=== PATIENT | male | born 1945 | race Caucasian/White ===

== ENCOUNTER 2017-09-26 19:18 | Inpatient (IN) | payer MEDICARE ==
[~2017-09-26] VITALS: Ht 188 cm; Wt 78.5 kg
--- NOTE | 2017-09-26 19:39 | PHYS DOC ---
Adult General Chief Complaint Chief Complaint: PSYCH EVALUATION HPI HPI 72-year-old male presents for behavioral health medical clearance. Patient was reported to be verbally and physically aggressive towards staff at the care facility where he resides. The patient has already been approved for admission to our behavioral [facility] unit. The patient does not have any new medical complaints. Review of Systems Review of Systems Constitutional: Denies fever or chills [] Eyes: Denies change in visual acuity, redness, or eye pain [] HENT: Denies nasal congestion or sore throat [] Respiratory: Denies cough or shortness of breath [] Cardiovascular: No additional information not addressed in HPI [] GI: Denies abdominal pain, nausea, vomiting, bloody stools or diarrhea [] : Denies dysuria or hematuria [] Musculoskeletal: Denies back pain or joint pain [] Integument: Denies rash or skin lesions [] Neurologic: Denies headache, focal weakness or sensory changes [] Endocrine: Denies polyuria or polydipsia [] All other systems were reviewed and found to be within normal limits, except as documented in this note. Physical Exam Physical Exam Constitutional: Well developed, well nourished, no acute distress, non-toxic appearance. [] HENT: Normocephalic, atraumatic, bilateral external ears normal, oropharynx moist, no oral exudates, nose normal. [] Eyes: PERRLA, EOMI, conjunctiva normal, no discharge. [] Neck: Normal range of motion, no tenderness, supple, no stridor. [] Cardiovascular:Heart rate regular rhythm, no murmur [] Lungs & Thorax: Bilateral breath sounds clear to auscultation [] Abdomen: Bowel sounds normal, soft, no tenderness, no masses, no pulsatile masses. [] Skin: Warm, dry, no erythema, no rash. [] Back: No tenderness, no CVA tenderness. [] Extremities: No tenderness, no cyanosis, no clubbing, ROM intact, no edema. [] Neurologic: Alert and oriented X 3, normal motor function, normal sensory function, no focal deficits noted. [] Psychologic: Affect normal, mood depressed. [] EKG EKG Sinus rhythm, rate 62, normal axis, no ST elevations or depressions.[] Radiology/Procedures Radiology/Procedures [] Course & Med Decision Making Course & Med Decision Making Pertinent Labs and Imaging studies reviewed. (See chart for details) The patient's labs are unremarkable. His urine is pending. His EKG is unremarkable. The patient is on Coumadin his INR is 5.2. This does not preclude admission to behavioral health, but with holding his Coumadin for the appropriate amount of time is necessary. We will make the behavioral health unit staff aware of this finding. The patient's urinalysis is negative for infection. He does have some red blood cells. He is medically stable for admission to the behavioral health unit with appropriate Coumadin management. [] Dragon Disclaimer Dragon Disclaimer This electronic medical record was generated, in whole or in part, using a voice recognition dictation system. CEM KAUFFMAN DO Sep 26, 2017 19:39
[2017-09-26 19:56] LABS: BASO % 1 % (0-3); EOS # 0.3 x10^3/uL (0.0-0.7); EOS % 5 % (0-3); HEMATOCRIT 41.7 % (39.0-53.0); HEMOGLOBIN 14.6 g/dL (13.0-17.5); LYMPH # 2.1 x10^3/uL (1.0-4.8); LYMPH % 28 % (24-48); MEAN CORPUSCULAR HEMOGLOBIN 34 pg (25-35); MEAN CORPUSCULAR HGB CONC 35 g/dL (31-37); MEAN CORPUSCULAR VOLUME 96 fL (79-100); MONO # 0.8 x10^3/uL (0.0-1.1); MONO % 10 % (0-9); NEUT # 4.2 x10^3uL (1.8-7.7); NEUT % 57 % (31-73); PLATELET COUNT 235 x10^3/uL (140-400); RED BLOOD COUNT 4.36 x10^6/uL (4.30-5.70); RED CELL DISTRIBUTION WIDTH 14.3 % (11.5-14.5); WHITE BLOOD COUNT 7.5 x10^3/uL (4.0-11.0)
[2017-09-26 20:07] LABS: ALBUMIN/GLOBULIN RATIO 0.8 (1.0-1.7); CALCIUM 8.9 mg/dL (8.5-10.1); CREATININE 0.6 mg/dL (0.7-1.3); GFR 132.8; POTASSIUM 3.8 mmol/L (3.5-5.1); TOTAL BILIRUBIN 0.4 mg/dL (0.2-1.0); TOTAL PROTEIN 6.7 g/dL (6.4-8.2)
--- NOTE | 2017-09-26 20:14 | EKG ---
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
[2017-09-26 21:15] LABS: BILIRUBIN,URINE NEG (NEG); CLARITY,URINE CLEAR; COLOR,URINE YELLOW; GLUCOSE,URINE NEG (NEG)
[2017-09-26 21:20] LABS: BACTERIA,URINE 0 /HPF (0-FEW); NITRITE,URINE NEG (NEG); SQUAMOUS EPITHELIAL CELL,UR FEW /LPF; UROBILINOGEN,URINE 1 mg/dL (0.2 mg/dL); WBC,URINE OCC /HPF (0-4)
[2017-09-26] MEDS ORDERED: VITA1TAB19 PO (21:24)
[2017-09-26] MEDS ORDERED: FINA5TAB4 PO (21:24)
[2017-09-26] MEDS ORDERED: OMEP20TA63 PO (21:24)
[2017-09-26] MEDS ORDERED: ZOLP10TA PO (21:24)
[2017-09-26] MEDS ORDERED: OMEG-33 PO (21:24)
[2017-09-26] MEDS ORDERED: ATOR20TA PO (21:24)
[2017-09-26] MEDS ORDERED: DULO30CA2 PO (21:24)
[2017-09-26] MEDS ORDERED: WARF2TAB PO (21:24)
[2017-09-26] MEDS ORDERED: GABA-586 PO (21:24)
[2017-09-26] MEDS ORDERED: GABA600T2 PO ×2 (21:24)
[2017-09-26] MEDS ORDERED: ALBU18HF IH (21:24)
[2017-09-26] MEDS ORDERED: ASCO100020 PO (21:24)
[2017-09-26] MEDS ORDERED: KETO15CR2 TP (21:24)
[2017-09-26] MEDS ORDERED: WARF1TAB74 PO (21:24)
[2017-09-26] MEDS ORDERED: LACT1CAP29 PO (21:24)
[2017-09-26] MEDS ORDERED: WARF-78 PO (21:24)
[2017-09-26] MEDS ORDERED: CHOL500016 PO (21:24)
[2017-09-26] MEDS ORDERED: FLUP1TAB PO (21:24)
[2017-09-26] MEDS ORDERED: MAGNESIUM HYDROXIDE 2,400 MG/30 ML ORAL.SUSP. PO PRN (22:30)
[2017-09-26] MEDS ORDERED: MAG HYDROX/AL HYDROX/SIMETH 30 ML ORAL.SUSP PO PRN (22:30)
[2017-09-26] MEDS ORDERED: FINASTERIDE 5 MG TABLET PO SCH (22:45)
[2017-09-26] MEDS ORDERED: ZOLPIDEM 5 MG TABLET. PO PRN (22:45)
[2017-09-26] MEDS: OMEGA-3 FATTY ACIDS/FISH OIL 1,000 MG CAPSULE. PO SCH (23:07)
[2017-09-26] MEDS: ATORVASTATIN CALCIUM 20 MG TABLET PO SCH (23:10)
[2017-09-26] MEDS: GABAPENTIN 300 MG CAPSULE. PO SCH (23:11)
[2017-09-26] MEDS: ZOLPIDEM 5 MG TABLET. PO SCH (23:11)
[2017-09-26 23:22] VITALS: BP 136/80
[2017-09-26] MEDS ORDERED: LOPERAMIDE 2 MG CAPSULE PO PRN (23:30)
[2017-09-27 05:44] VITALS: BP 113/64
[2017-09-27] MEDS ORDERED: KETOCONAZOLE 2% TOPICAL CREAM 30GM TUBE. TP PRN (08:45)
[2017-09-27] MEDS ORDERED: ALBUTEROL SULFATE 8GM INHALER. IH PRN (08:45)
[2017-09-27] MEDS: LACTOBACILLUS RHAMNOSUS GG 1 CAPSULE. PO SCH ×3 (09:00→21:02)
[2017-09-27] MEDS: VITAMIN B COMPLEX CAPSULE. PO SCH ×3 (09:00→17:01)
[2017-09-27] MEDS: OMEGA-3 FATTY ACIDS/FISH OIL 1,000 MG CAPSULE. PO SCH ×5 (09:00→21:11)
[2017-09-27] MEDS: ASCORBIC ACID 500 MG TABLET PO SCH ×3 (09:00→17:02)
[2017-09-27] MEDS ORDERED: ALBUTEROL SULFATE 2.5 MG/3 ML NEBU. NEB PRN (09:15)
--- NOTE | 2017-09-27 09:17 | PDOC2 ---
CONSULT Date of Admission DATE: 09/26/17 Reason for Consult: Medical management Referring Physician: Dr Hollis Source: Caregiver, Chart review, Patient Problem List Problems Medical Problems: (1) Manic depressive disorder Status: Acute History of Present Illness Patient is a 72-year-old male brought to the ED from [facility] for medical clearance at admission to the [facility] health unit for impulse control and major depressive disorder. Records indicate that the patient was being aggressive with the staff, refusing medications, and exhibiting symptoms consistent with worsening depression. They relate that the patient is demanding impatient and manipulative and he's been admitted for medication titration and psychiatric evaluation. When I spoke to the patient he was sitting in a wheelchair being wheeled from breakfast. He complained that the urinal was not brought to him quickly enough when he needed to go to the bathroom otherwise denied any problems or complaints. In the emergency department his INR was found to be elevated at 5.2 otherwise available labs unremarkable. EKG was normal sinus rhythm at [address]-T changes Past medical history: Fall risk, dysarthria, Tourette's, insomnia, sleep apnea, hypertension, venous stasis ulcer of the left lower extremity, incontinence, hyperlipidemia, osteoporosis, major depressive disorder, DVT, chronic anticoagulation therapy, prostate cancer, spasticity, myelopathy, neuropathy, urinary incontinence, debility. Primarily uses a wheelchair Past surgical history: Unavailable Social history: Lives in a care home denies alcohol tobacco or illicit substances Current Medications Current Medications Acetaminophen (Tylenol) 650 mg PRN Q6HRS PRN PO PAIN / TEMP; Start 09/26/17 at 22:30 Al Hydroxide/Mg Hydroxide (Mylanta Plus Xs) 15 ml PRN AFTMEALHC PRN PO DYSPEPSIA; Start 09/26/17 at 22:30 Magnesium Hydroxide (Milk Of Magnesia) 2,400 mg PRN QHS PRN PO CONSTIPATION; Start 09/26/17 at 22:30 Fluphenazine HCl (Prolixin) 1 mg TID PO Last administered on 09/26/17at 23:11; Start 09/26/17 at 23:00; Stop 09/27/17 at 07:28; Status DC Zolpidem Tartrate (Ambien) 5 mg HS PO Last administered on 09/26/17at 23:11; Start 09/26/17 at 23:00 Duloxetine HCl (Cymbalta) 90 mg DAILY PO ; Start 09/27/17 at 09:00 Atorvastatin Calcium (Lipitor) 20 mg QHS PO Last administered on 09/26/17at 23: 10; Start 09/26/17 at 22:45 Finasteride (Proscar) 5 mg BID PO Last administered on 09/26/17at 23:10; Start 09/26/17 at 22:45; Stop 09/27/17 at 08:53; Status DC Gabapentin (Neurontin) 600 mg HS PO Last administered on 09/26/17at 23:11; Start 09/26/17 at 22:45 Fish Oil (Fish Oil) 1,000 mg BID PO Last administered on 09/26/17at 23:07; Start 09/26/17 at 22:45 Zolpidem Tartrate (Ambien) 5 mg PRN QHS PRN PO INSOMNIA IF REPEAT NEEDED; Start 09/26/17 at 22:45 Loperamide HCl (Imodium) 2 mg PRN Q15MIN PRN PO DIARRHEA; Start 09/26/17 at 23: 30 Fluphenazine HCl (Prolixin Oral Conc) 1 mg TID PO ; Start 09/27/17 at 09:00 Albuterol Sulfate (Ventolin Hfa Inhaler) 2 puff PRN Q4HRS PRN IH FOR ASTHMA; Start 09/27/17 at 08:45; Status UNV Gabapentin (Neurontin) 300 mg DAILY PO ; Start 09/27/17 at 09:00 Ketoconazole (Nizoral 2% Topical) 1 isela DAILY PRN TP RASH; Start 09/27/17 at 08 :45 Ascorbic Acid (Vitamin C) 1,000 mg DAILY PO ; Start 09/27/17 at 09:00 Vitamin D (Vitamin D3) 5,000 unit DAILY PO ; Start 09/27/17 at 09:00 Gabapentin (Neurontin) 600 mg AFTRNOON PO ; Start 09/27/17 at 13:00 Lactobacillus Rhamnosus (Culturelle) 1 cap DAILY PO ; Start 09/27/17 at 09:00 Pantoprazole Sodium (Protonix) 40 mg DAILYAC PO ; Start 09/27/17 at 09:00 Vitamin B Complex 1 cap DAILY PO ; Start 09/27/17 at 09:00 Finasteride (Proscar) 5 mg DAILY PO ; Start 09/27/17 at 09:00 Albuterol Sulfate (Ventolin) 2.5 mg PRN Q4HRS PRN NEB SHORTNESS OF BREATH; Start 09/27/17 at 09:15 Active Scripts Active Reported Vitamin D3 (Cholecalciferol (Vitamin D3)) 5,000 Unit Tablet 5,000 Unit PO DAILY Vitamin C (Ascorbic Acid) 1,000 Mg Tablet.er 1,000 Mg PO DAILY Ventolin Hfa Inhaler (Albuterol Sulfate) 18 Gm Hfa.aer.ad 2 Puff IH PRN Q4HRS PRN Probiotic (Lactobacillus Combo No.10) 1 Each Capsule 1 Cap PO DAILY Prilosec Otc (Omeprazole Magnesium) 20 Mg Tablet.dr 20 Mg PO DAILY [place] 3 1,000 Mg Softgel ([place]-3 Fatty Acids/Fish Oil) 1 Each Capsule 1 Cap PO BID Lipitor (Atorvastatin Calcium) 20 Mg Tablet 20 Mg PO QHS Ketoconazole 15 Gm Cream..g. 13 Isela TP PRN PRN Gabapentin 600 Mg Tablet 600 Mg PO AFTRNOON Gabapentin 600 Mg Tablet 600 Mg PO HS Gabapentin 300 Mg Capsule 300 Mg PO DAILY Fluphenazine Hcl 1 Mg Tablet 1 Mg PO TID Finasteride 5 Mg Tablet 5 Mg PO BID Cymbalta (Duloxetine Hcl) 30 Mg Capsule.dr 90 Mg PO DAILY Coumadin (Warfarin Sodium) 5 Mg Tablet 5 Mg PO QPM Coumadin (Warfarin Sodium) 2 Mg Tablet 2 Mg PO QPM Coumadin (Warfarin Sodium) 1 Mg Tablet 0.5 Mg PO QPM B Complex (Vitamin B Complex) 1 Each Tablet 1 Tab PO DAILY Ambien (Zolpidem Tartrate) 10 Mg Tablet 10 Mg PO HS Allergies: Coded Allergies: No Known Drug Allergies (Unverified , 09/26/17) Review of System The patient has a flat affect and of few words, he denies any complaints aside from history of present illness General: Alert, Oriented X3, No acute distress (in wheelchair) HEENT: Atraumatic, EOMI, Mucous membr. moist/pink Lungs: Clear to auscultation, Normal air movement Heart: Normal S1, Normal S2, No murmurs Abdomen: Normal bowel sounds, Soft, No tenderness Extremities: No clubbing, No cyanosis (sterile dressing at the left lower leg, 1+ pitting lower extremity edema bilaterally) Neuro: Other (generalized weakness, cranial nerves normal as tested, alert and oriented 3) Psych/Mental Status: Other (very flat affect, appears depressed) VITALS Vital Signs Date Time Temp Pulse Resp B/P (MAP) Pulse Ox O2 Delivery O2 Flow Rate FiO2 09/27/17 05:44 97.8 68 16 113/64 (80) 93 09/26/17 19:24 Room Air Labs Laboratory Tests Test 09/26/17 19:40 09/26/17 20:25 White Blood Count 7.5 x10^3/uL (4.0-11.0) Red Blood Count 4.36 x10^6/uL (4.30-5.70) Hemoglobin 14.6 g/dL (13.0-17.5) Hematocrit 41.7 % (39.0-53.0) Mean Corpuscular Volume 96 fL (79-100) Mean Corpuscular Hemoglobin 34 pg (25-35) Mean Corpuscular Hemoglobin Concent 35 g/dL (31-37) Red Cell Distribution Width 14.3 % (11.5-14.5) Platelet Count 235 x10^3/uL (140-400) Neutrophils (%) (Auto) 57 % (31-73) Lymphocytes (%) (Auto) 28 % (24-48) Monocytes (%) (Auto) 10 % (0-9) Eosinophils (%) (Auto) 5 % (0-3) Basophils (%) (Auto) 1 % (0-3) Neutrophils # (Auto) 4.2 x10^3uL (1.8-7.7) Lymphocytes # (Auto) 2.1 x10^3/uL (1.0-4.8) Monocytes # (Auto) 0.8 x10^3/uL (0.0-1.1) Eosinophils # (Auto) 0.3 x10^3/uL (0.0-0.7) Basophils # (Auto) 0.0 x10^3/uL (0.0-0.2) Prothrombin Time 52.0 SEC (9.4-11.4) Prothromb Time International Ratio 5.2 (0.9-1.1) Sodium Level 143 mmol/L (136-145) Potassium Level 3.8 mmol/L (3.5-5.1) Chloride Level 106 mmol/L (98-107) Carbon Dioxide Level 31 mmol/L (21-32) Anion Gap 6 (6-14) Blood Urea Nitrogen 10 mg/dL (8-26) Creatinine 0.6 mg/dL (0.7-1.3) Estimated GFR (Cockcroft-Gault) 132.8 BUN/Creatinine Ratio 17 (6-20) Glucose Level 115 mg/dL (70-99) Calcium Level 8.9 mg/dL (8.5-10.1) Magnesium Level 2.0 mg/dL (1.8-2.4) Total Bilirubin 0.4 mg/dL (0.2-1.0) Aspartate Amino Transf (AST/SGOT) 12 U/L (15-37) Alanine Aminotransferase (ALT/SGPT) 22 U/L (16-63) Alkaline Phosphatase 102 U/L (46-116) Total Protein 6.7 g/dL (6.4-8.2) Albumin 3.0 g/dL (3.4-5.0) Albumin/Globulin Ratio 0.8 (1.0-1.7) Urine Collection Type Unknown Urine Color Yellow Urine Clarity Clear Urine pH 5.5 Urine Specific Pitcher <=1.005 Urine Protein Neg (NEG-TRACE) Urine Glucose (UA) Neg mg/dL (NEG) Urine Ketones (Stick) Neg mg/dL (NEG) Urine Blood Large (NEG) Urine Nitrite Neg (NEG) Urine Bilirubin Neg (NEG) Urine Urobilinogen Dipstick 1 mg/dL (0.2 mg/dL) Urine Leukocyte Esterase Neg (NEG) Urine RBC 11-20 /HPF (0-2) Urine WBC Occ /HPF (0-4) Urine Squamous Epithelial Cells Few /LPF Urine Bacteria 0 /HPF (0-FEW) Assessment/Plan 72-year-old male who appears very depressed with multiple medical problems that appear to be controlled with current medications. He has Coumadin coagulopathy with INR 5.2 and dosage will be held for 2 days and INR will be rechecked on September 29. We'll continue to follow and offer treatments as indicated. Thank you Dr. Hollis for allowing me to participate in the care of your patient. CAROLINA MEMBRENO DO Sep 27, 2017 09:17
[2017-09-27] MEDS: CHOLECALCIFEROL (VITAMIN D3) 1,000 UNIT TABLET PO SCH (09:24)
[2017-09-27] MEDS: FINASTERIDE 5 MG TABLET PO SCH (09:24)
[2017-09-27] MEDS: GABAPENTIN 300 MG CAPSULE. PO SCH ×3 (09:24→21:01)
[2017-09-27] MEDS: DULoxetine HCL 30 MG CAPSULE.DR PO SCH (09:25)
[2017-09-27] MEDS: PANTOPRAZOLE 40 MG TABLET. PO SCH (09:25)
[2017-09-27] MEDS: fluPHENAZine 5 MG/ML ORAL.CONC SOLUTION. PO SCH ×3 (09:27→21:00)
[2017-09-27 10:45] LABS: THYROID STIM HORMONE (TSH) 2.333 uIU/mL (0.358-3.740)
[2017-09-27 16:16] VITALS: BP 120/82
[2017-09-27 19:12] LABS: THYROXINE 6.2 ug/dL (4.5-12.0)
[2017-09-27] MEDS: ZOLPIDEM 5 MG TABLET. PO SCH (21:01)
[2017-09-27] MEDS: ATORVASTATIN CALCIUM 20 MG TABLET PO SCH (21:01)
--- NOTE | 2017-09-27 22:06 | PDOC ---
Exam Note: Sridhar Note: Please also refer to the separate dictated note~for this date of service dictated separately.~Patient seen individually. Discussed the patient with Nursing staff reviewed the chart.~Reviewed interim history and current functioning. Reviewed vital signs,~Labs/ Radiology~and current medications noted below. Continue current treatment with the changes noted in the dictated addendum note Assessment: Vital Signs: Vital Signs Date Time Temp Pulse Resp B/P (MAP) Pulse Ox O2 Delivery O2 Flow Rate FiO2 09/27/17 16:16 98.8 74 18 120/82 (95) 93 09/26/17 19:24 Room Air I&O Intake and Output 09/27/17 07:00 Intake Total 0 ml Balance 0 ml Intake Oral 0 ml Current Medications: Meds: Current Medications Acetaminophen (Tylenol) 650 mg PRN Q6HRS PRN PO PAIN / TEMP; Start 09/26/17 at 22:30 Al Hydroxide/Mg Hydroxide (Mylanta Plus Xs) 15 ml PRN AFTMEALHC PRN PO DYSPEPSIA; Start 09/26/17 at 22:30 Magnesium Hydroxide (Milk Of Magnesia) 2,400 mg PRN QHS PRN PO CONSTIPATION; Start 09/26/17 at 22:30 Fluphenazine HCl (Prolixin) 1 mg TID PO Last administered on 09/26/17at 23:11; Start 09/26/17 at 23:00; Stop 09/27/17 at 07:28; Status DC Zolpidem Tartrate (Ambien) 5 mg HS PO Last administered on 09/27/17at 21:01; Start 09/26/17 at 23:00 Duloxetine HCl (Cymbalta) 90 mg DAILY PO Last administered on 09/27/17at 09:25; Start 09/27/17 at 09:00 Atorvastatin Calcium (Lipitor) 20 mg QHS PO Last administered on 09/27/17at 21: 01; Start 09/26/17 at 22:45 Finasteride (Proscar) 5 mg BID PO Last administered on 09/26/17at 23:10; Start 09/26/17 at 22:45; Stop 09/27/17 at 08:53; Status DC Gabapentin (Neurontin) 600 mg HS PO Last administered on 09/27/17at 21:01; Start 09/26/17 at 22:45 Fish Oil (Fish Oil) 1,000 mg BID PO Last administered on 09/26/17at 23:07; Start 09/26/17 at 22:45; Stop 09/27/17 at 10:30; Status DC Zolpidem Tartrate (Ambien) 5 mg PRN QHS PRN PO INSOMNIA IF REPEAT NEEDED; Start 09/26/17 at 22:45 Loperamide HCl (Imodium) 2 mg PRN Q15MIN PRN PO DIARRHEA; Start 09/26/17 at 23: 30 Fluphenazine HCl (Prolixin Oral Conc) 1 mg TID PO Last administered on at 21:00; Start 09/27/17 at 09:00 Albuterol Sulfate (Ventolin Hfa Inhaler) 2 puff PRN Q4HRS PRN IH FOR ASTHMA; Start 09/27/17 at 08:45; Status UNV Gabapentin (Neurontin) 300 mg DAILY PO Last administered on 09/27/17at 09:24; Start 09/27/17 at 09:00 Ketoconazole (Nizoral 2% Topical) 1 isela DAILY PRN TP RASH; Start 09/27/17 at 08 :45 Ascorbic Acid (Vitamin C) 1,000 mg DAILY PO ; Start 09/27/17 at 09:00; Stop at 10:30; Status DC Vitamin D (Vitamin D3) 5,000 unit DAILY PO Last administered on 09/27/17at 09:24 ; Start 09/27/17 at 09:00 Gabapentin (Neurontin) 600 mg AFTRNOON PO Last administered on 09/27/17at 12:16 ; Start 09/27/17 at 13:00 Lactobacillus Rhamnosus (Culturelle) 1 cap DAILY PO ; Start 09/27/17 at 09:00; Stop 09/27/17 at 10:30; Status DC Pantoprazole Sodium (Protonix) 40 mg DAILYAC PO Last administered on 09/27/17at 09:25; Start 09/27/17 at 09:00 Vitamin B Complex 1 cap DAILY PO ; Start 09/27/17 at 09:00; Stop 09/27/17 at 10: 30; Status DC Finasteride (Proscar) 5 mg DAILY PO Last administered on 09/27/17at 09:24; Start 09/27/17 at 09:00 Albuterol Sulfate (Ventolin) 2.5 mg PRN Q4HRS PRN NEB SHORTNESS OF BREATH; Start 09/27/17 at 09:15 Ascorbic Acid (Vitamin C) 1,000 mg DAILYWSUP PO Last administered on 09/27/17at 17:02; Start 09/27/17 at 17:00 Lactobacillus Rhamnosus (Culturelle) 1 cap QHS PO Last administered on at 21:02; Start 09/27/17 at 21:00 Fish Oil (Fish Oil) 1,000 mg BID@1200,2100 PO Last administered on 09/27/17at 12 :17; Start 09/27/17 at 12:00; Stop 09/27/17 at 21:13; Status DC Vitamin B Complex 1 cap DAILYWSUP PO Last administered on 09/27/17at 17:01; Start 09/27/17 at 17:00 Fish Oil (Fish Oil) 1,000 mg BID@1200,1600 PO ; Start 09/28/17 at 12:00 Active Scripts Active Reported Vitamin D3 (Cholecalciferol (Vitamin D3)) 5,000 Unit Tablet 5,000 Unit PO DAILY Vitamin C (Ascorbic Acid) 1,000 Mg Tablet.er 1,000 Mg PO DAILY Ventolin Hfa Inhaler (Albuterol Sulfate) 18 Gm Hfa.aer.ad 2 Puff IH PRN Q4HRS PRN Probiotic (Lactobacillus Combo No.10) 1 Each Capsule 1 Cap PO DAILY Prilosec Otc (Omeprazole Magnesium) 20 Mg Tablet.dr 20 Mg PO DAILY [place] 3 1,000 Mg Softgel ([place]-3 Fatty Acids/Fish Oil) 1 Each Capsule 1 Cap PO BID Lipitor (Atorvastatin Calcium) 20 Mg Tablet 20 Mg PO QHS Ketoconazole 15 Gm Cream..g. 13 Isela TP PRN PRN Gabapentin 600 Mg Tablet 600 Mg PO AFTRNOON Gabapentin 600 Mg Tablet 600 Mg PO HS Gabapentin 300 Mg Capsule 300 Mg PO DAILY Fluphenazine Hcl 1 Mg Tablet 1 Mg PO TID Finasteride 5 Mg Tablet 5 Mg PO BID Cymbalta (Duloxetine Hcl) 30 Mg Capsule.dr 90 Mg PO DAILY Coumadin (Warfarin Sodium) 5 Mg Tablet 5 Mg PO QPM Coumadin (Warfarin Sodium) 2 Mg Tablet 2 Mg PO QPM Coumadin (Warfarin Sodium) 1 Mg Tablet 0.5 Mg PO QPM B Complex (Vitamin B Complex) 1 Each Tablet 1 Tab PO DAILY Ambien (Zolpidem Tartrate) 10 Mg Tablet 10 Mg PO HS I have reviewed the current psychotropics carefully including drug interactions. Risk benefit ratio favors no change other than as noted in my dictated progress note. Diagnosis: Problems: (1) Anxiety disorder (2) Impulse control disorder (3) Major depressive disorder, recurrent episode LIGIA PEREZ MD Sep 27, 2017 22:06
[2017-09-27 23:10] LABS: HEMOGLOBIN A1C 5.4 % (4.8-5.6)
[2017-09-28 05:44] VITALS: BP 120/74
[2017-09-28] MEDS: PANTOPRAZOLE 40 MG TABLET. PO SCH (08:08)
[2017-09-28] MEDS: CHOLECALCIFEROL (VITAMIN D3) 1,000 UNIT TABLET PO SCH (08:08)
[2017-09-28] MEDS: GABAPENTIN 300 MG CAPSULE. PO SCH ×3 (08:08→20:02)
[2017-09-28] MEDS: DULoxetine HCL 30 MG CAPSULE.DR PO SCH (08:08)
[2017-09-28] MEDS: fluPHENAZine 5 MG/ML ORAL.CONC SOLUTION. PO SCH ×3 (08:09→20:04)
[2017-09-28] MEDS: FINASTERIDE 5 MG TABLET PO SCH (08:09)
[2017-09-28] MEDS: OMEGA-3 FATTY ACIDS/FISH OIL 1,000 MG CAPSULE. PO SCH ×2 (12:11→16:28)
[2017-09-28 16:10] VITALS: BP 121/68
[2017-09-28] MEDS: ASCORBIC ACID 500 MG TABLET PO SCH (16:28)
[2017-09-28] MEDS: VITAMIN B COMPLEX CAPSULE. PO SCH (16:28)
[2017-09-28] MEDS: ZOLPIDEM 5 MG TABLET. PO SCH (20:02)
[2017-09-28] MEDS: ATORVASTATIN CALCIUM 20 MG TABLET PO SCH (20:02)
[2017-09-28] MEDS: LACTOBACILLUS RHAMNOSUS GG 1 CAPSULE. PO SCH (20:02)
--- NOTE | 2017-09-28 20:45 | PDOC ---
Exam Note: Sridhar Note: Please also refer to the separate dictated note~for this date of service dictated separately.~Patient seen individually. Discussed the patient with Nursing staff reviewed the chart.~Reviewed interim history and current functioning. Reviewed vital signs,~Labs/ Radiology~and current medications noted below. Continue current treatment with the changes noted in the dictated addendum note Assessment: Vital Signs: Vital Signs Date Time Temp Pulse Resp B/P (MAP) Pulse Ox O2 Delivery O2 Flow Rate FiO2 09/28/17 16:10 97.6 77 18 121/68 (85) 95 Room Air I&O Intake and Output 09/28/17 07:01 Intake Total 1080 ml Output Total 200 ml Balance 880 ml Intake Oral 1080 ml Output Urine Total 200 ml # Bowel Movements 1 Current Medications: Meds: Current Medications Acetaminophen (Tylenol) 650 mg PRN Q6HRS PRN PO PAIN / TEMP; Start 09/26/17 at 22:30 Al Hydroxide/Mg Hydroxide (Mylanta Plus Xs) 15 ml PRN AFTMEALHC PRN PO DYSPEPSIA; Start 09/26/17 at 22:30 Magnesium Hydroxide (Milk Of Magnesia) 2,400 mg PRN QHS PRN PO CONSTIPATION; Start 09/26/17 at 22:30 Fluphenazine HCl (Prolixin) 1 mg TID PO Last administered on 09/26/17at 23:11; Start 09/26/17 at 23:00; Stop 09/27/17 at 07:28; Status DC Zolpidem Tartrate (Ambien) 5 mg HS PO Last administered on 09/28/17at 20:02; Start 09/26/17 at 23:00 Duloxetine HCl (Cymbalta) 90 mg DAILY PO Last administered on 09/28/17at 08:08; Start 09/27/17 at 09:00 Atorvastatin Calcium (Lipitor) 20 mg QHS PO Last administered on 09/28/17at 20: 02; Start 09/26/17 at 22:45 Finasteride (Proscar) 5 mg BID PO Last administered on 09/26/17at 23:10; Start 09/26/17 at 22:45; Stop 09/27/17 at 08:53; Status DC Gabapentin (Neurontin) 600 mg HS PO Last administered on 09/28/17at 20:02; Start 09/26/17 at 22:45 Fish Oil (Fish Oil) 1,000 mg BID PO Last administered on 09/26/17at 23:07; Start 09/26/17 at 22:45; Stop 09/27/17 at 10:30; Status DC Zolpidem Tartrate (Ambien) 5 mg PRN QHS PRN PO INSOMNIA IF REPEAT NEEDED; Start 09/26/17 at 22:45 Loperamide HCl (Imodium) 2 mg PRN Q15MIN PRN PO DIARRHEA; Start 09/26/17 at 23: 30 Fluphenazine HCl (Prolixin Oral Conc) 1 mg TID PO Last administered on at 20:04; Start 09/27/17 at 09:00 Albuterol Sulfate (Ventolin Hfa Inhaler) 2 puff PRN Q4HRS PRN IH FOR ASTHMA; Start 09/27/17 at 08:45; Status UNV Gabapentin (Neurontin) 300 mg DAILY PO Last administered on 09/28/17at 08:08; Start 09/27/17 at 09:00 Ketoconazole (Nizoral 2% Topical) 1 isela DAILY PRN TP RASH; Start 09/27/17 at 08 :45 Ascorbic Acid (Vitamin C) 1,000 mg DAILY PO ; Start 09/27/17 at 09:00; Stop at 10:30; Status DC Vitamin D (Vitamin D3) 5,000 unit DAILY PO Last administered on 09/28/17at 08:08 ; Start 09/27/17 at 09:00 Gabapentin (Neurontin) 600 mg AFTRNOON PO Last administered on 09/28/17at 12:12 ; Start 09/27/17 at 13:00 Lactobacillus Rhamnosus (Culturelle) 1 cap DAILY PO ; Start 09/27/17 at 09:00; Stop 09/27/17 at 10:30; Status DC Pantoprazole Sodium (Protonix) 40 mg DAILYAC PO Last administered on 09/28/17at 08:08; Start 09/27/17 at 09:00 Vitamin B Complex 1 cap DAILY PO ; Start 09/27/17 at 09:00; Stop 09/27/17 at 10: 30; Status DC Finasteride (Proscar) 5 mg DAILY PO Last administered on 09/28/17at 08:09; Start 09/27/17 at 09:00 Albuterol Sulfate (Ventolin) 2.5 mg PRN Q4HRS PRN NEB SHORTNESS OF BREATH; Start 09/27/17 at 09:15 Ascorbic Acid (Vitamin C) 1,000 mg DAILYWSUP PO Last administered on 09/28/17at 16:28; Start 09/27/17 at 17:00 Lactobacillus Rhamnosus (Culturelle) 1 cap QHS PO Last administered on at 20:02; Start 09/27/17 at 21:00 Fish Oil (Fish Oil) 1,000 mg BID@1200,2100 PO Last administered on 09/27/17at 12 :17; Start 09/27/17 at 12:00; Stop 09/27/17 at 21:13; Status DC Vitamin B Complex 1 cap DAILYWSUP PO Last administered on 09/28/17at 16:28; Start 09/27/17 at 17:00 Fish Oil (Fish Oil) 1,000 mg BID@1200,1600 PO Last administered on 09/28/17at 16 :28; Start 09/28/17 at 12:00 Active Scripts Active Reported Vitamin D3 (Cholecalciferol (Vitamin D3)) 5,000 Unit Tablet 5,000 Unit PO DAILY Vitamin C (Ascorbic Acid) 1,000 Mg Tablet.er 1,000 Mg PO DAILY Ventolin Hfa Inhaler (Albuterol Sulfate) 18 Gm Hfa.aer.ad 2 Puff IH PRN Q4HRS PRN Probiotic (Lactobacillus Combo No.10) 1 Each Capsule 1 Cap PO DAILY Prilosec Otc (Omeprazole Magnesium) 20 Mg Tablet.dr 20 Mg PO DAILY [place] 3 1,000 Mg Softgel ([place]-3 Fatty Acids/Fish Oil) 1 Each Capsule 1 Cap PO BID Lipitor (Atorvastatin Calcium) 20 Mg Tablet 20 Mg PO QHS Ketoconazole 15 Gm Cream..g. 13 Isela TP PRN PRN Gabapentin 600 Mg Tablet 600 Mg PO AFTRNOON Gabapentin 600 Mg Tablet 600 Mg PO HS Gabapentin 300 Mg Capsule 300 Mg PO DAILY Fluphenazine Hcl 1 Mg Tablet 1 Mg PO TID Finasteride 5 Mg Tablet 5 Mg PO BID Cymbalta (Duloxetine Hcl) 30 Mg Capsule.dr 90 Mg PO DAILY Coumadin (Warfarin Sodium) 5 Mg Tablet 5 Mg PO QPM Coumadin (Warfarin Sodium) 2 Mg Tablet 2 Mg PO QPM Coumadin (Warfarin Sodium) 1 Mg Tablet 0.5 Mg PO QPM B Complex (Vitamin B Complex) 1 Each Tablet 1 Tab PO DAILY Ambien (Zolpidem Tartrate) 10 Mg Tablet 10 Mg PO HS I have reviewed the current psychotropics carefully including drug interactions. Risk benefit ratio favors no change other than as noted in my dictated progress note. Diagnosis: Problems: (1) Anxiety disorder (2) Impulse control disorder (3) Major depressive disorder, recurrent episode LIGIA PEREZ MD Sep 28, 2017 20:45
--- NOTE | 2017-09-28 22:06 | HP ---
ADMIT DATE: PSYCHIATRIC ADMISSION HISTORY/EVALUATION This is a late entry, 08/27/2017, covers elements not covered in my initial note 08/27/2017. I met with the patient the evening 08/27/2017, discussed with nursing staff, reviewed the chart. Previously discussed with nursing staff on 3 or 4 occasions including prior to the patient's admission to gather information from [facility] where the patient resides and referred to us by ____, his primary care physician on account of worsening symptoms of depression, being verbally and physically aggressive towards staff. Staff wondered whether he was not taking his medications as prescribed. He was yelling out, agitated, depressed. Did attempt at various interventions to modulate his behaviors including interventions by the family and oversight of his medications, family conversations, therapy. He had failed all of this resulting in this referral. CHIEF COMPLAINT: "Yes, I have been depressed. 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 No, I never had any alcohol problems." HISTORY OF PRESENT ILLNESS: The patient has a history of worsening symptoms of depression, sleep and appetite changes, anger, irritability, mood lability and the aggression has been to a point where he is unmanageable at the facility. Cognitively, he has been reasonably intact. No clear symptoms of bipolar disorder, suicidal or homicidal ideation. PAST PSYCHIATRIC HISTORY: As above. MEDICAL HISTORY: Positive for history of falls, dysarthria, history of Tourette's disorder, edema, sleep apnea on CPAP, chronic venous insufficiency with ulcer of left lower extremity, fecal incontinence, hyperlipidemia, osteoporosis, DVT, spasticity, myelopathy, cervical spine problems, neuropathy, urinary incontinence, debility. DRUG ALLERGIES: Negative. CODE STATUS: Full code. DIET: Regular. ACCU-CHEKS: None. MEDICATIONS: Takes them whole when he does, has eccentric dosing schedule, otherwise refuses. AMBULATES: Wheelchair, sit to stand. LABORATORY DATA: UA negative. CURRENT PSYCHOTROPICS: On 09/26/2017, current psychotropics are Ambien 10 mg at bedtime, Cymbalta 90 mg a day, Neurontin 300 mg a.m. and 600 at 1400 and at bedtime, Prolixin 1 mg 3 times a day. FAMILY HISTORY: Noncontributory. SOCIAL HISTORY: No history of alcohol, drug abuse, physical, sexual or elder abuse. He is not known to be a perpetrator. REACTION TO HOSPITALIZATION: The patient accepting of it. ASSETS: Supportive family, cognitively intact. MENTAL STATUS EXAM: The patient was seen individually evening of 09/27/2017. He is lying in bed, not very verbal, unable to ambulate on his own. Speech otherwise coherent. Abstraction fair, computation impaired, language function intact, attention span short. Mood and affect depressed, withdrawn. No active suicidal or homicidal ideation. Language function intact. IMPRESSION: Major depressive disorder, recurrent; anxiety disorder, unspecified; impulse control disorder, unspecified. Rest as above. PLAN: Admit to Ger[facility]ychiatry Unit at [facility]. I will see the patient daily individually from a psychiatric standpoint, medical followup with Dr. Fuentes/Dr. Bowden. Continue the patient on his current psychotropics, get past history regarding the reason for the Prolixin and some confirmation that in fact he does have a diagnosis of Tourette's disorder. He remains on a baclofen pump for his pain and spasticity. We will observe the patient's baseline, possibly augment with Abilify, Wellbutrin. Estimated length of stay 10-12 days. DISPOSITION: Plans would be back to [facility]. LIGIA PEREZ MD DR: AIDAN/riccardo JOB#: [id number] / [id number]
[2017-09-29 05:49] VITALS: BP 122/83
[2017-09-29] MEDS: PANTOPRAZOLE 40 MG TABLET. PO SCH (07:35)
[2017-09-29] MEDS: DULoxetine HCL 30 MG CAPSULE.DR PO SCH (08:45)
[2017-09-29] MEDS: GABAPENTIN 300 MG CAPSULE. PO SCH ×3 (08:45→20:11)
[2017-09-29] MEDS: FINASTERIDE 5 MG TABLET PO SCH (08:45)
[2017-09-29] MEDS: CHOLECALCIFEROL (VITAMIN D3) 1,000 UNIT TABLET PO SCH (08:45)
[2017-09-29] MEDS: fluPHENAZine 5 MG/ML ORAL.CONC SOLUTION. PO SCH ×3 (08:47→20:16)
[2017-09-29] MEDS: OMEGA-3 FATTY ACIDS/FISH OIL 1,000 MG CAPSULE. PO SCH ×2 (12:01→16:49)
--- NOTE | 2017-09-29 14:05 | PN ---
DATE: 09/28/2017 PSYCHIATRIC PROGRESS NOTE This is a late entry, 09/28, covers elements not covered in my initial note. SUBJECTIVE: I met with the patient in the evening. The patient slept 7-1/4 hours previous night. He has been quite demanding, irritable previous night, calling certain nursing staff lazy from not responding quick enough to him. Family have confirmed his diagnosis of Tourette's and treatment on Prolixin for this, but we will request past medical records for confirmation. REVIEW OF SYSTEMS: Ambulation impaired. No CV, , pulmonary, eye, ENT system symptoms on review. MENTAL STATUS EXAM: Reasonably oriented. Speech is coherent, has some latency at low in rate and rhythm, low in volume. Abstraction fair, computation impaired, language function intact, attention span short. Mood and affect still depressed, anxious, labile at times. LABORATORY DATA: Reviewed. IMPRESSION: Major depressive disorder, recurrent; impulse control disorder; anxiety disorder, unspecified. Rest unchanged. PLAN: Continue psychotropics from initial note, Cymbalta, Neurontin, Ambien, Prolixin. If Tourette's disorder diagnosis is confirmed, may add clonidine or Guanfacine for impulse control problems. MAN Rochelle PEREZ MD DR: AIDAN/riccardo JOB#: [id number] / [id number]
[2017-09-29 15:41] VITALS: BP 125/79
[2017-09-29] MEDS: WARFARIN 5 MG TABLET. PO SCH (16:49)
[2017-09-29] MEDS: VITAMIN B COMPLEX CAPSULE. PO SCH (17:01)
[2017-09-29] MEDS: ASCORBIC ACID 500 MG TABLET PO SCH (17:02)
[2017-09-29] MEDS: ATORVASTATIN CALCIUM 20 MG TABLET PO SCH (20:11)
[2017-09-29] MEDS: LACTOBACILLUS RHAMNOSUS GG 1 CAPSULE. PO SCH (20:11)
[2017-09-29] MEDS: ZOLPIDEM 5 MG TABLET. PO SCH (20:13)
--- NOTE | 2017-09-29 20:48 | PDOC ---
Exam Note: Sridhar Note: Please also refer to the separate dictated note~for this date of service dictated separately.~Patient seen individually. Discussed the patient with Nursing staff reviewed the chart.~Reviewed interim history and current functioning. Reviewed vital signs,~Labs/ Radiology~and current medications noted below. Continue current treatment with the changes noted in the dictated addendum note Assessment: Vital Signs: Vital Signs Date Time Temp Pulse Resp B/P (MAP) Pulse Ox O2 Delivery O2 Flow Rate FiO2 09/29/17 15:41 97.9 64 19 125/79 (94) 95 09/28/17 16:10 Room Air I&O Intake and Output 09/29/17 07:01 Intake Total 900 ml Balance 900 ml Intake Oral 900 ml # Voids 1 Labs: Laboratory Tests Test 09/29/17 06:28 Prothrombin Time 16.7 SEC (9.4-11.4) H Prothrombin Time INR 1.6 (0.9-1.1) H Current Medications: Meds: Current Medications Acetaminophen (Tylenol) 650 mg PRN Q6HRS PRN PO PAIN / TEMP; Start 09/26/17 at 22:30 Al Hydroxide/Mg Hydroxide (Mylanta Plus Xs) 15 ml PRN AFTMEALHC PRN PO DYSPEPSIA; Start 09/26/17 at 22:30 Magnesium Hydroxide (Milk Of Magnesia) 2,400 mg PRN QHS PRN PO CONSTIPATION; Start 09/26/17 at 22:30 Fluphenazine HCl (Prolixin) 1 mg TID PO Last administered on 09/26/17at 23:11; Start 09/26/17 at 23:00; Stop 09/27/17 at 07:28; Status DC Zolpidem Tartrate (Ambien) 5 mg HS PO Last administered on 09/29/17at 20:13; Start 09/26/17 at 23:00 Duloxetine HCl (Cymbalta) 90 mg DAILY PO Last administered on 09/29/17at 08:45; Start 09/27/17 at 09:00; Stop 09/29/17 at 16:34; Status DC Atorvastatin Calcium (Lipitor) 20 mg QHS PO Last administered on 09/29/17at 20: 11; Start 09/26/17 at 22:45 Finasteride (Proscar) 5 mg BID PO Last administered on 09/26/17at 23:10; Start 09/26/17 at 22:45; Stop 09/27/17 at 08:53; Status DC Gabapentin (Neurontin) 600 mg HS PO Last administered on 09/29/17at 20:11; Start 09/26/17 at 22:45 Fish Oil (Fish Oil) 1,000 mg BID PO Last administered on 09/26/17at 23:07; Start 09/26/17 at 22:45; Stop 09/27/17 at 10:30; Status DC Zolpidem Tartrate (Ambien) 5 mg PRN QHS PRN PO INSOMNIA IF REPEAT NEEDED; Start 09/26/17 at 22:45 Loperamide HCl (Imodium) 2 mg PRN Q15MIN PRN PO DIARRHEA; Start 09/26/17 at 23: 30 Fluphenazine HCl (Prolixin Oral Conc) 1 mg TID PO Last administered on at 13:21; Start 09/27/17 at 09:00; Stop 09/29/17 at 16:33; Status DC Albuterol Sulfate (Ventolin Hfa Inhaler) 2 puff PRN Q4HRS PRN IH FOR ASTHMA; Start 09/27/17 at 08:45; Status UNV Gabapentin (Neurontin) 300 mg DAILY PO Last administered on 09/29/17at 08:45; Start 09/27/17 at 09:00 Ketoconazole (Nizoral 2% Topical) 1 isela DAILY PRN TP RASH; Start 09/27/17 at 08 :45 Ascorbic Acid (Vitamin C) 1,000 mg DAILY PO ; Start 09/27/17 at 09:00; Stop at 10:30; Status DC Vitamin D (Vitamin D3) 5,000 unit DAILY PO Last administered on 09/29/17at 08:45 ; Start 09/27/17 at 09:00 Gabapentin (Neurontin) 600 mg AFTRNOON PO Last administered on 09/29/17at 13:21 ; Start 09/27/17 at 13:00 Lactobacillus Rhamnosus (Culturelle) 1 cap DAILY PO ; Start 09/27/17 at 09:00; Stop 09/27/17 at 10:30; Status DC Pantoprazole Sodium (Protonix) 40 mg DAILYAC PO Last administered on 09/29/17at 07:35; Start 09/27/17 at 09:00 Vitamin B Complex 1 cap DAILY PO ; Start 09/27/17 at 09:00; Stop 09/27/17 at 10: 30; Status DC Finasteride (Proscar) 5 mg DAILY PO Last administered on 09/29/17at 08:45; Start 09/27/17 at 09:00 Albuterol Sulfate (Ventolin) 2.5 mg PRN Q4HRS PRN NEB SHORTNESS OF BREATH; Start 09/27/17 at 09:15 Ascorbic Acid (Vitamin C) 1,000 mg DAILYWSUP PO Last administered on 09/29/17at 17:02; Start 09/27/17 at 17:00 Lactobacillus Rhamnosus (Culturelle) 1 cap QHS PO Last administered on at 20:11; Start 09/27/17 at 21:00 Fish Oil (Fish Oil) 1,000 mg BID@1200,2100 PO Last administered on 09/27/17at 12 :17; Start 09/27/17 at 12:00; Stop 09/27/17 at 21:13; Status DC Vitamin B Complex 1 cap DAILYWSUP PO Last administered on 09/29/17at 17:01; Start 09/27/17 at 17:00 Fish Oil (Fish Oil) 1,000 mg BID@1200,1600 PO Last administered on 09/29/17at 16 :49; Start 09/28/17 at 12:00 Warfarin Sodium (Coumadin) 5 mg DAILY16 PO Last administered on 09/29/17at 16:49 ; Start 09/29/17 at 16:00 Warfarin Sodium (Coumadin Per Physician) 1 each PRN DAILY PRN MC SEE COMMENTS; Start 09/29/17 at 15:15 Fluphenazine HCl (Prolixin Oral Conc) 1 mg BID@0900,1400 PO ; Start 09/30/17 at 09:00 Fluphenazine HCl (Prolixin Oral Conc) 0.5 mg QHS PO Last administered on at 20:16; Start 09/29/17 at 21:00 Duloxetine HCl (Cymbalta) 60 mg DAILY PO ; Start 09/30/17 at 09:00 Bupropion HCl (Wellbutrin Xl) 150 mg DAILY PO ; Start 09/30/17 at 09:00 Active Scripts Active Reported Vitamin D3 (Cholecalciferol (Vitamin D3)) 5,000 Unit Tablet 5,000 Unit PO DAILY Vitamin C (Ascorbic Acid) 1,000 Mg Tablet.er 1,000 Mg PO DAILY Ventolin Hfa Inhaler (Albuterol Sulfate) 18 Gm Hfa.aer.ad 2 Puff IH PRN Q4HRS PRN Probiotic (Lactobacillus Combo No.10) 1 Each Capsule 1 Cap PO DAILY Prilosec Otc (Omeprazole Magnesium) 20 Mg Tablet.dr 20 Mg PO DAILY [place] 3 1,000 Mg Softgel ([place]-3 Fatty Acids/Fish Oil) 1 Each Capsule 1 Cap PO BID Lipitor (Atorvastatin Calcium) 20 Mg Tablet 20 Mg PO QHS Ketoconazole 15 Gm Cream..g. 13 Isela TP PRN PRN Gabapentin 600 Mg Tablet 600 Mg PO AFTRNOON Gabapentin 600 Mg Tablet 600 Mg PO HS Gabapentin 300 Mg Capsule 300 Mg PO DAILY Fluphenazine Hcl 1 Mg Tablet 1 Mg PO TID Finasteride 5 Mg Tablet 5 Mg PO BID Cymbalta (Duloxetine Hcl) 30 Mg Capsule.dr 90 Mg PO DAILY Coumadin (Warfarin Sodium) 5 Mg Tablet 5 Mg PO QPM Coumadin (Warfarin Sodium) 2 Mg Tablet 2 Mg PO QPM Coumadin (Warfarin Sodium) 1 Mg Tablet 0.5 Mg PO QPM B Complex (Vitamin B Complex) 1 Each Tablet 1 Tab PO DAILY Ambien (Zolpidem Tartrate) 10 Mg Tablet 10 Mg PO HS I have reviewed the current psychotropics carefully including drug interactions. Risk benefit ratio favors no change other than as noted in my dictated progress note. Diagnosis: Problems: (1) Anxiety disorder (2) Impulse control disorder (3) Major depressive disorder, recurrent episode LIGIA PEREZ MD Sep 29, 2017 20:48
[2017-09-30 05:35] VITALS: BP 98/61
[2017-09-30] MEDS: PANTOPRAZOLE 40 MG TABLET. PO SCH (07:36)
[2017-09-30] MEDS: FINASTERIDE 5 MG TABLET PO SCH (09:06)
[2017-09-30] MEDS: GABAPENTIN 300 MG CAPSULE. PO SCH ×3 (09:06→19:56)
[2017-09-30] MEDS: CHOLECALCIFEROL (VITAMIN D3) 1,000 UNIT TABLET PO SCH (09:06)
[2017-09-30] MEDS: DULoxetine HCL 60 MG CAPSULE.DR PO SCH (09:14)
[2017-09-30] MEDS: buPROPion XL 150 MG TAB.ER.24H PO SCH (09:14)
[2017-09-30] MEDS: fluPHENAZine 5 MG/ML ORAL.CONC SOLUTION. PO SCH ×3 (09:17→20:58)
[2017-09-30] MEDS: OMEGA-3 FATTY ACIDS/FISH OIL 1,000 MG CAPSULE. PO SCH ×2 (12:42→16:31)
[2017-09-30] MEDS ORDERED: POLYVINYL ALCOHOL 1.4% OPHTH SOLUTION 15ML BOTTLE. OU PRN (15:15)
[2017-09-30 15:55] VITALS: BP 105/67
[2017-09-30] MEDS: VITAMIN B COMPLEX CAPSULE. PO SCH (16:31)
[2017-09-30] MEDS: ASCORBIC ACID 500 MG TABLET PO SCH (16:31)
[2017-09-30] MEDS: WARFARIN 5 MG TABLET. PO SCH (16:31)
[2017-09-30] MEDS: ATORVASTATIN CALCIUM 20 MG TABLET PO SCH (19:55)
[2017-09-30] MEDS: LACTOBACILLUS RHAMNOSUS GG 1 CAPSULE. PO SCH (19:56)
[2017-09-30] MEDS: ZOLPIDEM 5 MG TABLET. PO SCH (20:00)
[2017-09-30] MEDS: POLYVINYL ALCOHOL/POVIDONE/PF OPHTH SOLUTION DROPERETTE. OU PRN (20:01)
--- NOTE | 2017-09-30 20:44 | PDOC ---
Exam Note: Sridhar Note: Please also refer to the separate dictated note~for this date of service dictated separately.~Patient seen individually. Discussed the patient with Nursing staff reviewed the chart.~Reviewed interim history and current functioning. Reviewed vital signs,~Labs/ Radiology~and current medications noted below. Continue current treatment with the changes noted in the dictated addendum note Assessment: Vital Signs: Vital Signs Date Time Temp Pulse Resp B/P (MAP) Pulse Ox O2 Delivery O2 Flow Rate FiO2 09/30/17 15:55 98.1 63 16 105/67 (80) 94 09/28/17 16:10 Room Air I&O Intake and Output 09/30/17 07:00 Intake Total 1200 ml Balance 1200 ml Intake Oral 1200 ml # Voids 1 # Bowel Movements 1 Current Medications: Meds: Current Medications Acetaminophen (Tylenol) 650 mg PRN Q6HRS PRN PO PAIN / TEMP; Start 09/26/17 at 22:30 Al Hydroxide/Mg Hydroxide (Mylanta Plus Xs) 15 ml PRN AFTMEALHC PRN PO DYSPEPSIA; Start 09/26/17 at 22:30 Magnesium Hydroxide (Milk Of Magnesia) 2,400 mg PRN QHS PRN PO CONSTIPATION; Start 09/26/17 at 22:30 Fluphenazine HCl (Prolixin) 1 mg TID PO Last administered on 09/26/17at 23:11; Start 09/26/17 at 23:00; Stop 09/27/17 at 07:28; Status DC Zolpidem Tartrate (Ambien) 5 mg HS PO Last administered on 09/30/17at 20:00; Start 09/26/17 at 23:00 Duloxetine HCl (Cymbalta) 90 mg DAILY PO Last administered on 09/29/17at 08:45; Start 09/27/17 at 09:00; Stop 09/29/17 at 16:34; Status DC Atorvastatin Calcium (Lipitor) 20 mg QHS PO Last administered on 09/30/17at 19: 55; Start 09/26/17 at 22:45 Finasteride (Proscar) 5 mg BID PO Last administered on 09/26/17at 23:10; Start 09/26/17 at 22:45; Stop 09/27/17 at 08:53; Status DC Gabapentin (Neurontin) 600 mg HS PO Last administered on 09/30/17at 19:56; Start 09/26/17 at 22:45 Fish Oil (Fish Oil) 1,000 mg BID PO Last administered on 09/26/17at 23:07; Start 09/26/17 at 22:45; Stop 09/27/17 at 10:30; Status DC Zolpidem Tartrate (Ambien) 5 mg PRN QHS PRN PO INSOMNIA IF REPEAT NEEDED; Start 09/26/17 at 22:45 Loperamide HCl (Imodium) 2 mg PRN Q15MIN PRN PO DIARRHEA; Start 09/26/17 at 23: 30 Fluphenazine HCl (Prolixin Oral Conc) 1 mg TID PO Last administered on at 13:21; Start 09/27/17 at 09:00; Stop 09/29/17 at 16:33; Status DC Albuterol Sulfate (Ventolin Hfa Inhaler) 2 puff PRN Q4HRS PRN IH FOR ASTHMA; Start 09/27/17 at 08:45; Status UNV Gabapentin (Neurontin) 300 mg DAILY PO Last administered on 09/30/17at 09:06; Start 09/27/17 at 09:00 Ketoconazole (Nizoral 2% Topical) 1 isela DAILY PRN TP RASH; Start 09/27/17 at 08 :45 Ascorbic Acid (Vitamin C) 1,000 mg DAILY PO ; Start 09/27/17 at 09:00; Stop at 10:30; Status DC Vitamin D (Vitamin D3) 5,000 unit DAILY PO Last administered on 09/30/17at 09:06 ; Start 09/27/17 at 09:00 Gabapentin (Neurontin) 600 mg AFTRNOON PO Last administered on 09/30/17at 12:42 ; Start 09/27/17 at 13:00 Lactobacillus Rhamnosus (Culturelle) 1 cap DAILY PO ; Start 09/27/17 at 09:00; Stop 09/27/17 at 10:30; Status DC Pantoprazole Sodium (Protonix) 40 mg DAILYAC PO Last administered on 09/30/17at 07:36; Start 09/27/17 at 09:00 Vitamin B Complex 1 cap DAILY PO ; Start 09/27/17 at 09:00; Stop 09/27/17 at 10: 30; Status DC Finasteride (Proscar) 5 mg DAILY PO Last administered on 09/30/17 09:06; Start 09/27/17 at 09:00 Albuterol Sulfate (Ventolin) 2.5 mg PRN Q4HRS PRN NEB SHORTNESS OF BREATH; Start 09/27/17 at 09:15 Ascorbic Acid (Vitamin C) 1,000 mg DAILYWSUP PO Last administered on 09/30/17 16:31; Start 09/27/17 at 17:00 Lactobacillus Rhamnosus (Culturelle) 1 cap QHS PO Last administered on 19:56; Start 09/27/17 at 21:00 Fish Oil (Fish Oil) 1,000 mg BID@1200,2100 PO Last administered on 09/27/17 12 :17; Start 09/27/17 at 12:00; Stop 09/27/17 at 21:13; Status DC Vitamin B Complex 1 cap DAILYWSUP PO Last administered on 09/30/17 16:31; Start 09/27/17 at 17:00 Fish Oil (Fish Oil) 1,000 mg BID@1200,1600 PO Last administered on 09/30/17 16 :31; Start 09/28/17 at 12:00 Warfarin Sodium (Coumadin) 5 mg DAILY16 PO Last administered on 09/30/17 16:31 ; Start 09/29/17 at 16:00 Warfarin Sodium (Coumadin Per Physician) 1 each PRN DAILY PRN MC SEE COMMENTS; Start 09/29/17 at 15:15 Fluphenazine HCl (Prolixin Oral Conc) 1 mg BID@0900,1400 PO Last administered on 09/30/17at 15:09; Start 09/30/17 at 09:00 Fluphenazine HCl (Prolixin Oral Conc) 0.5 mg QHS PO Last administered on at 20:16; Start 09/29/17 at 21:00 Duloxetine HCl (Cymbalta) 60 mg DAILY PO Last administered on 09/30/17 09:14; Start 09/30/17 at 09:00 Bupropion HCl (Wellbutrin Xl) 150 mg DAILY PO Last administered on 09/30/17 09 :14; Start 09/30/17 at 09:00 Artificial Tears (Artificial Tears) 1 drop PRN Q15MIN PRN OU DRY EYE; Start at 15:15; Stop 09/30/17 at 18:07; Status DC Artificial Tears (Refresh Classic) 1 drop PRN Q15MIN PRN OU DRY EYE Last administered on 09/30/17at 20:01; Start 09/30/17 at 18:15 Active Scripts Active Reported Vitamin D3 (Cholecalciferol (Vitamin D3)) 5,000 Unit Tablet 5,000 Unit PO DAILY Vitamin C (Ascorbic Acid) 1,000 Mg Tablet.er 1,000 Mg PO DAILY Ventolin Hfa Inhaler (Albuterol Sulfate) 18 Gm Hfa.aer.ad 2 Puff IH PRN Q4HRS PRN Probiotic (Lactobacillus Combo No.10) 1 Each Capsule 1 Cap PO DAILY Prilosec Otc (Omeprazole Magnesium) 20 Mg Tablet.dr 20 Mg PO DAILY [place] 3 1,000 Mg Softgel ([place]-3 Fatty Acids/Fish Oil) 1 Each Capsule 1 Cap PO BID Lipitor (Atorvastatin Calcium) 20 Mg Tablet 20 Mg PO QHS Ketoconazole 15 Gm Cream..g. 13 Isela TP PRN PRN Gabapentin 600 Mg Tablet 600 Mg PO AFTRNOON Gabapentin 600 Mg Tablet 600 Mg PO HS Gabapentin 300 Mg Capsule 300 Mg PO DAILY Fluphenazine Hcl 1 Mg Tablet 1 Mg PO TID Finasteride 5 Mg Tablet 5 Mg PO BID Cymbalta (Duloxetine Hcl) 30 Mg Capsule.dr 90 Mg PO DAILY Coumadin (Warfarin Sodium) 5 Mg Tablet 5 Mg PO QPM Coumadin (Warfarin Sodium) 2 Mg Tablet 2 Mg PO QPM Coumadin (Warfarin Sodium) 1 Mg Tablet 0.5 Mg PO QPM B Complex (Vitamin B Complex) 1 Each Tablet 1 Tab PO DAILY Ambien (Zolpidem Tartrate) 10 Mg Tablet 10 Mg PO HS I have reviewed the current psychotropics carefully including drug interactions. Risk benefit ratio favors no change other than as noted in my dictated progress note. Diagnosis: Problems: (1) Anxiety disorder (2) Impulse control disorder (3) Major depressive disorder, recurrent episode LIGIA PEREZ MD Sep 30, 2017 20:44
--- NOTE | 2017-10-01 00:17 | PN ---
DATE: 09/29/2017 PSYCHIATRIC PROGRESS NOTE This is a late entry, 09/29, covers elements not covered in my initial note. SUBJECTIVE: I met with the patient in the evening. Per nursing report, the patient slept 6-1/2 hours. Nursing staff have called the office of Dr. Kei Payne regarding the patient's diagnosis of Tourette's disorder. Dr. Payne's office indicated that they continued the patient on Prolixin just because that is what he was taking when he came to see them. The patient had previously seen Dr. Vlad Be and we contacted their office as well. He had been placed on Prolixin for the Tourette's disorder with a plan to taper the Prolixin, but it was never tapered. The patient reportedly at that time was having some incontinence and shuffling gait and that is the reason for this suggested taper, but the patient did not follow through with the taper. REVIEW OF SYSTEMS: Ambulation impaired, in Broda chair. No CV, , pulmonary, eye, ENT system symptoms on review. MENTAL STATUS EXAM: Reasonably oriented. Speech coherent, somewhat rapid at times he is angry, irritable, stating that there were not enough groups for him during the day, that he wanted to leave here and we discussed this. He is cognitively reasonably intact. Certainly, the other patients around him are cognitively significantly more impaired and depending on how the patient does over the next day or two, perhaps transition to another facility appropriate for his cognition may be considered, but on discussing with nursing staff, it appears the patient has been irritable, anxious, labile, and adequate groups and individual visits are being helped, but his perception is different. MENTAL STATUS EXAM: Reasonably oriented. Speech coherent, abstraction fair, computation impaired, language function intact, attention span short. Mood and affect somewhat anxious, labile. LABORATORY DATA: Reviewed. IMPRESSION: Major depressive disorder; anxiety disorder, unspecified; history of Tourette's disorder; impulse control disorder. PLAN: Reduce the bedtime Prolixin from 1 mg to 0.5 mg, reduce Cymbalta to 60 mg a day. Add Wellbutrin-XL 150 mg in the morning to help augment the Cymbalta. Rest unchanged from initial note for now. LIGIA PEREZ MD DR: AIDAN/riccardo JOB#: [id number] / [id number]
[2017-10-01 05:29] VITALS: BP 116/68
[2017-10-01] MEDS: DULoxetine HCL 60 MG CAPSULE.DR PO SCH (07:32)
[2017-10-01] MEDS: GABAPENTIN 300 MG CAPSULE. PO SCH ×3 (07:32→19:48)
[2017-10-01] MEDS: CHOLECALCIFEROL (VITAMIN D3) 1,000 UNIT TABLET PO SCH (07:33)
[2017-10-01] MEDS: buPROPion XL 150 MG TAB.ER.24H PO SCH (07:33)
[2017-10-01] MEDS: FINASTERIDE 5 MG TABLET PO SCH (07:33)
[2017-10-01] MEDS: PANTOPRAZOLE 40 MG TABLET. PO SCH (07:33)
[2017-10-01] MEDS: fluPHENAZine 5 MG/ML ORAL.CONC SOLUTION. PO SCH ×3 (07:42→19:47)
--- NOTE | 2017-10-01 09:33 | RAD ---
CT of the head without contrast, 10/01/2017: HISTORY: Mental status change There is mild cerebral and cerebellar atrophy. There are mild patchy lucencies in the deep white matter bilaterally compatible with chronic ischemic change. Mild enlargement of the ventricles is probably on a compensatory basis. There is no shift of the midline structures. There is no evidence of acute intracranial hemorrhage or mass effect. A small lucency in the lateral right thalamic region is compatible with an old infarct. An air-fluid level is present in the left maxillary sinus. IMPRESSION: 1. Cerebral and cerebellar atrophy. 2. Mild patchy bilateral deep white matter lucencies compatible with chronic ischemic change. 3. Small old lacunar infarct in the right thalamic region. 4. Fluid in left maxillary sinus compatible with acute sinusitis. Electronically signed by: Eugenio Olvera MD (10/01/2017 9:30 AM) [facility]
[2017-10-01] MEDS: OMEGA-3 FATTY ACIDS/FISH OIL 1,000 MG CAPSULE. PO SCH ×2 (12:01→17:13)
[2017-10-01 15:51] VITALS: BP 127/75
[2017-10-01] MEDS: ASCORBIC ACID 500 MG TABLET PO SCH (17:14)
[2017-10-01] MEDS: WARFARIN 5 MG TABLET. PO SCH (17:14)
[2017-10-01] MEDS: VITAMIN B COMPLEX CAPSULE. PO SCH (17:14)
[2017-10-01] MEDS: LACTOBACILLUS RHAMNOSUS GG 1 CAPSULE. PO SCH (19:48)
[2017-10-01] MEDS: ZOLPIDEM 5 MG TABLET. PO SCH (19:48)
[2017-10-01] MEDS: ATORVASTATIN CALCIUM 20 MG TABLET PO SCH (19:48)
[2017-10-01] MEDS: ACETAMINOPHEN 325 MG TABLET PO PRN (19:54)
--- NOTE | 2017-10-01 20:51 | PDOC ---
Exam Note: Sridhar Note: Please also refer to the separate dictated note~for this date of service dictated separately.~Patient seen individually. Discussed the patient with Nursing staff reviewed the chart.~Reviewed interim history and current functioning. Reviewed vital signs,~Labs/ Radiology~and current medications noted below. Continue current treatment with the changes noted in the dictated addendum note Assessment: Vital Signs: Vital Signs Date Time Temp Pulse Resp B/P (MAP) Pulse Ox O2 Delivery O2 Flow Rate FiO2 10/01/17 15:51 97.0 65 18 127/75 (92) 92 09/28/17 16:10 Room Air I&O Intake and Output 10/01/17 07:00 Intake Total 1320 ml Balance 1320 ml Intake Oral 1320 ml # Voids 1 Current Medications: Meds: Current Medications Acetaminophen (Tylenol) 650 mg PRN Q6HRS PRN PO PAIN / TEMP Last administered on 10/01/17at 19:54; Start 09/26/17 at 22:30 Al Hydroxide/Mg Hydroxide (Mylanta Plus Xs) 15 ml PRN AFTMEALHC PRN PO DYSPEPSIA; Start 09/26/17 at 22:30 Magnesium Hydroxide (Milk Of Magnesia) 2,400 mg PRN QHS PRN PO CONSTIPATION; Start 09/26/17 at 22:30 Fluphenazine HCl (Prolixin) 1 mg TID PO Last administered on 09/26/17at 23:11; Start 09/26/17 at 23:00; Stop 09/27/17 at 07:28; Status DC Zolpidem Tartrate (Ambien) 5 mg HS PO Last administered on 10/01/17at 19:48; Start 09/26/17 at 23:00 Duloxetine HCl (Cymbalta) 90 mg DAILY PO Last administered on 09/29/17at 08:45; Start 09/27/17 at 09:00; Stop 09/29/17 at 16:34; Status DC Atorvastatin Calcium (Lipitor) 20 mg QHS PO Last administered on 10/01/17at 19: 48; Start 09/26/17 at 22:45 Finasteride (Proscar) 5 mg BID PO Last administered on 09/26/17at 23:10; Start 09/26/17 at 22:45; Stop 09/27/17 at 08:53; Status DC Gabapentin (Neurontin) 600 mg HS PO Last administered on 10/01/17at 19:48; Start 09/26/17 at 22:45 Fish Oil (Fish Oil) 1,000 mg BID PO Last administered on 09/26/17at 23:07; Start 09/26/17 at 22:45; Stop 09/27/17 at 10:30; Status DC Zolpidem Tartrate (Ambien) 5 mg PRN QHS PRN PO INSOMNIA IF REPEAT NEEDED; Start 09/26/17 at 22:45 Loperamide HCl (Imodium) 2 mg PRN Q15MIN PRN PO DIARRHEA; Start 09/26/17 at 23: 30 Fluphenazine HCl (Prolixin Oral Conc) 1 mg TID PO Last administered on at 13:21; Start 09/27/17 at 09:00; Stop 09/29/17 at 16:33; Status DC Albuterol Sulfate (Ventolin Hfa Inhaler) 2 puff PRN Q4HRS PRN IH FOR ASTHMA; Start 09/27/17 at 08:45; Status UNV Gabapentin (Neurontin) 300 mg DAILY PO Last administered on 10/01/17at 07:32; Start 09/27/17 at 09:00 Ketoconazole (Nizoral 2% Topical) 1 isela DAILY PRN TP RASH; Start 09/27/17 at 08 :45 Ascorbic Acid (Vitamin C) 1,000 mg DAILY PO ; Start 09/27/17 at 09:00; Stop at 10:30; Status DC Vitamin D (Vitamin D3) 5,000 unit DAILY PO Last administered on 10/01/17at 07:33 ; Start 09/27/17 at 09:00 Gabapentin (Neurontin) 600 mg AFTRNOON PO Last administered on 10/01/17at 13:01 ; Start 09/27/17 at 13:00 Lactobacillus Rhamnosus (Culturelle) 1 cap DAILY PO ; Start 09/27/17 at 09:00; Stop 09/27/17 at 10:30; Status DC Pantoprazole Sodium (Protonix) 40 mg DAILYAC PO Last administered on 10/01/17at 07:33; Start 09/27/17 at 09:00 Vitamin B Complex 1 cap DAILY PO ; Start 09/27/17 at 09:00; Stop 09/27/17 at 10: 30; Status DC Finasteride (Proscar) 5 mg DAILY PO Last administered on 10/01/17 07:33; Start 09/27/17 at 09:00 Albuterol Sulfate (Ventolin) 2.5 mg PRN Q4HRS PRN NEB SHORTNESS OF BREATH; Start 09/27/17 at 09:15 Ascorbic Acid (Vitamin C) 1,000 mg DAILYWSUP PO Last administered on 10/01/17 17:14; Start 09/27/17 at 17:00 Lactobacillus Rhamnosus (Culturelle) 1 cap QHS PO Last administered on 19:48; Start 09/27/17 at 21:00 Fish Oil (Fish Oil) 1,000 mg BID@1200,2100 PO Last administered on 09/27/17 12 :17; Start 09/27/17 at 12:00; Stop 09/27/17 at 21:13; Status DC Vitamin B Complex 1 cap DAILYWSUP PO Last administered on 10/01/17at 17:14; Start 09/27/17 at 17:00 Fish Oil (Fish Oil) 1,000 mg BID@1200,1600 PO Last administered on 10/01/17 17 :13; Start 09/28/17 at 12:00 Warfarin Sodium (Coumadin) 5 mg DAILY16 PO Last administered on 10/01/17 17:14 ; Start 09/29/17 at 16:00 Warfarin Sodium (Coumadin Per Physician) 1 each PRN DAILY PRN MC SEE COMMENTS; Start 09/29/17 at 15:15 Fluphenazine HCl (Prolixin Oral Conc) 1 mg BID@0900,1400 PO Last administered on 10/01/17at 13:01; Start 09/30/17 at 09:00 Fluphenazine HCl (Prolixin Oral Conc) 0.5 mg QHS PO Last administered on at 19:47; Start 09/29/17 at 21:00 Duloxetine HCl (Cymbalta) 60 mg DAILY PO Last administered on 10/01/17at 07:32; Start 09/30/17 at 09:00 Bupropion HCl (Wellbutrin Xl) 150 mg DAILY PO Last administered on 10/01/17at 07 :33; Start 09/30/17 at 09:00 Artificial Tears (Artificial Tears) 1 drop PRN Q15MIN PRN OU DRY EYE; Start at 15:15; Stop 09/30/17 at 18:07; Status DC Artificial Tears (Refresh Classic) 1 drop PRN Q15MIN PRN OU DRY EYE Last administered on 09/30/17at 20:01; Start 09/30/17 at 18:15 Active Scripts Active Reported Vitamin D3 (Cholecalciferol (Vitamin D3)) 5,000 Unit Tablet 5,000 Unit PO DAILY Vitamin C (Ascorbic Acid) 1,000 Mg Tablet.er 1,000 Mg PO DAILY Ventolin Hfa Inhaler (Albuterol Sulfate) 18 Gm Hfa.aer.ad 2 Puff IH PRN Q4HRS PRN Probiotic (Lactobacillus Combo No.10) 1 Each Capsule 1 Cap PO DAILY Prilosec Otc (Omeprazole Magnesium) 20 Mg Tablet.dr 20 Mg PO DAILY [place] 3 1,000 Mg Softgel ([place]-3 Fatty Acids/Fish Oil) 1 Each Capsule 1 Cap PO BID Lipitor (Atorvastatin Calcium) 20 Mg Tablet 20 Mg PO QHS Ketoconazole 15 Gm Cream..g. 13 Isela TP PRN PRN Gabapentin 600 Mg Tablet 600 Mg PO AFTRNOON Gabapentin 600 Mg Tablet 600 Mg PO HS Gabapentin 300 Mg Capsule 300 Mg PO DAILY Fluphenazine Hcl 1 Mg Tablet 1 Mg PO TID Finasteride 5 Mg Tablet 5 Mg PO BID Cymbalta (Duloxetine Hcl) 30 Mg Capsule.dr 90 Mg PO DAILY Coumadin (Warfarin Sodium) 5 Mg Tablet 5 Mg PO QPM Coumadin (Warfarin Sodium) 2 Mg Tablet 2 Mg PO QPM Coumadin (Warfarin Sodium) 1 Mg Tablet 0.5 Mg PO QPM B Complex (Vitamin B Complex) 1 Each Tablet 1 Tab PO DAILY Ambien (Zolpidem Tartrate) 10 Mg Tablet 10 Mg PO HS I have reviewed the current psychotropics carefully including drug interactions. Risk benefit ratio favors no change other than as noted in my dictated progress note. Diagnosis: Problems: (1) Anxiety disorder (2) Impulse control disorder (3) Major depressive disorder, recurrent episode LIGIA PEREZ MD Oct 01, 2017 20:51
--- NOTE | 2017-10-01 23:50 | PN ---
DATE: 09/30/2017 PSYCHIATRIC PROGRESS NOTE This late entry 09/30/2017 covers elements not covered in my initial note. SUBJECTIVE: I met with the patient in the evening of 09/30/2017. The patient slept 6-1/2 hours previous evening. He has been demanding at night, calling staff names because he does not feel they respond to him quickly enough. Compliant with his medications. Information from his family indicates he gets more mean and irritable after 7 p.m. in the evening with questionable sundowning. We will check a CT head to look for any cortical atrophy, other indicators that might be corollary for the sundowning. Per daughter, he is looking to be his DPOA. REVIEW OF SYSTEMS: Ambulation impaired, in Broda chair. No CV, , pulmonary, eye, ENT system symptoms on review. MENTAL STATUS EXAM: Reasonably oriented. Speech is coherent, has some latency. Abstraction fair, computation impaired, language function intact, attention span short. Mood and affect remain somewhat depressed, anxious, labile at times. No suicidal or homicidal ideation. IMPRESSION: Unchanged from initial note. PLAN: No change from initial note. We have adjusted psychotropics, added Wellbutrin with reduced Cymbalta and we will make further decisions in the next day or so. LIGIA PEREZ MD DR: AIDAN/riccardo JOB#: [id number] / [id number]
[2017-10-02 05:46] VITALS: BP 94/52
[2017-10-02] MEDS: CHOLECALCIFEROL (VITAMIN D3) 1,000 UNIT TABLET PO SCH (09:30)
[2017-10-02] MEDS: buPROPion XL 150 MG TAB.ER.24H PO SCH (09:31)
[2017-10-02] MEDS: FINASTERIDE 5 MG TABLET PO SCH (09:31)
[2017-10-02] MEDS: GABAPENTIN 300 MG CAPSULE. PO SCH ×3 (09:31→19:49)
[2017-10-02] MEDS: DULoxetine HCL 60 MG CAPSULE.DR PO SCH (09:31)
[2017-10-02] MEDS: PANTOPRAZOLE 40 MG TABLET. PO SCH (09:31)
[2017-10-02] MEDS: fluPHENAZine 5 MG/ML ORAL.CONC SOLUTION. PO SCH ×3 (09:32→19:51)
[2017-10-02] MEDS: busPIRone 5 MG TABLET. PO SCH ×2 (11:04→16:57)
[2017-10-02] MEDS: OMEGA-3 FATTY ACIDS/FISH OIL 1,000 MG CAPSULE. PO SCH ×2 (12:26→16:57)
[2017-10-02 15:50] VITALS: BP 151/72
[2017-10-02] MEDS: WARFARIN 5 MG TABLET. PO SCH (16:57)
[2017-10-02] MEDS: ASCORBIC ACID 500 MG TABLET PO SCH (16:57)
[2017-10-02] MEDS: VITAMIN B COMPLEX CAPSULE. PO SCH (16:57)
[2017-10-02] MEDS: LACTOBACILLUS RHAMNOSUS GG 1 CAPSULE. PO SCH (19:49)
[2017-10-02] MEDS: ATORVASTATIN CALCIUM 20 MG TABLET PO SCH (19:49)
[2017-10-02] MEDS: ZOLPIDEM 5 MG TABLET. PO SCH (19:51)
--- NOTE | 2017-10-02 20:26 | PDOC ---
Exam Note: Sridhar Note: Please also refer to the separate dictated note~for this date of service dictated separately.~Patient seen individually. Discussed the patient with Nursing staff reviewed the chart.~Reviewed interim history and current functioning. Reviewed vital signs,~Labs/ Radiology~and current medications noted below. Continue current treatment with the changes noted in the dictated addendum note Assessment: Vital Signs: Vital Signs Date Time Temp Pulse Resp B/P (MAP) Pulse Ox O2 Delivery O2 Flow Rate FiO2 10/02/17 15:50 97.2 68 18 151/72 (98) 93 Room Air I&O Intake and Output 10/02/17 07:00 Intake Total 1380 ml Balance 1380 ml Intake Oral 1380 ml # Voids 1 Current Medications: Meds: Current Medications Acetaminophen (Tylenol) 650 mg PRN Q6HRS PRN PO PAIN / TEMP Last administered on 10/01/17at 19:54; Start 09/26/17 at 22:30 Al Hydroxide/Mg Hydroxide (Mylanta Plus Xs) 15 ml PRN AFTMEALHC PRN PO DYSPEPSIA; Start 09/26/17 at 22:30 Magnesium Hydroxide (Milk Of Magnesia) 2,400 mg PRN QHS PRN PO CONSTIPATION; Start 09/26/17 at 22:30 Fluphenazine HCl (Prolixin) 1 mg TID PO Last administered on 09/26/17at 23:11; Start 09/26/17 at 23:00; Stop 09/27/17 at 07:28; Status DC Zolpidem Tartrate (Ambien) 5 mg HS PO Last administered on 10/02/17at 19:51; Start 09/26/17 at 23:00 Duloxetine HCl (Cymbalta) 90 mg DAILY PO Last administered on 09/29/17at 08:45; Start 09/27/17 at 09:00; Stop 09/29/17 at 16:34; Status DC Atorvastatin Calcium (Lipitor) 20 mg QHS PO Last administered on 10/02/17at 19: 49; Start 09/26/17 at 22:45 Finasteride (Proscar) 5 mg BID PO Last administered on 09/26/17at 23:10; Start 09/26/17 at 22:45; Stop 09/27/17 at 08:53; Status DC Gabapentin (Neurontin) 600 mg HS PO Last administered on 10/02/17at 19:49; Start 09/26/17 at 22:45 Fish Oil (Fish Oil) 1,000 mg BID PO Last administered on 09/26/17at 23:07; Start 09/26/17 at 22:45; Stop 09/27/17 at 10:30; Status DC Zolpidem Tartrate (Ambien) 5 mg PRN QHS PRN PO INSOMNIA IF REPEAT NEEDED; Start 09/26/17 at 22:45 Loperamide HCl (Imodium) 2 mg PRN Q15MIN PRN PO DIARRHEA; Start 09/26/17 at 23: 30 Fluphenazine HCl (Prolixin Oral Conc) 1 mg TID PO Last administered on at 13:21; Start 09/27/17 at 09:00; Stop 09/29/17 at 16:33; Status DC Albuterol Sulfate (Ventolin Hfa Inhaler) 2 puff PRN Q4HRS PRN IH FOR ASTHMA; Start 09/27/17 at 08:45; Status UNV Gabapentin (Neurontin) 300 mg DAILY PO Last administered on 10/02/17at 09:31; Start 09/27/17 at 09:00 Ketoconazole (Nizoral 2% Topical) 1 isela DAILY PRN TP RASH; Start 09/27/17 at 08 :45 Ascorbic Acid (Vitamin C) 1,000 mg DAILY PO ; Start 09/27/17 at 09:00; Stop at 10:30; Status DC Vitamin D (Vitamin D3) 5,000 unit DAILY PO Last administered on 10/02/17at 09:30 ; Start 09/27/17 at 09:00 Gabapentin (Neurontin) 600 mg AFTRNOON PO Last administered on 10/02/17at 13:33 ; Start 09/27/17 at 13:00 Lactobacillus Rhamnosus (Culturelle) 1 cap DAILY PO ; Start 09/27/17 at 09:00; Stop 09/27/17 at 10:30; Status DC Pantoprazole Sodium (Protonix) 40 mg DAILYAC PO Last administered on 10/02/17 09:31; Start 09/27/17 at 09:00 Vitamin B Complex 1 cap DAILY PO ; Start 09/27/17 at 09:00; Stop 09/27/17 at 10: 30; Status DC Finasteride (Proscar) 5 mg DAILY PO Last administered on 10/02/17 09:31; Start 09/27/17 at 09:00 Albuterol Sulfate (Ventolin) 2.5 mg PRN Q4HRS PRN NEB SHORTNESS OF BREATH; Start 09/27/17 at 09:15 Ascorbic Acid (Vitamin C) 1,000 mg DAILYWSUP PO Last administered on 10/02/17 16:57; Start 09/27/17 at 17:00 Lactobacillus Rhamnosus (Culturelle) 1 cap QHS PO Last administered on 19:49; Start 09/27/17 at 21:00 Fish Oil (Fish Oil) 1,000 mg BID@1200,2100 PO Last administered on 09/27/17 12 :17; Start 09/27/17 at 12:00; Stop 09/27/17 at 21:13; Status DC Vitamin B Complex 1 cap DAILYWSUP PO Last administered on 10/02/17 16:57; Start 09/27/17 at 17:00 Fish Oil (Fish Oil) 1,000 mg BID@1200,1600 PO Last administered on 10/02/17 16 :57; Start 09/28/17 at 12:00 Warfarin Sodium (Coumadin) 5 mg DAILY16 PO Last administered on 10/02/17 16:57 ; Start 09/29/17 at 16:00 Warfarin Sodium (Coumadin Per Physician) 1 each PRN DAILY PRN MC SEE COMMENTS; Start 09/29/17 at 15:15 Fluphenazine HCl (Prolixin Oral Conc) 1 mg BID@0900,1400 PO Last administered on 10/02/17 13:34; Start 09/30/17 at 09:00 Fluphenazine HCl (Prolixin Oral Conc) 0.5 mg QHS PO Last administered on 19:51; Start 09/29/17 at 21:00 Duloxetine HCl (Cymbalta) 60 mg DAILY PO Last administered on 10/02/17 09:31; Start 09/30/17 at 09:00 Bupropion HCl (Wellbutrin Xl) 150 mg DAILY PO Last administered on 10/02/17 09 :31; Start 09/30/17 at 09:00 Artificial Tears (Artificial Tears) 1 drop PRN Q15MIN PRN OU DRY EYE; Start at 15:15; Stop 09/30/17 at 18:07; Status DC Artificial Tears (Refresh Classic) 1 drop PRN Q15MIN PRN OU DRY EYE Last administered on 09/30/17at 20:01; Start 09/30/17 at 18:15 Buspirone HCl (Buspar) 5 mg 0900,1700 PO Last administered on 10/02/17at 16:57; Start 10/02/17 at 09:15 Active Scripts Active Reported Vitamin D3 (Cholecalciferol (Vitamin D3)) 5,000 Unit Tablet 5,000 Unit PO DAILY Vitamin C (Ascorbic Acid) 1,000 Mg Tablet.er 1,000 Mg PO DAILY Ventolin Hfa Inhaler (Albuterol Sulfate) 18 Gm Hfa.aer.ad 2 Puff IH PRN Q4HRS PRN Probiotic (Lactobacillus Combo No.10) 1 Each Capsule 1 Cap PO DAILY Prilosec Otc (Omeprazole Magnesium) 20 Mg Tablet.dr 20 Mg PO DAILY [place] 3 1,000 Mg Softgel ([place]-3 Fatty Acids/Fish Oil) 1 Each Capsule 1 Cap PO BID Lipitor (Atorvastatin Calcium) 20 Mg Tablet 20 Mg PO QHS Ketoconazole 15 Gm Cream..g. 13 Isela TP PRN PRN Gabapentin 600 Mg Tablet 600 Mg PO AFTRNOON Gabapentin 600 Mg Tablet 600 Mg PO HS Gabapentin 300 Mg Capsule 300 Mg PO DAILY Fluphenazine Hcl 1 Mg Tablet 1 Mg PO TID Finasteride 5 Mg Tablet 5 Mg PO BID Cymbalta (Duloxetine Hcl) 30 Mg Capsule.dr 90 Mg PO DAILY Coumadin (Warfarin Sodium) 5 Mg Tablet 5 Mg PO QPM Coumadin (Warfarin Sodium) 2 Mg Tablet 2 Mg PO QPM Coumadin (Warfarin Sodium) 1 Mg Tablet 0.5 Mg PO QPM B Complex (Vitamin B Complex) 1 Each Tablet 1 Tab PO DAILY Ambien (Zolpidem Tartrate) 10 Mg Tablet 10 Mg PO HS I have reviewed the current psychotropics carefully including drug interactions. Risk benefit ratio favors no change other than as noted in my dictated progress note. Diagnosis: Problems: (1) Anxiety disorder (2) Impulse control disorder (3) Major depressive disorder, recurrent episode LIGIA PEREZ MD Oct 02, 2017 20:26
[2017-10-03 05:44] VITALS: BP 115/74
[2017-10-03] MEDS: buPROPion XL 150 MG TAB.ER.24H PO SCH (07:26)
[2017-10-03] MEDS: CHOLECALCIFEROL (VITAMIN D3) 1,000 UNIT TABLET PO SCH (07:26)
[2017-10-03] MEDS: PANTOPRAZOLE 40 MG TABLET. PO SCH (07:26)
[2017-10-03] MEDS: busPIRone 5 MG TABLET. PO SCH ×2 (07:26→17:39)
[2017-10-03] MEDS: GABAPENTIN 300 MG CAPSULE. PO SCH ×3 (07:26→19:51)
[2017-10-03] MEDS: FINASTERIDE 5 MG TABLET PO SCH (07:26)
[2017-10-03] MEDS: DULoxetine HCL 60 MG CAPSULE.DR PO SCH (07:27)
[2017-10-03] MEDS: fluPHENAZine 5 MG/ML ORAL.CONC SOLUTION. PO SCH ×4 (07:27→19:51)
[2017-10-03 07:49] LABS: BASO % 0 % (0-3); EOS # 0.3 x10^3/uL (0.0-0.7); EOS % 4 % (0-3); HEMATOCRIT 40.4 % (39.0-53.0); HEMOGLOBIN 13.7 g/dL (13.0-17.5); LYMPH # 1.9 x10^3/uL (1.0-4.8); LYMPH % 29 % (24-48); MEAN CORPUSCULAR HEMOGLOBIN 33 pg (25-35); MEAN CORPUSCULAR HGB CONC 34 g/dL (31-37); MEAN CORPUSCULAR VOLUME 96 fL (79-100); MONO # 0.7 x10^3/uL (0.0-1.1); MONO % 10 % (0-9); NEUT # 3.7 x10^3uL (1.8-7.7); NEUT % 57 % (31-73); PLATELET COUNT 219 x10^3/uL (140-400); RED BLOOD COUNT 4.21 x10^6/uL (4.30-5.70); RED CELL DISTRIBUTION WIDTH 14.1 % (11.5-14.5); WHITE BLOOD COUNT 6.6 x10^3/uL (4.0-11.0)
[2017-10-03 07:56] LABS: ALBUMIN 2.7 g/dL (3.4-5.0); ALBUMIN/GLOBULIN RATIO 0.8 (1.0-1.7); CALCIUM 8.8 mg/dL (8.5-10.1); CREATININE 0.6 mg/dL (0.7-1.3); GFR 132.8; POTASSIUM 3.5 mmol/L (3.5-5.1); TOTAL BILIRUBIN 0.7 mg/dL (0.2-1.0); TOTAL PROTEIN 6.1 g/dL (6.4-8.2)
[2017-10-03] MEDS: OMEGA-3 FATTY ACIDS/FISH OIL 1,000 MG CAPSULE. PO SCH ×2 (12:39→17:40)
[2017-10-03 16:26] VITALS: BP 119/78
[2017-10-03] MEDS: WARFARIN 5 MG TABLET. PO SCH (17:40)
[2017-10-03] MEDS: VITAMIN B COMPLEX CAPSULE. PO SCH (17:40)
[2017-10-03] MEDS: ASCORBIC ACID 500 MG TABLET PO SCH (17:40)
[2017-10-03] MEDS: ZOLPIDEM 5 MG TABLET. PO SCH (19:50)
[2017-10-03] MEDS: ATORVASTATIN CALCIUM 20 MG TABLET PO SCH (19:50)
[2017-10-03] MEDS: LACTOBACILLUS RHAMNOSUS GG 1 CAPSULE. PO SCH (19:51)
--- NOTE | 2017-10-04 05:34 | PN ---
DATE: 10/02/2017 PSYCHIATRIC PROGRESS NOTE This is late entry 10/02/2017 covers elements not covered in my initial note. SUBJECTIVE: I met with the patient in the evening, staffed at treatment team meeting with the entire team in the morning. Per nursing report, he has been rude, called staff by rather derogatory names, acts helpless, even though he can do more for himself. Compliant with his medications, quite anxious, labile, not happy with not having enough groups and individual lengthy psychotherapy sessions. Addressed this with him at length. REVIEW OF SYSTEMS: Ambulation impaired, in wheelchair. No CV, , pulmonary, eye, ENT system symptoms on review. MENTAL STATUS EXAM: Reasonably oriented. Speech is coherent, has some latency. Abstraction fair, computation impaired, language function intact. Mood and affect are still depressed, anxious. LABORATORY DATA: Reviewed. IMPRESSION: Unchanged from initial note. PLAN: Start BuSpar 5 mg b.i.d. Continue rest unchanged per initial note. MAN Rochelle PEREZ MD DR: AIDAN/riccardo JOB#: [id number] / [id number]
--- NOTE | 2017-10-04 05:42 | PN ---
DATE: 10/01/2017 PSYCHIATRIC PROGRESS NOTE This is a late entry, 10/01/2017, covers the elements not covered in my initial note. SUBJECTIVE: I met with the patient in the evening. The patient has been somewhat rude per nursing report, anxious, restless, slept 7-1/4 hours the previous evening. REVIEW OF SYSTEMS: Ambulation impaired, in Broda chair. No CV, , pulmonary, eye, ENT system symptoms on review. Per nursing report, the patient remains dissatisfied with most activities on the unit. I processed this at great length with him. MENTAL STATUS EXAM: Reasonably oriented. Speech is coherent, has some latency. Abstraction fair, computation impaired, language function intact, attention span short. Mood and affect still depressed, anxious, but showing improvement. LABORATORY DATA: Reviewed. IMPRESSION: Unchanged from initial note, major depressive disorder, recurrent; impulse control disorder; anxiety disorder, unspecified. PLAN: Continue psychotropics from initial note including Wellbutrin-XL 150 mg a day to augment Cymbalta 60 mg a day, Ambien, Neurontin, and the Prolixin for the Tourette's was reduced. MAN Rochelle PEREZ MD DR: AIDAN/riccardo JOB#: [id number] / [id number]
[2017-10-04 06:16] VITALS: BP 122/74
[2017-10-04] MEDS: DULoxetine HCL 60 MG CAPSULE.DR PO SCH (09:23)
[2017-10-04] MEDS: GABAPENTIN 300 MG CAPSULE. PO SCH ×3 (09:23→19:30)
[2017-10-04] MEDS: PANTOPRAZOLE 40 MG TABLET. PO SCH (09:23)
[2017-10-04] MEDS: busPIRone 5 MG TABLET. PO SCH ×2 (09:23→17:06)
[2017-10-04] MEDS: fluPHENAZine 5 MG/ML ORAL.CONC SOLUTION. PO SCH ×3 (09:24→19:33)
[2017-10-04] MEDS: FINASTERIDE 5 MG TABLET PO SCH (09:24)
[2017-10-04] MEDS: buPROPion XL 150 MG TAB.ER.24H PO SCH (09:25)
[2017-10-04] MEDS: CHOLECALCIFEROL (VITAMIN D3) 1,000 UNIT TABLET PO SCH (09:25)
[2017-10-04] MEDS: OMEGA-3 FATTY ACIDS/FISH OIL 1,000 MG CAPSULE. PO SCH ×2 (12:50→17:03)
[2017-10-04 15:57] VITALS: BP 117/70
[2017-10-04] MEDS: WARFARIN 5 MG TABLET. PO SCH (17:04)
[2017-10-04] MEDS: ASCORBIC ACID 500 MG TABLET PO SCH (17:05)
[2017-10-04] MEDS: VITAMIN B COMPLEX CAPSULE. PO SCH (17:06)
[2017-10-04] MEDS: LACTOBACILLUS RHAMNOSUS GG 1 CAPSULE. PO SCH (19:30)
[2017-10-04] MEDS: ATORVASTATIN CALCIUM 20 MG TABLET PO SCH (19:30)
[2017-10-04] MEDS: POLYVINYL ALCOHOL/POVIDONE/PF OPHTH SOLUTION DROPERETTE. OU PRN (19:33)
[2017-10-04] MEDS: ZOLPIDEM 5 MG TABLET. PO SCH (19:33)
[2017-10-04] MEDS ORDERED: ANTI-COAG MONITOR BY PHARMACY. MC PRN (21:30)
--- NOTE | 2017-10-04 22:16 | PDOC ---
Exam Note: Sridhar Note: Please also refer to the separate dictated note~for this date of service dictated separately.~Patient seen individually. Discussed the patient with Nursing staff reviewed the chart.~Reviewed interim history and current functioning. Reviewed vital signs,~Labs/ Radiology~and current medications noted below. Continue current treatment with the changes noted in the dictated addendum note Assessment: Vital Signs: Vital Signs Date Time Temp Pulse Resp B/P (MAP) Pulse Ox O2 Delivery O2 Flow Rate FiO2 10/04/17 15:57 97.9 66 20 117/70 (86) 96 10/04/17 06:16 Room Air I&O Intake and Output 10/04/17 07:00 Intake Total 1320 ml Balance 1320 ml Intake Oral 1320 ml # Bowel Movements 1 Current Medications: Meds: Current Medications Acetaminophen (Tylenol) 650 mg PRN Q6HRS PRN PO PAIN / TEMP Last administered on 10/01/17at 19:54; Start 09/26/17 at 22:30 Al Hydroxide/Mg Hydroxide (Mylanta Plus Xs) 15 ml PRN AFTMEALHC PRN PO DYSPEPSIA; Start 09/26/17 at 22:30 Magnesium Hydroxide (Milk Of Magnesia) 2,400 mg PRN QHS PRN PO CONSTIPATION; Start 09/26/17 at 22:30 Fluphenazine HCl (Prolixin) 1 mg TID PO Last administered on 09/26/17at 23:11; Start 09/26/17 at 23:00; Stop 09/27/17 at 07:28; Status DC Zolpidem Tartrate (Ambien) 5 mg HS PO Last administered on 10/04/17at 19:33; Start 09/26/17 at 23:00 Duloxetine HCl (Cymbalta) 90 mg DAILY PO Last administered on 09/29/17at 08:45; Start 09/27/17 at 09:00; Stop 09/29/17 at 16:34; Status DC Atorvastatin Calcium (Lipitor) 20 mg QHS PO Last administered on 10/04/17at 19: 30; Start 09/26/17 at 22:45 Finasteride (Proscar) 5 mg BID PO Last administered on 09/26/17at 23:10; Start 09/26/17 at 22:45; Stop 09/27/17 at 08:53; Status DC Gabapentin (Neurontin) 600 mg HS PO Last administered on 10/04/17 19:30; Start 09/26/17 at 22:45 Fish Oil (Fish Oil) 1,000 mg BID PO Last administered on 09/26/17at 23:07; Start 09/26/17 at 22:45; Stop 09/27/17 at 10:30; Status DC Zolpidem Tartrate (Ambien) 5 mg PRN QHS PRN PO INSOMNIA IF REPEAT NEEDED; Start 09/26/17 at 22:45 Loperamide HCl (Imodium) 2 mg PRN Q15MIN PRN PO DIARRHEA; Start 09/26/17 at 23: 30 Fluphenazine HCl (Prolixin Oral Conc) 1 mg TID PO Last administered on at 13:21; Start 09/27/17 at 09:00; Stop 09/29/17 at 16:33; Status DC Albuterol Sulfate (Ventolin Hfa Inhaler) 2 puff PRN Q4HRS PRN IH FOR ASTHMA; Start 09/27/17 at 08:45; Status UNV Gabapentin (Neurontin) 300 mg DAILY PO Last administered on 10/04/17 09:23; Start 09/27/17 at 09:00 Ketoconazole (Nizoral 2% Topical) 1 isela DAILY PRN TP RASH; Start 09/27/17 at 08 :45 Ascorbic Acid (Vitamin C) 1,000 mg DAILY PO ; Start 09/27/17 at 09:00; Stop at 10:30; Status DC Vitamin D (Vitamin D3) 5,000 unit DAILY PO Last administered on 10/04/17at 09:25 ; Start 09/27/17 at 09:00 Gabapentin (Neurontin) 600 mg AFTRNOON PO Last administered on 10/04/17at 12:50 ; Start 09/27/17 at 13:00 Lactobacillus Rhamnosus (Culturelle) 1 cap DAILY PO ; Start 09/27/17 at 09:00; Stop 09/27/17 at 10:30; Status DC Pantoprazole Sodium (Protonix) 40 mg DAILYAC PO Last administered on 10/04/17 09:23; Start 09/27/17 at 09:00 Vitamin B Complex 1 cap DAILY PO ; Start 09/27/17 at 09:00; Stop 09/27/17 at 10: 30; Status DC Finasteride (Proscar) 5 mg DAILY PO Last administered on 10/04/17 09:24; Start 09/27/17 at 09:00 Albuterol Sulfate (Ventolin) 2.5 mg PRN Q4HRS PRN NEB SHORTNESS OF BREATH; Start 09/27/17 at 09:15 Ascorbic Acid (Vitamin C) 1,000 mg DAILYWSUP PO Last administered on 10/04/17 17:05; Start 09/27/17 at 17:00 Lactobacillus Rhamnosus (Culturelle) 1 cap QHS PO Last administered on 19:30; Start 09/27/17 at 21:00 Fish Oil (Fish Oil) 1,000 mg BID@1200,2100 PO Last administered on 09/27/17 12 :17; Start 09/27/17 at 12:00; Stop 09/27/17 at 21:13; Status DC Vitamin B Complex 1 cap DAILYWSUP PO Last administered on 10/04/17 17:06; Start 09/27/17 at 17:00 Fish Oil (Fish Oil) 1,000 mg BID@1200,1600 PO Last administered on 10/04/17 17 :03; Start 09/28/17 at 12:00 Warfarin Sodium (Coumadin) 5 mg DAILY16 PO Last administered on 10/04/17 17:04 ; Start 09/29/17 at 16:00 Warfarin Sodium (Coumadin Per Physician) 1 each PRN DAILY PRN MC SEE COMMENTS; Start 09/29/17 at 15:15; Stop 10/04/17 at 21:30; Status DC Fluphenazine HCl (Prolixin Oral Conc) 1 mg BID@0900,1400 PO Last administered on 10/04/17 12:51; Start 09/30/17 at 09:00 Fluphenazine HCl (Prolixin Oral Conc) 0.5 mg QHS PO Last administered on 19:33; Start 09/29/17 at 21:00 Duloxetine HCl (Cymbalta) 60 mg DAILY PO Last administered on 10/04/17 09:23; Start 09/30/17 at 09:00 Bupropion HCl (Wellbutrin Xl) 150 mg DAILY PO Last administered on 8/25/18at 09 :25; Start 09/30/17 at 09:00 Artificial Tears (Artificial Tears) 1 drop PRN Q15MIN PRN OU DRY EYE; Start at 15:15; Stop 09/30/17 at 18:07; Status DC Artificial Tears (Refresh Classic) 1 drop PRN Q15MIN PRN OU DRY EYE Last administered on 10/04/17at 19:33; Start 09/30/17 at 18:15 Buspirone HCl (Buspar) 5 mg 0900,1700 PO Last administered on 10/04/17at 17:06; Start 10/02/17 at 09:15 Warfarin Sodium (Coumadin Per Pharmacy) 1 each PRN DAILY PRN MC SEE COMMENTS; Start 10/04/17 at 21:30; Status UNV Active Scripts Active Reported Vitamin D3 (Cholecalciferol (Vitamin D3)) 5,000 Unit Tablet 5,000 Unit PO DAILY Vitamin C (Ascorbic Acid) 1,000 Mg Tablet.er 1,000 Mg PO DAILY Ventolin Hfa Inhaler (Albuterol Sulfate) 18 Gm Hfa.aer.ad 2 Puff IH PRN Q4HRS PRN Probiotic (Lactobacillus Combo No.10) 1 Each Capsule 1 Cap PO DAILY Prilosec Otc (Omeprazole Magnesium) 20 Mg Tablet.dr 20 Mg PO DAILY [place] 3 1,000 Mg Softgel ([place]-3 Fatty Acids/Fish Oil) 1 Each Capsule 1 Cap PO BID Lipitor (Atorvastatin Calcium) 20 Mg Tablet 20 Mg PO QHS Ketoconazole 15 Gm Cream..g. 13 Isela TP PRN PRN Gabapentin 600 Mg Tablet 600 Mg PO AFTRNOON Gabapentin 600 Mg Tablet 600 Mg PO HS Gabapentin 300 Mg Capsule 300 Mg PO DAILY Fluphenazine Hcl 1 Mg Tablet 1 Mg PO TID Finasteride 5 Mg Tablet 5 Mg PO BID Cymbalta (Duloxetine Hcl) 30 Mg Capsule.dr 90 Mg PO DAILY Coumadin (Warfarin Sodium) 5 Mg Tablet 5 Mg PO QPM Coumadin (Warfarin Sodium) 2 Mg Tablet 2 Mg PO QPM Coumadin (Warfarin Sodium) 1 Mg Tablet 0.5 Mg PO QPM B Complex (Vitamin B Complex) 1 Each Tablet 1 Tab PO DAILY Ambien (Zolpidem Tartrate) 10 Mg Tablet 10 Mg PO HS I have reviewed the current psychotropics carefully including drug interactions. Risk benefit ratio favors no change other than as noted in my dictated progress note. Diagnosis: Problems: (1) Anxiety disorder (2) Impulse control disorder (3) Major depressive disorder, recurrent episode LIGIA PEREZ MD Oct 04, 2017 22:16
[2017-10-05 05:49] VITALS: BP 117/71
[2017-10-05] MEDS: PANTOPRAZOLE 40 MG TABLET. PO SCH (08:53)
[2017-10-05] MEDS: GABAPENTIN 300 MG CAPSULE. PO SCH ×3 (08:55→19:19)
[2017-10-05] MEDS: DULoxetine HCL 60 MG CAPSULE.DR PO SCH (08:55)
[2017-10-05] MEDS: busPIRone 5 MG TABLET. PO SCH ×2 (08:55→17:06)
[2017-10-05] MEDS: FINASTERIDE 5 MG TABLET PO SCH (08:56)
[2017-10-05] MEDS: fluPHENAZine 5 MG/ML ORAL.CONC SOLUTION. PO SCH ×3 (08:56→19:20)
[2017-10-05] MEDS: CHOLECALCIFEROL (VITAMIN D3) 1,000 UNIT TABLET PO SCH (08:57)
[2017-10-05] MEDS: buPROPion XL 150 MG TAB.ER.24H PO SCH (08:57)
[2017-10-05] MEDS: OMEGA-3 FATTY ACIDS/FISH OIL 1,000 MG CAPSULE. PO SCH ×2 (12:00→17:06)
[2017-10-05] MEDS ORDERED: WARFARIN 6 MG TABLET. PO ONE (16:00)
[2017-10-05 16:40] VITALS: BP 117/72
[2017-10-05] MEDS: ASCORBIC ACID 500 MG TABLET PO SCH (17:06)
[2017-10-05] MEDS: VITAMIN B COMPLEX CAPSULE. PO SCH (17:06)
[2017-10-05] MEDS: LACTOBACILLUS RHAMNOSUS GG 1 CAPSULE. PO SCH (19:16)
[2017-10-05] MEDS: ATORVASTATIN CALCIUM 20 MG TABLET PO SCH (19:16)
[2017-10-05] MEDS: ZOLPIDEM 5 MG TABLET. PO SCH (19:19)
--- NOTE | 2017-10-05 20:19 | PDOC ---
Exam Note: Sridhar Note: Late entry for date of service September.Please also refer to the separate dictated note~for this date of service dictated separately.~Patient seen individually. Discussed the patient with Nursing staff reviewed the chart.~ Reviewed interim history and current functioning. Reviewed vital signs,~Labs/ Radiology~and current medications noted below. Continue current treatment with the changes noted in the dictated addendum note Assessment: Vital Signs: VS - Last 72 Hours, by Label Date Time Temp Pulse Resp B/P (MAP) Pulse Ox O2 Delivery O2 Flow Rate FiO2 10/05/17 16:40 97.8 60 19 117/72 (87) 94 10/05/17 05:49 99.1 72 18 117/71 (86) 92 Room Air 10/04/17 15:57 97.9 66 20 117/70 (86) 96 10/04/17 06:16 98.5 77 18 122/74 (90) 92 Room Air 10/03/17 16:26 97.8 67 18 119/78 (92) 94 Room Air 10/03/17 05:44 97.2 56 18 115/74 (88) 97 Vital Signs Date Time Temp Pulse Resp B/P (MAP) Pulse Ox O2 Delivery O2 Flow Rate FiO2 10/05/17 16:40 97.8 60 19 117/72 (87) 94 10/05/17 05:49 Room Air I&O Intake and Output 10/05/17 07:00 Intake Total 960 ml Balance 960 ml Intake Oral 960 ml # Bowel Movements 2 Labs: Laboratory Tests Test 10/05/17 09:00 Prothrombin Time 13.8 SEC (9.4-11.4) H Prothrombin Time INR 1.4 (0.9-1.1) H Current Medications: Meds: Current Medications Acetaminophen (Tylenol) 650 mg PRN Q6HRS PRN PO PAIN / TEMP Last administered on 10/01/17at 19:54; Start 09/26/17 at 22:30 Al Hydroxide/Mg Hydroxide (Mylanta Plus Xs) 15 ml PRN AFTMEALHC PRN PO DYSPEPSIA; Start 09/26/17 at 22:30 Magnesium Hydroxide (Milk Of Magnesia) 2,400 mg PRN QHS PRN PO CONSTIPATION; Start 09/26/17 at 22:30 Fluphenazine HCl (Prolixin) 1 mg TID PO Last administered on 09/26/17at 23:11; Start 09/26/17 at 23:00; Stop 09/27/17 at 07:28; Status DC Zolpidem Tartrate (Ambien) 5 mg HS PO Last administered on 10/05/17at 19:19; Start 09/26/17 at 23:00 Duloxetine HCl (Cymbalta) 90 mg DAILY PO Last administered on 09/29/17at 08:45; Start 09/27/17 at 09:00; Stop 09/29/17 at 16:34; Status DC Atorvastatin Calcium (Lipitor) 20 mg QHS PO Last administered on 10/05/17at 19: 16; Start 09/26/17 at 22:45 Finasteride (Proscar) 5 mg BID PO Last administered on 09/26/17at 23:10; Start 09/26/17 at 22:45; Stop 09/27/17 at 08:53; Status DC Gabapentin (Neurontin) 600 mg HS PO Last administered on 10/05/17at 19:19; Start 09/26/17 at 22:45 Fish Oil (Fish Oil) 1,000 mg BID PO Last administered on 09/26/17at 23:07; Start 09/26/17 at 22:45; Stop 09/27/17 at 10:30; Status DC Zolpidem Tartrate (Ambien) 5 mg PRN QHS PRN PO INSOMNIA IF REPEAT NEEDED; Start 09/26/17 at 22:45 Loperamide HCl (Imodium) 2 mg PRN Q15MIN PRN PO DIARRHEA; Start 09/26/17 at 23: 30 Fluphenazine HCl (Prolixin Oral Conc) 1 mg TID PO Last administered on at 13:21; Start 09/27/17 at 09:00; Stop 09/29/17 at 16:33; Status DC Albuterol Sulfate (Ventolin Hfa Inhaler) 2 puff PRN Q4HRS PRN IH FOR ASTHMA; Start 09/27/17 at 08:45; Status UNV Gabapentin (Neurontin) 300 mg DAILY PO Last administered on 10/05/17at 08:55; Start 09/27/17 at 09:00 Ketoconazole (Nizoral 2% Topical) 1 isela DAILY PRN TP RASH; Start 09/27/17 at 08 :45 Ascorbic Acid (Vitamin C) 1,000 mg DAILY PO ; Start 09/27/17 at 09:00; Stop at 10:30; Status DC Vitamin D (Vitamin D3) 5,000 unit DAILY PO Last administered on 10/05/17at 08:57 ; Start 09/27/17 at 09:00 Gabapentin (Neurontin) 600 mg AFTRNOON PO Last administered on 10/05/17at 13:00 ; Start 09/27/17 at 13:00 Lactobacillus Rhamnosus (Culturelle) 1 cap DAILY PO ; Start 09/27/17 at 09:00; Stop 09/27/17 at 10:30; Status DC Pantoprazole Sodium (Protonix) 40 mg DAILYAC PO Last administered on 10/05/17at 08:53; Start 09/27/17 at 09:00 Vitamin B Complex 1 cap DAILY PO ; Start 09/27/17 at 09:00; Stop 09/27/17 at 10: 30; Status DC Finasteride (Proscar) 5 mg DAILY PO Last administered on 10/05/17at 08:56; Start 09/27/17 at 09:00 Albuterol Sulfate (Ventolin) 2.5 mg PRN Q4HRS PRN NEB SHORTNESS OF BREATH; Start 09/27/17 at 09:15 Ascorbic Acid (Vitamin C) 1,000 mg DAILYWSUP PO Last administered on 10/05/17 17:06; Start 09/27/17 at 17:00 Lactobacillus Rhamnosus (Culturelle) 1 cap QHS PO Last administered on at 19:16; Start 09/27/17 at 21:00 Fish Oil (Fish Oil) 1,000 mg BID@1200,2100 PO Last administered on 09/27/17 12 :17; Start 09/27/17 at 12:00; Stop 09/27/17 at 21:13; Status DC Vitamin B Complex 1 cap DAILYWSUP PO Last administered on 10/05/17 17:06; Start 09/27/17 at 17:00 Fish Oil (Fish Oil) 1,000 mg BID@1200,1600 PO Last administered on 10/05/17 17 :06; Start 09/28/17 at 12:00 Warfarin Sodium (Coumadin) 5 mg DAILY16 PO Last administered on 10/04/17at 17:04 ; Start 09/29/17 at 16:00; Stop 10/04/17 at 23:00; Status DC Warfarin Sodium (Coumadin Per Physician) 1 each PRN DAILY PRN MC SEE COMMENTS; Start 09/29/17 at 15:15; Stop 10/04/17 at 21:30; Status DC Fluphenazine HCl (Prolixin Oral Conc) 1 mg BID@0900,1400 PO Last administered on 10/05/17at 14:00; Start 09/30/17 at 09:00 Fluphenazine HCl (Prolixin Oral Conc) 0.5 mg QHS PO Last administered on at 19:20; Start 09/29/17 at 21:00 Duloxetine HCl (Cymbalta) 60 mg DAILY PO Last administered on 10/05/17at 08:55; Start 09/30/17 at 09:00 Bupropion HCl (Wellbutrin Xl) 150 mg DAILY PO Last administered on 10/05/17at 08 :57; Start 09/30/17 at 09:00 Artificial Tears (Artificial Tears) 1 drop PRN Q15MIN PRN OU DRY EYE; Start at 15:15; Stop 09/30/17 at 18:07; Status DC Artificial Tears (Refresh Classic) 1 drop PRN Q15MIN PRN OU DRY EYE Last administered on 10/04/17at 19:33; Start 09/30/17 at 18:15 Buspirone HCl (Buspar) 5 mg 0900,1700 PO Last administered on 10/05/17at 17:06; Start 10/02/17 at 09:15 Warfarin Sodium (Coumadin Per Pharmacy) 1 each PRN DAILY PRN MC SEE COMMENTS Last administered on 10/04/17at 23:18; Start 10/04/17 at 21:30; Stop 10/05/17 at 00:00; Status DC Info (Anti-Coagulation Monitoring By Pharmacy) 1 each PRN DAILY PRN MC SEE COMMENTS; Start 10/04/17 at 21:30 Warfarin Sodium (Coumadin Per Pharmacy) 1 each PRN DAILY PRN MC SEE COMMENTS Last administered on 10/05/17at 09:44; Start 10/05/17 at 16:00 Warfarin Sodium (Coumadin) 6 mg 1X WARF ONCE PO Last administered on at 17:14; Start 10/05/17 at 16:00; Stop 10/05/17 at 16:01; Status DC Active Scripts Active Reported Vitamin D3 (Cholecalciferol (Vitamin D3)) 5,000 Unit Tablet 5,000 Unit PO DAILY Vitamin C (Ascorbic Acid) 1,000 Mg Tablet.er 1,000 Mg PO DAILY Ventolin Hfa Inhaler (Albuterol Sulfate) 18 Gm Hfa.aer.ad 2 Puff IH PRN Q4HRS PRN Probiotic (Lactobacillus Combo No.10) 1 Each Capsule 1 Cap PO DAILY Prilosec Otc (Omeprazole Magnesium) 20 Mg Tablet.dr 20 Mg PO DAILY [place] 3 1,000 Mg Softgel ([place]-3 Fatty Acids/Fish Oil) 1 Each Capsule 1 Cap PO BID Lipitor (Atorvastatin Calcium) 20 Mg Tablet 20 Mg PO QHS Ketoconazole 15 Gm Cream..g. 13 Isela TP PRN PRN Gabapentin 600 Mg Tablet 600 Mg PO AFTRNOON Gabapentin 600 Mg Tablet 600 Mg PO HS Gabapentin 300 Mg Capsule 300 Mg PO DAILY Fluphenazine Hcl 1 Mg Tablet 1 Mg PO TID Finasteride 5 Mg Tablet 5 Mg PO BID Cymbalta (Duloxetine Hcl) 30 Mg Capsule.dr 90 Mg PO DAILY Coumadin (Warfarin Sodium) 5 Mg Tablet 5 Mg PO QPM Coumadin (Warfarin Sodium) 2 Mg Tablet 2 Mg PO QPM Coumadin (Warfarin Sodium) 1 Mg Tablet 0.5 Mg PO QPM B Complex (Vitamin B Complex) 1 Each Tablet 1 Tab PO DAILY Ambien (Zolpidem Tartrate) 10 Mg Tablet 10 Mg PO HS I have reviewed the current psychotropics carefully including drug interactions. Risk benefit ratio favors no change other than as noted in my dictated progress note. Diagnosis: Problems: (1) Anxiety disorder (2) Impulse control disorder (3) Major depressive disorder, recurrent episode LIGIA PEREZ MD Oct 05, 2017 20:19
--- NOTE | 2017-10-05 20:21 | PDOC ---
Exam Note: Sridhar Note: Please also refer to the separate dictated note~for this date of service dictated separately.~Patient seen individually. Discussed the patient with Nursing staff reviewed the chart.~Reviewed interim history and current functioning. Reviewed vital signs,~Labs/ Radiology~and current medications noted below. Continue current treatment with the changes noted in the dictated addendum note Assessment: Vital Signs: Vital Signs Date Time Temp Pulse Resp B/P (MAP) Pulse Ox O2 Delivery O2 Flow Rate FiO2 10/05/17 16:40 97.8 60 19 117/72 (87) 94 10/05/17 05:49 Room Air I&O Intake and Output 10/05/17 07:00 Intake Total 960 ml Balance 960 ml Intake Oral 960 ml # Bowel Movements 2 Labs: Laboratory Tests Test 10/05/17 09:00 Prothrombin Time 13.8 SEC (9.4-11.4) H Prothrombin Time INR 1.4 (0.9-1.1) H Current Medications: Meds: Current Medications Acetaminophen (Tylenol) 650 mg PRN Q6HRS PRN PO PAIN / TEMP Last administered on 10/01/17at 19:54; Start 09/26/17 at 22:30 Al Hydroxide/Mg Hydroxide (Mylanta Plus Xs) 15 ml PRN AFTMEALHC PRN PO DYSPEPSIA; Start 09/26/17 at 22:30 Magnesium Hydroxide (Milk Of Magnesia) 2,400 mg PRN QHS PRN PO CONSTIPATION; Start 09/26/17 at 22:30 Fluphenazine HCl (Prolixin) 1 mg TID PO Last administered on 09/26/17at 23:11; Start 09/26/17 at 23:00; Stop 09/27/17 at 07:28; Status DC Zolpidem Tartrate (Ambien) 5 mg HS PO Last administered on 10/05/17at 19:19; Start 09/26/17 at 23:00 Duloxetine HCl (Cymbalta) 90 mg DAILY PO Last administered on 09/29/17at 08:45; Start 09/27/17 at 09:00; Stop 09/29/17 at 16:34; Status DC Atorvastatin Calcium (Lipitor) 20 mg QHS PO Last administered on 10/05/17at 19: 16; Start 09/26/17 at 22:45 Finasteride (Proscar) 5 mg BID PO Last administered on 09/26/17at 23:10; Start 09/26/17 at 22:45; Stop 09/27/17 at 08:53; Status DC Gabapentin (Neurontin) 600 mg HS PO Last administered on 10/05/17at 19:19; Start 09/26/17 at 22:45 Fish Oil (Fish Oil) 1,000 mg BID PO Last administered on 09/26/17at 23:07; Start 09/26/17 at 22:45; Stop 09/27/17 at 10:30; Status DC Zolpidem Tartrate (Ambien) 5 mg PRN QHS PRN PO INSOMNIA IF REPEAT NEEDED; Start 09/26/17 at 22:45 Loperamide HCl (Imodium) 2 mg PRN Q15MIN PRN PO DIARRHEA; Start 09/26/17 at 23: 30 Fluphenazine HCl (Prolixin Oral Conc) 1 mg TID PO Last administered on at 13:21; Start 09/27/17 at 09:00; Stop 09/29/17 at 16:33; Status DC Albuterol Sulfate (Ventolin Hfa Inhaler) 2 puff PRN Q4HRS PRN IH FOR ASTHMA; Start 09/27/17 at 08:45; Status UNV Gabapentin (Neurontin) 300 mg DAILY PO Last administered on 10/05/17at 08:55; Start 09/27/17 at 09:00 Ketoconazole (Nizoral 2% Topical) 1 isela DAILY PRN TP RASH; Start 09/27/17 at 08 :45 Ascorbic Acid (Vitamin C) 1,000 mg DAILY PO ; Start 09/27/17 at 09:00; Stop at 10:30; Status DC Vitamin D (Vitamin D3) 5,000 unit DAILY PO Last administered on 10/05/17at 08:57 ; Start 09/27/17 at 09:00 Gabapentin (Neurontin) 600 mg AFTRNOON PO Last administered on 10/05/17at 13:00 ; Start 09/27/17 at 13:00 Lactobacillus Rhamnosus (Culturelle) 1 cap DAILY PO ; Start 09/27/17 at 09:00; Stop 09/27/17 at 10:30; Status DC Pantoprazole Sodium (Protonix) 40 mg DAILYAC PO Last administered on 10/05/17 08:53; Start 09/27/17 at 09:00 Vitamin B Complex 1 cap DAILY PO ; Start 09/27/17 at 09:00; Stop 09/27/17 at 10: 30; Status DC Finasteride (Proscar) 5 mg DAILY PO Last administered on 10/05/17at 08:56; Start 09/27/17 at 09:00 Albuterol Sulfate (Ventolin) 2.5 mg PRN Q4HRS PRN NEB SHORTNESS OF BREATH; Start 09/27/17 at 09:15 Ascorbic Acid (Vitamin C) 1,000 mg DAILYWSUP PO Last administered on 10/05/17at 17:06; Start 09/27/17 at 17:00 Lactobacillus Rhamnosus (Culturelle) 1 cap QHS PO Last administered on at 19:16; Start 09/27/17 at 21:00 Fish Oil (Fish Oil) 1,000 mg BID@1200,2100 PO Last administered on 09/27/17at 12 :17; Start 09/27/17 at 12:00; Stop 09/27/17 at 21:13; Status DC Vitamin B Complex 1 cap DAILYWSUP PO Last administered on 10/05/17at 17:06; Start 09/27/17 at 17:00 Fish Oil (Fish Oil) 1,000 mg BID@1200,1600 PO Last administered on 10/05/17at 17 :06; Start 09/28/17 at 12:00 Warfarin Sodium (Coumadin) 5 mg DAILY16 PO Last administered on 10/04/17at 17:04 ; Start 09/29/17 at 16:00; Stop 10/04/17 at 23:00; Status DC Warfarin Sodium (Coumadin Per Physician) 1 each PRN DAILY PRN MC SEE COMMENTS; Start 09/29/17 at 15:15; Stop 10/04/17 at 21:30; Status DC Fluphenazine HCl (Prolixin Oral Conc) 1 mg BID@0900,1400 PO Last administered on 10/05/17at 14:00; Start 09/30/17 at 09:00 Fluphenazine HCl (Prolixin Oral Conc) 0.5 mg QHS PO Last administered on at 19:20; Start 09/29/17 at 21:00 Duloxetine HCl (Cymbalta) 60 mg DAILY PO Last administered on 10/05/17at 08:55; Start 09/30/17 at 09:00 Bupropion HCl (Wellbutrin Xl) 150 mg DAILY PO Last administered on 10/05/17at 08 :57; Start 09/30/17 at 09:00 Artificial Tears (Artificial Tears) 1 drop PRN Q15MIN PRN OU DRY EYE; Start at 15:15; Stop 09/30/17 at 18:07; Status DC Artificial Tears (Refresh Classic) 1 drop PRN Q15MIN PRN OU DRY EYE Last administered on 10/04/17at 19:33; Start 09/30/17 at 18:15 Buspirone HCl (Buspar) 5 mg 0900,1700 PO Last administered on 10/05/17at 17:06; Start 10/02/17 at 09:15 Warfarin Sodium (Coumadin Per Pharmacy) 1 each PRN DAILY PRN MC SEE COMMENTS Last administered on 10/04/17at 23:18; Start 10/04/17 at 21:30; Stop 10/05/17 at 00:00; Status DC Info (Anti-Coagulation Monitoring By Pharmacy) 1 each PRN DAILY PRN MC SEE COMMENTS; Start 10/04/17 at 21:30 Warfarin Sodium (Coumadin Per Pharmacy) 1 each PRN DAILY PRN MC SEE COMMENTS Last administered on 10/05/17at 09:44; Start 10/05/17 at 16:00 Warfarin Sodium (Coumadin) 6 mg 1X WARF ONCE PO Last administered on at 17:14; Start 10/05/17 at 16:00; Stop 10/05/17 at 16:01; Status DC Active Scripts Active Reported Vitamin D3 (Cholecalciferol (Vitamin D3)) 5,000 Unit Tablet 5,000 Unit PO DAILY Vitamin C (Ascorbic Acid) 1,000 Mg Tablet.er 1,000 Mg PO DAILY Ventolin Hfa Inhaler (Albuterol Sulfate) 18 Gm Hfa.aer.ad 2 Puff IH PRN Q4HRS PRN Probiotic (Lactobacillus Combo No.10) 1 Each Capsule 1 Cap PO DAILY Prilosec Otc (Omeprazole Magnesium) 20 Mg Tablet.dr 20 Mg PO DAILY [place] 3 1,000 Mg Softgel ([place]-3 Fatty Acids/Fish Oil) 1 Each Capsule 1 Cap PO BID Lipitor (Atorvastatin Calcium) 20 Mg Tablet 20 Mg PO QHS Ketoconazole 15 Gm Cream..g. 13 Isela TP PRN PRN Gabapentin 600 Mg Tablet 600 Mg PO AFTRNOON Gabapentin 600 Mg Tablet 600 Mg PO HS Gabapentin 300 Mg Capsule 300 Mg PO DAILY Fluphenazine Hcl 1 Mg Tablet 1 Mg PO TID Finasteride 5 Mg Tablet 5 Mg PO BID Cymbalta (Duloxetine Hcl) 30 Mg Capsule.dr 90 Mg PO DAILY Coumadin (Warfarin Sodium) 5 Mg Tablet 5 Mg PO QPM Coumadin (Warfarin Sodium) 2 Mg Tablet 2 Mg PO QPM Coumadin (Warfarin Sodium) 1 Mg Tablet 0.5 Mg PO QPM B Complex (Vitamin B Complex) 1 Each Tablet 1 Tab PO DAILY Ambien (Zolpidem Tartrate) 10 Mg Tablet 10 Mg PO HS I have reviewed the current psychotropics carefully including drug interactions. Risk benefit ratio favors no change other than as noted in my dictated progress note. Diagnosis: Problems: (1) Anxiety disorder (2) Impulse control disorder (3) Major depressive disorder, recurrent episode LIGIA PEREZ MD Oct 05, 2017 20:21
--- NOTE | 2017-10-06 04:41 | PN ---
DATE: 10/03/2017 PSYCHIATRIC PROGRESS NOTE This is a late entry 10/03/2017, covers elements not covered in my initial note. SUBJECTIVE: I met with the patient in the evening. The patient slept 7-1/4 hours previous evening. He has been less demanding. Daughter is coming to visit him with service dog. REVIEW OF SYSTEMS: Ambulation impaired, in Broda chair. No CV, , pulmonary, eye, ENT system symptoms on review. He remains somewhat anxious, labile in his mood. MENTAL STATUS EXAM: Reasonably oriented. Speech coherent, has some latency. Abstraction fair, computation impaired, language function intact. Mood and affect remain somewhat depressed, labile, anxious. LABORATORY DATA: Reviewed. IMPRESSION: Unchanged from initial note. PLAN: No change from initial note. LIGIA PEREZ MD DR: AIDAN/riccardo JOB#: [id number] / [id number]
[2017-10-06 05:37] VITALS: BP 151/77
[2017-10-06] MEDS: PANTOPRAZOLE 40 MG TABLET. PO SCH (08:43)
[2017-10-06] MEDS: DULoxetine HCL 60 MG CAPSULE.DR PO SCH (08:43)
[2017-10-06] MEDS: GABAPENTIN 300 MG CAPSULE. PO SCH ×3 (08:43→20:20)
[2017-10-06] MEDS: fluPHENAZine 5 MG/ML ORAL.CONC SOLUTION. PO SCH ×3 (08:43→20:27)
[2017-10-06] MEDS: busPIRone 5 MG TABLET. PO SCH ×2 (08:43→17:21)
[2017-10-06] MEDS: FINASTERIDE 5 MG TABLET PO SCH (08:44)
[2017-10-06] MEDS: CHOLECALCIFEROL (VITAMIN D3) 1,000 UNIT TABLET PO SCH (08:44)
[2017-10-06] MEDS: buPROPion XL 150 MG TAB.ER.24H PO SCH (08:44)
[2017-10-06] MEDS: ACETAMINOPHEN 325 MG TABLET PO PRN (12:26)
[2017-10-06] MEDS: OMEGA-3 FATTY ACIDS/FISH OIL 1,000 MG CAPSULE. PO SCH ×2 (12:28→17:22)
[2017-10-06 15:43] VITALS: BP 100/58
[2017-10-06] MEDS ORDERED: WARFARIN 7.5 MG TABLET. PO ONE (16:00)
[2017-10-06] MEDS: VITAMIN B COMPLEX CAPSULE. PO SCH (17:20)
[2017-10-06] MEDS: ASCORBIC ACID 500 MG TABLET PO SCH (17:22)
[2017-10-06] MEDS: ATORVASTATIN CALCIUM 20 MG TABLET PO SCH (20:20)
[2017-10-06] MEDS: LACTOBACILLUS RHAMNOSUS GG 1 CAPSULE. PO SCH (20:20)
[2017-10-06] MEDS: ZOLPIDEM 5 MG TABLET. PO SCH (20:28)
--- NOTE | 2017-10-06 20:55 | PDOC ---
Exam Note: Sridhar Note: Please also refer to the separate dictated note~for this date of service dictated separately.~Patient seen individually. Discussed the patient with Nursing staff reviewed the chart.~Reviewed interim history and current functioning. Reviewed vital signs,~Labs/ Radiology~and current medications noted below. Continue current treatment with the changes noted in the dictated addendum note Assessment: Vital Signs: Vital Signs Date Time Temp Pulse Resp B/P (MAP) Pulse Ox O2 Delivery O2 Flow Rate FiO2 10/06/17 15:43 98.2 70 17 100/58 (72) 94 Room Air I&O Intake and Output 10/06/17 07:00 Intake Total 960 ml Output Total 300 ml Balance 660 ml Intake Oral 960 ml Output Urine Total 300 ml Labs: Laboratory Tests Test 10/06/17 07:00 Prothrombin Time 13.3 SEC (9.4-11.4) H Prothrombin Time INR 1.4 (0.9-1.1) H Current Medications: Meds: Current Medications Acetaminophen (Tylenol) 650 mg PRN Q6HRS PRN PO PAIN / TEMP Last administered on 10/06/17at 12:26; Start 09/26/17 at 22:30 Al Hydroxide/Mg Hydroxide (Mylanta Plus Xs) 15 ml PRN AFTMEALHC PRN PO DYSPEPSIA; Start 09/26/17 at 22:30 Magnesium Hydroxide (Milk Of Magnesia) 2,400 mg PRN QHS PRN PO CONSTIPATION; Start 09/26/17 at 22:30 Fluphenazine HCl (Prolixin) 1 mg TID PO Last administered on 09/26/17at 23:11; Start 09/26/17 at 23:00; Stop 09/27/17 at 07:28; Status DC Zolpidem Tartrate (Ambien) 5 mg HS PO Last administered on 10/06/17at 20:28; Start 09/26/17 at 23:00 Duloxetine HCl (Cymbalta) 90 mg DAILY PO Last administered on 09/29/17at 08:45; Start 09/27/17 at 09:00; Stop 09/29/17 at 16:34; Status DC Atorvastatin Calcium (Lipitor) 20 mg QHS PO Last administered on 10/06/17at 20: 20; Start 09/26/17 at 22:45 Finasteride (Proscar) 5 mg BID PO Last administered on 09/26/17at 23:10; Start 09/26/17 at 22:45; Stop 09/27/17 at 08:53; Status DC Gabapentin (Neurontin) 600 mg HS PO Last administered on 10/06/17at 20:20; Start 09/26/17 at 22:45 Fish Oil (Fish Oil) 1,000 mg BID PO Last administered on 09/26/17at 23:07; Start 09/26/17 at 22:45; Stop 09/27/17 at 10:30; Status DC Zolpidem Tartrate (Ambien) 5 mg PRN QHS PRN PO INSOMNIA IF REPEAT NEEDED; Start 09/26/17 at 22:45 Loperamide HCl (Imodium) 2 mg PRN Q15MIN PRN PO DIARRHEA; Start 09/26/17 at 23: 30 Fluphenazine HCl (Prolixin Oral Conc) 1 mg TID PO Last administered on at 13:21; Start 09/27/17 at 09:00; Stop 09/29/17 at 16:33; Status DC Albuterol Sulfate (Ventolin Hfa Inhaler) 2 puff PRN Q4HRS PRN IH FOR ASTHMA; Start 09/27/17 at 08:45; Status UNV Gabapentin (Neurontin) 300 mg DAILY PO Last administered on 10/06/17at 08:43; Start 09/27/17 at 09:00 Ketoconazole (Nizoral 2% Topical) 1 isela DAILY PRN TP RASH; Start 09/27/17 at 08 :45 Ascorbic Acid (Vitamin C) 1,000 mg DAILY PO ; Start 09/27/17 at 09:00; Stop at 10:30; Status DC Vitamin D (Vitamin D3) 5,000 unit DAILY PO Last administered on 10/06/17at 08:44 ; Start 09/27/17 at 09:00 Gabapentin (Neurontin) 600 mg AFTRNOON PO Last administered on 10/06/17at 12:28 ; Start 09/27/17 at 13:00 Lactobacillus Rhamnosus (Culturelle) 1 cap DAILY PO ; Start 09/27/17 at 09:00; Stop 09/27/17 at 10:30; Status DC Pantoprazole Sodium (Protonix) 40 mg DAILYAC PO Last administered on 10/06/17 08:43; Start 09/27/17 at 09:00 Vitamin B Complex 1 cap DAILY PO ; Start 09/27/17 at 09:00; Stop 09/27/17 at 10: 30; Status DC Finasteride (Proscar) 5 mg DAILY PO Last administered on 10/06/17 08:44; Start 09/27/17 at 09:00 Albuterol Sulfate (Ventolin) 2.5 mg PRN Q4HRS PRN NEB SHORTNESS OF BREATH; Start 09/27/17 at 09:15 Ascorbic Acid (Vitamin C) 1,000 mg DAILYWSUP PO Last administered on 10/06/17 17:22; Start 09/27/17 at 17:00 Lactobacillus Rhamnosus (Culturelle) 1 cap QHS PO Last administered on 20:20; Start 09/27/17 at 21:00 Fish Oil (Fish Oil) 1,000 mg BID@1200,2100 PO Last administered on 09/27/17at 12 :17; Start 09/27/17 at 12:00; Stop 09/27/17 at 21:13; Status DC Vitamin B Complex 1 cap DAILYWSUP PO Last administered on 10/06/17at 17:20; Start 09/27/17 at 17:00 Fish Oil (Fish Oil) 1,000 mg BID@1200,1600 PO Last administered on 10/06/17 17 :22; Start 09/28/17 at 12:00 Warfarin Sodium (Coumadin) 5 mg DAILY16 PO Last administered on 10/04/17at 17:04 ; Start 09/29/17 at 16:00; Stop 10/04/17 at 23:00; Status DC Warfarin Sodium (Coumadin Per Physician) 1 each PRN DAILY PRN MC SEE COMMENTS; Start 09/29/17 at 15:15; Stop 10/04/17 at 21:30; Status DC Fluphenazine HCl (Prolixin Oral Conc) 1 mg BID@0900,1400 PO Last administered on 10/06/17at 13:23; Start 09/30/17 at 09:00 Fluphenazine HCl (Prolixin Oral Conc) 0.5 mg QHS PO Last administered on at 20:27; Start 09/29/17 at 21:00 Duloxetine HCl (Cymbalta) 60 mg DAILY PO Last administered on 10/06/17at 08:43; Start 09/30/17 at 09:00 Bupropion HCl (Wellbutrin Xl) 150 mg DAILY PO Last administered on 10/06/17at 08 :44; Start 09/30/17 at 09:00 Artificial Tears (Artificial Tears) 1 drop PRN Q15MIN PRN OU DRY EYE; Start at 15:15; Stop 09/30/17 at 18:07; Status DC Artificial Tears (Refresh Classic) 1 drop PRN Q15MIN PRN OU DRY EYE Last administered on 10/04/17at 19:33; Start 09/30/17 at 18:15 Buspirone HCl (Buspar) 5 mg 0900,1700 PO Last administered on 10/06/17at 17:21; Start 10/02/17 at 09:15 Warfarin Sodium (Coumadin Per Pharmacy) 1 each PRN DAILY PRN MC SEE COMMENTS Last administered on 10/04/17at 23:18; Start 10/04/17 at 21:30; Stop 10/05/17 at 00:00; Status DC Info (Anti-Coagulation Monitoring By Pharmacy) 1 each PRN DAILY PRN MC SEE COMMENTS; Start 10/04/17 at 21:30 Warfarin Sodium (Coumadin Per Pharmacy) 1 each PRN DAILY PRN MC SEE COMMENTS Last administered on 10/06/17at 08:27; Start 10/05/17 at 16:00 Warfarin Sodium (Coumadin) 6 mg 1X WARF ONCE PO Last administered on at 17:14; Start 10/05/17 at 16:00; Stop 10/05/17 at 16:01; Status DC Warfarin Sodium (Coumadin) 7.5 mg 1X WARF ONCE PO Last administered on at 17:20; Start 10/06/17 at 16:00; Stop 10/06/17 at 16:01; Status DC Active Scripts Active Reported Vitamin D3 (Cholecalciferol (Vitamin D3)) 5,000 Unit Tablet 5,000 Unit PO DAILY Vitamin C (Ascorbic Acid) 1,000 Mg Tablet.er 1,000 Mg PO DAILY Ventolin Hfa Inhaler (Albuterol Sulfate) 18 Gm Hfa.aer.ad 2 Puff IH PRN Q4HRS PRN Probiotic (Lactobacillus Combo No.10) 1 Each Capsule 1 Cap PO DAILY Prilosec Otc (Omeprazole Magnesium) 20 Mg Tablet.dr 20 Mg PO DAILY [place] 3 1,000 Mg Softgel ([place]-3 Fatty Acids/Fish Oil) 1 Each Capsule 1 Cap PO BID Lipitor (Atorvastatin Calcium) 20 Mg Tablet 20 Mg PO QHS Ketoconazole 15 Gm Cream..g. 13 Isela TP PRN PRN Gabapentin 600 Mg Tablet 600 Mg PO AFTRNOON Gabapentin 600 Mg Tablet 600 Mg PO HS Gabapentin 300 Mg Capsule 300 Mg PO DAILY Fluphenazine Hcl 1 Mg Tablet 1 Mg PO TID Finasteride 5 Mg Tablet 5 Mg PO BID Cymbalta (Duloxetine Hcl) 30 Mg Capsule.dr 90 Mg PO DAILY Coumadin (Warfarin Sodium) 5 Mg Tablet 5 Mg PO QPM Coumadin (Warfarin Sodium) 2 Mg Tablet 2 Mg PO QPM Coumadin (Warfarin Sodium) 1 Mg Tablet 0.5 Mg PO QPM B Complex (Vitamin B Complex) 1 Each Tablet 1 Tab PO DAILY Ambien (Zolpidem Tartrate) 10 Mg Tablet 10 Mg PO HS I have reviewed the current psychotropics carefully including drug interactions. Risk benefit ratio favors no change other than as noted in my dictated progress note. Diagnosis: Problems: (1) Anxiety disorder (2) Impulse control disorder (3) Major depressive disorder, recurrent episode LIGIA PEREZ MD Oct 06, 2017 20:55
[2017-10-07 05:41] VITALS: BP 121/72
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
--- NOTE | 2017-10-07 06:39 | PN ---
DATE: 10/05/2017 PSYCHIATRIC PROGRESS NOTE This is a late entry of 10/05/2017, covers elements not covered in my initial note. SUBJECTIVE: I met with the patient in the evening. Per nursing report, the patient has been calm, cooperative, and compliant with meds. He is very time consuming with cares and demanding per nursing report, picking up his roommate, manipulating him to get staff for him. He was moved to room 229 to solve this problem per nursing report. REVIEW OF SYSTEMS: Ambulation impaired, in Broda chair. No CV, , pulmonary, eye system symptoms on review. Difficulty with his ambulation. MENTAL STATUS EXAM: Reasonably oriented. Speech is coherent, abstraction fair, computation impaired, language function intact. Mood and affect somewhat dysphoric, anxious, but improved. LABORATORY DATA: Reviewed. IMPRESSION: Unchanged from initial note. PLAN: No change from initial note, may need to increase Cymbalta and BuSpar further, but he is also on Wellbutrin to augment the Cymbalta and for now, we will leave the dosage unchanged. MAN Rochelle PEREZ MD DR: AIDAN/riccardo JOB#: [id number] / [id number]
[2017-10-07] MEDS: GABAPENTIN 300 MG CAPSULE. PO SCH ×3 (09:00→20:39)
[2017-10-07] MEDS: CHOLECALCIFEROL (VITAMIN D3) 1,000 UNIT TABLET PO SCH (09:40)
[2017-10-07] MEDS: PANTOPRAZOLE 40 MG TABLET. PO SCH (09:40)
[2017-10-07] MEDS: buPROPion XL 150 MG TAB.ER.24H PO SCH (09:40)
[2017-10-07] MEDS: FINASTERIDE 5 MG TABLET PO SCH (09:41)
[2017-10-07] MEDS: busPIRone 5 MG TABLET. PO SCH ×2 (09:41→17:39)
[2017-10-07] MEDS: DULoxetine HCL 60 MG CAPSULE.DR PO SCH (09:42)
[2017-10-07] MEDS: fluPHENAZine 5 MG/ML ORAL.CONC SOLUTION. PO SCH ×4 (09:44→20:42)
[2017-10-07] MEDS: OMEGA-3 FATTY ACIDS/FISH OIL 1,000 MG CAPSULE. PO SCH ×2 (13:09→17:39)
[2017-10-07] MEDS ORDERED: WARFARIN 7.5 MG TABLET. PO ONE (16:00)
[2017-10-07 16:16] VITALS: BP 117/75
[2017-10-07] MEDS: VITAMIN B COMPLEX CAPSULE. PO SCH (17:39)
[2017-10-07] MEDS: ASCORBIC ACID 500 MG TABLET PO SCH (17:40)
[2017-10-07] MEDS: LACTOBACILLUS RHAMNOSUS GG 1 CAPSULE. PO SCH (20:39)
[2017-10-07] MEDS: ATORVASTATIN CALCIUM 20 MG TABLET PO SCH (20:40)
[2017-10-07] MEDS: ZOLPIDEM 5 MG TABLET. PO SCH (20:42)
--- NOTE | 2017-10-07 21:06 | PDOC ---
Exam Note: Sridhar Note: Please also refer to the separate dictated note~for this date of service dictated separately.~Patient seen individually. Discussed the patient with Nursing staff reviewed the chart.~Reviewed interim history and current functioning. Reviewed vital signs,~Labs/ Radiology~and current medications noted below. Continue current treatment with the changes noted in the dictated addendum note Assessment: Vital Signs: Vital Signs Date Time Temp Pulse Resp B/P (MAP) Pulse Ox O2 Delivery O2 Flow Rate FiO2 10/07/17 16:16 97.9 60 18 117/75 (89) 92 10/06/17 15:43 Room Air I&O Intake and Output 10/07/17 07:00 Intake Total 840 ml Balance 840 ml Intake Oral 840 ml Labs: Laboratory Tests Test 10/07/17 09:03 Prothrombin Time 14.0 SEC (9.4-11.4) H Prothrombin Time INR 1.4 (0.9-1.1) H Current Medications: Meds: Current Medications Acetaminophen (Tylenol) 650 mg PRN Q6HRS PRN PO PAIN / TEMP Last administered on 10/06/17at 12:26; Start 09/26/17 at 22:30 Al Hydroxide/Mg Hydroxide (Mylanta Plus Xs) 15 ml PRN AFTMEALHC PRN PO DYSPEPSIA; Start 09/26/17 at 22:30 Magnesium Hydroxide (Milk Of Magnesia) 2,400 mg PRN QHS PRN PO CONSTIPATION; Start 09/26/17 at 22:30 Fluphenazine HCl (Prolixin) 1 mg TID PO Last administered on 09/26/17at 23:11; Start 09/26/17 at 23:00; Stop 09/27/17 at 07:28; Status DC Zolpidem Tartrate (Ambien) 5 mg HS PO Last administered on 10/07/17at 20:42; Start 09/26/17 at 23:00 Duloxetine HCl (Cymbalta) 90 mg DAILY PO Last administered on 09/29/17at 08:45; Start 09/27/17 at 09:00; Stop 09/29/17 at 16:34; Status DC Atorvastatin Calcium (Lipitor) 20 mg QHS PO Last administered on 10/07/17at 20: 40; Start 09/26/17 at 22:45 Finasteride (Proscar) 5 mg BID PO Last administered on 09/26/17at 23:10; Start 09/26/17 at 22:45; Stop 09/27/17 at 08:53; Status DC Gabapentin (Neurontin) 600 mg HS PO Last administered on 10/07/17at 20:39; Start 09/26/17 at 22:45 Fish Oil (Fish Oil) 1,000 mg BID PO Last administered on 09/26/17at 23:07; Start 09/26/17 at 22:45; Stop 09/27/17 at 10:30; Status DC Zolpidem Tartrate (Ambien) 5 mg PRN QHS PRN PO INSOMNIA IF REPEAT NEEDED; Start 09/26/17 at 22:45 Loperamide HCl (Imodium) 2 mg PRN Q15MIN PRN PO DIARRHEA; Start 09/26/17 at 23: 30 Fluphenazine HCl (Prolixin Oral Conc) 1 mg TID PO Last administered on at 13:21; Start 09/27/17 at 09:00; Stop 09/29/17 at 16:33; Status DC Albuterol Sulfate (Ventolin Hfa Inhaler) 2 puff PRN Q4HRS PRN IH FOR ASTHMA; Start 09/27/17 at 08:45; Status UNV Gabapentin (Neurontin) 300 mg DAILY PO Last administered on 10/07/17at 09:00; Start 09/27/17 at 09:00 Ketoconazole (Nizoral 2% Topical) 1 isela DAILY PRN TP RASH; Start 09/27/17 at 08 :45 Ascorbic Acid (Vitamin C) 1,000 mg DAILY PO ; Start 09/27/17 at 09:00; Stop at 10:30; Status DC Vitamin D (Vitamin D3) 5,000 unit DAILY PO Last administered on 10/07/17at 09:40 ; Start 09/27/17 at 09:00 Gabapentin (Neurontin) 600 mg AFTRNOON PO Last administered on 10/07/17at 13:09 ; Start 09/27/17 at 13:00 Lactobacillus Rhamnosus (Culturelle) 1 cap DAILY PO ; Start 09/27/17 at 09:00; Stop 09/27/17 at 10:30; Status DC Pantoprazole Sodium (Protonix) 40 mg DAILYAC PO Last administered on 10/07/17 09:40; Start 09/27/17 at 09:00 Vitamin B Complex 1 cap DAILY PO ; Start 09/27/17 at 09:00; Stop 09/27/17 at 10: 30; Status DC Finasteride (Proscar) 5 mg DAILY PO Last administered on 10/07/17at 09:41; Start 09/27/17 at 09:00 Albuterol Sulfate (Ventolin) 2.5 mg PRN Q4HRS PRN NEB SHORTNESS OF BREATH; Start 09/27/17 at 09:15 Ascorbic Acid (Vitamin C) 1,000 mg DAILYWSUP PO Last administered on 10/07/17 17:40; Start 09/27/17 at 17:00 Lactobacillus Rhamnosus (Culturelle) 1 cap QHS PO Last administered on 20:39; Start 09/27/17 at 21:00 Fish Oil (Fish Oil) 1,000 mg BID@1200,2100 PO Last administered on 09/27/17at 12 :17; Start 09/27/17 at 12:00; Stop 09/27/17 at 21:13; Status DC Vitamin B Complex 1 cap DAILYWSUP PO Last administered on 10/07/17 17:39; Start 09/27/17 at 17:00 Fish Oil (Fish Oil) 1,000 mg BID@1200,1600 PO Last administered on 10/07/17 17 :39; Start 09/28/17 at 12:00 Warfarin Sodium (Coumadin) 5 mg DAILY16 PO Last administered on 10/04/17 17:04 ; Start 09/29/17 at 16:00; Stop 10/04/17 at 23:00; Status DC Warfarin Sodium (Coumadin Per Physician) 1 each PRN DAILY PRN MC SEE COMMENTS; Start 09/29/17 at 15:15; Stop 10/04/17 at 21:30; Status DC Fluphenazine HCl (Prolixin Oral Conc) 1 mg BID@0900,1400 PO Last administered on 10/07/17at 13:09; Start 09/30/17 at 09:00 Fluphenazine HCl (Prolixin Oral Conc) 0.5 mg QHS PO Last administered on 20:42; Start 09/29/17 at 21:00 Duloxetine HCl (Cymbalta) 60 mg DAILY PO Last administered on 10/07/17 09:42; Start 09/30/17 at 09:00 Bupropion HCl (Wellbutrin Xl) 150 mg DAILY PO Last administered on 10/07/17at 09 :40; Start 09/30/17 at 09:00 Artificial Tears (Artificial Tears) 1 drop PRN Q15MIN PRN OU DRY EYE; Start at 15:15; Stop 09/30/17 at 18:07; Status DC Artificial Tears (Refresh Classic) 1 drop PRN Q15MIN PRN OU DRY EYE Last administered on 10/04/17at 19:33; Start 09/30/17 at 18:15 Buspirone HCl (Buspar) 5 mg 0900,1700 PO Last administered on 10/07/17at 17:39; Start 10/02/17 at 09:15 Warfarin Sodium (Coumadin Per Pharmacy) 1 each PRN DAILY PRN MC SEE COMMENTS Last administered on 10/04/17at 23:18; Start 10/04/17 at 21:30; Stop 10/05/17 at 00:00; Status DC Info (Anti-Coagulation Monitoring By Pharmacy) 1 each PRN DAILY PRN MC SEE COMMENTS; Start 10/04/17 at 21:30 Warfarin Sodium (Coumadin Per Pharmacy) 1 each PRN DAILY PRN MC SEE COMMENTS Last administered on 10/07/17at 13:56; Start 10/05/17 at 16:00 Warfarin Sodium (Coumadin) 6 mg 1X WARF ONCE PO Last administered on at 17:14; Start 10/05/17 at 16:00; Stop 10/05/17 at 16:01; Status DC Warfarin Sodium (Coumadin) 7.5 mg 1X WARF ONCE PO Last administered on at 17:20; Start 10/06/17 at 16:00; Stop 10/06/17 at 16:01; Status DC Warfarin Sodium (Coumadin) 7.5 mg 1X WARF ONCE PO Last administered on at 17:38; Start 10/07/17 at 16:00; Stop 10/07/17 at 16:01; Status DC Active Scripts Active Reported Vitamin D3 (Cholecalciferol (Vitamin D3)) 5,000 Unit Tablet 5,000 Unit PO DAILY Vitamin C (Ascorbic Acid) 1,000 Mg Tablet.er 1,000 Mg PO DAILY Ventolin Hfa Inhaler (Albuterol Sulfate) 18 Gm Hfa.aer.ad 2 Puff IH PRN Q4HRS PRN Probiotic (Lactobacillus Combo No.10) 1 Each Capsule 1 Cap PO DAILY Prilosec Otc (Omeprazole Magnesium) 20 Mg Tablet.dr 20 Mg PO DAILY [place] 3 1,000 Mg Softgel ([place]-3 Fatty Acids/Fish Oil) 1 Each Capsule 1 Cap PO BID Lipitor (Atorvastatin Calcium) 20 Mg Tablet 20 Mg PO QHS Ketoconazole 15 Gm Cream..g. 13 Isela TP PRN PRN Gabapentin 600 Mg Tablet 600 Mg PO AFTRNOON Gabapentin 600 Mg Tablet 600 Mg PO HS Gabapentin 300 Mg Capsule 300 Mg PO DAILY Fluphenazine Hcl 1 Mg Tablet 1 Mg PO TID Finasteride 5 Mg Tablet 5 Mg PO BID Cymbalta (Duloxetine Hcl) 30 Mg Capsule.dr 90 Mg PO DAILY Coumadin (Warfarin Sodium) 5 Mg Tablet 5 Mg PO QPM Coumadin (Warfarin Sodium) 2 Mg Tablet 2 Mg PO QPM Coumadin (Warfarin Sodium) 1 Mg Tablet 0.5 Mg PO QPM B Complex (Vitamin B Complex) 1 Each Tablet 1 Tab PO DAILY Ambien (Zolpidem Tartrate) 10 Mg Tablet 10 Mg PO HS I have reviewed the current psychotropics carefully including drug interactions. Risk benefit ratio favors no change other than as noted in my dictated progress note. Diagnosis: Problems: (1) Anxiety disorder (2) Impulse control disorder (3) Major depressive disorder, recurrent episode LIGIA PEREZ MD Oct 07, 2017 21:06
--- NOTE | 2017-10-08 02:59 | PN ---
DATE: 10/06/2017 PSYCHIATRIC PROGRESS NOTE This late entry 10/06/2017 covers elements not covered in my initial note. SUBJECTIVE: I met with the patient in the evening. Overall, the patient remains somewhat demanding, anxious, impatient with nursing staff, but better than before. He is attending groups. REVIEW OF SYSTEMS: Ambulation impaired, in Broda chair. No CV, , pulmonary, eye system symptoms on review. MENTAL STATUS EXAM: He is reasonably oriented. Speech has some latency, coherent. Abstraction fair, computation impaired, language function intact, attention span short. Mood and affect, lability is improved. He appears somewhat less depressed. No active suicidal or homicidal ideation. LABORATORY DATA: Reviewed. IMPRESSION: Unchanged from initial note. PLAN: No change from initial note. MAN Rochelle PEREZ MD DR: AIDAN/riccardo JOB#: [id number] / [id number]
[2017-10-08 06:05] VITALS: BP 107/70
[2017-10-08] MEDS: busPIRone 5 MG TABLET. PO SCH ×2 (08:07→17:14)
[2017-10-08] MEDS: PANTOPRAZOLE 40 MG TABLET. PO SCH (08:07)
[2017-10-08] MEDS: DULoxetine HCL 60 MG CAPSULE.DR PO SCH (08:07)
[2017-10-08] MEDS: buPROPion XL 150 MG TAB.ER.24H PO SCH (08:07)
[2017-10-08] MEDS: FINASTERIDE 5 MG TABLET PO SCH (08:07)
[2017-10-08] MEDS: CHOLECALCIFEROL (VITAMIN D3) 1,000 UNIT TABLET PO SCH (08:08)
[2017-10-08] MEDS: GABAPENTIN 300 MG CAPSULE. PO SCH ×3 (08:08→21:03)
[2017-10-08] MEDS: fluPHENAZine 5 MG/ML ORAL.CONC SOLUTION. PO SCH ×3 (08:10→21:03)
[2017-10-08] MEDS: OMEGA-3 FATTY ACIDS/FISH OIL 1,000 MG CAPSULE. PO SCH ×2 (12:06→16:06)
[2017-10-08] MEDS ORDERED: WARFARIN 5 MG TABLET. PO ONE (16:00)
[2017-10-08 16:32] VITALS: BP 139/70
[2017-10-08] MEDS: VITAMIN B COMPLEX CAPSULE. PO SCH (17:14)
[2017-10-08] MEDS: ASCORBIC ACID 500 MG TABLET PO SCH (17:14)
[2017-10-08] MEDS: ZOLPIDEM 5 MG TABLET. PO SCH (21:00)
[2017-10-08] MEDS: LACTOBACILLUS RHAMNOSUS GG 1 CAPSULE. PO SCH (21:02)
[2017-10-08] MEDS: ATORVASTATIN CALCIUM 20 MG TABLET PO SCH (21:02)
--- NOTE | 2017-10-08 21:11 | PDOC ---
Exam Note: Sridhar Note: Please also refer to the separate dictated note~for this date of service dictated separately.~Patient seen individually. Discussed the patient with Nursing staff reviewed the chart.~Reviewed interim history and current functioning. Reviewed vital signs,~Labs/ Radiology~and current medications noted below. Continue current treatment with the changes noted in the dictated addendum note Assessment: Vital Signs: Vital Signs Date Time Temp Pulse Resp B/P (MAP) Pulse Ox O2 Delivery O2 Flow Rate FiO2 10/08/17 16:32 97.9 60 19 139/70 (93) 94 10/06/17 15:43 Room Air I&O Intake and Output 10/08/17 07:00 Intake Total 1080 ml Balance 1080 ml Intake Oral 1080 ml Labs: Laboratory Tests Test 10/08/17 07:03 Prothrombin Time 16.2 SEC (9.4-11.4) H Prothrombin Time INR 1.7 (0.9-1.1) H Current Medications: Meds: Current Medications Acetaminophen (Tylenol) 650 mg PRN Q6HRS PRN PO PAIN / TEMP Last administered on 10/06/17at 12:26; Start 09/26/17 at 22:30 Al Hydroxide/Mg Hydroxide (Mylanta Plus Xs) 15 ml PRN AFTMEALHC PRN PO DYSPEPSIA; Start 09/26/17 at 22:30 Magnesium Hydroxide (Milk Of Magnesia) 2,400 mg PRN QHS PRN PO CONSTIPATION; Start 09/26/17 at 22:30 Fluphenazine HCl (Prolixin) 1 mg TID PO Last administered on 09/26/17at 23:11; Start 09/26/17 at 23:00; Stop 09/27/17 at 07:28; Status DC Zolpidem Tartrate (Ambien) 5 mg HS PO Last administered on 10/07/17at 20:42; Start 09/26/17 at 23:00 Duloxetine HCl (Cymbalta) 90 mg DAILY PO Last administered on 09/29/17at 08:45; Start 09/27/17 at 09:00; Stop 09/29/17 at 16:34; Status DC Atorvastatin Calcium (Lipitor) 20 mg QHS PO Last administered on 10/08/17at 21: 02; Start 09/26/17 at 22:45 Finasteride (Proscar) 5 mg BID PO Last administered on 09/26/17at 23:10; Start 09/26/17 at 22:45; Stop 09/27/17 at 08:53; Status DC Gabapentin (Neurontin) 600 mg HS PO Last administered on 10/08/17at 21:03; Start 09/26/17 at 22:45 Fish Oil (Fish Oil) 1,000 mg BID PO Last administered on 09/26/17at 23:07; Start 09/26/17 at 22:45; Stop 09/27/17 at 10:30; Status DC Zolpidem Tartrate (Ambien) 5 mg PRN QHS PRN PO INSOMNIA IF REPEAT NEEDED; Start 09/26/17 at 22:45 Loperamide HCl (Imodium) 2 mg PRN Q15MIN PRN PO DIARRHEA; Start 09/26/17 at 23: 30 Fluphenazine HCl (Prolixin Oral Conc) 1 mg TID PO Last administered on at 13:21; Start 09/27/17 at 09:00; Stop 09/29/17 at 16:33; Status DC Albuterol Sulfate (Ventolin Hfa Inhaler) 2 puff PRN Q4HRS PRN IH FOR ASTHMA; Start 09/27/17 at 08:45; Status UNV Gabapentin (Neurontin) 300 mg DAILY PO Last administered on 10/08/17at 08:08; Start 09/27/17 at 09:00 Ketoconazole (Nizoral 2% Topical) 1 isela DAILY PRN TP RASH; Start 09/27/17 at 08 :45 Ascorbic Acid (Vitamin C) 1,000 mg DAILY PO ; Start 09/27/17 at 09:00; Stop at 10:30; Status DC Vitamin D (Vitamin D3) 5,000 unit DAILY PO Last administered on 10/08/17at 08:08 ; Start 09/27/17 at 09:00 Gabapentin (Neurontin) 600 mg AFTRNOON PO Last administered on 10/08/17at 13:54 ; Start 09/27/17 at 13:00 Lactobacillus Rhamnosus (Culturelle) 1 cap DAILY PO ; Start 09/27/17 at 09:00; Stop 09/27/17 at 10:30; Status DC Pantoprazole Sodium (Protonix) 40 mg DAILYAC PO Last administered on 10/08/17 08:07; Start 09/27/17 at 09:00 Vitamin B Complex 1 cap DAILY PO ; Start 09/27/17 at 09:00; Stop 09/27/17 at 10: 30; Status DC Finasteride (Proscar) 5 mg DAILY PO Last administered on 10/08/17at 08:07; Start 09/27/17 at 09:00 Albuterol Sulfate (Ventolin) 2.5 mg PRN Q4HRS PRN NEB SHORTNESS OF BREATH; Start 09/27/17 at 09:15 Ascorbic Acid (Vitamin C) 1,000 mg DAILYWSUP PO Last administered on 10/08/17at 17:14; Start 09/27/17 at 17:00 Lactobacillus Rhamnosus (Culturelle) 1 cap QHS PO Last administered on 21:02; Start 09/27/17 at 21:00 Fish Oil (Fish Oil) 1,000 mg BID@1200,2100 PO Last administered on 09/27/17at 12 :17; Start 09/27/17 at 12:00; Stop 09/27/17 at 21:13; Status DC Vitamin B Complex 1 cap DAILYWSUP PO Last administered on 10/08/17at 17:14; Start 09/27/17 at 17:00 Fish Oil (Fish Oil) 1,000 mg BID@1200,1600 PO Last administered on 10/08/17at 16 :06; Start 09/28/17 at 12:00 Warfarin Sodium (Coumadin) 5 mg DAILY16 PO Last administered on 10/04/17at 17:04 ; Start 09/29/17 at 16:00; Stop 10/04/17 at 23:00; Status DC Warfarin Sodium (Coumadin Per Physician) 1 each PRN DAILY PRN MC SEE COMMENTS; Start 09/29/17 at 15:15; Stop 10/04/17 at 21:30; Status DC Fluphenazine HCl (Prolixin Oral Conc) 1 mg BID@0900,1400 PO Last administered on 10/08/17at 13:54; Start 09/30/17 at 09:00 Fluphenazine HCl (Prolixin Oral Conc) 0.5 mg QHS PO Last administered on at 21:03; Start 09/29/17 at 21:00 Duloxetine HCl (Cymbalta) 60 mg DAILY PO Last administered on 10/08/17 08:07; Start 09/30/17 at 09:00 Bupropion HCl (Wellbutrin Xl) 150 mg DAILY PO Last administered on 10/08/17 08 :07; Start 09/30/17 at 09:00 Artificial Tears (Artificial Tears) 1 drop PRN Q15MIN PRN OU DRY EYE; Start at 15:15; Stop 09/30/17 at 18:07; Status DC Artificial Tears (Refresh Classic) 1 drop PRN Q15MIN PRN OU DRY EYE Last administered on 10/04/17at 19:33; Start 09/30/17 at 18:15 Buspirone HCl (Buspar) 5 mg 0900,1700 PO Last administered on 10/08/17 17:14; Start 10/02/17 at 09:15 Warfarin Sodium (Coumadin Per Pharmacy) 1 each PRN DAILY PRN MC SEE COMMENTS Last administered on 10/04/17at 23:18; Start 10/04/17 at 21:30; Stop 10/05/17 at 00:00; Status DC Info (Anti-Coagulation Monitoring By Pharmacy) 1 each PRN DAILY PRN MC SEE COMMENTS; Start 10/04/17 at 21:30 Warfarin Sodium (Coumadin Per Pharmacy) 1 each PRN DAILY PRN MC SEE COMMENTS Last administered on 10/08/17at 12:37; Start 10/05/17 at 16:00 Warfarin Sodium (Coumadin) 6 mg 1X WARF ONCE PO Last administered on at 17:14; Start 10/05/17 at 16:00; Stop 10/05/17 at 16:01; Status DC Warfarin Sodium (Coumadin) 7.5 mg 1X WARF ONCE PO Last administered on at 17:20; Start 10/06/17 at 16:00; Stop 10/06/17 at 16:01; Status DC Warfarin Sodium (Coumadin) 7.5 mg 1X WARF ONCE PO Last administered on at 17:38; Start 10/07/17 at 16:00; Stop 10/07/17 at 16:01; Status DC Warfarin Sodium (Coumadin) 5 mg 1X WARF ONCE PO Last administered on at 16:06; Start 10/08/17 at 16:00; Stop 10/08/17 at 16:01; Status DC Active Scripts Active Reported Vitamin D3 (Cholecalciferol (Vitamin D3)) 5,000 Unit Tablet 5,000 Unit PO DAILY Vitamin C (Ascorbic Acid) 1,000 Mg Tablet.er 1,000 Mg PO DAILY Ventolin Hfa Inhaler (Albuterol Sulfate) 18 Gm Hfa.aer.ad 2 Puff IH PRN Q4HRS PRN Probiotic (Lactobacillus Combo No.10) 1 Each Capsule 1 Cap PO DAILY Prilosec Otc (Omeprazole Magnesium) 20 Mg Tablet.dr 20 Mg PO DAILY [place] 3 1,000 Mg Softgel ([place]-3 Fatty Acids/Fish Oil) 1 Each Capsule 1 Cap PO BID Lipitor (Atorvastatin Calcium) 20 Mg Tablet 20 Mg PO QHS Ketoconazole 15 Gm Cream..g. 13 Isela TP PRN PRN Gabapentin 600 Mg Tablet 600 Mg PO AFTRNOON Gabapentin 600 Mg Tablet 600 Mg PO HS Gabapentin 300 Mg Capsule 300 Mg PO DAILY Fluphenazine Hcl 1 Mg Tablet 1 Mg PO TID Finasteride 5 Mg Tablet 5 Mg PO BID Cymbalta (Duloxetine Hcl) 30 Mg Capsule.dr 90 Mg PO DAILY Coumadin (Warfarin Sodium) 5 Mg Tablet 5 Mg PO QPM Coumadin (Warfarin Sodium) 2 Mg Tablet 2 Mg PO QPM Coumadin (Warfarin Sodium) 1 Mg Tablet 0.5 Mg PO QPM B Complex (Vitamin B Complex) 1 Each Tablet 1 Tab PO DAILY Ambien (Zolpidem Tartrate) 10 Mg Tablet 10 Mg PO HS I have reviewed the current psychotropics carefully including drug interactions. Risk benefit ratio favors no change other than as noted in my dictated progress note. Diagnosis: Problems: (1) Anxiety disorder (2) Impulse control disorder (3) Major depressive disorder, recurrent episode LIGIA PEREZ MD Oct 08, 2017 21:11
[2017-10-09 06:06] VITALS: BP 139/73
--- NOTE | 2017-10-09 06:58 | PN ---
DATE: 10/07/2017 PSYCHIATRIC PROGRESS NOTE This is a late entry for 10/07/2017, covers elements not covered in my initial note. SUBJECTIVE: I met with the patient in the evening. The patient slept 8-3/4 hours previous night, was quite demanding in the morning, swearing at the nursing staff, but redirected. His sister wants him to have his medications where he can administer them himself at his next facility to avoid her paying the extra cost. Will discuss with social service staff and the family about this not being a very feasible option. Addressed with the patient. REVIEW OF SYSTEMS: Ambulation impaired, in Broda chair. No CV, , pulmonary, eye system symptoms on review. MENTAL STATUS EXAM: Reasonably oriented. Speech is coherent, has some latency. Abstraction fair, computation impaired, language function intact, attention span short. Mood and affect somewhat withdrawn at times, but overall improved, less labile, less anxious. LABORATORY DATA: Reviewed. IMPRESSION: Unchanged from initial note. PLAN: No change from initial note. LIGIA PEREZ MD DR: AIDAN/riccardo JOB#: [id number] / [id number]
[2017-10-09] MEDS: busPIRone 5 MG TABLET. PO SCH ×2 (08:41→17:09)
[2017-10-09] MEDS: PANTOPRAZOLE 40 MG TABLET. PO SCH (08:41)
[2017-10-09] MEDS: buPROPion XL 150 MG TAB.ER.24H PO SCH (08:41)
[2017-10-09] MEDS: DULoxetine HCL 60 MG CAPSULE.DR PO SCH (08:42)
[2017-10-09] MEDS: fluPHENAZine 5 MG/ML ORAL.CONC SOLUTION. PO SCH ×3 (08:44→20:49)
[2017-10-09] MEDS: FINASTERIDE 5 MG TABLET PO SCH (08:44)
[2017-10-09] MEDS: CHOLECALCIFEROL (VITAMIN D3) 1,000 UNIT TABLET PO SCH (08:45)
[2017-10-09] MEDS: GABAPENTIN 300 MG CAPSULE. PO SCH ×3 (08:46→20:45)
[2017-10-09] MEDS: OMEGA-3 FATTY ACIDS/FISH OIL 1,000 MG CAPSULE. PO SCH ×2 (12:35→17:08)
[2017-10-09 16:25] VITALS: BP 137/78
[2017-10-09] MEDS: WARFARIN 7.5 MG TABLET. PO SCH (17:08)
[2017-10-09] MEDS: VITAMIN B COMPLEX CAPSULE. PO SCH (17:09)
[2017-10-09] MEDS: ASCORBIC ACID 500 MG TABLET PO SCH (17:10)
[2017-10-09] MEDS: LACTOBACILLUS RHAMNOSUS GG 1 CAPSULE. PO SCH (20:45)
[2017-10-09] MEDS: ATORVASTATIN CALCIUM 20 MG TABLET PO SCH (20:45)
[2017-10-09] MEDS: ZOLPIDEM 5 MG TABLET. PO SCH (20:49)
--- NOTE | 2017-10-09 21:00 | PDOC ---
Exam Note: Sridhar Note: Please also refer to the separate dictated note~for this date of service dictated separately.~Patient seen individually. Discussed the patient with Nursing staff reviewed the chart.~Reviewed interim history and current functioning. Reviewed vital signs,~Labs/ Radiology~and current medications noted below. Continue current treatment with the changes noted in the dictated addendum note Assessment: Vital Signs: Vital Signs Date Time Temp Pulse Resp B/P (MAP) Pulse Ox O2 Delivery O2 Flow Rate FiO2 10/09/17 16:25 98.3 68 16 137/78 (97) 92 10/06/17 15:43 Room Air I&O Intake and Output 10/09/17 07:00 Intake Total 1160 ml Balance 1160 ml Intake Oral 1160 ml # Bowel Movements 2 Labs: Laboratory Tests Test 10/09/17 06:57 Prothrombin Time 16.7 SEC (9.4-11.4) H Prothrombin Time INR 1.7 (0.9-1.1) H Current Medications: Meds: Current Medications Acetaminophen (Tylenol) 650 mg PRN Q6HRS PRN PO PAIN / TEMP Last administered on 10/06/17at 12:26; Start 09/26/17 at 22:30 Al Hydroxide/Mg Hydroxide (Mylanta Plus Xs) 15 ml PRN AFTMEALHC PRN PO DYSPEPSIA; Start 09/26/17 at 22:30 Magnesium Hydroxide (Milk Of Magnesia) 2,400 mg PRN QHS PRN PO CONSTIPATION; Start 09/26/17 at 22:30 Fluphenazine HCl (Prolixin) 1 mg TID PO Last administered on 09/26/17at 23:11; Start 09/26/17 at 23:00; Stop 09/27/17 at 07:28; Status DC Zolpidem Tartrate (Ambien) 5 mg HS PO Last administered on 10/09/17at 20:49; Start 09/26/17 at 23:00 Duloxetine HCl (Cymbalta) 90 mg DAILY PO Last administered on 09/29/17at 08:45; Start 09/27/17 at 09:00; Stop 09/29/17 at 16:34; Status DC Atorvastatin Calcium (Lipitor) 20 mg QHS PO Last administered on 10/09/17at 20: 45; Start 09/26/17 at 22:45 Finasteride (Proscar) 5 mg BID PO Last administered on 09/26/17at 23:10; Start 09/26/17 at 22:45; Stop 09/27/17 at 08:53; Status DC Gabapentin (Neurontin) 600 mg HS PO Last administered on 10/09/17at 20:45; Start 09/26/17 at 22:45 Fish Oil (Fish Oil) 1,000 mg BID PO Last administered on 09/26/17at 23:07; Start 09/26/17 at 22:45; Stop 09/27/17 at 10:30; Status DC Zolpidem Tartrate (Ambien) 5 mg PRN QHS PRN PO INSOMNIA IF REPEAT NEEDED; Start 09/26/17 at 22:45 Loperamide HCl (Imodium) 2 mg PRN Q15MIN PRN PO DIARRHEA Last administered on at 12:41; Start 09/26/17 at 23:30 Fluphenazine HCl (Prolixin Oral Conc) 1 mg TID PO Last administered on at 13:21; Start 09/27/17 at 09:00; Stop 09/29/17 at 16:33; Status DC Albuterol Sulfate (Ventolin Hfa Inhaler) 2 puff PRN Q4HRS PRN IH FOR ASTHMA; Start 09/27/17 at 08:45; Status UNV Gabapentin (Neurontin) 300 mg DAILY PO Last administered on 10/09/17at 08:46; Start 09/27/17 at 09:00 Ketoconazole (Nizoral 2% Topical) 1 isela DAILY PRN TP RASH; Start 09/27/17 at 08 :45 Ascorbic Acid (Vitamin C) 1,000 mg DAILY PO ; Start 09/27/17 at 09:00; Stop at 10:30; Status DC Vitamin D (Vitamin D3) 5,000 unit DAILY PO Last administered on 10/09/17at 08:45 ; Start 09/27/17 at 09:00 Gabapentin (Neurontin) 600 mg AFTRNOON PO Last administered on 10/09/17at 12:35 ; Start 09/27/17 at 13:00 Lactobacillus Rhamnosus (Culturelle) 1 cap DAILY PO ; Start 09/27/17 at 09:00; Stop 09/27/17 at 10:30; Status DC Pantoprazole Sodium (Protonix) 40 mg DAILYAC PO Last administered on 10/09/17 08:41; Start 09/27/17 at 09:00 Vitamin B Complex 1 cap DAILY PO ; Start 09/27/17 at 09:00; Stop 09/27/17 at 10: 30; Status DC Finasteride (Proscar) 5 mg DAILY PO Last administered on 10/09/17 08:44; Start 09/27/17 at 09:00 Albuterol Sulfate (Ventolin) 2.5 mg PRN Q4HRS PRN NEB SHORTNESS OF BREATH; Start 09/27/17 at 09:15 Ascorbic Acid (Vitamin C) 1,000 mg DAILYWSUP PO Last administered on 10/09/17 17:10; Start 09/27/17 at 17:00 Lactobacillus Rhamnosus (Culturelle) 1 cap QHS PO Last administered on 20:45; Start 09/27/17 at 21:00 Fish Oil (Fish Oil) 1,000 mg BID@1200,2100 PO Last administered on 09/27/17at 12 :17; Start 09/27/17 at 12:00; Stop 09/27/17 at 21:13; Status DC Vitamin B Complex 1 cap DAILYWSUP PO Last administered on 10/09/17 17:09; Start 09/27/17 at 17:00 Fish Oil (Fish Oil) 1,000 mg BID@1200,1600 PO Last administered on 10/09/17 17 :08; Start 09/28/17 at 12:00 Warfarin Sodium (Coumadin) 5 mg DAILY16 PO Last administered on 10/04/17 17:04 ; Start 09/29/17 at 16:00; Stop 10/04/17 at 23:00; Status DC Warfarin Sodium (Coumadin Per Physician) 1 each PRN DAILY PRN MC SEE COMMENTS; Start 09/29/17 at 15:15; Stop 10/04/17 at 21:30; Status DC Fluphenazine HCl (Prolixin Oral Conc) 1 mg BID@0900,1400 PO Last administered on 10/09/17 12:35; Start 09/30/17 at 09:00 Fluphenazine HCl (Prolixin Oral Conc) 0.5 mg QHS PO Last administered on 8/30/ 18at 20:49; Start 09/29/17 at 21:00 Duloxetine HCl (Cymbalta) 60 mg DAILY PO Last administered on 10/09/17at 08:42; Start 09/30/17 at 09:00 Bupropion HCl (Wellbutrin Xl) 150 mg DAILY PO Last administered on 10/09/17at 08 :41; Start 09/30/17 at 09:00 Artificial Tears (Artificial Tears) 1 drop PRN Q15MIN PRN OU DRY EYE; Start at 15:15; Stop 09/30/17 at 18:07; Status DC Artificial Tears (Refresh Classic) 1 drop PRN Q15MIN PRN OU DRY EYE Last administered on 10/04/17at 19:33; Start 09/30/17 at 18:15 Buspirone HCl (Buspar) 5 mg 0900,1700 PO Last administered on 10/09/17at 17:09; Start 10/02/17 at 09:15 Warfarin Sodium (Coumadin Per Pharmacy) 1 each PRN DAILY PRN MC SEE COMMENTS Last administered on 10/04/17at 23:18; Start 10/04/17 at 21:30; Stop 10/05/17 at 00:00; Status DC Info (Anti-Coagulation Monitoring By Pharmacy) 1 each PRN DAILY PRN MC SEE COMMENTS; Start 10/04/17 at 21:30; Stop 10/09/17 at 08:41; Status DC Warfarin Sodium (Coumadin Per Pharmacy) 1 each PRN DAILY PRN MC SEE COMMENTS Last administered on 10/09/17at 08:44; Start 10/05/17 at 16:00 Warfarin Sodium (Coumadin) 6 mg 1X WARF ONCE PO Last administered on at 17:14; Start 10/05/17 at 16:00; Stop 10/05/17 at 16:01; Status DC Warfarin Sodium (Coumadin) 7.5 mg 1X WARF ONCE PO Last administered on at 17:20; Start 10/06/17 at 16:00; Stop 10/06/17 at 16:01; Status DC Warfarin Sodium (Coumadin) 7.5 mg 1X WARF ONCE PO Last administered on at 17:38; Start 10/07/17 at 16:00; Stop 10/07/17 at 16:01; Status DC Warfarin Sodium (Coumadin) 5 mg 1X WARF ONCE PO Last administered on at 16:06; Start 10/08/17 at 16:00; Stop 10/08/17 at 16:01; Status DC Warfarin Sodium (Coumadin) 7.5 mg DAILY16 PO Last administered on 10/09/17at 17: 08; Start 10/09/17 at 16:00 Active Scripts Active Reported Vitamin D3 (Cholecalciferol (Vitamin D3)) 5,000 Unit Tablet 5,000 Unit PO DAILY Vitamin C (Ascorbic Acid) 1,000 Mg Tablet.er 1,000 Mg PO DAILY Ventolin Hfa Inhaler (Albuterol Sulfate) 18 Gm Hfa.aer.ad 2 Puff IH PRN Q4HRS PRN Probiotic (Lactobacillus Combo No.10) 1 Each Capsule 1 Cap PO DAILY Prilosec Otc (Omeprazole Magnesium) 20 Mg Tablet.dr 20 Mg PO DAILY [place] 3 1,000 Mg Softgel ([place]-3 Fatty Acids/Fish Oil) 1 Each Capsule 1 Cap PO BID Lipitor (Atorvastatin Calcium) 20 Mg Tablet 20 Mg PO QHS Ketoconazole 15 Gm Cream..g. 13 Isela TP PRN PRN Gabapentin 600 Mg Tablet 600 Mg PO AFTRNOON Gabapentin 600 Mg Tablet 600 Mg PO HS Gabapentin 300 Mg Capsule 300 Mg PO DAILY Fluphenazine Hcl 1 Mg Tablet 1 Mg PO TID Finasteride 5 Mg Tablet 5 Mg PO BID Cymbalta (Duloxetine Hcl) 30 Mg Capsule.dr 90 Mg PO DAILY Coumadin (Warfarin Sodium) 5 Mg Tablet 5 Mg PO QPM Coumadin (Warfarin Sodium) 2 Mg Tablet 2 Mg PO QPM Coumadin (Warfarin Sodium) 1 Mg Tablet 0.5 Mg PO QPM B Complex (Vitamin B Complex) 1 Each Tablet 1 Tab PO DAILY Ambien (Zolpidem Tartrate) 10 Mg Tablet 10 Mg PO HS I have reviewed the current psychotropics carefully including drug interactions. Risk benefit ratio favors no change other than as noted in my dictated progress note. Diagnosis: Problems: (1) Anxiety disorder (2) Impulse control disorder (3) Major depressive disorder, recurrent episode LIGIA PEREZ MD Oct 09, 2017 21:00
--- NOTE | 2017-10-10 03:22 | PN ---
DATE: 10/08/2017 This is a late entry for 10/08/2017 covers elements not covered in my initial note. SUBJECTIVE: I met with the patient in the evening. The patient slept 5-1/2 hours previous night. Per nursing report, he has been somewhat manipulative, complains of not having a lengthy individual psychoanalytical psychotherapy, which is what he believed he was to receive once he came here. I have discussed the goals of hospitalization, reason for admission, current treatment options, supportive psychotherapy and activity therapy amongst others. REVIEW OF SYSTEMS: Ambulation impaired, in Broda chair. No CV, , pulmonary, eye system symptoms on review. He is well oriented. MENTAL STATUS EXAM: Reasonably oriented. Speech moderate latency, often responses monosyllabic. Abstraction fair, computation impaired, language function intact. He was smiling, pleasant with me, wanting to be discharged back to custodial and we discussed pros and cons of this. No suicidal or homicidal ideation. LABORATORY DATA: Reviewed. IMPRESSION: Unchanged from initial note. PLAN: No change from initial note. LIGIA PEREZ MD DR: AIDAN/riccardo JOB#: [id number] / [id number]
[2017-10-10] MEDS: busPIRone 5 MG TABLET. PO SCH (08:04)
[2017-10-10] MEDS: buPROPion XL 150 MG TAB.ER.24H PO SCH (08:04)
[2017-10-10] MEDS: DULoxetine HCL 60 MG CAPSULE.DR PO SCH (08:04)
[2017-10-10] MEDS: fluPHENAZine 5 MG/ML ORAL.CONC SOLUTION. PO SCH ×3 (08:04→20:37)
[2017-10-10] MEDS: CHOLECALCIFEROL (VITAMIN D3) 1,000 UNIT TABLET PO SCH (08:04)
[2017-10-10] MEDS: FINASTERIDE 5 MG TABLET PO SCH (08:05)
[2017-10-10] MEDS: PANTOPRAZOLE 40 MG TABLET. PO SCH (08:05)
[2017-10-10] MEDS: GABAPENTIN 300 MG CAPSULE. PO SCH ×3 (08:05→20:37)
[2017-10-10 09:38] LABS: BASO % 1 % (0-3); EOS # 0.3 x10^3/uL (0.0-0.7); EOS % 4 % (0-3); HEMATOCRIT 39.6 % (39.0-53.0); HEMOGLOBIN 13.2 g/dL (13.0-17.5); LYMPH # 1.8 x10^3/uL (1.0-4.8); LYMPH % 26 % (24-48); MEAN CORPUSCULAR HEMOGLOBIN 32 pg (25-35); MEAN CORPUSCULAR HGB CONC 33 g/dL (31-37); MEAN CORPUSCULAR VOLUME 96 fL (79-100); MONO # 0.7 x10^3/uL (0.0-1.1); MONO % 11 % (0-9); NEUT # 3.9 x10^3uL (1.8-7.7); NEUT % 58 % (31-73); PLATELET COUNT 237 x10^3/uL (140-400); RED BLOOD COUNT 4.13 x10^6/uL (4.30-5.70); WHITE BLOOD COUNT 6.7 x10^3/uL (4.0-11.0)
[2017-10-10 09:45] LABS: ALBUMIN 2.7 g/dL (3.4-5.0); ALBUMIN/GLOBULIN RATIO 0.8 (1.0-1.7); CALCIUM 8.7 mg/dL (8.5-10.1); CREATININE 0.6 mg/dL (0.7-1.3); GFR 132.8; POTASSIUM 3.7 mmol/L (3.5-5.1); TOTAL BILIRUBIN 0.5 mg/dL (0.2-1.0)
[2017-10-10 10:21] VITALS: BP 117/66
[2017-10-10] MEDS: OMEGA-3 FATTY ACIDS/FISH OIL 1,000 MG CAPSULE. PO SCH ×2 (12:57→17:47)
[2017-10-10 15:58] VITALS: BP 114/76
[2017-10-10] MEDS: WARFARIN 7.5 MG TABLET. PO SCH (17:47)
[2017-10-10] MEDS: ASCORBIC ACID 500 MG TABLET PO SCH (17:48)
[2017-10-10] MEDS: VITAMIN B COMPLEX CAPSULE. PO SCH (17:48)
[2017-10-10] MEDS: LACTOBACILLUS RHAMNOSUS GG 1 CAPSULE. PO SCH (20:37)
[2017-10-10] MEDS: ZOLPIDEM 5 MG TABLET. PO SCH (20:37)
[2017-10-10] MEDS: ATORVASTATIN CALCIUM 20 MG TABLET PO SCH (20:37)
--- NOTE | 2017-10-10 20:59 | PDOC ---
Exam Note: Sridhar Note: Please also refer to the separate dictated note~for this date of service dictated separately.~Patient seen individually. Discussed the patient with Nursing staff reviewed the chart.~Reviewed interim history and current functioning. Reviewed vital signs,~Labs/ Radiology~and current medications noted below. Continue current treatment with the changes noted in the dictated addendum note Assessment: Vital Signs: Vital Signs Date Time Temp Pulse Resp B/P (MAP) Pulse Ox O2 Delivery O2 Flow Rate FiO2 10/10/17 15:58 97.9 70 20 114/76 (89) 96 10/10/17 10:21 Room Air I&O Intake and Output 10/10/17 07:00 Intake Total 600 ml Balance 600 ml Intake Oral 600 ml Labs: Laboratory Tests Test 10/10/17 07:15 White Blood Count 6.7 x10^3/uL (4.0-11.0) Red Blood Count 4.13 x10^6/uL (4.30-5.70) L Hemoglobin 13.2 g/dL (13.0-17.5) Hematocrit 39.6 % (39.0-53.0) Mean Corpuscular Volume 96 fL (79-100) Mean Corpuscular Hemoglobin 32 pg (25-35) Mean Corpuscular Hemoglobin Concent 33 g/dL (31-37) Red Cell Distribution Width 14.0 % (11.5-14.5) Platelet Count 237 x10^3/uL (140-400) Neutrophils (%) (Auto) 58 % (31-73) Lymphocytes (%) (Auto) 26 % (24-48) Monocytes (%) (Auto) 11 % (0-9) H Eosinophils (%) (Auto) 4 % (0-3) H Basophils (%) (Auto) 1 % (0-3) Neutrophils # (Auto) 3.9 x10^3uL (1.8-7.7) Lymphocytes # (Auto) 1.8 x10^3/uL (1.0-4.8) Monocytes # (Auto) 0.7 x10^3/uL (0.0-1.1) Eosinophils # (Auto) 0.3 x10^3/uL (0.0-0.7) Basophils # (Auto) 0.0 x10^3/uL (0.0-0.2) Prothrombin Time 17.9 SEC (9.4-11.4) H Prothrombin Time INR 1.8 (0.9-1.1) H Sodium Level 147 mmol/L (136-145) H Potassium Level 3.7 mmol/L (3.5-5.1) Chloride Level 110 mmol/L (98-107) H Carbon Dioxide Level 31 mmol/L (21-32) Anion Gap 6 (6-14) Blood Urea Nitrogen 8 mg/dL (8-26) Creatinine 0.6 mg/dL (0.7-1.3) L Estimated GFR (Cockcroft-Gault) 132.8 BUN/Creatinine Ratio 13 (6-20) Glucose Level 95 mg/dL (70-99) Calcium Level 8.7 mg/dL (8.5-10.1) Total Bilirubin 0.5 mg/dL (0.2-1.0) Aspartate Amino Transferase (AST) 12 U/L (15-37) L Alanine Aminotransferase (ALT) 18 U/L (16-63) Alkaline Phosphatase 91 U/L (46-116) Total Protein 6.0 g/dL (6.4-8.2) L Albumin 2.7 g/dL (3.4-5.0) L Albumin/Globulin Ratio 0.8 (1.0-1.7) L Current Medications: Meds: Current Medications Acetaminophen (Tylenol) 650 mg PRN Q6HRS PRN PO PAIN / TEMP Last administered on 10/06/17at 12:26; Start 09/26/17 at 22:30 Al Hydroxide/Mg Hydroxide (Mylanta Plus Xs) 15 ml PRN AFTMEALHC PRN PO DYSPEPSIA; Start 09/26/17 at 22:30 Magnesium Hydroxide (Milk Of Magnesia) 2,400 mg PRN QHS PRN PO CONSTIPATION; Start 09/26/17 at 22:30 Fluphenazine HCl (Prolixin) 1 mg TID PO Last administered on 09/26/17at 23:11; Start 09/26/17 at 23:00; Stop 09/27/17 at 07:28; Status DC Zolpidem Tartrate (Ambien) 5 mg HS PO Last administered on 10/09/17at 20:49; Start 09/26/17 at 23:00 Duloxetine HCl (Cymbalta) 90 mg DAILY PO Last administered on 09/29/17 08:45; Start 09/27/17 at 09:00; Stop 09/29/17 at 16:34; Status DC Atorvastatin Calcium (Lipitor) 20 mg QHS PO Last administered on 10/09/17 20: 45; Start 09/26/17 at 22:45 Finasteride (Proscar) 5 mg BID PO Last administered on 09/26/17at 23:10; Start 09/26/17 at 22:45; Stop 09/27/17 at 08:53; Status DC Gabapentin (Neurontin) 600 mg HS PO Last administered on 10/09/17 20:45; Start 09/26/17 at 22:45 Fish Oil (Fish Oil) 1,000 mg BID PO Last administered on 09/26/17at 23:07; Start 09/26/17 at 22:45; Stop 09/27/17 at 10:30; Status DC Zolpidem Tartrate (Ambien) 5 mg PRN QHS PRN PO INSOMNIA IF REPEAT NEEDED; Start 09/26/17 at 22:45 Loperamide HCl (Imodium) 2 mg PRN Q15MIN PRN PO DIARRHEA Last administered on at 12:41; Start 09/26/17 at 23:30 Fluphenazine HCl (Prolixin Oral Conc) 1 mg TID PO Last administered on at 13:21; Start 09/27/17 at 09:00; Stop 09/29/17 at 16:33; Status DC Albuterol Sulfate (Ventolin Hfa Inhaler) 2 puff PRN Q4HRS PRN IH FOR ASTHMA; Start 09/27/17 at 08:45; Status UNV Gabapentin (Neurontin) 300 mg DAILY PO Last administered on 10/10/17at 08:05; Start 09/27/17 at 09:00 Ketoconazole (Nizoral 2% Topical) 1 isela DAILY PRN TP RASH; Start 09/27/17 at 08 :45 Ascorbic Acid (Vitamin C) 1,000 mg DAILY PO ; Start 09/27/17 at 09:00; Stop at 10:30; Status DC Vitamin D (Vitamin D3) 5,000 unit DAILY PO Last administered on 10/10/17at 08:04 ; Start 09/27/17 at 09:00 Gabapentin (Neurontin) 600 mg AFTRNOON PO Last administered on 10/10/17 12:57 ; Start 09/27/17 at 13:00 Lactobacillus Rhamnosus (Culturelle) 1 cap DAILY PO ; Start 09/27/17 at 09:00; Stop 09/27/17 at 10:30; Status DC Pantoprazole Sodium (Protonix) 40 mg DAILYAC PO Last administered on 10/10/17at 08:05; Start 09/27/17 at 09:00 Vitamin B Complex 1 cap DAILY PO ; Start 09/27/17 at 09:00; Stop 09/27/17 at 10: 30; Status DC Finasteride (Proscar) 5 mg DAILY PO Last administered on 10/10/17 08:05; Start 09/27/17 at 09:00 Albuterol Sulfate (Ventolin) 2.5 mg PRN Q4HRS PRN NEB SHORTNESS OF BREATH; Start 09/27/17 at 09:15 Ascorbic Acid (Vitamin C) 1,000 mg DAILYWSUP PO Last administered on 10/10/17 17:48; Start 09/27/17 at 17:00 Lactobacillus Rhamnosus (Culturelle) 1 cap QHS PO Last administered on 20:45; Start 09/27/17 at 21:00 Fish Oil (Fish Oil) 1,000 mg BID@1200,2100 PO Last administered on 09/27/17 12 :17; Start 09/27/17 at 12:00; Stop 09/27/17 at 21:13; Status DC Vitamin B Complex 1 cap DAILYWSUP PO Last administered on 10/10/17at 17:48; Start 09/27/17 at 17:00 Fish Oil (Fish Oil) 1,000 mg BID@1200,1600 PO Last administered on 10/10/17 17 :47; Start 09/28/17 at 12:00 Warfarin Sodium (Coumadin) 5 mg DAILY16 PO Last administered on 10/04/17 17:04 ; Start 09/29/17 at 16:00; Stop 10/04/17 at 23:00; Status DC Warfarin Sodium (Coumadin Per Physician) 1 each PRN DAILY PRN MC SEE COMMENTS; Start 09/29/17 at 15:15; Stop 10/04/17 at 21:30; Status DC Fluphenazine HCl (Prolixin Oral Conc) 1 mg BID@0900,1400 PO Last administered on 10/10/17at 12:57; Start 09/30/17 at 09:00 Fluphenazine HCl (Prolixin Oral Conc) 0.5 mg QHS PO Last administered on at 20:49; Start 09/29/17 at 21:00 Duloxetine HCl (Cymbalta) 60 mg DAILY PO Last administered on 10/10/17at 08:04; Start 09/30/17 at 09:00 Bupropion HCl (Wellbutrin Xl) 150 mg DAILY PO Last administered on 10/10/17at 08 :04; Start 09/30/17 at 09:00 Artificial Tears (Artificial Tears) 1 drop PRN Q15MIN PRN OU DRY EYE; Start at 15:15; Stop 09/30/17 at 18:07; Status DC Artificial Tears (Refresh Classic) 1 drop PRN Q15MIN PRN OU DRY EYE Last administered on 10/04/17at 19:33; Start 09/30/17 at 18:15 Buspirone HCl (Buspar) 5 mg 0900,1700 PO Last administered on 10/10/17at 08:04; Start 10/02/17 at 09:15; Stop 10/10/17 at 17:55; Status DC Warfarin Sodium (Coumadin Per Pharmacy) 1 each PRN DAILY PRN MC SEE COMMENTS Last administered on 10/04/17at 23:18; Start 10/04/17 at 21:30; Stop 10/05/17 at 00:00; Status DC Info (Anti-Coagulation Monitoring By Pharmacy) 1 each PRN DAILY PRN MC SEE COMMENTS; Start 10/04/17 at 21:30; Stop 10/09/17 at 08:41; Status DC Warfarin Sodium (Coumadin Per Pharmacy) 1 each PRN DAILY PRN MC SEE COMMENTS Last administered on 10/09/17at 08:44; Start 10/05/17 at 16:00 Warfarin Sodium (Coumadin) 6 mg 1X WARF ONCE PO Last administered on at 17:14; Start 10/05/17 at 16:00; Stop 10/05/17 at 16:01; Status DC Warfarin Sodium (Coumadin) 7.5 mg 1X WARF ONCE PO Last administered on at 17:20; Start 10/06/17 at 16:00; Stop 10/06/17 at 16:01; Status DC Warfarin Sodium (Coumadin) 7.5 mg 1X WARF ONCE PO Last administered on at 17:38; Start 10/07/17 at 16:00; Stop 10/07/17 at 16:01; Status DC Warfarin Sodium (Coumadin) 5 mg 1X WARF ONCE PO Last administered on at 16:06; Start 10/08/17 at 16:00; Stop 10/08/17 at 16:01; Status DC Warfarin Sodium (Coumadin) 7.5 mg DAILY16 PO Last administered on 10/10/17at 17: 47; Start 10/09/17 at 16:00 Buspirone HCl (Buspar) 5 mg 0900,1300,1700 PO ; Start 10/11/17 at 09:00 Active Scripts Active Reported Vitamin D3 (Cholecalciferol (Vitamin D3)) 5,000 Unit Tablet 5,000 Unit PO DAILY Vitamin C (Ascorbic Acid) 1,000 Mg Tablet.er 1,000 Mg PO DAILY Ventolin Hfa Inhaler (Albuterol Sulfate) 18 Gm Hfa.aer.ad 2 Puff IH PRN Q4HRS PRN Probiotic (Lactobacillus Combo No.10) 1 Each Capsule 1 Cap PO DAILY Prilosec Otc (Omeprazole Magnesium) 20 Mg Tablet.dr 20 Mg PO DAILY [place] 3 1,000 Mg Softgel ([place]-3 Fatty Acids/Fish Oil) 1 Each Capsule 1 Cap PO BID Lipitor (Atorvastatin Calcium) 20 Mg Tablet 20 Mg PO QHS Ketoconazole 15 Gm Cream..g. 13 Isela TP PRN PRN Gabapentin 600 Mg Tablet 600 Mg PO AFTRNOON Gabapentin 600 Mg Tablet 600 Mg PO HS Gabapentin 300 Mg Capsule 300 Mg PO DAILY Fluphenazine Hcl 1 Mg Tablet 1 Mg PO TID Finasteride 5 Mg Tablet 5 Mg PO BID Cymbalta (Duloxetine Hcl) 30 Mg Capsule.dr 90 Mg PO DAILY Coumadin (Warfarin Sodium) 5 Mg Tablet 5 Mg PO QPM Coumadin (Warfarin Sodium) 2 Mg Tablet 2 Mg PO QPM Coumadin (Warfarin Sodium) 1 Mg Tablet 0.5 Mg PO QPM B Complex (Vitamin B Complex) 1 Each Tablet 1 Tab PO DAILY Ambien (Zolpidem Tartrate) 10 Mg Tablet 10 Mg PO HS I have reviewed the current psychotropics carefully including drug interactions. Risk benefit ratio favors no change other than as noted in my dictated progress note. Diagnosis: Problems: (1) Anxiety disorder (2) Impulse control disorder (3) Major depressive disorder, recurrent episode LIGIA PEREZ MD Oct 10, 2017 20:59
--- NOTE | 2017-10-11 03:55 | PN ---
DATE: 10/09/2017 This is a late entry for 10/09/2017 covers elements not covered in my initial note. SUBJECTIVE: I met with the patient in the evening, staffed at treatment team meeting, which was a lengthy meeting with the patient's daughter, Amelie attending. Reviewed the patient's history. Daughter's concern is that we were not utilizing psychoanalytic psychotherapy, which is what she expected to happen during prolonged hospitalization over several weeks here. We discussed at length how much of that would have to be done back at the detention with psychologist and suggestion was made to contact [facility], who provide psychotherapy services and facilities unless the facility has one of their own. The patient remains quite manipulative, triangulate staff and we addressed ways to address this. He is constantly wanting to be discharged, obsesses about this and discussed ways to address some of this as well. REVIEW OF SYSTEMS: Ambulation impaired, in Broda chair. No CV, , pulmonary, eye system symptoms on review. MENTAL STATUS EXAM: Reasonably oriented. Speech is coherent, has some latency. Abstraction fair, computation impaired, language function intact, attention span short. Mood and affect remain somewhat anxious, labile at times. The patient slept 5-1/2 hours. LABORATORY DATA: Reviewed. IMPRESSION: Major depressive disorder recurrent, in partial remission; anxiety disorder, unspecified. PLAN: Increase BuSpar from 5 mg b.i.d. to 3 times a day 09:00 a.m., 01:00 p.m., 05:00 p.m. Continue Cymbalta Ambien. He is also on Neurontin and Prolixin, which he is insistent that he does not want to discontinue and believes it is for Tourette's disorder. This certainly is suspect. Wellbutrin-XL 150 mg a day. Adjust further as clinically indicated. LIGIA PEREZ MD DR: AIDAN/riccardo JOB#: [id number] / [id number]
[2017-10-11] MEDS: CHOLECALCIFEROL (VITAMIN D3) 1,000 UNIT TABLET PO SCH (07:57)
[2017-10-11] MEDS: DULoxetine HCL 60 MG CAPSULE.DR PO SCH (07:57)
[2017-10-11] MEDS: PANTOPRAZOLE 40 MG TABLET. PO SCH (07:57)
[2017-10-11] MEDS: FINASTERIDE 5 MG TABLET PO SCH (07:57)
[2017-10-11] MEDS: GABAPENTIN 300 MG CAPSULE. PO SCH ×3 (07:57→20:02)
[2017-10-11] MEDS: buPROPion XL 150 MG TAB.ER.24H PO SCH (07:58)
[2017-10-11] MEDS: fluPHENAZine 5 MG/ML ORAL.CONC SOLUTION. PO SCH ×3 (07:59→20:04)
[2017-10-11] MEDS: busPIRone 5 MG TABLET. PO SCH ×3 (07:59→18:24)
[2017-10-11 11:27] VITALS: BP 134/81
[2017-10-11] MEDS: OMEGA-3 FATTY ACIDS/FISH OIL 1,000 MG CAPSULE. PO SCH ×2 (13:29→18:24)
[2017-10-11 16:52] VITALS: BP 128/84
[2017-10-11] MEDS: ASCORBIC ACID 500 MG TABLET PO SCH (18:24)
[2017-10-11] MEDS: WARFARIN 7.5 MG TABLET. PO SCH (18:24)
[2017-10-11] MEDS: VITAMIN B COMPLEX CAPSULE. PO SCH (18:24)
[2017-10-11] MEDS: ZOLPIDEM 5 MG TABLET. PO SCH (20:03)
[2017-10-11] MEDS: ATORVASTATIN CALCIUM 20 MG TABLET PO SCH (20:03)
[2017-10-11] MEDS: LACTOBACILLUS RHAMNOSUS GG 1 CAPSULE. PO SCH (20:03)
--- NOTE | 2017-10-11 23:14 | PDOC ---
Exam Note: Sridhar Note: Please also refer to the separate dictated note~for this date of service dictated separately.~Patient seen individually. Discussed the patient with Nursing staff reviewed the chart.~Reviewed interim history and current functioning. Reviewed vital signs,~Labs/ Radiology~and current medications noted below. Continue current treatment with the changes noted in the dictated addendum note Assessment: Vital Signs: Vital Signs Date Time Temp Pulse Resp B/P (MAP) Pulse Ox O2 Delivery O2 Flow Rate FiO2 10/11/17 16:52 97.8 66 20 128/84 (99) 91 10/11/17 11:27 Room Air I&O Intake and Output 10/11/17 07:00 Intake Total 1080 ml Balance 1080 ml Intake Oral 1080 ml Current Medications: Meds: Current Medications Acetaminophen (Tylenol) 650 mg PRN Q6HRS PRN PO PAIN / TEMP Last administered on 10/06/17at 12:26; Start 09/26/17 at 22:30 Al Hydroxide/Mg Hydroxide (Mylanta Plus Xs) 15 ml PRN AFTMEALHC PRN PO DYSPEPSIA; Start 09/26/17 at 22:30 Magnesium Hydroxide (Milk Of Magnesia) 2,400 mg PRN QHS PRN PO CONSTIPATION; Start 09/26/17 at 22:30 Fluphenazine HCl (Prolixin) 1 mg TID PO Last administered on 09/26/17at 23:11; Start 09/26/17 at 23:00; Stop 09/27/17 at 07:28; Status DC Zolpidem Tartrate (Ambien) 5 mg HS PO Last administered on 10/11/17at 20:03; Start 09/26/17 at 23:00 Duloxetine HCl (Cymbalta) 90 mg DAILY PO Last administered on 09/29/17at 08:45; Start 09/27/17 at 09:00; Stop 09/29/17 at 16:34; Status DC Atorvastatin Calcium (Lipitor) 20 mg QHS PO Last administered on 10/11/17at 20:03 ; Start 09/26/17 at 22:45 Finasteride (Proscar) 5 mg BID PO Last administered on 09/26/17at 23:10; Start 09/26/17 at 22:45; Stop 09/27/17 at 08:53; Status DC Gabapentin (Neurontin) 600 mg HS PO Last administered on 10/11/17at 20:02; Start 09/26/17 at 22:45 Fish Oil (Fish Oil) 1,000 mg BID PO Last administered on 09/26/17at 23:07; Start 09/26/17 at 22:45; Stop 09/27/17 at 10:30; Status DC Zolpidem Tartrate (Ambien) 5 mg PRN QHS PRN PO INSOMNIA IF REPEAT NEEDED; Start 09/26/17 at 22:45 Loperamide HCl (Imodium) 2 mg PRN Q15MIN PRN PO DIARRHEA Last administered on at 12:41; Start 09/26/17 at 23:30 Fluphenazine HCl (Prolixin Oral Conc) 1 mg TID PO Last administered on at 13:21; Start 09/27/17 at 09:00; Stop 09/29/17 at 16:33; Status DC Albuterol Sulfate (Ventolin Hfa Inhaler) 2 puff PRN Q4HRS PRN IH FOR ASTHMA; Start 09/27/17 at 08:45; Status UNV Gabapentin (Neurontin) 300 mg DAILY PO Last administered on 10/11/17at 07:57; Start 09/27/17 at 09:00 Ketoconazole (Nizoral 2% Topical) 1 isela DAILY PRN TP RASH; Start 09/27/17 at 08 :45 Ascorbic Acid (Vitamin C) 1,000 mg DAILY PO ; Start 09/27/17 at 09:00; Stop at 10:30; Status DC Vitamin D (Vitamin D3) 5,000 unit DAILY PO Last administered on 10/11/17at 07:57 ; Start 09/27/17 at 09:00 Gabapentin (Neurontin) 600 mg AFTRNOON PO Last administered on 10/11/17at 13:29; Start 09/27/17 at 13:00 Lactobacillus Rhamnosus (Culturelle) 1 cap DAILY PO ; Start 09/27/17 at 09:00; Stop 09/27/17 at 10:30; Status DC Pantoprazole Sodium (Protonix) 40 mg DAILYAC PO Last administered on 10/11/17at 07:57; Start 09/27/17 at 09:00 Vitamin B Complex 1 cap DAILY PO ; Start 09/27/17 at 09:00; Stop 09/27/17 at 10: 30; Status DC Finasteride (Proscar) 5 mg DAILY PO Last administered on 10/11/17at 07:57; Start 09/27/17 at 09:00 Albuterol Sulfate (Ventolin) 2.5 mg PRN Q4HRS PRN NEB SHORTNESS OF BREATH; Start 09/27/17 at 09:15 Ascorbic Acid (Vitamin C) 1,000 mg DAILYWSUP PO Last administered on 10/11/17at 18:24; Start 09/27/17 at 17:00 Lactobacillus Rhamnosus (Culturelle) 1 cap QHS PO Last administered on 20:03; Start 09/27/17 at 21:00 Fish Oil (Fish Oil) 1,000 mg BID@1200,2100 PO Last administered on 09/27/17at 12 :17; Start 09/27/17 at 12:00; Stop 09/27/17 at 21:13; Status DC Vitamin B Complex 1 cap DAILYWSUP PO Last administered on 10/11/17at 18:24; Start 09/27/17 at 17:00 Fish Oil (Fish Oil) 1,000 mg BID@1200,1600 PO Last administered on 10/11/17 18: 24; Start 09/28/17 at 12:00 Warfarin Sodium (Coumadin) 5 mg DAILY16 PO Last administered on 10/04/17at 17:04 ; Start 09/29/17 at 16:00; Stop 10/04/17 at 23:00; Status DC Warfarin Sodium (Coumadin Per Physician) 1 each PRN DAILY PRN MC SEE COMMENTS; Start 09/29/17 at 15:15; Stop 10/04/17 at 21:30; Status DC Fluphenazine HCl (Prolixin Oral Conc) 1 mg BID@0900,1400 PO Last administered on 10/11/17at 13:29; Start 09/30/17 at 09:00 Fluphenazine HCl (Prolixin Oral Conc) 0.5 mg QHS PO Last administered on at 20:04; Start 09/29/17 at 21:00 Duloxetine HCl (Cymbalta) 60 mg DAILY PO Last administered on 10/11/17at 07:57; Start 09/30/17 at 09:00 Bupropion HCl (Wellbutrin Xl) 150 mg DAILY PO Last administered on 10/11/17at 07: 58; Start 09/30/17 at 09:00 Artificial Tears (Artificial Tears) 1 drop PRN Q15MIN PRN OU DRY EYE; Start at 15:15; Stop 09/30/17 at 18:07; Status DC Artificial Tears (Refresh Classic) 1 drop PRN Q15MIN PRN OU DRY EYE Last administered on 10/04/17at 19:33; Start 09/30/17 at 18:15 Buspirone HCl (Buspar) 5 mg 0900,1700 PO Last administered on 10/10/17at 08:04; Start 10/02/17 at 09:15; Stop 10/10/17 at 17:55; Status DC Warfarin Sodium (Coumadin Per Pharmacy) 1 each PRN DAILY PRN MC SEE COMMENTS Last administered on 10/04/17at 23:18; Start 10/04/17 at 21:30; Stop 10/05/17 at 00:00; Status DC Info (Anti-Coagulation Monitoring By Pharmacy) 1 each PRN DAILY PRN MC SEE COMMENTS; Start 10/04/17 at 21:30; Stop 10/09/17 at 08:41; Status DC Warfarin Sodium (Coumadin Per Pharmacy) 1 each PRN DAILY PRN MC SEE COMMENTS Last administered on 10/09/17at 08:44; Start 10/05/17 at 16:00 Warfarin Sodium (Coumadin) 6 mg 1X WARF ONCE PO Last administered on at 17:14; Start 10/05/17 at 16:00; Stop 10/05/17 at 16:01; Status DC Warfarin Sodium (Coumadin) 7.5 mg 1X WARF ONCE PO Last administered on at 17:20; Start 10/06/17 at 16:00; Stop 10/06/17 at 16:01; Status DC Warfarin Sodium (Coumadin) 7.5 mg 1X WARF ONCE PO Last administered on at 17:38; Start 10/07/17 at 16:00; Stop 10/07/17 at 16:01; Status DC Warfarin Sodium (Coumadin) 5 mg 1X WARF ONCE PO Last administered on at 16:06; Start 10/08/17 at 16:00; Stop 10/08/17 at 16:01; Status DC Warfarin Sodium (Coumadin) 7.5 mg DAILY16 PO Last administered on 10/11/17at 18: 24; Start 10/09/17 at 16:00 Buspirone HCl (Buspar) 5 mg 0900,1300,1700 PO Last administered on 10/11/17at 18: 24; Start 10/11/17 at 09:00 Active Scripts Active Reported Vitamin D3 (Cholecalciferol (Vitamin D3)) 5,000 Unit Tablet 5,000 Unit PO DAILY Vitamin C (Ascorbic Acid) 1,000 Mg Tablet.er 1,000 Mg PO DAILY Ventolin Hfa Inhaler (Albuterol Sulfate) 18 Gm Hfa.aer.ad 2 Puff IH PRN Q4HRS PRN Probiotic (Lactobacillus Combo No.10) 1 Each Capsule 1 Cap PO DAILY Prilosec Otc (Omeprazole Magnesium) 20 Mg Tablet.dr 20 Mg PO DAILY Sutter 3 1,000 Mg Softgel (Sutter-3 Fatty Acids/Fish Oil) 1 Each Capsule 1 Cap PO BID Lipitor (Atorvastatin Calcium) 20 Mg Tablet 20 Mg PO QHS Ketoconazole 15 Gm Cream..g. 13 Isela TP PRN PRN Gabapentin 600 Mg Tablet 600 Mg PO AFTRNOON Gabapentin 600 Mg Tablet 600 Mg PO HS Gabapentin 300 Mg Capsule 300 Mg PO DAILY Fluphenazine Hcl 1 Mg Tablet 1 Mg PO TID Finasteride 5 Mg Tablet 5 Mg PO BID Cymbalta (Duloxetine Hcl) 30 Mg Capsule.dr 90 Mg PO DAILY Coumadin (Warfarin Sodium) 5 Mg Tablet 5 Mg PO QPM Coumadin (Warfarin Sodium) 2 Mg Tablet 2 Mg PO QPM Coumadin (Warfarin Sodium) 1 Mg Tablet 0.5 Mg PO QPM B Complex (Vitamin B Complex) 1 Each Tablet 1 Tab PO DAILY Ambien (Zolpidem Tartrate) 10 Mg Tablet 10 Mg PO HS I have reviewed the current psychotropics carefully including drug interactions. Risk benefit ratio favors no change other than as noted in my dictated progress note. Diagnosis: Problems: (1) Anxiety disorder (2) Impulse control disorder (3) Major depressive disorder, recurrent episode LIGIA PEREZ MD Oct 11, 2017 23:14
[2017-10-12] MEDS: PANTOPRAZOLE 40 MG TABLET. PO SCH (07:44)
[2017-10-12] MEDS: fluPHENAZine 5 MG/ML ORAL.CONC SOLUTION. PO SCH ×3 (07:44→21:59)
[2017-10-12] MEDS: FINASTERIDE 5 MG TABLET PO SCH (07:44)
[2017-10-12] MEDS: CHOLECALCIFEROL (VITAMIN D3) 1,000 UNIT TABLET PO SCH (07:44)
[2017-10-12] MEDS: buPROPion XL 150 MG TAB.ER.24H PO SCH (07:44)
[2017-10-12] MEDS: GABAPENTIN 300 MG CAPSULE. PO SCH ×3 (07:44→21:58)
[2017-10-12] MEDS: DULoxetine HCL 60 MG CAPSULE.DR PO SCH (07:45)
[2017-10-12] MEDS: busPIRone 5 MG TABLET. PO SCH ×3 (07:45→17:52)
--- NOTE | 2017-10-12 12:25 | PN ---
DATE: 10/10/2017 PSYCHIATRIC PROGRESS NOTE This is a late entry 10/10/2017, covers elements not covered in my initial note. SUBJECTIVE: I met with the patient in the evening. The patient slept about 7 hours previous night. Otherwise; pleasant, more accepting of his irritability, remains anxious. REVIEW OF SYSTEMS: Ambulation impaired, in Broda chair. No CV, , pulmonary, eye, ENT system symptoms on review. MENTAL STATUS EXAM: Oriented, reasonably well. Speech moderate latency, often responses monosyllabic. Abstraction fair, computation impaired, language function intact. Mood is somewhat dysphoric, anxious, but better. Affect, mood congruent. No suicidal or homicidal ideation. LABORATORY DATA: Reviewed. IMPRESSION: Unchanged from initial note. PLAN: No change from initial note. MAN Rochelle PEREZ MD DR: AIDAN/riccardo JOB#: [id number] / [id number]
--- NOTE | 2017-10-12 12:26 | PN ---
DATE: 10/11/2017 PSYCHIATRIC PROGRESS NOTE This is a late entry, 10/11, covers elements not covered in my initial note. SUBJECTIVE: I met with the patient in the evening. The patient slept 7-3/4 hours previous evening. He has had a good day, appears less anxious, less irritable, and as I questioned him, he said he felt he got something positive out of groups today. It is not very often he stays that. REVIEW OF SYSTEMS: Ambulation impaired, in Broda chair. No CV, , pulmonary, eye system symptoms on review. MENTAL STATUS EXAM: Reasonably oriented. Speech moderate latency, often responses monosyllabic. Abstraction fair, computation impaired, language function intact, attention span short. Mood and affect still somewhat dysphoric, anxious, but improved. LABORATORY DATA: Reviewed. IMPRESSION: Unchanged from initial note. PLAN: Unchanged from initial note. MAN Rochelle PEREZ MD DR: AIDAN/riccardo JOB#: [id number] / [id number]
[2017-10-12] MEDS: OMEGA-3 FATTY ACIDS/FISH OIL 1,000 MG CAPSULE. PO SCH ×2 (12:54→17:52)
[2017-10-12 16:14] VITALS: BP 124/76
[2017-10-12] MEDS: WARFARIN 6 MG TABLET. PO SCH (17:51)
[2017-10-12] MEDS: ASCORBIC ACID 500 MG TABLET PO SCH (17:52)
[2017-10-12] MEDS: VITAMIN B COMPLEX CAPSULE. PO SCH (17:52)
[2017-10-12] MEDS: WARFARIN 1 MG TABLET. PO SCH (17:52)
--- NOTE | 2017-10-12 20:57 | PDOC ---
Exam Note: Sridhar Note: Please also refer to the separate dictated note~for this date of service dictated separately.~Patient seen individually. Discussed the patient with Nursing staff reviewed the chart.~Reviewed interim history and current functioning. Reviewed vital signs,~Labs/ Radiology~and current medications noted below. Continue current treatment with the changes noted in the dictated addendum note Assessment: Vital Signs: Vital Signs Date Time Temp Pulse Resp B/P (MAP) Pulse Ox O2 Delivery O2 Flow Rate FiO2 10/12/17 16:14 97.9 65 19 124/76 (92) 95 10/11/17 11:27 Room Air I&O Intake and Output 10/12/17 07:00 Intake Total 1200 ml Output Total 400 ml Balance 800 ml Intake Oral 1200 ml Output Urine Total 400 ml # Voids 1 # Bowel Movements 1 Labs: Laboratory Tests Test 10/12/17 06:24 Prothrombin Time 21.0 SEC (9.4-11.4) H Prothrombin Time INR 2.2 (0.9-1.1) H Current Medications: Meds: Current Medications Acetaminophen (Tylenol) 650 mg PRN Q6HRS PRN PO PAIN / TEMP Last administered on 10/06/17at 12:26; Start 09/26/17 at 22:30 Al Hydroxide/Mg Hydroxide (Mylanta Plus Xs) 15 ml PRN AFTMEALHC PRN PO DYSPEPSIA; Start 09/26/17 at 22:30 Magnesium Hydroxide (Milk Of Magnesia) 2,400 mg PRN QHS PRN PO CONSTIPATION; Start 09/26/17 at 22:30 Fluphenazine HCl (Prolixin) 1 mg TID PO Last administered on 09/26/17at 23:11; Start 09/26/17 at 23:00; Stop 09/27/17 at 07:28; Status DC Zolpidem Tartrate (Ambien) 5 mg HS PO Last administered on 10/11/17at 20:03; Start 09/26/17 at 23:00 Duloxetine HCl (Cymbalta) 90 mg DAILY PO Last administered on 09/29/17at 08:45; Start 09/27/17 at 09:00; Stop 09/29/17 at 16:34; Status DC Atorvastatin Calcium (Lipitor) 20 mg QHS PO Last administered on 10/11/17at 20:03 ; Start 09/26/17 at 22:45 Finasteride (Proscar) 5 mg BID PO Last administered on 09/26/17at 23:10; Start 09/26/17 at 22:45; Stop 09/27/17 at 08:53; Status DC Gabapentin (Neurontin) 600 mg HS PO Last administered on 10/11/17at 20:02; Start 09/26/17 at 22:45 Fish Oil (Fish Oil) 1,000 mg BID PO Last administered on 09/26/17at 23:07; Start 09/26/17 at 22:45; Stop 09/27/17 at 10:30; Status DC Zolpidem Tartrate (Ambien) 5 mg PRN QHS PRN PO INSOMNIA IF REPEAT NEEDED; Start 09/26/17 at 22:45 Loperamide HCl (Imodium) 2 mg PRN Q15MIN PRN PO DIARRHEA Last administered on at 12:41; Start 09/26/17 at 23:30 Fluphenazine HCl (Prolixin Oral Conc) 1 mg TID PO Last administered on at 13:21; Start 09/27/17 at 09:00; Stop 09/29/17 at 16:33; Status DC Albuterol Sulfate (Ventolin Hfa Inhaler) 2 puff PRN Q4HRS PRN IH FOR ASTHMA; Start 09/27/17 at 08:45; Status UNV Gabapentin (Neurontin) 300 mg DAILY PO Last administered on 10/12/17at 07:44; Start 09/27/17 at 09:00 Ketoconazole (Nizoral 2% Topical) 1 isela DAILY PRN TP RASH; Start 09/27/17 at 08 :45 Ascorbic Acid (Vitamin C) 1,000 mg DAILY PO ; Start 09/27/17 at 09:00; Stop at 10:30; Status DC Vitamin D (Vitamin D3) 5,000 unit DAILY PO Last administered on 10/12/17at 07:44 ; Start 09/27/17 at 09:00 Gabapentin (Neurontin) 600 mg AFTRNOON PO Last administered on 10/12/17at 12:54; Start 09/27/17 at 13:00 Lactobacillus Rhamnosus (Culturelle) 1 cap DAILY PO ; Start 09/27/17 at 09:00; Stop 09/27/17 at 10:30; Status DC Pantoprazole Sodium (Protonix) 40 mg DAILYAC PO Last administered on 10/12/17at 07:44; Start 09/27/17 at 09:00 Vitamin B Complex 1 cap DAILY PO ; Start 09/27/17 at 09:00; Stop 09/27/17 at 10: 30; Status DC Finasteride (Proscar) 5 mg DAILY PO Last administered on 10/12/17at 07:44; Start 09/27/17 at 09:00 Albuterol Sulfate (Ventolin) 2.5 mg PRN Q4HRS PRN NEB SHORTNESS OF BREATH; Start 09/27/17 at 09:15 Ascorbic Acid (Vitamin C) 1,000 mg DAILYWSUP PO Last administered on 10/12/17at 17:52; Start 09/27/17 at 17:00 Lactobacillus Rhamnosus (Culturelle) 1 cap QHS PO Last administered on at 20:03; Start 09/27/17 at 21:00 Fish Oil (Fish Oil) 1,000 mg BID@1200,2100 PO Last administered on 09/27/17at 12 :17; Start 09/27/17 at 12:00; Stop 09/27/17 at 21:13; Status DC Vitamin B Complex 1 cap DAILYWSUP PO Last administered on 10/12/17at 17:52; Start 09/27/17 at 17:00 Fish Oil (Fish Oil) 1,000 mg BID@1200,1600 PO Last administered on 10/12/17at 17: 52; Start 09/28/17 at 12:00 Warfarin Sodium (Coumadin) 5 mg DAILY16 PO Last administered on 10/04/17at 17:04 ; Start 09/29/17 at 16:00; Stop 10/04/17 at 23:00; Status DC Warfarin Sodium (Coumadin Per Physician) 1 each PRN DAILY PRN MC SEE COMMENTS; Start 09/29/17 at 15:15; Stop 10/04/17 at 21:30; Status DC Fluphenazine HCl (Prolixin Oral Conc) 1 mg BID@0900,1400 PO Last administered on 10/12/17at 12:54; Start 09/30/17 at 09:00 Fluphenazine HCl (Prolixin Oral Conc) 0.5 mg QHS PO Last administered on at 20:04; Start 09/29/17 at 21:00 Duloxetine HCl (Cymbalta) 60 mg DAILY PO Last administered on 10/12/17 07:45; Start 09/30/17 at 09:00 Bupropion HCl (Wellbutrin Xl) 150 mg DAILY PO Last administered on 10/12/17at 07: 44; Start 09/30/17 at 09:00 Artificial Tears (Artificial Tears) 1 drop PRN Q15MIN PRN OU DRY EYE; Start at 15:15; Stop 09/30/17 at 18:07; Status DC Artificial Tears (Refresh Classic) 1 drop PRN Q15MIN PRN OU DRY EYE Last administered on 10/04/17at 19:33; Start 09/30/17 at 18:15 Buspirone HCl (Buspar) 5 mg 0900,1700 PO Last administered on 10/10/17at 08:04; Start 10/02/17 at 09:15; Stop 10/10/17 at 17:55; Status DC Warfarin Sodium (Coumadin Per Pharmacy) 1 each PRN DAILY PRN MC SEE COMMENTS Last administered on 10/04/17at 23:18; Start 10/04/17 at 21:30; Stop 10/05/17 at 00:00; Status DC Info (Anti-Coagulation Monitoring By Pharmacy) 1 each PRN DAILY PRN MC SEE COMMENTS; Start 10/04/17 at 21:30; Stop 10/09/17 at 08:41; Status DC Warfarin Sodium (Coumadin Per Pharmacy) 1 each PRN DAILY PRN MC SEE COMMENTS Last administered on 10/12/17at 08:45; Start 10/05/17 at 16:00 Warfarin Sodium (Coumadin) 6 mg 1X WARF ONCE PO Last administered on at 17:14; Start 10/05/17 at 16:00; Stop 10/05/17 at 16:01; Status DC Warfarin Sodium (Coumadin) 7.5 mg 1X WARF ONCE PO Last administered on at 17:20; Start 10/06/17 at 16:00; Stop 10/06/17 at 16:01; Status DC Warfarin Sodium (Coumadin) 7.5 mg 1X WARF ONCE PO Last administered on at 17:38; Start 10/07/17 at 16:00; Stop 10/07/17 at 16:01; Status DC Warfarin Sodium (Coumadin) 5 mg 1X WARF ONCE PO Last administered on at 16:06; Start 10/08/17 at 16:00; Stop 10/08/17 at 16:01; Status DC Warfarin Sodium (Coumadin) 7.5 mg DAILY16 PO Last administered on 10/11/17at 18: 24; Start 10/09/17 at 16:00; Stop 10/12/17 at 08:39; Status DC Buspirone HCl (Buspar) 5 mg 0900,1300,1700 PO Last administered on 10/12/17at 17: 52; Start 10/11/17 at 09:00 Warfarin Sodium (Coumadin) 6 mg DAILY@1600 PO Last administered on 10/12/17at 17: 51; Start 10/12/17 at 16:00 Warfarin Sodium (Coumadin) 1 mg DAILY@1600 PO Last administered on 10/12/17at 17: 52; Start 10/12/17 at 16:00 Active Scripts Active Reported Vitamin D3 (Cholecalciferol (Vitamin D3)) 5,000 Unit Tablet 5,000 Unit PO DAILY Vitamin C (Ascorbic Acid) 1,000 Mg Tablet.er 1,000 Mg PO DAILY Ventolin Hfa Inhaler (Albuterol Sulfate) 18 Gm Hfa.aer.ad 2 Puff IH PRN Q4HRS PRN Probiotic (Lactobacillus Combo No.10) 1 Each Capsule 1 Cap PO DAILY Prilosec Otc (Omeprazole Magnesium) 20 Mg Tablet.dr 20 Mg PO DAILY Beulah 3 1,000 Mg Softgel (Beulah-3 Fatty Acids/Fish Oil) 1 Each Capsule 1 Cap PO BID Lipitor (Atorvastatin Calcium) 20 Mg Tablet 20 Mg PO QHS Ketoconazole 15 Gm Cream..g. 13 Isela TP PRN PRN Gabapentin 600 Mg Tablet 600 Mg PO AFTRNOON Gabapentin 600 Mg Tablet 600 Mg PO HS Gabapentin 300 Mg Capsule 300 Mg PO DAILY Fluphenazine Hcl 1 Mg Tablet 1 Mg PO TID Finasteride 5 Mg Tablet 5 Mg PO BID Cymbalta (Duloxetine Hcl) 30 Mg Capsule.dr 90 Mg PO DAILY Coumadin (Warfarin Sodium) 5 Mg Tablet 5 Mg PO QPM Coumadin (Warfarin Sodium) 2 Mg Tablet 2 Mg PO QPM Coumadin (Warfarin Sodium) 1 Mg Tablet 0.5 Mg PO QPM B Complex (Vitamin B Complex) 1 Each Tablet 1 Tab PO DAILY Ambien (Zolpidem Tartrate) 10 Mg Tablet 10 Mg PO HS I have reviewed the current psychotropics carefully including drug interactions. Risk benefit ratio favors no change other than as noted in my dictated progress note. Diagnosis: Problems: (1) Anxiety disorder (2) Impulse control disorder (3) Major depressive disorder, recurrent episode LIGIA PEREZ MD Oct 12, 2017 20:57
[2017-10-12] MEDS: ZOLPIDEM 5 MG TABLET. PO SCH (21:59)
[2017-10-12] MEDS: LACTOBACILLUS RHAMNOSUS GG 1 CAPSULE. PO SCH (21:59)
[2017-10-12] MEDS: ATORVASTATIN CALCIUM 20 MG TABLET PO SCH (21:59)
[2017-10-13] MEDS: CHOLECALCIFEROL (VITAMIN D3) 1,000 UNIT TABLET PO SCH (08:00)
[2017-10-13] MEDS: PANTOPRAZOLE 40 MG TABLET. PO SCH (08:01)
[2017-10-13] MEDS: busPIRone 5 MG TABLET. PO SCH ×3 (08:01→17:00)
[2017-10-13] MEDS: GABAPENTIN 300 MG CAPSULE. PO SCH ×3 (08:01→19:14)
[2017-10-13] MEDS: DULoxetine HCL 60 MG CAPSULE.DR PO SCH (08:01)
[2017-10-13] MEDS: buPROPion XL 150 MG TAB.ER.24H PO SCH (08:01)
[2017-10-13] MEDS: FINASTERIDE 5 MG TABLET PO SCH (08:02)
[2017-10-13] MEDS: fluPHENAZine 5 MG/ML ORAL.CONC SOLUTION. PO SCH ×3 (08:04→19:13)
[2017-10-13 08:15] VITALS: BP 143/90
[2017-10-13] MEDS: OMEGA-3 FATTY ACIDS/FISH OIL 1,000 MG CAPSULE. PO SCH ×2 (12:26→17:00)
[2017-10-13 16:36] VITALS: BP 107/58
[2017-10-13] MEDS: ASCORBIC ACID 500 MG TABLET PO SCH (16:58)
[2017-10-13] MEDS: WARFARIN 1 MG TABLET. PO SCH (17:00)
[2017-10-13] MEDS: WARFARIN 6 MG TABLET. PO SCH (17:00)
[2017-10-13] MEDS: VITAMIN B COMPLEX CAPSULE. PO SCH (17:00)
[2017-10-13] MEDS: LACTOBACILLUS RHAMNOSUS GG 1 CAPSULE. PO SCH (19:14)
[2017-10-13] MEDS: ATORVASTATIN CALCIUM 20 MG TABLET PO SCH (19:14)
[2017-10-13] MEDS: ZOLPIDEM 5 MG TABLET. PO SCH (19:14)
--- NOTE | 2017-10-13 20:57 | PDOC ---
Exam Note: Sridhar Note: Please also refer to the separate dictated note~for this date of service dictated separately.~Patient seen individually. Discussed the patient with Nursing staff reviewed the chart.~Reviewed interim history and current functioning. Reviewed vital signs,~Labs/ Radiology~and current medications noted below. Continue current treatment with the changes noted in the dictated addendum note Assessment: Vital Signs: Vital Signs Date Time Temp Pulse Resp B/P (MAP) Pulse Ox O2 Delivery O2 Flow Rate FiO2 10/13/17 16:36 97.4 60 18 107/58 (74) 96 10/11/17 11:27 Room Air I&O Intake and Output 10/13/17 07:00 Intake Total 860 ml Output Total 1600 ml Balance -740 ml Intake Oral 860 ml Output Urine Total 1600 ml # Voids 1 # Bowel Movements 2 Labs: Laboratory Tests Test 10/13/17 06:35 Prothrombin Time 21.3 SEC (9.4-11.4) H Prothrombin Time INR 2.2 (0.9-1.1) H Current Medications: Meds: Current Medications Acetaminophen (Tylenol) 650 mg PRN Q6HRS PRN PO PAIN / TEMP Last administered on 10/06/17at 12:26; Start 09/26/17 at 22:30 Al Hydroxide/Mg Hydroxide (Mylanta Plus Xs) 15 ml PRN AFTMEALHC PRN PO DYSPEPSIA; Start 09/26/17 at 22:30 Magnesium Hydroxide (Milk Of Magnesia) 2,400 mg PRN QHS PRN PO CONSTIPATION; Start 09/26/17 at 22:30 Fluphenazine HCl (Prolixin) 1 mg TID PO Last administered on 09/26/17at 23:11; Start 09/26/17 at 23:00; Stop 09/27/17 at 07:28; Status DC Zolpidem Tartrate (Ambien) 5 mg HS PO Last administered on 10/13/17 19:14; Start 09/26/17 at 23:00 Duloxetine HCl (Cymbalta) 90 mg DAILY PO Last administered on 09/29/17at 08:45; Start 09/27/17 at 09:00; Stop 09/29/17 at 16:34; Status DC Atorvastatin Calcium (Lipitor) 20 mg QHS PO Last administered on 10/13/17at 19:14 ; Start 09/26/17 at 22:45 Finasteride (Proscar) 5 mg BID PO Last administered on 09/26/17at 23:10; Start 09/26/17 at 22:45; Stop 09/27/17 at 08:53; Status DC Gabapentin (Neurontin) 600 mg HS PO Last administered on 10/13/17at 19:14; Start 09/26/17 at 22:45 Fish Oil (Fish Oil) 1,000 mg BID PO Last administered on 09/26/17at 23:07; Start 09/26/17 at 22:45; Stop 09/27/17 at 10:30; Status DC Zolpidem Tartrate (Ambien) 5 mg PRN QHS PRN PO INSOMNIA IF REPEAT NEEDED; Start 09/26/17 at 22:45 Loperamide HCl (Imodium) 2 mg PRN Q15MIN PRN PO DIARRHEA Last administered on at 12:41; Start 09/26/17 at 23:30 Fluphenazine HCl (Prolixin Oral Conc) 1 mg TID PO Last administered on at 13:21; Start 09/27/17 at 09:00; Stop 09/29/17 at 16:33; Status DC Albuterol Sulfate (Ventolin Hfa Inhaler) 2 puff PRN Q4HRS PRN IH FOR ASTHMA; Start 09/27/17 at 08:45; Status UNV Gabapentin (Neurontin) 300 mg DAILY PO Last administered on 10/13/17at 08:01; Start 09/27/17 at 09:00 Ketoconazole (Nizoral 2% Topical) 1 isela DAILY PRN TP RASH; Start 09/27/17 at 08 :45 Ascorbic Acid (Vitamin C) 1,000 mg DAILY PO ; Start 09/27/17 at 09:00; Stop at 10:30; Status DC Vitamin D (Vitamin D3) 5,000 unit DAILY PO Last administered on 10/13/17at 08:00 ; Start 09/27/17 at 09:00 Gabapentin (Neurontin) 600 mg AFTRNOON PO Last administered on 10/13/17at 12:35; Start 09/27/17 at 13:00 Lactobacillus Rhamnosus (Culturelle) 1 cap DAILY PO ; Start 09/27/17 at 09:00; Stop 09/27/17 at 10:30; Status DC Pantoprazole Sodium (Protonix) 40 mg DAILYAC PO Last administered on 10/13/17 08:01; Start 09/27/17 at 09:00 Vitamin B Complex 1 cap DAILY PO ; Start 09/27/17 at 09:00; Stop 09/27/17 at 10: 30; Status DC Finasteride (Proscar) 5 mg DAILY PO Last administered on 10/13/17at 08:02; Start 09/27/17 at 09:00 Albuterol Sulfate (Ventolin) 2.5 mg PRN Q4HRS PRN NEB SHORTNESS OF BREATH; Start 09/27/17 at 09:15 Ascorbic Acid (Vitamin C) 1,000 mg DAILYWSUP PO Last administered on 10/13/17 16:58; Start 09/27/17 at 17:00 Lactobacillus Rhamnosus (Culturelle) 1 cap QHS PO Last administered on 19:14; Start 09/27/17 at 21:00 Fish Oil (Fish Oil) 1,000 mg BID@1200,2100 PO Last administered on 09/27/17at 12 :17; Start 09/27/17 at 12:00; Stop 09/27/17 at 21:13; Status DC Vitamin B Complex 1 cap DAILYWSUP PO Last administered on 10/13/17at 17:00; Start 09/27/17 at 17:00 Fish Oil (Fish Oil) 1,000 mg BID@1200,1600 PO Last administered on 10/13/17at 17: 00; Start 09/28/17 at 12:00 Warfarin Sodium (Coumadin) 5 mg DAILY16 PO Last administered on 10/04/17at 17:04 ; Start 09/29/17 at 16:00; Stop 10/04/17 at 23:00; Status DC Warfarin Sodium (Coumadin Per Physician) 1 each PRN DAILY PRN MC SEE COMMENTS; Start 09/29/17 at 15:15; Stop 10/04/17 at 21:30; Status DC Fluphenazine HCl (Prolixin Oral Conc) 1 mg BID@0900,1400 PO Last administered on 10/13/17at 12:37; Start 09/30/17 at 09:00 Fluphenazine HCl (Prolixin Oral Conc) 0.5 mg QHS PO Last administered on 19:13; Start 09/29/17 at 21:00 Duloxetine HCl (Cymbalta) 60 mg DAILY PO Last administered on 10/13/17 08:01; Start 09/30/17 at 09:00 Bupropion HCl (Wellbutrin Xl) 150 mg DAILY PO Last administered on 10/13/17 08: 01; Start 09/30/17 at 09:00 Artificial Tears (Artificial Tears) 1 drop PRN Q15MIN PRN OU DRY EYE; Start at 15:15; Stop 09/30/17 at 18:07; Status DC Artificial Tears (Refresh Classic) 1 drop PRN Q15MIN PRN OU DRY EYE Last administered on 10/04/17 19:33; Start 09/30/17 at 18:15 Buspirone HCl (Buspar) 5 mg 0900,1700 PO Last administered on 10/10/17 08:04; Start 10/02/17 at 09:15; Stop 10/10/17 at 17:55; Status DC Warfarin Sodium (Coumadin Per Pharmacy) 1 each PRN DAILY PRN MC SEE COMMENTS Last administered on 10/04/17at 23:18; Start 10/04/17 at 21:30; Stop 10/05/17 at 00:00; Status DC Info (Anti-Coagulation Monitoring By Pharmacy) 1 each PRN DAILY PRN MC SEE COMMENTS; Start 10/04/17 at 21:30; Stop 10/09/17 at 08:41; Status DC Warfarin Sodium (Coumadin Per Pharmacy) 1 each PRN DAILY PRN MC SEE COMMENTS Last administered on 10/12/17at 08:45; Start 10/05/17 at 16:00 Warfarin Sodium (Coumadin) 6 mg 1X WARF ONCE PO Last administered on at 17:14; Start 10/05/17 at 16:00; Stop 10/05/17 at 16:01; Status DC Warfarin Sodium (Coumadin) 7.5 mg 1X WARF ONCE PO Last administered on at 17:20; Start 10/06/17 at 16:00; Stop 10/06/17 at 16:01; Status DC Warfarin Sodium (Coumadin) 7.5 mg 1X WARF ONCE PO Last administered on at 17:38; Start 10/07/17 at 16:00; Stop 10/07/17 at 16:01; Status DC Warfarin Sodium (Coumadin) 5 mg 1X WARF ONCE PO Last administered on at 16:06; Start 10/08/17 at 16:00; Stop 10/08/17 at 16:01; Status DC Warfarin Sodium (Coumadin) 7.5 mg DAILY16 PO Last administered on 10/11/17at 18: 24; Start 10/09/17 at 16:00; Stop 10/12/17 at 08:39; Status DC Buspirone HCl (Buspar) 5 mg 0900,1300,1700 PO Last administered on 10/13/17 17: 00; Start 10/11/17 at 09:00 Warfarin Sodium (Coumadin) 6 mg DAILY@1600 PO Last administered on 10/13/17 17: 00; Start 10/12/17 at 16:00 Warfarin Sodium (Coumadin) 1 mg DAILY@1600 PO Last administered on 10/13/17 17: 00; Start 10/12/17 at 16:00 Active Scripts Active Reported Vitamin D3 (Cholecalciferol (Vitamin D3)) 5,000 Unit Tablet 5,000 Unit PO DAILY Vitamin C (Ascorbic Acid) 1,000 Mg Tablet.er 1,000 Mg PO DAILY Ventolin Hfa Inhaler (Albuterol Sulfate) 18 Gm Hfa.aer.ad 2 Puff IH PRN Q4HRS PRN Probiotic (Lactobacillus Combo No.10) 1 Each Capsule 1 Cap PO DAILY Prilosec Otc (Omeprazole Magnesium) 20 Mg Tablet.dr 20 Mg PO DAILY [place] 3 1,000 Mg Softgel ([place]-3 Fatty Acids/Fish Oil) 1 Each Capsule 1 Cap PO BID Lipitor (Atorvastatin Calcium) 20 Mg Tablet 20 Mg PO QHS Ketoconazole 15 Gm Cream..g. 13 Isela TP PRN PRN Gabapentin 600 Mg Tablet 600 Mg PO AFTRNOON Gabapentin 600 Mg Tablet 600 Mg PO HS Gabapentin 300 Mg Capsule 300 Mg PO DAILY Fluphenazine Hcl 1 Mg Tablet 1 Mg PO TID Finasteride 5 Mg Tablet 5 Mg PO BID Cymbalta (Duloxetine Hcl) 30 Mg Capsule.dr 90 Mg PO DAILY Coumadin (Warfarin Sodium) 5 Mg Tablet 5 Mg PO QPM Coumadin (Warfarin Sodium) 2 Mg Tablet 2 Mg PO QPM Coumadin (Warfarin Sodium) 1 Mg Tablet 0.5 Mg PO QPM B Complex (Vitamin B Complex) 1 Each Tablet 1 Tab PO DAILY Ambien (Zolpidem Tartrate) 10 Mg Tablet 10 Mg PO HS I have reviewed the current psychotropics carefully including drug interactions. Risk benefit ratio favors no change other than as noted in my dictated progress note. Diagnosis: Problems: (1) Anxiety disorder (2) Impulse control disorder (3) Major depressive disorder, recurrent episode LIGIA PEREZ MD Oct 13, 2017 20:57
[2017-10-14 05:52] VITALS: BP 134/69
[2017-10-14] MEDS: DULoxetine HCL 60 MG CAPSULE.DR PO SCH (08:00)
[2017-10-14] MEDS: PANTOPRAZOLE 40 MG TABLET. PO SCH (08:00)
[2017-10-14] MEDS: busPIRone 5 MG TABLET. PO SCH ×3 (08:00→17:32)
[2017-10-14] MEDS: FINASTERIDE 5 MG TABLET PO SCH (08:00)
[2017-10-14] MEDS: GABAPENTIN 300 MG CAPSULE. PO SCH ×3 (08:00→20:36)
[2017-10-14] MEDS: buPROPion XL 150 MG TAB.ER.24H PO SCH (08:00)
[2017-10-14] MEDS: CHOLECALCIFEROL (VITAMIN D3) 1,000 UNIT TABLET PO SCH (08:01)
[2017-10-14] MEDS: fluPHENAZine 5 MG/ML ORAL.CONC SOLUTION. PO SCH ×3 (08:02→20:38)
[2017-10-14] MEDS: OMEGA-3 FATTY ACIDS/FISH OIL 1,000 MG CAPSULE. PO SCH ×2 (12:42→17:32)
[2017-10-14 16:49] VITALS: BP 122/81
[2017-10-14] MEDS: ASCORBIC ACID 500 MG TABLET PO SCH (17:31)
[2017-10-14] MEDS: WARFARIN 1 MG TABLET. PO SCH (17:31)
[2017-10-14] MEDS: VITAMIN B COMPLEX CAPSULE. PO SCH (17:31)
[2017-10-14] MEDS: WARFARIN 6 MG TABLET. PO SCH (17:32)
[2017-10-14] MEDS: ZOLPIDEM 5 MG TABLET. PO SCH (20:35)
[2017-10-14] MEDS: ATORVASTATIN CALCIUM 20 MG TABLET PO SCH (20:36)
[2017-10-14] MEDS: LACTOBACILLUS RHAMNOSUS GG 1 CAPSULE. PO SCH (20:36)
--- NOTE | 2017-10-14 21:01 | PDOC ---
Exam Note: Sridhar Note: Please also refer to the separate dictated note~for this date of service dictated separately.~Patient seen individually. Discussed the patient with Nursing staff reviewed the chart.~Reviewed interim history and current functioning. Reviewed vital signs,~Labs/ Radiology~and current medications noted below. Continue current treatment with the changes noted in the dictated addendum note Assessment: Vital Signs: Vital Signs Date Time Temp Pulse Resp B/P (MAP) Pulse Ox O2 Delivery O2 Flow Rate FiO2 10/14/17 16:49 97.5 62 20 122/81 (95) 96 10/11/17 11:27 Room Air I&O Intake and Output 10/14/17 07:00 Intake Total 1800 ml Output Total 400 ml Balance 1400 ml Intake Oral 1800 ml Output Urine Total 400 ml # Voids 1 Labs: Laboratory Tests Test 10/14/17 07:05 Prothrombin Time 21.9 SEC (9.4-11.4) H Prothrombin Time INR 2.3 (0.9-1.1) H Current Medications: Meds: Current Medications Acetaminophen (Tylenol) 650 mg PRN Q6HRS PRN PO PAIN / TEMP Last administered on 10/06/17at 12:26; Start 09/26/17 at 22:30 Al Hydroxide/Mg Hydroxide (Mylanta Plus Xs) 15 ml PRN AFTMEALHC PRN PO DYSPEPSIA; Start 09/26/17 at 22:30 Magnesium Hydroxide (Milk Of Magnesia) 2,400 mg PRN QHS PRN PO CONSTIPATION; Start 09/26/17 at 22:30 Fluphenazine HCl (Prolixin) 1 mg TID PO Last administered on 09/26/17at 23:11; Start 09/26/17 at 23:00; Stop 09/27/17 at 07:28; Status DC Zolpidem Tartrate (Ambien) 5 mg HS PO Last administered on 10/14/17at 20:35; Start 09/26/17 at 23:00 Duloxetine HCl (Cymbalta) 90 mg DAILY PO Last administered on 09/29/17at 08:45; Start 09/27/17 at 09:00; Stop 09/29/17 at 16:34; Status DC Atorvastatin Calcium (Lipitor) 20 mg QHS PO Last administered on 10/14/17at 20:36 ; Start 09/26/17 at 22:45 Finasteride (Proscar) 5 mg BID PO Last administered on 09/26/17at 23:10; Start 09/26/17 at 22:45; Stop 09/27/17 at 08:53; Status DC Gabapentin (Neurontin) 600 mg HS PO Last administered on 10/14/17at 20:36; Start 09/26/17 at 22:45 Fish Oil (Fish Oil) 1,000 mg BID PO Last administered on 09/26/17at 23:07; Start 09/26/17 at 22:45; Stop 09/27/17 at 10:30; Status DC Zolpidem Tartrate (Ambien) 5 mg PRN QHS PRN PO INSOMNIA IF REPEAT NEEDED; Start 09/26/17 at 22:45 Loperamide HCl (Imodium) 2 mg PRN Q15MIN PRN PO DIARRHEA Last administered on at 12:41; Start 09/26/17 at 23:30 Fluphenazine HCl (Prolixin Oral Conc) 1 mg TID PO Last administered on at 13:21; Start 09/27/17 at 09:00; Stop 09/29/17 at 16:33; Status DC Albuterol Sulfate (Ventolin Hfa Inhaler) 2 puff PRN Q4HRS PRN IH FOR ASTHMA; Start 09/27/17 at 08:45; Status UNV Gabapentin (Neurontin) 300 mg DAILY PO Last administered on 10/14/17at 08:00; Start 09/27/17 at 09:00 Ketoconazole (Nizoral 2% Topical) 1 isela DAILY PRN TP RASH; Start 09/27/17 at 08 :45 Ascorbic Acid (Vitamin C) 1,000 mg DAILY PO ; Start 09/27/17 at 09:00; Stop at 10:30; Status DC Vitamin D (Vitamin D3) 5,000 unit DAILY PO Last administered on 10/14/17at 08:01 ; Start 09/27/17 at 09:00 Gabapentin (Neurontin) 600 mg AFTRNOON PO Last administered on 10/14/17at 12:42; Start 09/27/17 at 13:00 Lactobacillus Rhamnosus (Culturelle) 1 cap DAILY PO ; Start 09/27/17 at 09:00; Stop 09/27/17 at 10:30; Status DC Pantoprazole Sodium (Protonix) 40 mg DAILYAC PO Last administered on 10/14/17 08:00; Start 09/27/17 at 09:00 Vitamin B Complex 1 cap DAILY PO ; Start 09/27/17 at 09:00; Stop 09/27/17 at 10: 30; Status DC Finasteride (Proscar) 5 mg DAILY PO Last administered on 10/14/17 08:00; Start 09/27/17 at 09:00 Albuterol Sulfate (Ventolin) 2.5 mg PRN Q4HRS PRN NEB SHORTNESS OF BREATH; Start 09/27/17 at 09:15 Ascorbic Acid (Vitamin C) 1,000 mg DAILYWSUP PO Last administered on 10/14/17 17:31; Start 09/27/17 at 17:00 Lactobacillus Rhamnosus (Culturelle) 1 cap QHS PO Last administered on 20:36; Start 09/27/17 at 21:00 Fish Oil (Fish Oil) 1,000 mg BID@1200,2100 PO Last administered on 09/27/17at 12 :17; Start 09/27/17 at 12:00; Stop 09/27/17 at 21:13; Status DC Vitamin B Complex 1 cap DAILYWSUP PO Last administered on 10/14/17 17:31; Start 09/27/17 at 17:00 Fish Oil (Fish Oil) 1,000 mg BID@1200,1600 PO Last administered on 10/14/17 17: 32; Start 09/28/17 at 12:00 Warfarin Sodium (Coumadin) 5 mg DAILY16 PO Last administered on 10/04/17at 17:04 ; Start 09/29/17 at 16:00; Stop 10/04/17 at 23:00; Status DC Warfarin Sodium (Coumadin Per Physician) 1 each PRN DAILY PRN MC SEE COMMENTS; Start 09/29/17 at 15:15; Stop 10/04/17 at 21:30; Status DC Fluphenazine HCl (Prolixin Oral Conc) 1 mg BID@0900,1400 PO Last administered on 10/14/17 12:42; Start 09/30/17 at 09:00 Fluphenazine HCl (Prolixin Oral Conc) 0.5 mg QHS PO Last administered on 20:38; Start 09/29/17 at 21:00 Duloxetine HCl (Cymbalta) 60 mg DAILY PO Last administered on 10/14/17 08:00; Start 09/30/17 at 09:00 Bupropion HCl (Wellbutrin Xl) 150 mg DAILY PO Last administered on 10/14/17 08: 00; Start 09/30/17 at 09:00 Artificial Tears (Artificial Tears) 1 drop PRN Q15MIN PRN OU DRY EYE; Start at 15:15; Stop 09/30/17 at 18:07; Status DC Artificial Tears (Refresh Classic) 1 drop PRN Q15MIN PRN OU DRY EYE Last administered on 10/04/17 19:33; Start 09/30/17 at 18:15 Buspirone HCl (Buspar) 5 mg 0900,1700 PO Last administered on 10/10/17 08:04; Start 10/02/17 at 09:15; Stop 10/10/17 at 17:55; Status DC Warfarin Sodium (Coumadin Per Pharmacy) 1 each PRN DAILY PRN MC SEE COMMENTS Last administered on 10/04/17 23:18; Start 10/04/17 at 21:30; Stop 10/05/17 at 00:00; Status DC Info (Anti-Coagulation Monitoring By Pharmacy) 1 each PRN DAILY PRN MC SEE COMMENTS; Start 10/04/17 at 21:30; Stop 10/09/17 at 08:41; Status DC Warfarin Sodium (Coumadin Per Pharmacy) 1 each PRN DAILY PRN MC SEE COMMENTS Last administered on 10/14/17at 14:00; Start 10/05/17 at 16:00 Warfarin Sodium (Coumadin) 6 mg 1X WARF ONCE PO Last administered on at 17:14; Start 10/05/17 at 16:00; Stop 10/05/17 at 16:01; Status DC Warfarin Sodium (Coumadin) 7.5 mg 1X WARF ONCE PO Last administered on at 17:20; Start 10/06/17 at 16:00; Stop 10/06/17 at 16:01; Status DC Warfarin Sodium (Coumadin) 7.5 mg 1X WARF ONCE PO Last administered on at 17:38; Start 10/07/17 at 16:00; Stop 10/07/17 at 16:01; Status DC Warfarin Sodium (Coumadin) 5 mg 1X WARF ONCE PO Last administered on at 16:06; Start 10/08/17 at 16:00; Stop 10/08/17 at 16:01; Status DC Warfarin Sodium (Coumadin) 7.5 mg DAILY16 PO Last administered on 10/11/17at 18: 24; Start 10/09/17 at 16:00; Stop 10/12/17 at 08:39; Status DC Buspirone HCl (Buspar) 5 mg 0900,1300,1700 PO Last administered on 10/14/17at 17: 32; Start 10/11/17 at 09:00 Warfarin Sodium (Coumadin) 6 mg DAILY@1600 PO Last administered on 10/14/17at 17: 32; Start 10/12/17 at 16:00 Warfarin Sodium (Coumadin) 1 mg DAILY@1600 PO Last administered on 10/14/17at 17: 31; Start 10/12/17 at 16:00 Active Scripts Active Reported Vitamin D3 (Cholecalciferol (Vitamin D3)) 5,000 Unit Tablet 5,000 Unit PO DAILY Vitamin C (Ascorbic Acid) 1,000 Mg Tablet.er 1,000 Mg PO DAILY Ventolin Hfa Inhaler (Albuterol Sulfate) 18 Gm Hfa.aer.ad 2 Puff IH PRN Q4HRS PRN Probiotic (Lactobacillus Combo No.10) 1 Each Capsule 1 Cap PO DAILY Prilosec Otc (Omeprazole Magnesium) 20 Mg Tablet.dr 20 Mg PO DAILY [place] 3 1,000 Mg Softgel ([place]-3 Fatty Acids/Fish Oil) 1 Each Capsule 1 Cap PO BID Lipitor (Atorvastatin Calcium) 20 Mg Tablet 20 Mg PO QHS Ketoconazole 15 Gm Cream..g. 13 Isela TP PRN PRN Gabapentin 600 Mg Tablet 600 Mg PO AFTRNOON Gabapentin 600 Mg Tablet 600 Mg PO HS Gabapentin 300 Mg Capsule 300 Mg PO DAILY Fluphenazine Hcl 1 Mg Tablet 1 Mg PO TID Finasteride 5 Mg Tablet 5 Mg PO BID Cymbalta (Duloxetine Hcl) 30 Mg Capsule.dr 90 Mg PO DAILY Coumadin (Warfarin Sodium) 5 Mg Tablet 5 Mg PO QPM Coumadin (Warfarin Sodium) 2 Mg Tablet 2 Mg PO QPM Coumadin (Warfarin Sodium) 1 Mg Tablet 0.5 Mg PO QPM B Complex (Vitamin B Complex) 1 Each Tablet 1 Tab PO DAILY Ambien (Zolpidem Tartrate) 10 Mg Tablet 10 Mg PO HS I have reviewed the current psychotropics carefully including drug interactions. Risk benefit ratio favors no change other than as noted in my dictated progress note. Diagnosis: Problems: (1) Anxiety disorder (2) Impulse control disorder (3) Major depressive disorder, recurrent episode LIGIA PEREZ MD Oct 14, 2017 21:00
[2017-10-14] MEDS ORDERED: ACET500T68 PO (23:46)
[2017-10-14] MEDS ORDERED: LOPE1LIQ7 PO (23:47)
[2017-10-14] MEDS ORDERED: MAG30ORA2 PO (23:49)
[2017-10-14] MEDS ORDERED: MAGN2400 PO (23:50)
[2017-10-14] MEDS ORDERED: CARB15DR3 EACHEYE (23:51)
[2017-10-14] MEDS ORDERED: BUPR-192 PO (23:53)
[2017-10-14] MEDS ORDERED: BUSP5TAB PO (23:56)
[2017-10-14] MEDS ORDERED: FLUP5TAB PO (23:58)
[2017-10-15] MEDS ORDERED: FLUP5ORA PO ×2 (00:04)
--- NOTE | 2017-10-15 02:25 | PN ---
DATE: 10/13/2017 PSYCHIATRIC PROGRESS NOTE This is a late entry, 10/13, covers elements not covered in my initial note. SUBJECTIVE: I met with the patient in the evening of 10/13. The patient has been cooperative with his medications. Slept 8-1/2 hours previous evening. He was somewhat demanding in the morning and by the evening, he was a little controlling, demanding, per nursing staff and I met with him in his room. He is wanting a shave done every day and said nursing staff did not agree to this. I did discuss this with the nursing staff and this is not something they have refused to do for him. REVIEW OF SYSTEMS: Ambulation impaired, in Broda chair. No CV, , pulmonary, eye system symptoms on review. MENTAL STATUS EXAM: Reasonably oriented. Speech is coherent, has some latency. Abstraction fair, computation impaired, language function intact, attention span short. Mood and affect overall improved, less anxious and irritable, despite some personality factors impacting his interaction with staff. LABORATORY DATA: Reviewed. IMPRESSION: Unchanged from initial note. PLAN: No change from initial note. LIGIA PEREZ MD DR: AIDAN/riccardo JOB#: [id number] / [id number]
--- NOTE | 2017-10-15 02:27 | PN ---
DATE: 09/26/2017 This is a late entry 10/12/2017, covers elements not covered in my initial note. SUBJECTIVE: I met with the patient in the evening. Overall, the patient has done reasonably well, somewhat sarcastic at times. He slept 6 hours previous night. REVIEW OF SYSTEMS: Ambulation impaired, in his Broda chair. No CV, , pulmonary, eye system symptoms on review. He does with the CPAP at night as I met with him. He is wanting the water replaced in the CPAP and did inform the nursing staff to do this. MENTAL STATUS EXAMINATION: Reasonably oriented. Speech coherent. Has some latency. Abstraction fair, computation impaired, language function intact, attention span short. Mood and affect showing some improvement, less lability. LABORATORY DATA: Reviewed. IMPRESSION: Unchanged from initial note. PLAN: No change from initial note. Overall, he has had a better day. MAN Rochelle PEREZ MD DR: AIDAN/riccardo JOB#: [id number] / [id number] PROGRESS NOTE
[2017-10-15 06:26] VITALS: BP 116/70
[2017-10-15] MEDS: GABAPENTIN 300 MG CAPSULE. PO SCH ×3 (08:41→20:03)
[2017-10-15] MEDS: FINASTERIDE 5 MG TABLET PO SCH (08:42)
[2017-10-15] MEDS: busPIRone 5 MG TABLET. PO SCH ×3 (08:54→16:59)
[2017-10-15] MEDS: DULoxetine HCL 60 MG CAPSULE.DR PO SCH (08:54)
[2017-10-15] MEDS: buPROPion XL 150 MG TAB.ER.24H PO SCH (08:54)
[2017-10-15] MEDS: PANTOPRAZOLE 40 MG TABLET. PO SCH (08:55)
[2017-10-15] MEDS: CHOLECALCIFEROL (VITAMIN D3) 1,000 UNIT TABLET PO SCH (08:57)
[2017-10-15] MEDS: fluPHENAZine 5 MG/ML ORAL.CONC SOLUTION. PO SCH ×3 (08:58→20:03)
[2017-10-15] MEDS: OMEGA-3 FATTY ACIDS/FISH OIL 1,000 MG CAPSULE. PO SCH ×2 (12:33→16:58)
[2017-10-15] MEDS: ASCORBIC ACID 500 MG TABLET PO SCH (16:58)
[2017-10-15] MEDS: VITAMIN B COMPLEX CAPSULE. PO SCH (16:58)
[2017-10-15] MEDS: WARFARIN 6 MG TABLET. PO SCH (17:00)
[2017-10-15 17:01] VITALS: BP 132/70
[2017-10-15] MEDS: WARFARIN 1 MG TABLET. PO SCH (17:01)
[2017-10-15] MEDS: LACTOBACILLUS RHAMNOSUS GG 1 CAPSULE. PO SCH (20:03)
[2017-10-15] MEDS: ATORVASTATIN CALCIUM 20 MG TABLET PO SCH (20:03)
[2017-10-15] MEDS: ZOLPIDEM 5 MG TABLET. PO SCH (20:03)
--- NOTE | 2017-10-15 20:59 | PDOC ---
Exam Note: Sridhar Note: Please also refer to the separate dictated note~for this date of service dictated separately.~Patient seen individually. Discussed the patient with Nursing staff reviewed the chart.~Reviewed interim history and current functioning. Reviewed vital signs,~Labs/ Radiology~and current medications noted below. Continue current treatment with the changes noted in the dictated addendum note Assessment: Vital Signs: Vital Signs Date Time Temp Pulse Resp B/P (MAP) Pulse Ox O2 Delivery O2 Flow Rate FiO2 10/15/17 17:01 97.7 64 18 132/70 (90) 94 10/11/17 11:27 Room Air I&O Intake and Output 10/15/17 07:00 Intake Total 1800 ml Balance 1800 ml Intake Oral 1800 ml # Bowel Movements 1 Current Medications: Meds: Current Medications Acetaminophen (Tylenol) 650 mg PRN Q6HRS PRN PO PAIN / TEMP Last administered on 10/06/17at 12:26; Start 09/26/17 at 22:30 Al Hydroxide/Mg Hydroxide (Mylanta Plus Xs) 15 ml PRN AFTMEALHC PRN PO DYSPEPSIA; Start 09/26/17 at 22:30 Magnesium Hydroxide (Milk Of Magnesia) 2,400 mg PRN QHS PRN PO CONSTIPATION; Start 09/26/17 at 22:30 Fluphenazine HCl (Prolixin) 1 mg TID PO Last administered on 09/26/17at 23:11; Start 09/26/17 at 23:00; Stop 09/27/17 at 07:28; Status DC Zolpidem Tartrate (Ambien) 5 mg HS PO Last administered on 10/15/17at 20:03; Start 09/26/17 at 23:00 Duloxetine HCl (Cymbalta) 90 mg DAILY PO Last administered on 09/29/17at 08:45; Start 09/27/17 at 09:00; Stop 09/29/17 at 16:34; Status DC Atorvastatin Calcium (Lipitor) 20 mg QHS PO Last administered on 10/15/17at 20:03 ; Start 09/26/17 at 22:45 Finasteride (Proscar) 5 mg BID PO Last administered on 09/26/17at 23:10; Start 09/26/17 at 22:45; Stop 09/27/17 at 08:53; Status DC Gabapentin (Neurontin) 600 mg HS PO Last administered on 10/15/17 20:03; Start 09/26/17 at 22:45 Fish Oil (Fish Oil) 1,000 mg BID PO Last administered on 09/26/17at 23:07; Start 09/26/17 at 22:45; Stop 09/27/17 at 10:30; Status DC Zolpidem Tartrate (Ambien) 5 mg PRN QHS PRN PO INSOMNIA IF REPEAT NEEDED; Start 09/26/17 at 22:45 Loperamide HCl (Imodium) 2 mg PRN Q15MIN PRN PO DIARRHEA Last administered on at 12:41; Start 09/26/17 at 23:30 Fluphenazine HCl (Prolixin Oral Conc) 1 mg TID PO Last administered on 13:21; Start 09/27/17 at 09:00; Stop 09/29/17 at 16:33; Status DC Albuterol Sulfate (Ventolin Hfa Inhaler) 2 puff PRN Q4HRS PRN IH FOR ASTHMA; Start 09/27/17 at 08:45; Status UNV Gabapentin (Neurontin) 300 mg DAILY PO Last administered on 10/15/17at 08:41; Start 09/27/17 at 09:00 Ketoconazole (Nizoral 2% Topical) 1 isela DAILY PRN TP RASH; Start 09/27/17 at 08 :45 Ascorbic Acid (Vitamin C) 1,000 mg DAILY PO ; Start 09/27/17 at 09:00; Stop at 10:30; Status DC Vitamin D (Vitamin D3) 5,000 unit DAILY PO Last administered on 10/15/17 08:57 ; Start 09/27/17 at 09:00 Gabapentin (Neurontin) 600 mg AFTRNOON PO Last administered on 10/15/17at 12:34; Start 09/27/17 at 13:00 Lactobacillus Rhamnosus (Culturelle) 1 cap DAILY PO ; Start 09/27/17 at 09:00; Stop 09/27/17 at 10:30; Status DC Pantoprazole Sodium (Protonix) 40 mg DAILYAC PO Last administered on 10/15/17 08:55; Start 09/27/17 at 09:00 Vitamin B Complex 1 cap DAILY PO ; Start 09/27/17 at 09:00; Stop 09/27/17 at 10: 30; Status DC Finasteride (Proscar) 5 mg DAILY PO Last administered on 10/15/17at 08:42; Start 09/27/17 at 09:00 Albuterol Sulfate (Ventolin) 2.5 mg PRN Q4HRS PRN NEB SHORTNESS OF BREATH; Start 09/27/17 at 09:15 Ascorbic Acid (Vitamin C) 1,000 mg DAILYWSUP PO Last administered on 10/15/17 16:58; Start 09/27/17 at 17:00 Lactobacillus Rhamnosus (Culturelle) 1 cap QHS PO Last administered on 20:03; Start 09/27/17 at 21:00 Fish Oil (Fish Oil) 1,000 mg BID@1200,2100 PO Last administered on 09/27/17 12 :17; Start 09/27/17 at 12:00; Stop 09/27/17 at 21:13; Status DC Vitamin B Complex 1 cap DAILYWSUP PO Last administered on 10/15/17 16:58; Start 09/27/17 at 17:00 Fish Oil (Fish Oil) 1,000 mg BID@1200,1600 PO Last administered on 10/15/17 16: 58; Start 09/28/17 at 12:00 Warfarin Sodium (Coumadin) 5 mg DAILY16 PO Last administered on 10/04/17 17:04 ; Start 09/29/17 at 16:00; Stop 10/04/17 at 23:00; Status DC Warfarin Sodium (Coumadin Per Physician) 1 each PRN DAILY PRN MC SEE COMMENTS; Start 09/29/17 at 15:15; Stop 10/04/17 at 21:30; Status DC Fluphenazine HCl (Prolixin Oral Conc) 1 mg BID@0900,1400 PO Last administered on 10/15/17 12:33; Start 09/30/17 at 09:00 Fluphenazine HCl (Prolixin Oral Conc) 0.5 mg QHS PO Last administered on 20:03; Start 09/29/17 at 21:00 Duloxetine HCl (Cymbalta) 60 mg DAILY PO Last administered on 10/15/17 08:54; Start 09/30/17 at 09:00 Bupropion HCl (Wellbutrin Xl) 150 mg DAILY PO Last administered on 10/15/17at 08: 54; Start 09/30/17 at 09:00 Artificial Tears (Artificial Tears) 1 drop PRN Q15MIN PRN OU DRY EYE; Start at 15:15; Stop 09/30/17 at 18:07; Status DC Artificial Tears (Refresh Classic) 1 drop PRN Q15MIN PRN OU DRY EYE Last administered on 10/04/17at 19:33; Start 09/30/17 at 18:15 Buspirone HCl (Buspar) 5 mg 0900,1700 PO Last administered on 10/10/17at 08:04; Start 10/02/17 at 09:15; Stop 10/10/17 at 17:55; Status DC Warfarin Sodium (Coumadin Per Pharmacy) 1 each PRN DAILY PRN MC SEE COMMENTS Last administered on 10/04/17at 23:18; Start 10/04/17 at 21:30; Stop 10/05/17 at 00:00; Status DC Info (Anti-Coagulation Monitoring By Pharmacy) 1 each PRN DAILY PRN MC SEE COMMENTS; Start 10/04/17 at 21:30; Stop 10/09/17 at 08:41; Status DC Warfarin Sodium (Coumadin Per Pharmacy) 1 each PRN DAILY PRN MC SEE COMMENTS Last administered on 10/14/17at 14:00; Start 10/05/17 at 16:00 Warfarin Sodium (Coumadin) 6 mg 1X WARF ONCE PO Last administered on at 17:14; Start 10/05/17 at 16:00; Stop 10/05/17 at 16:01; Status DC Warfarin Sodium (Coumadin) 7.5 mg 1X WARF ONCE PO Last administered on at 17:20; Start 10/06/17 at 16:00; Stop 10/06/17 at 16:01; Status DC Warfarin Sodium (Coumadin) 7.5 mg 1X WARF ONCE PO Last administered on at 17:38; Start 10/07/17 at 16:00; Stop 10/07/17 at 16:01; Status DC Warfarin Sodium (Coumadin) 5 mg 1X WARF ONCE PO Last administered on at 16:06; Start 8/29/18 at 16:00; Stop 10/08/17 at 16:01; Status DC Warfarin Sodium (Coumadin) 7.5 mg DAILY16 PO Last administered on 10/11/17at 18: 24; Start 10/09/17 at 16:00; Stop 10/12/17 at 08:39; Status DC Buspirone HCl (Buspar) 5 mg 0900,1300,1700 PO Last administered on 10/15/17at 16: 59; Start 10/11/17 at 09:00 Warfarin Sodium (Coumadin) 6 mg DAILY@1600 PO Last administered on 10/15/17at 17: 00; Start 10/12/17 at 16:00 Warfarin Sodium (Coumadin) 1 mg DAILY@1600 PO Last administered on 10/15/17at 17: 01; Start 10/12/17 at 16:00 Active Scripts Active Reported Fluphenazine Hcl 5 Mg/1 Ml Oral.conc 0.5 Mg PO HS Fluphenazine Hcl 5 Mg/1 Ml Oral.conc 1 Mg PO [id number] Buspirone Hcl 5 Mg Tablet 5 Mg PO TID@0900,1300,1700 5mg PO TID at 0900, 1300, and 1700 Bupropion Xl (Bupropion Hcl) 150 Mg Tab.er.24h 150 Mg PO DAILY Refresh Optive Eye Drops (Carboxymethylcellulos/Glycerin) 15 Ml Drops 1 Drop EACHEYE PRN Q15MIN PRN Milk Of Magnesia (Magnesium Hydroxide) 2,400 Mg/10 Ml Oral.susp 2,400 Mg PO PRN DAILY PRN Mag-Al Plus Xs Suspension (Mag Hydrox/Al Hydrox/Simeth) 30 Ml Oral.susp 15 Ml PO PRN AFTMEALHC PRN Imodium A-D (Loperamide Hcl) 1 Mg/7.5 Ml Liquid 2 Mg PO PRN Q15MIN PRN Acetaminophen 500 Mg Tablet 650 Mg PO PRN Q6HRS PRN Vitamin D3 (Cholecalciferol (Vitamin D3)) 5,000 Unit Tablet 5,000 Unit PO DAILY Vitamin C (Ascorbic Acid) 1,000 Mg Tablet.er 1,000 Mg PO DAILY Ventolin Hfa Inhaler (Albuterol Sulfate) 18 Gm Hfa.aer.ad 2 Puff IH PRN Q4HRS PRN Probiotic (Lactobacillus Combo No.10) 1 Each Capsule 1 Cap PO DAILY Prilosec Otc (Omeprazole Magnesium) 20 Mg Tablet.dr 20 Mg PO DAILY [place] 3 1,000 Mg Softgel ([place]-3 Fatty Acids/Fish Oil) 1 Each Capsule 1 Cap PO BID Lipitor (Atorvastatin Calcium) 20 Mg Tablet 20 Mg PO QHS Ketoconazole 15 Gm Cream..g. 13 Isela TP DAILY PRN Gabapentin 600 Mg Tablet 600 Mg PO AFTRNOON Gabapentin 600 Mg Tablet 600 Mg PO HS Gabapentin 300 Mg Capsule 300 Mg PO DAILY Finasteride 5 Mg Tablet 5 Mg PO DAILY Cymbalta (Duloxetine Hcl) 30 Mg Capsule.dr 60 Mg PO DAILY Coumadin (Warfarin Sodium) 5 Mg Tablet 5 Mg PO QPM Coumadin (Warfarin Sodium) 2 Mg Tablet 2 Mg PO QPM B Complex (Vitamin B Complex) 1 Each Tablet 1 Tab PO DAILY Ambien (Zolpidem Tartrate) 10 Mg Tablet 5 Mg PO HS I have reviewed the current psychotropics carefully including drug interactions. Risk benefit ratio favors no change other than as noted in my dictated progress note. Diagnosis: Problems: (1) Insomnia (2) Hyperlipidemia (3) Anxiety disorder (4) Impulse control disorder (5) Major depressive disorder, recurrent episode LIGIA PEREZ MD Oct 15, 2017 20:59
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
[2017-10-16 06:23] VITALS: BP 117/69
[2017-10-16] MEDS: FINASTERIDE 5 MG TABLET PO SCH (08:27)
[2017-10-16] MEDS: OMEGA-3 FATTY ACIDS/FISH OIL 1,000 MG CAPSULE. PO SCH ×3 (08:27→17:38)
[2017-10-16] MEDS: VITAMIN B COMPLEX CAPSULE. PO SCH ×2 (08:27→17:38)
[2017-10-16] MEDS: ASCORBIC ACID 500 MG TABLET PO SCH ×2 (08:27→17:38)
[2017-10-16] MEDS: CHOLECALCIFEROL (VITAMIN D3) 1,000 UNIT TABLET PO SCH (08:27)
[2017-10-16] MEDS: GABAPENTIN 300 MG CAPSULE. PO SCH ×3 (08:27→21:06)
[2017-10-16] MEDS: busPIRone 5 MG TABLET. PO SCH ×3 (08:27→17:38)
[2017-10-16] MEDS: DULoxetine HCL 60 MG CAPSULE.DR PO SCH (08:28)
[2017-10-16] MEDS: buPROPion XL 150 MG TAB.ER.24H PO SCH (08:28)
[2017-10-16] MEDS: PANTOPRAZOLE 40 MG TABLET. PO SCH (08:28)
[2017-10-16] MEDS: fluPHENAZine 5 MG/ML ORAL.CONC SOLUTION. PO SCH ×3 (08:28→21:07)
[2017-10-16 16:35] VITALS: BP 143/82
[2017-10-16] MEDS: WARFARIN 1 MG TABLET. PO SCH (17:38)
[2017-10-16] MEDS: WARFARIN 6 MG TABLET. PO SCH (17:38)
--- NOTE | 2017-10-16 21:01 | PDOC ---
Exam Note: Sridhar Note: Please also refer to the separate dictated note~for this date of service dictated separately.~Patient seen individually. Discussed the patient with Nursing staff reviewed the chart.~Reviewed interim history and current functioning. Reviewed vital signs,~Labs/ Radiology~and current medications noted below. Continue current treatment with the changes noted in the dictated addendum note Assessment: Vital Signs: Vital Signs Date Time Temp Pulse Resp B/P (MAP) Pulse Ox O2 Delivery O2 Flow Rate FiO2 10/16/17 16:35 97.5 79 20 143/82 (102) 90 Room Air I&O Intake and Output 10/16/17 07:00 Intake Total 1700 ml Output Total 300 ml Balance 1400 ml Intake Oral 1700 ml Output Urine Total 300 ml Current Medications: Meds: Current Medications Acetaminophen (Tylenol) 650 mg PRN Q6HRS PRN PO PAIN / TEMP Last administered on 10/06/17at 12:26; Start 09/26/17 at 22:30 Al Hydroxide/Mg Hydroxide (Mylanta Plus Xs) 15 ml PRN AFTMEALHC PRN PO DYSPEPSIA; Start 09/26/17 at 22:30 Magnesium Hydroxide (Milk Of Magnesia) 2,400 mg PRN QHS PRN PO CONSTIPATION; Start 09/26/17 at 22:30 Fluphenazine HCl (Prolixin) 1 mg TID PO Last administered on 09/26/17at 23:11; Start 09/26/17 at 23:00; Stop 09/27/17 at 07:28; Status DC Zolpidem Tartrate (Ambien) 5 mg HS PO Last administered on 10/15/17 20:03; Start 09/26/17 at 23:00 Duloxetine HCl (Cymbalta) 90 mg DAILY PO Last administered on 09/29/17at 08:45; Start 09/27/17 at 09:00; Stop 09/29/17 at 16:34; Status DC Atorvastatin Calcium (Lipitor) 20 mg QHS PO Last administered on 10/15/17at 20:03 ; Start 09/26/17 at 22:45 Finasteride (Proscar) 5 mg BID PO Last administered on 09/26/17at 23:10; Start 09/26/17 at 22:45; Stop 09/27/17 at 08:53; Status DC Gabapentin (Neurontin) 600 mg HS PO Last administered on 10/15/17 20:03; Start 09/26/17 at 22:45 Fish Oil (Fish Oil) 1,000 mg BID PO Last administered on 09/26/17at 23:07; Start 09/26/17 at 22:45; Stop 09/27/17 at 10:30; Status DC Zolpidem Tartrate (Ambien) 5 mg PRN QHS PRN PO INSOMNIA IF REPEAT NEEDED; Start 09/26/17 at 22:45 Loperamide HCl (Imodium) 2 mg PRN Q15MIN PRN PO DIARRHEA Last administered on at 12:41; Start 09/26/17 at 23:30 Fluphenazine HCl (Prolixin Oral Conc) 1 mg TID PO Last administered on at 13:21; Start 09/27/17 at 09:00; Stop 09/29/17 at 16:33; Status DC Albuterol Sulfate (Ventolin Hfa Inhaler) 2 puff PRN Q4HRS PRN IH FOR ASTHMA; Start 09/27/17 at 08:45; Status UNV Gabapentin (Neurontin) 300 mg DAILY PO Last administered on 10/16/17at 08:27; Start 09/27/17 at 09:00 Ketoconazole (Nizoral 2% Topical) 1 isela DAILY PRN TP RASH; Start 09/27/17 at 08 :45 Ascorbic Acid (Vitamin C) 1,000 mg DAILY PO ; Start 09/27/17 at 09:00; Stop at 10:30; Status DC Vitamin D (Vitamin D3) 5,000 unit DAILY PO Last administered on 10/16/17 08:27 ; Start 09/27/17 at 09:00 Gabapentin (Neurontin) 600 mg AFTRNOON PO Last administered on 10/16/17at 12:50; Start 09/27/17 at 13:00 Lactobacillus Rhamnosus (Culturelle) 1 cap DAILY PO ; Start 09/27/17 at 09:00; Stop 09/27/17 at 10:30; Status DC Pantoprazole Sodium (Protonix) 40 mg DAILYAC PO Last administered on 10/16/17at 08:28; Start 09/27/17 at 09:00 Vitamin B Complex 1 cap DAILY PO ; Start 09/27/17 at 09:00; Stop 09/27/17 at 10: 30; Status DC Finasteride (Proscar) 5 mg DAILY PO Last administered on 10/16/17 08:27; Start 09/27/17 at 09:00 Albuterol Sulfate (Ventolin) 2.5 mg PRN Q4HRS PRN NEB SHORTNESS OF BREATH; Start 09/27/17 at 09:15 Ascorbic Acid (Vitamin C) 1,000 mg DAILYWSUP PO Last administered on 10/16/17 17:38; Start 09/27/17 at 17:00 Lactobacillus Rhamnosus (Culturelle) 1 cap QHS PO Last administered on 20:03; Start 09/27/17 at 21:00 Fish Oil (Fish Oil) 1,000 mg BID@1200,2100 PO Last administered on 09/27/17 12 :17; Start 09/27/17 at 12:00; Stop 09/27/17 at 21:13; Status DC Vitamin B Complex 1 cap DAILYWSUP PO Last administered on 10/16/17 17:38; Start 09/27/17 at 17:00 Fish Oil (Fish Oil) 1,000 mg BID@1200,1600 PO Last administered on 10/16/17 17: 38; Start 09/28/17 at 12:00 Warfarin Sodium (Coumadin) 5 mg DAILY16 PO Last administered on 10/04/17 17:04 ; Start 09/29/17 at 16:00; Stop 10/04/17 at 23:00; Status DC Warfarin Sodium (Coumadin Per Physician) 1 each PRN DAILY PRN MC SEE COMMENTS; Start 09/29/17 at 15:15; Stop 10/04/17 at 21:30; Status DC Fluphenazine HCl (Prolixin Oral Conc) 1 mg BID@0900,1400 PO Last administered on 10/16/17 12:55; Start 09/30/17 at 09:00 Fluphenazine HCl (Prolixin Oral Conc) 0.5 mg QHS PO Last administered on 20:03; Start 09/29/17 at 21:00 Duloxetine HCl (Cymbalta) 60 mg DAILY PO Last administered on 10/16/17 08:28; Start 09/30/17 at 09:00 Bupropion HCl (Wellbutrin Xl) 150 mg DAILY PO Last administered on 10/16/17 08: 28; Start 09/30/17 at 09:00 Artificial Tears (Artificial Tears) 1 drop PRN Q15MIN PRN OU DRY EYE; Start at 15:15; Stop 09/30/17 at 18:07; Status DC Artificial Tears (Refresh Classic) 1 drop PRN Q15MIN PRN OU DRY EYE Last administered on 10/04/17at 19:33; Start 09/30/17 at 18:15 Buspirone HCl (Buspar) 5 mg 0900,1700 PO Last administered on 10/10/17at 08:04; Start 10/02/17 at 09:15; Stop 10/10/17 at 17:55; Status DC Warfarin Sodium (Coumadin Per Pharmacy) 1 each PRN DAILY PRN MC SEE COMMENTS Last administered on 10/04/17at 23:18; Start 10/04/17 at 21:30; Stop 10/05/17 at 00:00; Status DC Info (Anti-Coagulation Monitoring By Pharmacy) 1 each PRN DAILY PRN MC SEE COMMENTS; Start 10/04/17 at 21:30; Stop 10/09/17 at 08:41; Status DC Warfarin Sodium (Coumadin Per Pharmacy) 1 each PRN DAILY PRN MC SEE COMMENTS Last administered on 10/14/17at 14:00; Start 10/05/17 at 16:00 Warfarin Sodium (Coumadin) 6 mg 1X WARF ONCE PO Last administered on at 17:14; Start 10/05/17 at 16:00; Stop 10/05/17 at 16:01; Status DC Warfarin Sodium (Coumadin) 7.5 mg 1X WARF ONCE PO Last administered on at 17:20; Start 10/06/17 at 16:00; Stop 10/06/17 at 16:01; Status DC Warfarin Sodium (Coumadin) 7.5 mg 1X WARF ONCE PO Last administered on at 17:38; Start 10/07/17 at 16:00; Stop 10/07/17 at 16:01; Status DC Warfarin Sodium (Coumadin) 5 mg 1X WARF ONCE PO Last administered on at 16:06; Start 10/08/17 at 16:00; Stop 10/08/17 at 16:01; Status DC Warfarin Sodium (Coumadin) 7.5 mg DAILY16 PO Last administered on 10/11/17at 18: 24; Start 10/09/17 at 16:00; Stop 10/12/17 at 08:39; Status DC Buspirone HCl (Buspar) 5 mg 0900,1300,1700 PO Last administered on 10/16/17at 17: 38; Start 10/11/17 at 09:00 Warfarin Sodium (Coumadin) 6 mg DAILY@1600 PO Last administered on 10/16/17at 17: 38; Start 10/12/17 at 16:00 Warfarin Sodium (Coumadin) 1 mg DAILY@1600 PO Last administered on 10/16/17at 17: 38; Start 10/12/17 at 16:00 Active Scripts Active Reported Fluphenazine Hcl 5 Mg/1 Ml Oral.conc 0.5 Mg PO HS Fluphenazine Hcl 5 Mg/1 Ml Oral.conc 1 Mg PO [id number] Buspirone Hcl 5 Mg Tablet 5 Mg PO TID@0900,1300,1700 5mg PO TID at 0900, 1300, and 1700 Bupropion Xl (Bupropion Hcl) 150 Mg Tab.er.24h 150 Mg PO DAILY Refresh Optive Eye Drops (Carboxymethylcellulos/Glycerin) 15 Ml Drops 1 Drop EACHEYE PRN Q15MIN PRN Milk Of Magnesia (Magnesium Hydroxide) 2,400 Mg/10 Ml Oral.susp 2,400 Mg PO PRN DAILY PRN Mag-Al Plus Xs Suspension (Mag Hydrox/Al Hydrox/Simeth) 30 Ml Oral.susp 15 Ml PO PRN AFTMEALHC PRN Imodium A-D (Loperamide Hcl) 1 Mg/7.5 Ml Liquid 2 Mg PO PRN Q15MIN PRN Acetaminophen 500 Mg Tablet 650 Mg PO PRN Q6HRS PRN Vitamin D3 (Cholecalciferol (Vitamin D3)) 5,000 Unit Tablet 5,000 Unit PO DAILY Vitamin C (Ascorbic Acid) 1,000 Mg Tablet.er 1,000 Mg PO DAILY Ventolin Hfa Inhaler (Albuterol Sulfate) 18 Gm Hfa.aer.ad 2 Puff IH PRN Q4HRS PRN Probiotic (Lactobacillus Combo No.10) 1 Each Capsule 1 Cap PO DAILY Prilosec Otc (Omeprazole Magnesium) 20 Mg Tablet.dr 20 Mg PO DAILY [place] 3 1,000 Mg Softgel ([place]-3 Fatty Acids/Fish Oil) 1 Each Capsule 1 Cap PO BID Lipitor (Atorvastatin Calcium) 20 Mg Tablet 20 Mg PO QHS Ketoconazole 15 Gm Cream..g. 13 Isela TP DAILY PRN Gabapentin 600 Mg Tablet 600 Mg PO AFTRNOON Gabapentin 600 Mg Tablet 600 Mg PO HS Gabapentin 300 Mg Capsule 300 Mg PO DAILY Finasteride 5 Mg Tablet 5 Mg PO DAILY Cymbalta (Duloxetine Hcl) 30 Mg Capsule.dr 60 Mg PO DAILY Coumadin (Warfarin Sodium) 5 Mg Tablet 5 Mg PO QPM Coumadin (Warfarin Sodium) 2 Mg Tablet 2 Mg PO QPM B Complex (Vitamin B Complex) 1 Each Tablet 1 Tab PO DAILY Ambien (Zolpidem Tartrate) 10 Mg Tablet 5 Mg PO HS I have reviewed the current psychotropics carefully including drug interactions. Risk benefit ratio favors no change other than as noted in my dictated progress note. Diagnosis: Problems: (1) Insomnia (2) Hyperlipidemia (3) Anxiety disorder (4) Impulse control disorder (5) Major depressive disorder, recurrent episode LIGIA PEREZ MD Oct 16, 2017 21:01
[2017-10-16] MEDS: LACTOBACILLUS RHAMNOSUS GG 1 CAPSULE. PO SCH (21:06)
[2017-10-16] MEDS: ZOLPIDEM 5 MG TABLET. PO SCH (21:06)
[2017-10-16] MEDS: ATORVASTATIN CALCIUM 20 MG TABLET PO SCH (21:06)
[2017-10-17] MEDS: DULoxetine HCL 60 MG CAPSULE.DR PO SCH (08:07)
[2017-10-17] MEDS: CHOLECALCIFEROL (VITAMIN D3) 1,000 UNIT TABLET PO SCH (08:07)
[2017-10-17] MEDS: busPIRone 5 MG TABLET. PO SCH ×3 (08:07→18:09)
[2017-10-17] MEDS: buPROPion XL 150 MG TAB.ER.24H PO SCH (08:08)
[2017-10-17] MEDS: PANTOPRAZOLE 40 MG TABLET. PO SCH (08:08)
[2017-10-17] MEDS: fluPHENAZine 5 MG/ML ORAL.CONC SOLUTION. PO SCH ×3 (08:08→19:55)
[2017-10-17] MEDS: VITAMIN B COMPLEX CAPSULE. PO SCH ×2 (08:08→18:09)
[2017-10-17] MEDS: GABAPENTIN 300 MG CAPSULE. PO SCH ×3 (08:08→19:55)
[2017-10-17] MEDS: FINASTERIDE 5 MG TABLET PO SCH (08:08)
[2017-10-17] MEDS: OMEGA-3 FATTY ACIDS/FISH OIL 1,000 MG CAPSULE. PO SCH ×2 (12:33→18:09)
[2017-10-17 16:04] VITALS: BP 113/72
[2017-10-17] MEDS: WARFARIN 1 MG TABLET. PO SCH (18:09)
[2017-10-17] MEDS: ASCORBIC ACID 500 MG TABLET PO SCH (18:10)
[2017-10-17] MEDS: WARFARIN 6 MG TABLET. PO SCH (18:10)
[2017-10-17] MEDS: ZOLPIDEM 5 MG TABLET. PO SCH (19:55)
[2017-10-17] MEDS: ATORVASTATIN CALCIUM 20 MG TABLET PO SCH (19:55)
[2017-10-17] MEDS: LACTOBACILLUS RHAMNOSUS GG 1 CAPSULE. PO SCH (19:55)
[2017-10-17] MEDS: POLYVINYL ALCOHOL/POVIDONE/PF OPHTH SOLUTION DROPERETTE. OU PRN (20:03)
--- NOTE | 2017-10-17 20:51 | PDOC ---
Exam Note: Sridhar Note: Please also refer to the separate dictated note~for this date of service dictated separately.~Patient seen individually. Discussed the patient with Nursing staff reviewed the chart.~Reviewed interim history and current functioning. Reviewed vital signs,~Labs/ Radiology~and current medications noted below. Continue current treatment with the changes noted in the dictated addendum note Assessment: Vital Signs: Vital Signs Date Time Temp Pulse Resp B/P (MAP) Pulse Ox O2 Delivery O2 Flow Rate FiO2 10/17/17 16:04 98.4 65 18 113/72 (86) 94 10/16/17 16:35 Room Air I&O Intake and Output 10/17/17 07:00 Intake Total 960 ml Balance 960 ml Intake Oral 960 ml # Voids 1 # Bowel Movements 3 Current Medications: Meds: Current Medications Acetaminophen (Tylenol) 650 mg PRN Q6HRS PRN PO PAIN / TEMP Last administered on 10/06/17at 12:26; Start 09/26/17 at 22:30 Al Hydroxide/Mg Hydroxide (Mylanta Plus Xs) 15 ml PRN AFTMEALHC PRN PO DYSPEPSIA; Start 09/26/17 at 22:30 Magnesium Hydroxide (Milk Of Magnesia) 2,400 mg PRN QHS PRN PO CONSTIPATION; Start 09/26/17 at 22:30 Fluphenazine HCl (Prolixin) 1 mg TID PO Last administered on 09/26/17at 23:11; Start 09/26/17 at 23:00; Stop 09/27/17 at 07:28; Status DC Zolpidem Tartrate (Ambien) 5 mg HS PO Last administered on 10/17/17at 19:55; Start 09/26/17 at 23:00 Duloxetine HCl (Cymbalta) 90 mg DAILY PO Last administered on 09/29/17at 08:45; Start 09/27/17 at 09:00; Stop 09/29/17 at 16:34; Status DC Atorvastatin Calcium (Lipitor) 20 mg QHS PO Last administered on 10/17/17at 19:55 ; Start 09/26/17 at 22:45 Finasteride (Proscar) 5 mg BID PO Last administered on 09/26/17at 23:10; Start 09/26/17 at 22:45; Stop 09/27/17 at 08:53; Status DC Gabapentin (Neurontin) 600 mg HS PO Last administered on 10/17/17at 19:55; Start 09/26/17 at 22:45 Fish Oil (Fish Oil) 1,000 mg BID PO Last administered on 09/26/17at 23:07; Start 09/26/17 at 22:45; Stop 09/27/17 at 10:30; Status DC Zolpidem Tartrate (Ambien) 5 mg PRN QHS PRN PO INSOMNIA IF REPEAT NEEDED; Start 09/26/17 at 22:45 Loperamide HCl (Imodium) 2 mg PRN Q15MIN PRN PO DIARRHEA Last administered on at 12:41; Start 09/26/17 at 23:30 Fluphenazine HCl (Prolixin Oral Conc) 1 mg TID PO Last administered on at 13:21; Start 09/27/17 at 09:00; Stop 09/29/17 at 16:33; Status DC Albuterol Sulfate (Ventolin Hfa Inhaler) 2 puff PRN Q4HRS PRN IH FOR ASTHMA; Start 09/27/17 at 08:45; Status UNV Gabapentin (Neurontin) 300 mg DAILY PO Last administered on 10/17/17at 08:08; Start 09/27/17 at 09:00 Ketoconazole (Nizoral 2% Topical) 1 isela DAILY PRN TP RASH; Start 09/27/17 at 08 :45 Ascorbic Acid (Vitamin C) 1,000 mg DAILY PO ; Start 09/27/17 at 09:00; Stop at 10:30; Status DC Vitamin D (Vitamin D3) 5,000 unit DAILY PO Last administered on 10/17/17at 08:07 ; Start 09/27/17 at 09:00 Gabapentin (Neurontin) 600 mg AFTRNOON PO Last administered on 10/17/17at 12:33; Start 09/27/17 at 13:00 Lactobacillus Rhamnosus (Culturelle) 1 cap DAILY PO ; Start 09/27/17 at 09:00; Stop 09/27/17 at 10:30; Status DC Pantoprazole Sodium (Protonix) 40 mg DAILYAC PO Last administered on 10/17/17at 08:08; Start 09/27/17 at 09:00 Vitamin B Complex 1 cap DAILY PO ; Start 09/27/17 at 09:00; Stop 09/27/17 at 10: 30; Status DC Finasteride (Proscar) 5 mg DAILY PO Last administered on 10/17/17at 08:08; Start 09/27/17 at 09:00 Albuterol Sulfate (Ventolin) 2.5 mg PRN Q4HRS PRN NEB SHORTNESS OF BREATH; Start 09/27/17 at 09:15 Ascorbic Acid (Vitamin C) 1,000 mg DAILYWSUP PO Last administered on 10/17/17at 18:10; Start 09/27/17 at 17:00 Lactobacillus Rhamnosus (Culturelle) 1 cap QHS PO Last administered on 19:55; Start 09/27/17 at 21:00 Fish Oil (Fish Oil) 1,000 mg BID@1200,2100 PO Last administered on 09/27/17at 12 :17; Start 09/27/17 at 12:00; Stop 09/27/17 at 21:13; Status DC Vitamin B Complex 1 cap DAILYWSUP PO Last administered on 10/17/17at 18:09; Start 09/27/17 at 17:00 Fish Oil (Fish Oil) 1,000 mg BID@1200,1600 PO Last administered on 10/17/17 18: 09; Start 09/28/17 at 12:00 Warfarin Sodium (Coumadin) 5 mg DAILY16 PO Last administered on 10/04/17 17:04 ; Start 09/29/17 at 16:00; Stop 10/04/17 at 23:00; Status DC Warfarin Sodium (Coumadin Per Physician) 1 each PRN DAILY PRN MC SEE COMMENTS; Start 09/29/17 at 15:15; Stop 10/04/17 at 21:30; Status DC Fluphenazine HCl (Prolixin Oral Conc) 1 mg BID@0900,1400 PO Last administered on 10/17/17 12:33; Start 09/30/17 at 09:00 Fluphenazine HCl (Prolixin Oral Conc) 0.5 mg QHS PO Last administered on 19:55; Start 09/29/17 at 21:00 Duloxetine HCl (Cymbalta) 60 mg DAILY PO Last administered on 10/17/17at 08:07; Start 09/30/17 at 09:00 Bupropion HCl (Wellbutrin Xl) 150 mg DAILY PO Last administered on 10/17/17 08: 08; Start 09/30/17 at 09:00 Artificial Tears (Artificial Tears) 1 drop PRN Q15MIN PRN OU DRY EYE; Start at 15:15; Stop 09/30/17 at 18:07; Status DC Artificial Tears (Refresh Classic) 1 drop PRN Q15MIN PRN OU DRY EYE Last administered on 10/17/17at 20:03; Start 09/30/17 at 18:15 Buspirone HCl (Buspar) 5 mg 0900,1700 PO Last administered on 10/10/17 08:04; Start 10/02/17 at 09:15; Stop 10/10/17 at 17:55; Status DC Warfarin Sodium (Coumadin Per Pharmacy) 1 each PRN DAILY PRN MC SEE COMMENTS Last administered on 10/04/17at 23:18; Start 10/04/17 at 21:30; Stop 10/05/17 at 00:00; Status DC Info (Anti-Coagulation Monitoring By Pharmacy) 1 each PRN DAILY PRN MC SEE COMMENTS; Start 10/04/17 at 21:30; Stop 10/09/17 at 08:41; Status DC Warfarin Sodium (Coumadin Per Pharmacy) 1 each PRN DAILY PRN MC SEE COMMENTS Last administered on 10/14/17at 14:00; Start 10/05/17 at 16:00 Warfarin Sodium (Coumadin) 6 mg 1X WARF ONCE PO Last administered on at 17:14; Start 10/05/17 at 16:00; Stop 10/05/17 at 16:01; Status DC Warfarin Sodium (Coumadin) 7.5 mg 1X WARF ONCE PO Last administered on at 17:20; Start 10/06/17 at 16:00; Stop 10/06/17 at 16:01; Status DC Warfarin Sodium (Coumadin) 7.5 mg 1X WARF ONCE PO Last administered on at 17:38; Start 10/07/17 at 16:00; Stop 10/07/17 at 16:01; Status DC Warfarin Sodium (Coumadin) 5 mg 1X WARF ONCE PO Last administered on at 16:06; Start 10/08/17 at 16:00; Stop 10/08/17 at 16:01; Status DC Warfarin Sodium (Coumadin) 7.5 mg DAILY16 PO Last administered on 10/11/17at 18: 24; Start 10/09/17 at 16:00; Stop 10/12/17 at 08:39; Status DC Buspirone HCl (Buspar) 5 mg 0900,1300,1700 PO Last administered on 10/17/17at 18: 09; Start 10/11/17 at 09:00 Warfarin Sodium (Coumadin) 6 mg DAILY@1600 PO Last administered on 10/17/17at 18: 10; Start 10/12/17 at 16:00 Warfarin Sodium (Coumadin) 1 mg DAILY@1600 PO Last administered on 10/17/17at 18: 09; Start 10/12/17 at 16:00 Active Scripts Active Reported Fluphenazine Hcl 5 Mg/1 Ml Oral.conc 0.5 Mg PO HS Fluphenazine Hcl 5 Mg/1 Ml Oral.conc 1 Mg PO [id number] Buspirone Hcl 5 Mg Tablet 5 Mg PO TID@0900,1300,1700 5mg PO TID at 0900, 1300, and 1700 Bupropion Xl (Bupropion Hcl) 150 Mg Tab.er.24h 150 Mg PO DAILY Refresh Optive Eye Drops (Carboxymethylcellulos/Glycerin) 15 Ml Drops 1 Drop EACHEYE PRN Q15MIN PRN Milk Of Magnesia (Magnesium Hydroxide) 2,400 Mg/10 Ml Oral.susp 2,400 Mg PO PRN DAILY PRN Mag-Al Plus Xs Suspension (Mag Hydrox/Al Hydrox/Simeth) 30 Ml Oral.susp 15 Ml PO PRN AFTMEALHC PRN Imodium A-D (Loperamide Hcl) 1 Mg/7.5 Ml Liquid 2 Mg PO PRN Q15MIN PRN Acetaminophen 500 Mg Tablet 650 Mg PO PRN Q6HRS PRN Vitamin D3 (Cholecalciferol (Vitamin D3)) 5,000 Unit Tablet 5,000 Unit PO DAILY Vitamin C (Ascorbic Acid) 1,000 Mg Tablet.er 1,000 Mg PO DAILY Ventolin Hfa Inhaler (Albuterol Sulfate) 18 Gm Hfa.aer.ad 2 Puff IH PRN Q4HRS PRN Probiotic (Lactobacillus Combo No.10) 1 Each Capsule 1 Cap PO DAILY Prilosec Otc (Omeprazole Magnesium) 20 Mg Tablet.dr 20 Mg PO DAILY [place] 3 1,000 Mg Softgel ([place]-3 Fatty Acids/Fish Oil) 1 Each Capsule 1 Cap PO BID Lipitor (Atorvastatin Calcium) 20 Mg Tablet 20 Mg PO QHS Ketoconazole 15 Gm Cream..g. 13 Isela TP DAILY PRN Gabapentin 600 Mg Tablet 600 Mg PO AFTRNOON Gabapentin 600 Mg Tablet 600 Mg PO HS Gabapentin 300 Mg Capsule 300 Mg PO DAILY Finasteride 5 Mg Tablet 5 Mg PO DAILY Cymbalta (Duloxetine Hcl) 30 Mg Capsule.dr 60 Mg PO DAILY Coumadin (Warfarin Sodium) 5 Mg Tablet 5 Mg PO QPM Coumadin (Warfarin Sodium) 2 Mg Tablet 2 Mg PO QPM B Complex (Vitamin B Complex) 1 Each Tablet 1 Tab PO DAILY Ambien (Zolpidem Tartrate) 10 Mg Tablet 5 Mg PO HS I have reviewed the current psychotropics carefully including drug interactions. Risk benefit ratio favors no change other than as noted in my dictated progress note. Diagnosis: Problems: (1) Insomnia (2) Hyperlipidemia (3) Anxiety disorder (4) Impulse control disorder (5) Major depressive disorder, recurrent episode LIGIA PEREZ MD Oct 17, 2017 20:51
--- NOTE | 2017-10-18 02:51 | PN ---
DATE: 10/16/2017 This late entry 10/16/2017 covers the elements not covered in my initial note. SUBJECTIVE: I met with the patient in the evening, staffed at a treatment team meeting with the entire team in the morning. Social service staff reviewed circumstances of the patient being accepted back at [facility] including family paying about 800 dollars a month extra, so that the staff at the facility can administer the meds, drugs and patient doing it himself. So far, this has not yet resolved. Reviewed his progress, current medications, discharge plans at length. REVIEW OF SYSTEMS: Ambulation impaired, in Broda chair. No CV, , pulmonary, eye, ENT system symptoms on review. MENTAL STATUS EXAM: Oriented to himself and situation. Speech is low in rate and rhythm, coherent, otherwise pleasant, smiling. Abstraction fair, computation able to do 3 steps on serial sevens. Memory is intact, able to remember 3/3 objects at 3 minutes. No suicidal or homicidal ideation. Mood and affect are improved. LABORATORY DATA: Reviewed. IMPRESSION: Unchanged from initial note. PLAN: No change from initial note, with respect to psychotropics, will defer to social service staff about placement with family coordination. LIGIA PEREZ MD DR: AIDAN/riccardo JOB#: [id number] / [id number]
--- NOTE | 2017-10-18 02:51 | PN ---
DATE: 10/15/2017 This late entry 10/15/2017 covers elements not covered in my initial note 10/15/2017. SUBJECTIVE: I met with the patient in the evening. The patient slept 7 hours previous night. Discharge was postponed as he was not accepted back at [facility] till he agrees to have them administer his medications, which is an extra 800 dollars a month and patient and family are not willing for that. Social service staff is addressing this. REVIEW OF SYSTEMS: Ambulation impaired, in a Broda chair. No CV, , pulmonary, eye, ENT system symptoms on review. Overall, he less anxious, somatic. MENTAL STATUS EXAM: Reasonably oriented. Speech is coherent, low in volume. Abstraction fair. Computation, able to do two step serial sevens, remembered 3/3 objects at 5 minutes. No active suicidal or homicidal ideation. Mood and affect are improved, less anxious. Mood is euthymic. No suicidal or homicidal ideation. LABORATORY DATA: Reviewed. IMPRESSION: Major depressive disorder, recurrent, in partial remission; impulse control disorder. Rest unchanged. PLAN: No change from initial note. MAN Rochelle PEREZ MD DR: AIDAN/riccardo JOB#: [id number] / [id number]
[2017-10-18 05:55] VITALS: BP 156/83
[2017-10-18 07:14] LABS: BASO % 1 % (0-3); EOS # 0.2 x10^3/uL (0.0-0.7); EOS % 4 % (0-3); HEMATOCRIT 39.7 % (39.0-53.0); HEMOGLOBIN 13.7 g/dL (13.0-17.5); LYMPH # 1.8 x10^3/uL (1.0-4.8); LYMPH % 29 % (24-48); MEAN CORPUSCULAR HEMOGLOBIN 33 pg (25-35); MEAN CORPUSCULAR HGB CONC 35 g/dL (31-37); MEAN CORPUSCULAR VOLUME 96 fL (79-100); MONO # 0.6 x10^3/uL (0.0-1.1); MONO % 10 % (0-9); NEUT # 3.4 x10^3uL (1.8-7.7); NEUT % 57 % (31-73); PLATELET COUNT 261 x10^3/uL (140-400); RED BLOOD COUNT 4.15 x10^6/uL (4.30-5.70)
[2017-10-18] MEDS: GABAPENTIN 300 MG CAPSULE. PO SCH ×3 (07:42→20:08)
[2017-10-18] MEDS: busPIRone 5 MG TABLET. PO SCH ×3 (07:42→17:46)
[2017-10-18] MEDS: DULoxetine HCL 60 MG CAPSULE.DR PO SCH (07:42)
[2017-10-18] MEDS: buPROPion XL 150 MG TAB.ER.24H PO SCH (07:42)
[2017-10-18 07:43] LABS: ALBUMIN 2.7 g/dL (3.4-5.0); ALBUMIN/GLOBULIN RATIO 0.8 (1.0-1.7); CALCIUM 8.5 mg/dL (8.5-10.1); CREATININE 0.6 mg/dL (0.7-1.3); GFR 132.8; POTASSIUM 3.6 mmol/L (3.5-5.1); TOTAL BILIRUBIN 0.4 mg/dL (0.2-1.0); TOTAL PROTEIN 6.1 g/dL (6.4-8.2)
[2017-10-18] MEDS: FINASTERIDE 5 MG TABLET PO SCH (07:43)
[2017-10-18] MEDS: PANTOPRAZOLE 40 MG TABLET. PO SCH (07:44)
[2017-10-18] MEDS: CHOLECALCIFEROL (VITAMIN D3) 1,000 UNIT TABLET PO SCH (07:44)
[2017-10-18] MEDS: fluPHENAZine 5 MG/ML ORAL.CONC SOLUTION. PO SCH ×3 (07:46→20:08)
[2017-10-18] MEDS: OMEGA-3 FATTY ACIDS/FISH OIL 1,000 MG CAPSULE. PO SCH ×2 (12:37→17:46)
[2017-10-18] MEDS ORDERED: WARFARIN 6 MG TABLET. PO SCH (16:00)
[2017-10-18] MEDS ORDERED: WARFARIN 4 MG TABLET. PO ONE (16:00)
[2017-10-18 16:22] VITALS: BP 149/89
[2017-10-18] MEDS: WARFARIN 2.5 MG TABLET. PO SCH (17:45)
[2017-10-18] MEDS: WARFARIN 4 MG TABLET. PO SCH (17:45)
[2017-10-18] MEDS: ASCORBIC ACID 500 MG TABLET PO SCH (17:46)
[2017-10-18] MEDS: VITAMIN B COMPLEX CAPSULE. PO SCH (17:46)
[2017-10-18] MEDS: LACTOBACILLUS RHAMNOSUS GG 1 CAPSULE. PO SCH (20:07)
[2017-10-18] MEDS: ZOLPIDEM 5 MG TABLET. PO SCH (20:08)
[2017-10-18] MEDS: ATORVASTATIN CALCIUM 20 MG TABLET PO SCH (20:08)
[2017-10-18] MEDS: POLYVINYL ALCOHOL/POVIDONE/PF OPHTH SOLUTION DROPERETTE. OU PRN (20:10)
--- NOTE | 2017-10-18 23:26 | PDOC ---
Exam Note: Sridhar Note: Please also refer to the separate dictated note~for this date of service dictated separately.~Patient seen individually. Discussed the patient with Nursing staff reviewed the chart.~Reviewed interim history and current functioning. Reviewed vital signs,~Labs/ Radiology~and current medications noted below. Continue current treatment with the changes noted in the dictated addendum note Assessment: Vital Signs: Vital Signs Date Time Temp Pulse Resp B/P (MAP) Pulse Ox O2 Delivery O2 Flow Rate FiO2 10/18/17 16:22 98.3 64 18 149/89 (109) 96 10/18/17 05:55 Room Air I&O Intake and Output 10/18/17 07:00 Intake Total 1320 ml Output Total 500 ml Balance 820 ml Intake Oral 1320 ml Output Urine Total 500 ml # Voids 1 # Bowel Movements 1 Labs: Laboratory Tests Test 10/18/17 06:51 White Blood Count 6.0 x10^3/uL (4.0-11.0) Red Blood Count 4.15 x10^6/uL (4.30-5.70) L Hemoglobin 13.7 g/dL (13.0-17.5) Hematocrit 39.7 % (39.0-53.0) Mean Corpuscular Volume 96 fL (79-100) Mean Corpuscular Hemoglobin 33 pg (25-35) Mean Corpuscular Hemoglobin Concent 35 g/dL (31-37) Red Cell Distribution Width 14.0 % (11.5-14.5) Platelet Count 261 x10^3/uL (140-400) Neutrophils (%) (Auto) 57 % (31-73) Lymphocytes (%) (Auto) 29 % (24-48) Monocytes (%) (Auto) 10 % (0-9) H Eosinophils (%) (Auto) 4 % (0-3) H Basophils (%) (Auto) 1 % (0-3) Neutrophils # (Auto) 3.4 x10^3uL (1.8-7.7) Lymphocytes # (Auto) 1.8 x10^3/uL (1.0-4.8) Monocytes # (Auto) 0.6 x10^3/uL (0.0-1.1) Eosinophils # (Auto) 0.2 x10^3/uL (0.0-0.7) Basophils # (Auto) 0.0 x10^3/uL (0.0-0.2) Prothrombin Time 27.1 SEC (9.4-11.4) H Prothrombin Time INR 2.9 (0.9-1.1) H Sodium Level 144 mmol/L (136-145) Potassium Level 3.6 mmol/L (3.5-5.1) Chloride Level 109 mmol/L (98-107) H Carbon Dioxide Level 32 mmol/L (21-32) Anion Gap 3 (6-14) L Blood Urea Nitrogen 8 mg/dL (8-26) Creatinine 0.6 mg/dL (0.7-1.3) L Estimated GFR (Cockcroft-Gault) 132.8 BUN/Creatinine Ratio 13 (6-20) Glucose Level 91 mg/dL (70-99) Calcium Level 8.5 mg/dL (8.5-10.1) Total Bilirubin 0.4 mg/dL (0.2-1.0) Aspartate Amino Transferase (AST) 10 U/L (15-37) L Alanine Aminotransferase (ALT) 18 U/L (16-63) Alkaline Phosphatase 96 U/L (46-116) Total Protein 6.1 g/dL (6.4-8.2) L Albumin 2.7 g/dL (3.4-5.0) L Albumin/Globulin Ratio 0.8 (1.0-1.7) L Current Medications: Meds: Current Medications Acetaminophen (Tylenol) 650 mg PRN Q6HRS PRN PO PAIN / TEMP Last administered on 10/06/17at 12:26; Start 09/26/17 at 22:30 Al Hydroxide/Mg Hydroxide (Mylanta Plus Xs) 15 ml PRN AFTMEALHC PRN PO DYSPEPSIA; Start 09/26/17 at 22:30 Magnesium Hydroxide (Milk Of Magnesia) 2,400 mg PRN QHS PRN PO CONSTIPATION; Start 09/26/17 at 22:30 Fluphenazine HCl (Prolixin) 1 mg TID PO Last administered on 09/26/17at 23:11; Start 09/26/17 at 23:00; Stop 09/27/17 at 07:28; Status DC Zolpidem Tartrate (Ambien) 5 mg HS PO Last administered on 10/18/17at 20:08; Start 09/26/17 at 23:00 Duloxetine HCl (Cymbalta) 90 mg DAILY PO Last administered on 09/29/17at 08:45; Start 09/27/17 at 09:00; Stop 09/29/17 at 16:34; Status DC Atorvastatin Calcium (Lipitor) 20 mg QHS PO Last administered on 10/18/17 20:08 ; Start 09/26/17 at 22:45 Finasteride (Proscar) 5 mg BID PO Last administered on 09/26/17at 23:10; Start 09/26/17 at 22:45; Stop 09/27/17 at 08:53; Status DC Gabapentin (Neurontin) 600 mg HS PO Last administered on 10/18/17 20:08; Start 09/26/17 at 22:45 Fish Oil (Fish Oil) 1,000 mg BID PO Last administered on 09/26/17at 23:07; Start 09/26/17 at 22:45; Stop 09/27/17 at 10:30; Status DC Zolpidem Tartrate (Ambien) 5 mg PRN QHS PRN PO INSOMNIA IF REPEAT NEEDED; Start 09/26/17 at 22:45 Loperamide HCl (Imodium) 2 mg PRN Q15MIN PRN PO DIARRHEA Last administered on at 12:41; Start 09/26/17 at 23:30 Fluphenazine HCl (Prolixin Oral Conc) 1 mg TID PO Last administered on at 13:21; Start 09/27/17 at 09:00; Stop 09/29/17 at 16:33; Status DC Albuterol Sulfate (Ventolin Hfa Inhaler) 2 puff PRN Q4HRS PRN IH FOR ASTHMA; Start 09/27/17 at 08:45; Status UNV Gabapentin (Neurontin) 300 mg DAILY PO Last administered on 10/18/17at 07:42; Start 09/27/17 at 09:00 Ketoconazole (Nizoral 2% Topical) 1 isela DAILY PRN TP RASH; Start 09/27/17 at 08 :45 Ascorbic Acid (Vitamin C) 1,000 mg DAILY PO ; Start 09/27/17 at 09:00; Stop at 10:30; Status DC Vitamin D (Vitamin D3) 5,000 unit DAILY PO Last administered on 10/18/17 07:44 ; Start 09/27/17 at 09:00 Gabapentin (Neurontin) 600 mg AFTRNOON PO Last administered on 10/18/17 12:37; Start 09/27/17 at 13:00 Lactobacillus Rhamnosus (Culturelle) 1 cap DAILY PO ; Start 09/27/17 at 09:00; Stop 09/27/17 at 10:30; Status DC Pantoprazole Sodium (Protonix) 40 mg DAILYAC PO Last administered on 10/18/17 07:44; Start 09/27/17 at 09:00 Vitamin B Complex 1 cap DAILY PO ; Start 09/27/17 at 09:00; Stop 09/27/17 at 10: 30; Status DC Finasteride (Proscar) 5 mg DAILY PO Last administered on 10/18/17 07:43; Start 09/27/17 at 09:00 Albuterol Sulfate (Ventolin) 2.5 mg PRN Q4HRS PRN NEB SHORTNESS OF BREATH; Start 09/27/17 at 09:15 Ascorbic Acid (Vitamin C) 1,000 mg DAILYWSUP PO Last administered on 10/18/17 17:46; Start 09/27/17 at 17:00 Lactobacillus Rhamnosus (Culturelle) 1 cap QHS PO Last administered on 20:07; Start 09/27/17 at 21:00 Fish Oil (Fish Oil) 1,000 mg BID@1200,2100 PO Last administered on 09/27/17 12 :17; Start 09/27/17 at 12:00; Stop 09/27/17 at 21:13; Status DC Vitamin B Complex 1 cap DAILYWSUP PO Last administered on 10/18/17 17:46; Start 09/27/17 at 17:00 Fish Oil (Fish Oil) 1,000 mg BID@1200,1600 PO Last administered on 10/18/17 17: 46; Start 09/28/17 at 12:00 Warfarin Sodium (Coumadin) 5 mg DAILY16 PO Last administered on 10/04/17 17:04 ; Start 09/29/17 at 16:00; Stop 10/04/17 at 23:00; Status DC Warfarin Sodium (Coumadin Per Physician) 1 each PRN DAILY PRN MC SEE COMMENTS; Start 09/29/17 at 15:15; Stop 10/04/17 at 21:30; Status DC Fluphenazine HCl (Prolixin Oral Conc) 1 mg BID@0900,1400 PO Last administered on 10/18/17at 12:37; Start 09/30/17 at 09:00 Fluphenazine HCl (Prolixin Oral Conc) 0.5 mg QHS PO Last administered on 20:08; Start 09/29/17 at 21:00 Duloxetine HCl (Cymbalta) 60 mg DAILY PO Last administered on 10/18/17 07:42; Start 09/30/17 at 09:00 Bupropion HCl (Wellbutrin Xl) 150 mg DAILY PO Last administered on 10/18/17 07: 42; Start 09/30/17 at 09:00 Artificial Tears (Artificial Tears) 1 drop PRN Q15MIN PRN OU DRY EYE; Start at 15:15; Stop 09/30/17 at 18:07; Status DC Artificial Tears (Refresh Classic) 1 drop PRN Q15MIN PRN OU DRY EYE Last administered on 10/18/17at 20:10; Start 09/30/17 at 18:15 Buspirone HCl (Buspar) 5 mg 0900,1700 PO Last administered on 10/10/17at 08:04; Start 10/02/17 at 09:15; Stop 10/10/17 at 17:55; Status DC Warfarin Sodium (Coumadin Per Pharmacy) 1 each PRN DAILY PRN MC SEE COMMENTS Last administered on 10/04/17at 23:18; Start 10/04/17 at 21:30; Stop 10/05/17 at 00:00; Status DC Info (Anti-Coagulation Monitoring By Pharmacy) 1 each PRN DAILY PRN MC SEE COMMENTS; Start 10/04/17 at 21:30; Stop 10/09/17 at 08:41; Status DC Warfarin Sodium (Coumadin Per Pharmacy) 1 each PRN DAILY PRN MC SEE COMMENTS Last administered on 10/18/17at 09:09; Start 10/05/17 at 16:00 Warfarin Sodium (Coumadin) 6 mg 1X WARF ONCE PO Last administered on at 17:14; Start 10/05/17 at 16:00; Stop 10/05/17 at 16:01; Status DC Warfarin Sodium (Coumadin) 7.5 mg 1X WARF ONCE PO Last administered on at 17:20; Start 10/06/17 at 16:00; Stop 10/06/17 at 16:01; Status DC Warfarin Sodium (Coumadin) 7.5 mg 1X WARF ONCE PO Last administered on at 17:38; Start 10/07/17 at 16:00; Stop 10/07/17 at 16:01; Status DC Warfarin Sodium (Coumadin) 5 mg 1X WARF ONCE PO Last administered on at 16:06; Start 10/08/17 at 16:00; Stop 10/08/17 at 16:01; Status DC Warfarin Sodium (Coumadin) 7.5 mg DAILY16 PO Last administered on 10/11/17at 18: 24; Start 10/09/17 at 16:00; Stop 10/12/17 at 08:39; Status DC Buspirone HCl (Buspar) 5 mg 0900,1300,1700 PO Last administered on 10/18/17at 17: 46; Start 10/11/17 at 09:00 Warfarin Sodium (Coumadin) 6 mg DAILY@1600 PO Last administered on 10/17/17at 18: 10; Start 10/12/17 at 16:00; Stop 10/18/17 at 09:05; Status DC Warfarin Sodium (Coumadin) 1 mg DAILY@1600 PO Last administered on 10/17/17at 18: 09; Start 10/12/17 at 16:00; Stop 10/18/17 at 09:05; Status DC Warfarin Sodium (Coumadin) 4 mg DAILY@1600 PO ; Start 10/18/17 at 16:00; Stop 10/18/17 at 16:00; Status DC Warfarin Sodium (Coumadin) 2.5 mg DAILY16 PO Last administered on 10/18/17at 17: 45; Start 10/18/17 at 16:00 Warfarin Sodium (Coumadin) 4 mg 1X WARF ONCE PO ; Start 10/18/17 at 16:00; Stop 10/18/17 at 16:00; Status DC Warfarin Sodium (Coumadin) 4 mg DAILY16 PO Last administered on 10/18/17at 17:45 ; Start 10/18/17 at 16:00 Active Scripts Active Reported Fluphenazine Hcl 5 Mg/1 Ml Oral.conc 0.5 Mg PO HS Fluphenazine Hcl 5 Mg/1 Ml Oral.conc 1 Mg PO [id number] Buspirone Hcl 5 Mg Tablet 5 Mg PO TID@0900,1300,1700 5mg PO TID at 0900, 1300, and 1700 Bupropion Xl (Bupropion Hcl) 150 Mg Tab.er.24h 150 Mg PO DAILY Refresh Optive Eye Drops (Carboxymethylcellulos/Glycerin) 15 Ml Drops 1 Drop EACHEYE PRN Q15MIN PRN Milk Of Magnesia (Magnesium Hydroxide) 2,400 Mg/10 Ml Oral.susp 2,400 Mg PO PRN DAILY PRN Mag-Al Plus Xs Suspension (Mag Hydrox/Al Hydrox/Simeth) 30 Ml Oral.susp 15 Ml PO PRN AFTMEALHC PRN Imodium A-D (Loperamide Hcl) 1 Mg/7.5 Ml Liquid 2 Mg PO PRN Q15MIN PRN Acetaminophen 500 Mg Tablet 650 Mg PO PRN Q6HRS PRN Vitamin D3 (Cholecalciferol (Vitamin D3)) 5,000 Unit Tablet 5,000 Unit PO DAILY Vitamin C (Ascorbic Acid) 1,000 Mg Tablet.er 1,000 Mg PO DAILY Ventolin Hfa Inhaler (Albuterol Sulfate) 18 Gm Hfa.aer.ad 2 Puff IH PRN Q4HRS PRN Probiotic (Lactobacillus Combo No.10) 1 Each Capsule 1 Cap PO DAILY Prilosec Otc (Omeprazole Magnesium) 20 Mg Tablet.dr 20 Mg PO DAILY [place] 3 1,000 Mg Softgel ([place]-3 Fatty Acids/Fish Oil) 1 Each Capsule 1 Cap PO BID Lipitor (Atorvastatin Calcium) 20 Mg Tablet 20 Mg PO QHS Ketoconazole 15 Gm Cream..g. 13 Isela TP DAILY PRN Gabapentin 600 Mg Tablet 600 Mg PO AFTRNOON Gabapentin 600 Mg Tablet 600 Mg PO HS Gabapentin 300 Mg Capsule 300 Mg PO DAILY Finasteride 5 Mg Tablet 5 Mg PO DAILY Cymbalta (Duloxetine Hcl) 30 Mg Capsule.dr 60 Mg PO DAILY Coumadin (Warfarin Sodium) 5 Mg Tablet 5 Mg PO QPM Coumadin (Warfarin Sodium) 2 Mg Tablet 2 Mg PO QPM B Complex (Vitamin B Complex) 1 Each Tablet 1 Tab PO DAILY Ambien (Zolpidem Tartrate) 10 Mg Tablet 5 Mg PO HS I have reviewed the current psychotropics carefully including drug interactions. Risk benefit ratio favors no change other than as noted in my dictated progress note. Diagnosis: Problems: (1) Insomnia (2) Hyperlipidemia (3) Anxiety disorder (4) Impulse control disorder (5) Major depressive disorder, recurrent episode LIGIA PEREZ MD Oct 18, 2017 23:25
[2017-10-19 06:04] VITALS: BP 161/83
[2017-10-19] MEDS: CHOLECALCIFEROL (VITAMIN D3) 1,000 UNIT TABLET PO SCH (08:02)
[2017-10-19] MEDS: GABAPENTIN 300 MG CAPSULE. PO SCH ×3 (08:02→19:58)
[2017-10-19] MEDS: fluPHENAZine 5 MG/ML ORAL.CONC SOLUTION. PO SCH ×3 (08:02→19:57)
[2017-10-19] MEDS: buPROPion XL 150 MG TAB.ER.24H PO SCH (08:02)
[2017-10-19] MEDS: PANTOPRAZOLE 40 MG TABLET. PO SCH ×2 (08:02→13:57)
[2017-10-19] MEDS: FINASTERIDE 5 MG TABLET PO SCH (08:02)
[2017-10-19] MEDS: busPIRone 5 MG TABLET. PO SCH ×3 (08:02→18:03)
[2017-10-19] MEDS: DULoxetine HCL 60 MG CAPSULE.DR PO SCH (08:02)
[2017-10-19] MEDS: OMEGA-3 FATTY ACIDS/FISH OIL 1,000 MG CAPSULE. PO SCH ×2 (13:57→18:03)
[2017-10-19 16:06] VITALS: BP 112/61
[2017-10-19] MEDS: VITAMIN B COMPLEX CAPSULE. PO SCH (18:03)
[2017-10-19] MEDS: ASCORBIC ACID 500 MG TABLET PO SCH (18:04)
[2017-10-19] MEDS: WARFARIN 2.5 MG TABLET. PO SCH (18:04)
[2017-10-19] MEDS: WARFARIN 4 MG TABLET. PO SCH (18:04)
[2017-10-19] MEDS: LACTOBACILLUS RHAMNOSUS GG 1 CAPSULE. PO SCH (19:58)
[2017-10-19] MEDS: ATORVASTATIN CALCIUM 20 MG TABLET PO SCH (19:58)
[2017-10-19] MEDS: ZOLPIDEM 5 MG TABLET. PO SCH (19:58)
--- NOTE | 2017-10-19 21:00 | PDOC ---
Exam Note: Sridhar Note: Please also refer to the separate dictated note~for this date of service dictated separately.~Patient seen individually. Discussed the patient with Nursing staff reviewed the chart.~Reviewed interim history and current functioning. Reviewed vital signs,~Labs/ Radiology~and current medications noted below. Continue current treatment with the changes noted in the dictated addendum note Assessment: Vital Signs: Vital Signs Date Time Temp Pulse Resp B/P (MAP) Pulse Ox O2 Delivery O2 Flow Rate FiO2 10/19/17 16:06 98.4 60 16 112/61 (78) 92 10/19/17 06:04 Room Air I&O Intake and Output 10/19/17 07:00 Intake Total 600 ml Balance 600 ml Intake Oral 600 ml # Voids 1 # Bowel Movements 1 Current Medications: Meds: Current Medications Acetaminophen (Tylenol) 650 mg PRN Q6HRS PRN PO PAIN / TEMP Last administered on 10/06/17at 12:26; Start 09/26/17 at 22:30 Al Hydroxide/Mg Hydroxide (Mylanta Plus Xs) 15 ml PRN AFTMEALHC PRN PO DYSPEPSIA; Start 09/26/17 at 22:30 Magnesium Hydroxide (Milk Of Magnesia) 2,400 mg PRN QHS PRN PO CONSTIPATION; Start 09/26/17 at 22:30 Fluphenazine HCl (Prolixin) 1 mg TID PO Last administered on 09/26/17at 23:11; Start 09/26/17 at 23:00; Stop 09/27/17 at 07:28; Status DC Zolpidem Tartrate (Ambien) 5 mg HS PO Last administered on 10/19/17at 19:58; Start 09/26/17 at 23:00 Duloxetine HCl (Cymbalta) 90 mg DAILY PO Last administered on 09/29/17at 08:45; Start 09/27/17 at 09:00; Stop 09/29/17 at 16:34; Status DC Atorvastatin Calcium (Lipitor) 20 mg QHS PO Last administered on 10/19/17at 19:58 ; Start 09/26/17 at 22:45 Finasteride (Proscar) 5 mg BID PO Last administered on 09/26/17at 23:10; Start 09/26/17 at 22:45; Stop 09/27/17 at 08:53; Status DC Gabapentin (Neurontin) 600 mg HS PO Last administered on 10/19/17at 19:58; Start 09/26/17 at 22:45 Fish Oil (Fish Oil) 1,000 mg BID PO Last administered on 09/26/17at 23:07; Start 09/26/17 at 22:45; Stop 09/27/17 at 10:30; Status DC Zolpidem Tartrate (Ambien) 5 mg PRN QHS PRN PO INSOMNIA IF REPEAT NEEDED; Start 09/26/17 at 22:45 Loperamide HCl (Imodium) 2 mg PRN Q15MIN PRN PO DIARRHEA Last administered on at 12:41; Start 09/26/17 at 23:30 Fluphenazine HCl (Prolixin Oral Conc) 1 mg TID PO Last administered on at 13:21; Start 09/27/17 at 09:00; Stop 09/29/17 at 16:33; Status DC Albuterol Sulfate (Ventolin Hfa Inhaler) 2 puff PRN Q4HRS PRN IH FOR ASTHMA; Start 09/27/17 at 08:45; Status UNV Gabapentin (Neurontin) 300 mg DAILY PO Last administered on 10/19/17at 08:02; Start 09/27/17 at 09:00 Ketoconazole (Nizoral 2% Topical) 1 isela DAILY PRN TP RASH; Start 09/27/17 at 08 :45 Ascorbic Acid (Vitamin C) 1,000 mg DAILY PO ; Start 09/27/17 at 09:00; Stop at 10:30; Status DC Vitamin D (Vitamin D3) 5,000 unit DAILY PO Last administered on 10/19/17at 08:02 ; Start 09/27/17 at 09:00 Gabapentin (Neurontin) 600 mg AFTRNOON PO Last administered on 10/19/17at 13:57; Start 09/27/17 at 13:00 Lactobacillus Rhamnosus (Culturelle) 1 cap DAILY PO ; Start 09/27/17 at 09:00; Stop 09/27/17 at 10:30; Status DC Pantoprazole Sodium (Protonix) 40 mg DAILYAC PO Last administered on 10/19/17at 13:57; Start 09/27/17 at 09:00 Vitamin B Complex 1 cap DAILY PO ; Start 09/27/17 at 09:00; Stop 09/27/17 at 10: 30; Status DC Finasteride (Proscar) 5 mg DAILY PO Last administered on 10/19/17at 08:02; Start 09/27/17 at 09:00 Albuterol Sulfate (Ventolin) 2.5 mg PRN Q4HRS PRN NEB SHORTNESS OF BREATH; Start 09/27/17 at 09:15 Ascorbic Acid (Vitamin C) 1,000 mg DAILYWSUP PO Last administered on 10/19/17 18:04; Start 09/27/17 at 17:00 Lactobacillus Rhamnosus (Culturelle) 1 cap QHS PO Last administered on 19:58; Start 09/27/17 at 21:00 Fish Oil (Fish Oil) 1,000 mg BID@1200,2100 PO Last administered on 09/27/17 12 :17; Start 09/27/17 at 12:00; Stop 09/27/17 at 21:13; Status DC Vitamin B Complex 1 cap DAILYWSUP PO Last administered on 10/19/17at 18:03; Start 09/27/17 at 17:00 Fish Oil (Fish Oil) 1,000 mg BID@1200,1600 PO Last administered on 10/19/17 18: 03; Start 09/28/17 at 12:00 Warfarin Sodium (Coumadin) 5 mg DAILY16 PO Last administered on 10/04/17 17:04 ; Start 09/29/17 at 16:00; Stop 10/04/17 at 23:00; Status DC Warfarin Sodium (Coumadin Per Physician) 1 each PRN DAILY PRN MC SEE COMMENTS; Start 09/29/17 at 15:15; Stop 10/04/17 at 21:30; Status DC Fluphenazine HCl (Prolixin Oral Conc) 1 mg BID@0900,1400 PO Last administered on 10/19/17 13:57; Start 09/30/17 at 09:00 Fluphenazine HCl (Prolixin Oral Conc) 0.5 mg QHS PO Last administered on 19:57; Start 09/29/17 at 21:00 Duloxetine HCl (Cymbalta) 60 mg DAILY PO Last administered on 10/19/17at 08:02; Start 09/30/17 at 09:00 Bupropion HCl (Wellbutrin Xl) 150 mg DAILY PO Last administered on 10/19/17at 08: 02; Start 09/30/17 at 09:00 Artificial Tears (Artificial Tears) 1 drop PRN Q15MIN PRN OU DRY EYE; Start at 15:15; Stop 09/30/17 at 18:07; Status DC Artificial Tears (Refresh Classic) 1 drop PRN Q15MIN PRN OU DRY EYE Last administered on 10/18/17at 20:10; Start 09/30/17 at 18:15 Buspirone HCl (Buspar) 5 mg 0900,1700 PO Last administered on 10/10/17at 08:04; Start 10/02/17 at 09:15; Stop 10/10/17 at 17:55; Status DC Warfarin Sodium (Coumadin Per Pharmacy) 1 each PRN DAILY PRN MC SEE COMMENTS Last administered on 10/04/17at 23:18; Start 10/04/17 at 21:30; Stop 10/05/17 at 00:00; Status DC Info (Anti-Coagulation Monitoring By Pharmacy) 1 each PRN DAILY PRN MC SEE COMMENTS; Start 10/04/17 at 21:30; Stop 10/09/17 at 08:41; Status DC Warfarin Sodium (Coumadin Per Pharmacy) 1 each PRN DAILY PRN MC SEE COMMENTS Last administered on 10/18/17at 09:09; Start 10/05/17 at 16:00 Warfarin Sodium (Coumadin) 6 mg 1X WARF ONCE PO Last administered on at 17:14; Start 10/05/17 at 16:00; Stop 10/05/17 at 16:01; Status DC Warfarin Sodium (Coumadin) 7.5 mg 1X WARF ONCE PO Last administered on at 17:20; Start 10/06/17 at 16:00; Stop 10/06/17 at 16:01; Status DC Warfarin Sodium (Coumadin) 7.5 mg 1X WARF ONCE PO Last administered on at 17:38; Start 10/07/17 at 16:00; Stop 10/07/17 at 16:01; Status DC Warfarin Sodium (Coumadin) 5 mg 1X WARF ONCE PO Last administered on at 16:06; Start 10/08/17 at 16:00; Stop 10/08/17 at 16:01; Status DC Warfarin Sodium (Coumadin) 7.5 mg DAILY16 PO Last administered on 10/11/17at 18: 24; Start 10/09/17 at 16:00; Stop 10/12/17 at 08:39; Status DC Buspirone HCl (Buspar) 5 mg 0900,1300,1700 PO Last administered on 10/19/17at 18: 03; Start 10/11/17 at 09:00 Warfarin Sodium (Coumadin) 6 mg DAILY@1600 PO Last administered on 10/17/17at 18: 10; Start 10/12/17 at 16:00; Stop 10/18/17 at 09:05; Status DC Warfarin Sodium (Coumadin) 1 mg DAILY@1600 PO Last administered on 10/17/17at 18: 09; Start 10/12/17 at 16:00; Stop 10/18/17 at 09:05; Status DC Warfarin Sodium (Coumadin) 4 mg DAILY@1600 PO ; Start 10/18/17 at 16:00; Stop 10/18/17 at 16:00; Status DC Warfarin Sodium (Coumadin) 2.5 mg DAILY16 PO Last administered on 10/19/17at 18: 04; Start 10/18/17 at 16:00 Warfarin Sodium (Coumadin) 4 mg 1X WARF ONCE PO ; Start 10/18/17 at 16:00; Stop 10/18/17 at 16:00; Status DC Warfarin Sodium (Coumadin) 4 mg DAILY16 PO Last administered on 10/19/17at 18:04 ; Start 10/18/17 at 16:00 Active Scripts Active Reported Fluphenazine Hcl 5 Mg/1 Ml Oral.conc 0.5 Mg PO HS Fluphenazine Hcl 5 Mg/1 Ml Oral.conc 1 Mg PO [id number] Buspirone Hcl 5 Mg Tablet 5 Mg PO TID@0900,1300,1700 5mg PO TID at 0900, 1300, and 1700 Bupropion Xl (Bupropion Hcl) 150 Mg Tab.er.24h 150 Mg PO DAILY Refresh Optive Eye Drops (Carboxymethylcellulos/Glycerin) 15 Ml Drops 1 Drop EACHEYE PRN Q15MIN PRN Milk Of Magnesia (Magnesium Hydroxide) 2,400 Mg/10 Ml Oral.susp 2,400 Mg PO PRN DAILY PRN Mag-Al Plus Xs Suspension (Mag Hydrox/Al Hydrox/Simeth) 30 Ml Oral.susp 15 Ml PO PRN AFTMEALHC PRN Imodium A-D (Loperamide Hcl) 1 Mg/7.5 Ml Liquid 2 Mg PO PRN Q15MIN PRN Acetaminophen 500 Mg Tablet 650 Mg PO PRN Q6HRS PRN Vitamin D3 (Cholecalciferol (Vitamin D3)) 5,000 Unit Tablet 5,000 Unit PO DAILY Vitamin C (Ascorbic Acid) 1,000 Mg Tablet.er 1,000 Mg PO DAILY Ventolin Hfa Inhaler (Albuterol Sulfate) 18 Gm Hfa.aer.ad 2 Puff IH PRN Q4HRS PRN Probiotic (Lactobacillus Combo No.10) 1 Each Capsule 1 Cap PO DAILY Prilosec Otc (Omeprazole Magnesium) 20 Mg Tablet.dr 20 Mg PO DAILY [place] 3 1,000 Mg Softgel ([place]-3 Fatty Acids/Fish Oil) 1 Each Capsule 1 Cap PO BID Lipitor (Atorvastatin Calcium) 20 Mg Tablet 20 Mg PO QHS Ketoconazole 15 Gm Cream..g. 13 Isela TP DAILY PRN Gabapentin 600 Mg Tablet 600 Mg PO AFTRNOON Gabapentin 600 Mg Tablet 600 Mg PO HS Gabapentin 300 Mg Capsule 300 Mg PO DAILY Finasteride 5 Mg Tablet 5 Mg PO DAILY Cymbalta (Duloxetine Hcl) 30 Mg Capsule.dr 60 Mg PO DAILY Coumadin (Warfarin Sodium) 5 Mg Tablet 5 Mg PO QPM Coumadin (Warfarin Sodium) 2 Mg Tablet 2 Mg PO QPM B Complex (Vitamin B Complex) 1 Each Tablet 1 Tab PO DAILY Ambien (Zolpidem Tartrate) 10 Mg Tablet 5 Mg PO HS I have reviewed the current psychotropics carefully including drug interactions. Risk benefit ratio favors no change other than as noted in my dictated progress note. Diagnosis: Problems: (1) Insomnia (2) Hyperlipidemia (3) Anxiety disorder (4) Impulse control disorder (5) Major depressive disorder, recurrent episode LIGIA PEREZ MD Oct 19, 2017 21:00
--- NOTE | 2017-10-20 00:23 | PN ---
DATE: 10/17/2017 This is a late entry, 10/17/2017, covers the elements not covered in my initial note. SUBJECTIVE: I met with the patient in the evening. Overall, the patient has had no change per the nursing report. He remains a little dismissive of staff and slightly irritable, but much improved. REVIEW OF SYSTEMS: Ambulation impaired, in a Broda chair. No CV, , pulmonary, eye, ENT system symptoms on review. Reliability fair. MENTAL STATUS EXAM: Reasonably oriented. Speech coherent, had some latency, low in volume. Abstraction fair, computation impaired, language function intact. Mood and affect is improved. LABORATORY DATA: Reviewed. IMPRESSION: Unchanged from initial note. PLAN: No change from initial note. MAN Rochelle PEREZ MD DR: AIDAN/riccardo JOB#: [id number] / [id number]
[2017-10-20 06:37] VITALS: BP 106/62
[2017-10-20] MEDS: FINASTERIDE 5 MG TABLET PO SCH (08:01)
[2017-10-20] MEDS: GABAPENTIN 300 MG CAPSULE. PO SCH ×3 (08:02→20:38)
[2017-10-20] MEDS: busPIRone 5 MG TABLET. PO SCH ×3 (08:02→16:56)
[2017-10-20] MEDS: CHOLECALCIFEROL (VITAMIN D3) 1,000 UNIT TABLET PO SCH (08:02)
[2017-10-20] MEDS: PANTOPRAZOLE 40 MG TABLET. PO SCH (08:02)
[2017-10-20] MEDS: DULoxetine HCL 60 MG CAPSULE.DR PO SCH (08:02)
[2017-10-20] MEDS: buPROPion XL 150 MG TAB.ER.24H PO SCH (08:03)
[2017-10-20] MEDS: fluPHENAZine 5 MG/ML ORAL.CONC SOLUTION. PO SCH ×3 (08:04→20:38)
[2017-10-20] MEDS: OMEGA-3 FATTY ACIDS/FISH OIL 1,000 MG CAPSULE. PO SCH ×2 (12:37→16:53)
--- NOTE | 2017-10-20 15:56 | RAD ---
AP chest, 10/20/2017: HISTORY: Cough The heart size and pulmonary vascularity are normal. There is calcific plaquing the aorta. There are scattered linear parenchymal scars. No pulmonary infiltrate is seen. There is no evidence of pleural fluid. Old healed rib fractures are present bilaterally. There is a rounded opacity projected over the liver which may be a large granuloma or gallstone. IMPRESSION: No acute cardiopulmonary abnormality is detected. Electronically signed by: Eugenio Olvera MD (10/20/2017 3:53 PM) [facility]
[2017-10-20 15:57] VITALS: BP 135/72
[2017-10-20] MEDS: ASCORBIC ACID 500 MG TABLET PO SCH (16:53)
[2017-10-20] MEDS: WARFARIN 4 MG TABLET. PO SCH (16:54)
[2017-10-20] MEDS: WARFARIN 2.5 MG TABLET. PO SCH (16:54)
[2017-10-20] MEDS: VITAMIN B COMPLEX CAPSULE. PO SCH (16:54)
[2017-10-20] MEDS: LACTOBACILLUS RHAMNOSUS GG 1 CAPSULE. PO SCH (20:37)
[2017-10-20] MEDS: ATORVASTATIN CALCIUM 20 MG TABLET PO SCH (20:38)
[2017-10-20] MEDS: ZOLPIDEM 5 MG TABLET. PO SCH (20:39)
[2017-10-20] MEDS: POLYVINYL ALCOHOL/POVIDONE/PF OPHTH SOLUTION DROPERETTE. OU PRN (20:46)
--- NOTE | 2017-10-20 20:59 | PDOC ---
Exam Note: Sridhar Note: Please also refer to the separate dictated note~for this date of service dictated separately.~Patient seen individually. Discussed the patient with Nursing staff reviewed the chart.~Reviewed interim history and current functioning. Reviewed vital signs,~Labs/ Radiology~and current medications noted below. Continue current treatment with the changes noted in the dictated addendum note Assessment: Vital Signs: Vital Signs Date Time Temp Pulse Resp B/P (MAP) Pulse Ox O2 Delivery O2 Flow Rate FiO2 10/20/17 15:57 98.3 56 18 135/72 (93) 96 Room Air I&O Intake and Output 10/20/17 07:00 Intake Total 1200 ml Output Total 200 ml Balance 1000 ml Intake Oral 1200 ml Output Urine Total 200 ml Current Medications: Meds: Current Medications Acetaminophen (Tylenol) 650 mg PRN Q6HRS PRN PO PAIN / TEMP Last administered on 10/06/17at 12:26; Start 09/26/17 at 22:30 Al Hydroxide/Mg Hydroxide (Mylanta Plus Xs) 15 ml PRN AFTMEALHC PRN PO DYSPEPSIA; Start 09/26/17 at 22:30 Magnesium Hydroxide (Milk Of Magnesia) 2,400 mg PRN QHS PRN PO CONSTIPATION; Start 09/26/17 at 22:30 Fluphenazine HCl (Prolixin) 1 mg TID PO Last administered on 09/26/17at 23:11; Start 09/26/17 at 23:00; Stop 09/27/17 at 07:28; Status DC Zolpidem Tartrate (Ambien) 5 mg HS PO Last administered on 10/20/17at 20:39; Start 09/26/17 at 23:00 Duloxetine HCl (Cymbalta) 90 mg DAILY PO Last administered on 09/29/17at 08:45; Start 09/27/17 at 09:00; Stop 09/29/17 at 16:34; Status DC Atorvastatin Calcium (Lipitor) 20 mg QHS PO Last administered on 10/20/17at 20: 38; Start 09/26/17 at 22:45 Finasteride (Proscar) 5 mg BID PO Last administered on 09/26/17at 23:10; Start 09/26/17 at 22:45; Stop 09/27/17 at 08:53; Status DC Gabapentin (Neurontin) 600 mg HS PO Last administered on 10/20/17at 20:38; Start 09/26/17 at 22:45 Fish Oil (Fish Oil) 1,000 mg BID PO Last administered on 09/26/17at 23:07; Start 09/26/17 at 22:45; Stop 09/27/17 at 10:30; Status DC Zolpidem Tartrate (Ambien) 5 mg PRN QHS PRN PO INSOMNIA IF REPEAT NEEDED; Start 09/26/17 at 22:45 Loperamide HCl (Imodium) 2 mg PRN Q15MIN PRN PO DIARRHEA Last administered on at 12:41; Start 09/26/17 at 23:30 Fluphenazine HCl (Prolixin Oral Conc) 1 mg TID PO Last administered on at 13:21; Start 09/27/17 at 09:00; Stop 09/29/17 at 16:33; Status DC Albuterol Sulfate (Ventolin Hfa Inhaler) 2 puff PRN Q4HRS PRN IH FOR ASTHMA; Start 09/27/17 at 08:45; Status UNV Gabapentin (Neurontin) 300 mg DAILY PO Last administered on 10/20/17at 08:02; Start 09/27/17 at 09:00 Ketoconazole (Nizoral 2% Topical) 1 isela DAILY PRN TP RASH; Start 09/27/17 at 08 :45 Ascorbic Acid (Vitamin C) 1,000 mg DAILY PO ; Start 09/27/17 at 09:00; Stop at 10:30; Status DC Vitamin D (Vitamin D3) 5,000 unit DAILY PO Last administered on 10/20/17at 08:02 ; Start 09/27/17 at 09:00 Gabapentin (Neurontin) 600 mg AFTRNOON PO Last administered on 10/20/17at 12:36 ; Start 09/27/17 at 13:00 Lactobacillus Rhamnosus (Culturelle) 1 cap DAILY PO ; Start 09/27/17 at 09:00; Stop 09/27/17 at 10:30; Status DC Pantoprazole Sodium (Protonix) 40 mg DAILYAC PO Last administered on 10/20/17at 08:02; Start 09/27/17 at 09:00 Vitamin B Complex 1 cap DAILY PO ; Start 09/27/17 at 09:00; Stop 09/27/17 at 10: 30; Status DC Finasteride (Proscar) 5 mg DAILY PO Last administered on 10/20/17at 08:01; Start 09/27/17 at 09:00 Albuterol Sulfate (Ventolin) 2.5 mg PRN Q4HRS PRN NEB SHORTNESS OF BREATH; Start 09/27/17 at 09:15 Ascorbic Acid (Vitamin C) 1,000 mg DAILYWSUP PO Last administered on 10/20/17 16:53; Start 09/27/17 at 17:00 Lactobacillus Rhamnosus (Culturelle) 1 cap QHS PO Last administered on 20:37; Start 09/27/17 at 21:00 Fish Oil (Fish Oil) 1,000 mg BID@1200,2100 PO Last administered on 09/27/17 12 :17; Start 09/27/17 at 12:00; Stop 09/27/17 at 21:13; Status DC Vitamin B Complex 1 cap DAILYWSUP PO Last administered on 10/20/17at 16:54; Start 09/27/17 at 17:00 Fish Oil (Fish Oil) 1,000 mg BID@1200,1600 PO Last administered on 10/20/17 16 :53; Start 09/28/17 at 12:00 Warfarin Sodium (Coumadin) 5 mg DAILY16 PO Last administered on 10/04/17 17:04 ; Start 09/29/17 at 16:00; Stop 10/04/17 at 23:00; Status DC Warfarin Sodium (Coumadin Per Physician) 1 each PRN DAILY PRN MC SEE COMMENTS; Start 09/29/17 at 15:15; Stop 10/04/17 at 21:30; Status DC Fluphenazine HCl (Prolixin Oral Conc) 1 mg BID@0900,1400 PO Last administered on 10/20/17 12:37; Start 09/30/17 at 09:00 Fluphenazine HCl (Prolixin Oral Conc) 0.5 mg QHS PO Last administered on at 20:38; Start 09/29/17 at 21:00 Duloxetine HCl (Cymbalta) 60 mg DAILY PO Last administered on 10/20/17at 08:02; Start 09/30/17 at 09:00 Bupropion HCl (Wellbutrin Xl) 150 mg DAILY PO Last administered on 10/20/17 08 :03; Start 09/30/17 at 09:00 Artificial Tears (Artificial Tears) 1 drop PRN Q15MIN PRN OU DRY EYE; Start at 15:15; Stop 09/30/17 at 18:07; Status DC Artificial Tears (Refresh Classic) 1 drop PRN Q15MIN PRN OU DRY EYE Last administered on 10/20/17at 20:46; Start 09/30/17 at 18:15 Buspirone HCl (Buspar) 5 mg 0900,1700 PO Last administered on 10/10/17at 08:04; Start 10/02/17 at 09:15; Stop 10/10/17 at 17:55; Status DC Warfarin Sodium (Coumadin Per Pharmacy) 1 each PRN DAILY PRN MC SEE COMMENTS Last administered on 10/04/17at 23:18; Start 10/04/17 at 21:30; Stop 10/05/17 at 00:00; Status DC Info (Anti-Coagulation Monitoring By Pharmacy) 1 each PRN DAILY PRN MC SEE COMMENTS; Start 10/04/17 at 21:30; Stop 10/09/17 at 08:41; Status DC Warfarin Sodium (Coumadin Per Pharmacy) 1 each PRN DAILY PRN MC SEE COMMENTS Last administered on 10/18/17at 09:09; Start 10/05/17 at 16:00 Warfarin Sodium (Coumadin) 6 mg 1X WARF ONCE PO Last administered on at 17:14; Start 10/05/17 at 16:00; Stop 10/05/17 at 16:01; Status DC Warfarin Sodium (Coumadin) 7.5 mg 1X WARF ONCE PO Last administered on at 17:20; Start 10/06/17 at 16:00; Stop 10/06/17 at 16:01; Status DC Warfarin Sodium (Coumadin) 7.5 mg 1X WARF ONCE PO Last administered on at 17:38; Start 10/07/17 at 16:00; Stop 10/07/17 at 16:01; Status DC Warfarin Sodium (Coumadin) 5 mg 1X WARF ONCE PO Last administered on at 16:06; Start 10/08/17 at 16:00; Stop 10/08/17 at 16:01; Status DC Warfarin Sodium (Coumadin) 7.5 mg DAILY16 PO Last administered on 10/11/17at 18: 24; Start 10/09/17 at 16:00; Stop 10/12/17 at 08:39; Status DC Buspirone HCl (Buspar) 5 mg 0900,1300,1700 PO Last administered on 10/20/17at 16 :56; Start 10/11/17 at 09:00 Warfarin Sodium (Coumadin) 6 mg DAILY@1600 PO Last administered on 10/17/17at 18: 10; Start 10/12/17 at 16:00; Stop 10/18/17 at 09:05; Status DC Warfarin Sodium (Coumadin) 1 mg DAILY@1600 PO Last administered on 10/17/17at 18: 09; Start 10/12/17 at 16:00; Stop 10/18/17 at 09:05; Status DC Warfarin Sodium (Coumadin) 4 mg DAILY@1600 PO ; Start 10/18/17 at 16:00; Stop 10/18/17 at 16:00; Status DC Warfarin Sodium (Coumadin) 2.5 mg DAILY16 PO Last administered on 10/20/17at 16: 54; Start 10/18/17 at 16:00 Warfarin Sodium (Coumadin) 4 mg 1X WARF ONCE PO ; Start 10/18/17 at 16:00; Stop 10/18/17 at 16:00; Status DC Warfarin Sodium (Coumadin) 4 mg DAILY16 PO Last administered on 10/20/17at 16:54 ; Start 10/18/17 at 16:00 Active Scripts Active Reported Fluphenazine Hcl 5 Mg/1 Ml Oral.conc 0.5 Mg PO HS Fluphenazine Hcl 5 Mg/1 Ml Oral.conc 1 Mg PO [id number] Buspirone Hcl 5 Mg Tablet 5 Mg PO TID@0900,1300,1700 5mg PO TID at 0900, 1300, and 1700 Bupropion Xl (Bupropion Hcl) 150 Mg Tab.er.24h 150 Mg PO DAILY Refresh Optive Eye Drops (Carboxymethylcellulos/Glycerin) 15 Ml Drops 1 Drop EACHEYE PRN Q15MIN PRN Milk Of Magnesia (Magnesium Hydroxide) 2,400 Mg/10 Ml Oral.susp 2,400 Mg PO PRN DAILY PRN Mag-Al Plus Xs Suspension (Mag Hydrox/Al Hydrox/Simeth) 30 Ml Oral.susp 15 Ml PO PRN AFTMEALHC PRN Imodium A-D (Loperamide Hcl) 1 Mg/7.5 Ml Liquid 2 Mg PO PRN Q15MIN PRN Acetaminophen 500 Mg Tablet 650 Mg PO PRN Q6HRS PRN Vitamin D3 (Cholecalciferol (Vitamin D3)) 5,000 Unit Tablet 5,000 Unit PO DAILY Vitamin C (Ascorbic Acid) 1,000 Mg Tablet.er 1,000 Mg PO DAILY Ventolin Hfa Inhaler (Albuterol Sulfate) 18 Gm Hfa.aer.ad 2 Puff IH PRN Q4HRS PRN Probiotic (Lactobacillus Combo No.10) 1 Each Capsule 1 Cap PO DAILY Prilosec Otc (Omeprazole Magnesium) 20 Mg Tablet.dr 20 Mg PO DAILY [place] 3 1,000 Mg Softgel ([place]-3 Fatty Acids/Fish Oil) 1 Each Capsule 1 Cap PO BID Lipitor (Atorvastatin Calcium) 20 Mg Tablet 20 Mg PO QHS Ketoconazole 15 Gm Cream..g. 13 Isela TP DAILY PRN Gabapentin 600 Mg Tablet 600 Mg PO AFTRNOON Gabapentin 600 Mg Tablet 600 Mg PO HS Gabapentin 300 Mg Capsule 300 Mg PO DAILY Finasteride 5 Mg Tablet 5 Mg PO DAILY Cymbalta (Duloxetine Hcl) 30 Mg Capsule.dr 60 Mg PO DAILY Coumadin (Warfarin Sodium) 5 Mg Tablet 5 Mg PO QPM Coumadin (Warfarin Sodium) 2 Mg Tablet 2 Mg PO QPM B Complex (Vitamin B Complex) 1 Each Tablet 1 Tab PO DAILY Ambien (Zolpidem Tartrate) 10 Mg Tablet 5 Mg PO HS I have reviewed the current psychotropics carefully including drug interactions. Risk benefit ratio favors no change other than as noted in my dictated progress note. Diagnosis: Problems: (1) Insomnia (2) Hyperlipidemia (3) Anxiety disorder (4) Impulse control disorder (5) Major depressive disorder, recurrent episode LIGIA PEREZ MD Oct 20, 2017 20:59
--- NOTE | 2017-10-20 22:09 | PN ---
DATE: 10/18/2017 This is a late entry for 10/18/2017 covers elements not covered in my initial note. SUBJECTIVE: I met with the patient in the evening. The patient has been irritable, more so in the evening, calling some of the female staff by not so nice names and even for male staff, he at times gets frustrated and uses mild derogatory terms for staff members, but then redirects. REVIEW OF SYSTEMS: Ambulation impaired, in Broda chair. No CV, , pulmonary, eye, ENT system symptoms on review. MENTAL STATUS EXAM: Reasonably oriented. Speech is coherent, has some latency, low in rate and rhythm, low in volume. Abstraction fair, computation impaired, language function intact, attention-span short. Mood and affect showing improvement, less anxious, still at times irritable. LABORATORY DATA: Reviewed. IMPRESSION: Unchanged from initial note. PLAN: No change from initial note. We will defer to social service staff to coordinate with the patient and family about disposition plans as soon as possible. MAN Rochelle PEREZ MD DR: AIDAN/riccardo JOB#: [id number] / [id number]
--- NOTE | 2017-10-21 05:04 | PN ---
DATE: 10/19/2017 This is a late entry, 10/19/2017, covers the elements not covered in my initial note. SUBJECTIVE: I met with the patient at some length on the patio on the evening of 10/19/2017. The patient slept 6-3/4 hours the previous evening. He has been irritable, demanding, per nursing report calling staff names, compliant with medications. He is fixated on his frustration that he has to pay 800 dollars a month, so that the nursing staff can administer his meds. He feels he is capable of doing it at the [facility]. We will defer this to his family, social service staff, [facility] staff, and the patient to coordinate this. REVIEW OF SYSTEMS: Ambulation impaired. In Broda chair. No CV, , Pulmonary, Eye system symptoms on review. MENTAL STATUS: Oriented reasonably. Speech coherent, low in volume. Abstraction fair, computation impaired, language function intact. Mood and affect despite the above is less depressed, less anxious, and somewhat ruminative. LABORATORY DATA: Reviewed. IMPRESSION: Unchanged from initial note. PLAN: No change from initial note. MAN Rochelle PEREZ MD DR: AIDAN/riccardo JOB#: [id number] / [id number]
[2017-10-21 06:36] VITALS: BP 106/65
[2017-10-21] MEDS: buPROPion XL 150 MG TAB.ER.24H PO SCH (08:38)
[2017-10-21] MEDS: busPIRone 5 MG TABLET. PO SCH ×3 (08:39→17:34)
[2017-10-21] MEDS: DULoxetine HCL 60 MG CAPSULE.DR PO SCH (08:40)
[2017-10-21] MEDS: GABAPENTIN 300 MG CAPSULE. PO SCH ×3 (08:40→20:45)
[2017-10-21] MEDS: FINASTERIDE 5 MG TABLET PO SCH (08:41)
[2017-10-21] MEDS: fluPHENAZine 5 MG/ML ORAL.CONC SOLUTION. PO SCH ×3 (08:41→20:45)
[2017-10-21] MEDS: CHOLECALCIFEROL (VITAMIN D3) 1,000 UNIT TABLET PO SCH (08:42)
[2017-10-21] MEDS: OMEGA-3 FATTY ACIDS/FISH OIL 1,000 MG CAPSULE. PO SCH ×2 (12:55→17:34)
[2017-10-21 16:26] VITALS: BP 117/71
[2017-10-21] MEDS: ASCORBIC ACID 500 MG TABLET PO SCH (17:35)
[2017-10-21] MEDS: VITAMIN B COMPLEX CAPSULE. PO SCH (17:35)
[2017-10-21] MEDS: WARFARIN 6 MG TABLET. PO SCH (17:35)
[2017-10-21] MEDS: ATORVASTATIN CALCIUM 20 MG TABLET PO SCH (20:44)
[2017-10-21] MEDS: LACTOBACILLUS RHAMNOSUS GG 1 CAPSULE. PO SCH (20:44)
--- NOTE | 2017-10-21 20:57 | PDOC ---
Exam Note: Sridhar Note: Please also refer to the separate dictated note~for this date of service dictated separately.~Patient seen individually. Discussed the patient with Nursing staff reviewed the chart.~Reviewed interim history and current functioning. Reviewed vital signs,~Labs/ Radiology~and current medications noted below. Continue current treatment with the changes noted in the dictated addendum note Assessment: Vital Signs: Vital Signs Date Time Temp Pulse Resp B/P (MAP) Pulse Ox O2 Delivery O2 Flow Rate FiO2 10/21/17 16:26 98.0 60 19 117/71 (86) 95 10/20/17 15:57 Room Air I&O Intake and Output 10/21/17 07:00 Intake Total 1800 ml Output Total 400 ml Balance 1400 ml Intake Oral 1800 ml Output Urine Total 400 ml Labs: Laboratory Tests Test 10/21/17 07:03 Prothrombin Time 28.9 SEC (9.4-11.4) H Prothrombin Time INR 3.1 (0.9-1.1) H Current Medications: Meds: Current Medications Acetaminophen (Tylenol) 650 mg PRN Q6HRS PRN PO PAIN / TEMP Last administered on 10/06/17at 12:26; Start 09/26/17 at 22:30 Al Hydroxide/Mg Hydroxide (Mylanta Plus Xs) 15 ml PRN AFTMEALHC PRN PO DYSPEPSIA; Start 09/26/17 at 22:30 Magnesium Hydroxide (Milk Of Magnesia) 2,400 mg PRN QHS PRN PO CONSTIPATION; Start 09/26/17 at 22:30 Fluphenazine HCl (Prolixin) 1 mg TID PO Last administered on 09/26/17at 23:11; Start 09/26/17 at 23:00; Stop 09/27/17 at 07:28; Status DC Zolpidem Tartrate (Ambien) 5 mg HS PO Last administered on 10/20/17at 20:39; Start 09/26/17 at 23:00 Duloxetine HCl (Cymbalta) 90 mg DAILY PO Last administered on 09/29/17at 08:45; Start 09/27/17 at 09:00; Stop 09/29/17 at 16:34; Status DC Atorvastatin Calcium (Lipitor) 20 mg QHS PO Last administered on 10/20/17at 20: 38; Start 09/26/17 at 22:45 Finasteride (Proscar) 5 mg BID PO Last administered on 09/26/17at 23:10; Start 09/26/17 at 22:45; Stop 09/27/17 at 08:53; Status DC Gabapentin (Neurontin) 600 mg HS PO Last administered on 10/20/17at 20:38; Start 09/26/17 at 22:45 Fish Oil (Fish Oil) 1,000 mg BID PO Last administered on 09/26/17at 23:07; Start 09/26/17 at 22:45; Stop 09/27/17 at 10:30; Status DC Zolpidem Tartrate (Ambien) 5 mg PRN QHS PRN PO INSOMNIA IF REPEAT NEEDED; Start 09/26/17 at 22:45 Loperamide HCl (Imodium) 2 mg PRN Q15MIN PRN PO DIARRHEA Last administered on at 12:41; Start 09/26/17 at 23:30 Fluphenazine HCl (Prolixin Oral Conc) 1 mg TID PO Last administered on at 13:21; Start 09/27/17 at 09:00; Stop 09/29/17 at 16:33; Status DC Albuterol Sulfate (Ventolin Hfa Inhaler) 2 puff PRN Q4HRS PRN IH FOR ASTHMA; Start 09/27/17 at 08:45; Status UNV Gabapentin (Neurontin) 300 mg DAILY PO Last administered on 10/21/17at 08:40; Start 09/27/17 at 09:00 Ketoconazole (Nizoral 2% Topical) 1 isela DAILY PRN TP RASH; Start 09/27/17 at 08 :45 Ascorbic Acid (Vitamin C) 1,000 mg DAILY PO ; Start 09/27/17 at 09:00; Stop at 10:30; Status DC Vitamin D (Vitamin D3) 5,000 unit DAILY PO Last administered on 10/21/17at 08:42 ; Start 09/27/17 at 09:00 Gabapentin (Neurontin) 600 mg AFTRNOON PO Last administered on 10/21/17at 12:56 ; Start 09/27/17 at 13:00 Lactobacillus Rhamnosus (Culturelle) 1 cap DAILY PO ; Start 09/27/17 at 09:00; Stop 09/27/17 at 10:30; Status DC Pantoprazole Sodium (Protonix) 40 mg DAILYAC PO Last administered on 10/20/17 08:02; Start 09/27/17 at 09:00 Vitamin B Complex 1 cap DAILY PO ; Start 09/27/17 at 09:00; Stop 09/27/17 at 10: 30; Status DC Finasteride (Proscar) 5 mg DAILY PO Last administered on 10/21/17at 08:41; Start 09/27/17 at 09:00 Albuterol Sulfate (Ventolin) 2.5 mg PRN Q4HRS PRN NEB SHORTNESS OF BREATH; Start 09/27/17 at 09:15 Ascorbic Acid (Vitamin C) 1,000 mg DAILYWSUP PO Last administered on 10/21/17 17:35; Start 09/27/17 at 17:00 Lactobacillus Rhamnosus (Culturelle) 1 cap QHS PO Last administered on 20:37; Start 09/27/17 at 21:00 Fish Oil (Fish Oil) 1,000 mg BID@1200,2100 PO Last administered on 09/27/17at 12 :17; Start 09/27/17 at 12:00; Stop 09/27/17 at 21:13; Status DC Vitamin B Complex 1 cap DAILYWSUP PO Last administered on 10/21/17at 17:35; Start 09/27/17 at 17:00 Fish Oil (Fish Oil) 1,000 mg BID@1200,1600 PO Last administered on 10/21/17 17 :34; Start 09/28/17 at 12:00 Warfarin Sodium (Coumadin) 5 mg DAILY16 PO Last administered on 10/04/17at 17:04 ; Start 09/29/17 at 16:00; Stop 10/04/17 at 23:00; Status DC Warfarin Sodium (Coumadin Per Physician) 1 each PRN DAILY PRN MC SEE COMMENTS; Start 09/29/17 at 15:15; Stop 10/04/17 at 21:30; Status DC Fluphenazine HCl (Prolixin Oral Conc) 1 mg BID@0900,1400 PO Last administered on 10/21/17 12:57; Start 09/30/17 at 09:00 Fluphenazine HCl (Prolixin Oral Conc) 0.5 mg QHS PO Last administered on at 20:38; Start 09/29/17 at 21:00 Duloxetine HCl (Cymbalta) 60 mg DAILY PO Last administered on 10/21/17at 08:40; Start 09/30/17 at 09:00 Bupropion HCl (Wellbutrin Xl) 150 mg DAILY PO Last administered on 10/21/17at 08 :38; Start 09/30/17 at 09:00 Artificial Tears (Artificial Tears) 1 drop PRN Q15MIN PRN OU DRY EYE; Start at 15:15; Stop 09/30/17 at 18:07; Status DC Artificial Tears (Refresh Classic) 1 drop PRN Q15MIN PRN OU DRY EYE Last administered on 10/20/17at 20:46; Start 09/30/17 at 18:15 Buspirone HCl (Buspar) 5 mg 0900,1700 PO Last administered on 10/10/17at 08:04; Start 10/02/17 at 09:15; Stop 10/10/17 at 17:55; Status DC Warfarin Sodium (Coumadin Per Pharmacy) 1 each PRN DAILY PRN MC SEE COMMENTS Last administered on 10/04/17at 23:18; Start 10/04/17 at 21:30; Stop 10/05/17 at 00:00; Status DC Info (Anti-Coagulation Monitoring By Pharmacy) 1 each PRN DAILY PRN MC SEE COMMENTS; Start 10/04/17 at 21:30; Stop 10/09/17 at 08:41; Status DC Warfarin Sodium (Coumadin Per Pharmacy) 1 each PRN DAILY PRN MC SEE COMMENTS Last administered on 10/21/17at 16:04; Start 10/05/17 at 16:00 Warfarin Sodium (Coumadin) 6 mg 1X WARF ONCE PO Last administered on at 17:14; Start 10/05/17 at 16:00; Stop 10/05/17 at 16:01; Status DC Warfarin Sodium (Coumadin) 7.5 mg 1X WARF ONCE PO Last administered on at 17:20; Start 10/06/17 at 16:00; Stop 10/06/17 at 16:01; Status DC Warfarin Sodium (Coumadin) 7.5 mg 1X WARF ONCE PO Last administered on at 17:38; Start 10/07/17 at 16:00; Stop 10/07/17 at 16:01; Status DC Warfarin Sodium (Coumadin) 5 mg 1X WARF ONCE PO Last administered on at 16:06; Start 10/08/17 at 16:00; Stop 10/08/17 at 16:01; Status DC Warfarin Sodium (Coumadin) 7.5 mg DAILY16 PO Last administered on 10/11/17at 18: 24; Start 10/09/17 at 16:00; Stop 10/12/17 at 08:39; Status DC Buspirone HCl (Buspar) 5 mg 0900,1300,1700 PO Last administered on 10/21/17at 17 :34; Start 10/11/17 at 09:00 Warfarin Sodium (Coumadin) 6 mg DAILY@1600 PO Last administered on 10/17/17at 18: 10; Start 10/12/17 at 16:00; Stop 10/18/17 at 09:05; Status DC Warfarin Sodium (Coumadin) 1 mg DAILY@1600 PO Last administered on 10/17/17at 18: 09; Start 10/12/17 at 16:00; Stop 10/18/17 at 09:05; Status DC Warfarin Sodium (Coumadin) 4 mg DAILY@1600 PO ; Start 10/18/17 at 16:00; Stop 10/18/17 at 16:00; Status DC Warfarin Sodium (Coumadin) 2.5 mg DAILY16 PO Last administered on 10/20/17at 16: 54; Start 10/18/17 at 16:00; Stop 10/21/17 at 09:06; Status DC Warfarin Sodium (Coumadin) 4 mg 1X WARF ONCE PO ; Start 10/18/17 at 16:00; Stop 10/18/17 at 16:00; Status DC Warfarin Sodium (Coumadin) 4 mg DAILY16 PO Last administered on 10/20/17at 16:54 ; Start 10/18/17 at 16:00; Stop 10/21/17 at 09:06; Status DC Warfarin Sodium (Coumadin) 6 mg DAILY16 PO Last administered on 10/21/17at 17:35 ; Start 10/21/17 at 16:00 Active Scripts Active Reported Fluphenazine Hcl 5 Mg/1 Ml Oral.conc 0.5 Mg PO HS Fluphenazine Hcl 5 Mg/1 Ml Oral.conc 1 Mg PO [id number] Buspirone Hcl 5 Mg Tablet 5 Mg PO TID@0900,1300,1700 5mg PO TID at 0900, 1300, and 1700 Bupropion Xl (Bupropion Hcl) 150 Mg Tab.er.24h 150 Mg PO DAILY Refresh Optive Eye Drops (Carboxymethylcellulos/Glycerin) 15 Ml Drops 1 Drop EACHEYE PRN Q15MIN PRN Milk Of Magnesia (Magnesium Hydroxide) 2,400 Mg/10 Ml Oral.susp 2,400 Mg PO PRN DAILY PRN Mag-Al Plus Xs Suspension (Mag Hydrox/Al Hydrox/Simeth) 30 Ml Oral.susp 15 Ml PO PRN AFTMEALHC PRN Imodium A-D (Loperamide Hcl) 1 Mg/7.5 Ml Liquid 2 Mg PO PRN Q15MIN PRN Acetaminophen 500 Mg Tablet 650 Mg PO PRN Q6HRS PRN Vitamin D3 (Cholecalciferol (Vitamin D3)) 5,000 Unit Tablet 5,000 Unit PO DAILY Vitamin C (Ascorbic Acid) 1,000 Mg Tablet.er 1,000 Mg PO DAILY Ventolin Hfa Inhaler (Albuterol Sulfate) 18 Gm Hfa.aer.ad 2 Puff IH PRN Q4HRS PRN Probiotic (Lactobacillus Combo No.10) 1 Each Capsule 1 Cap PO DAILY Prilosec Otc (Omeprazole Magnesium) 20 Mg Tablet.dr 20 Mg PO DAILY [place] 3 1,000 Mg Softgel ([place]-3 Fatty Acids/Fish Oil) 1 Each Capsule 1 Cap PO BID Lipitor (Atorvastatin Calcium) 20 Mg Tablet 20 Mg PO QHS Ketoconazole 15 Gm Cream..g. 13 Isela TP DAILY PRN Gabapentin 600 Mg Tablet 600 Mg PO AFTRNOON Gabapentin 600 Mg Tablet 600 Mg PO HS Gabapentin 300 Mg Capsule 300 Mg PO DAILY Finasteride 5 Mg Tablet 5 Mg PO DAILY Cymbalta (Duloxetine Hcl) 30 Mg Capsule.dr 60 Mg PO DAILY Coumadin (Warfarin Sodium) 5 Mg Tablet 5 Mg PO QPM Coumadin (Warfarin Sodium) 2 Mg Tablet 2 Mg PO QPM B Complex (Vitamin B Complex) 1 Each Tablet 1 Tab PO DAILY Ambien (Zolpidem Tartrate) 10 Mg Tablet 5 Mg PO HS I have reviewed the current psychotropics carefully including drug interactions. Risk benefit ratio favors no change other than as noted in my dictated progress note. Diagnosis: Problems: (1) Insomnia (2) Hyperlipidemia (3) Anxiety disorder (4) Impulse control disorder (5) Major depressive disorder, recurrent episode LIGIA PEREZ MD Oct 21, 2017 20:57
[2017-10-21] MEDS: ZOLPIDEM 5 MG TABLET. PO SCH (21:37)
--- NOTE | 2017-10-21 23:47 | PN ---
DATE: 10/20/2017 This late entry, 10/20/2017, covers elements not covered in my initial note. SUBJECTIVE: I met with the patient in the evening. The patient slept 8 hours previous night. He has had some cough. We will defer to Dr. Fuentes. REVIEW OF SYSTEMS: Ambulation impaired, in Broda chair. No CV, , pulmonary, eye system symptoms on review. MENTAL STATUS EXAM: Reasonably oriented. Speech has some latency, coherent. Abstraction fair, computation impaired, language function intact, attention span short. Mood and affect less labile, less irritable. He is less demeaning of nursing staff. Overall, more stable mood nunez. IMPRESSION: Unchanged from initial note. PLAN: No change from initial note. Social service staff is coordinating transition to senior care by the middle of the week. MAN Rochelle PEREZ MD DR: AIDAN/riccardo JOB#: [id number] / [id number]
[2017-10-22 05:49] VITALS: BP 114/76
[2017-10-22] MEDS: busPIRone 5 MG TABLET. PO SCH ×3 (08:00→17:34)
[2017-10-22] MEDS: DULoxetine HCL 60 MG CAPSULE.DR PO SCH (08:00)
[2017-10-22] MEDS: CHOLECALCIFEROL (VITAMIN D3) 1,000 UNIT TABLET PO SCH (08:00)
[2017-10-22] MEDS: FINASTERIDE 5 MG TABLET PO SCH (08:00)
[2017-10-22] MEDS: PANTOPRAZOLE 40 MG TABLET. PO SCH (08:01)
[2017-10-22] MEDS: fluPHENAZine 5 MG/ML ORAL.CONC SOLUTION. PO SCH ×3 (08:01→20:26)
[2017-10-22] MEDS: buPROPion XL 150 MG TAB.ER.24H PO SCH (08:01)
[2017-10-22] MEDS: GABAPENTIN 300 MG CAPSULE. PO SCH ×3 (08:01→20:26)
[2017-10-22] MEDS: OMEGA-3 FATTY ACIDS/FISH OIL 1,000 MG CAPSULE. PO SCH ×2 (08:01→17:34)
[2017-10-22] MEDS: ASCORBIC ACID 500 MG TABLET PO SCH (17:34)
[2017-10-22] MEDS: WARFARIN 6 MG TABLET. PO SCH (17:34)
[2017-10-22] MEDS: VITAMIN B COMPLEX CAPSULE. PO SCH (17:34)
[2017-10-22] MEDS: LACTOBACILLUS RHAMNOSUS GG 1 CAPSULE. PO SCH (20:26)
[2017-10-22] MEDS: ATORVASTATIN CALCIUM 20 MG TABLET PO SCH (20:26)
[2017-10-22] MEDS: ZOLPIDEM 5 MG TABLET. PO SCH (20:30)
--- NOTE | 2017-10-22 21:03 | PDOC ---
Exam Note: Sridhar Note: Please also refer to the separate dictated note~for this date of service dictated separately.~Patient seen individually. Discussed the patient with Nursing staff reviewed the chart.~Reviewed interim history and current functioning. Reviewed vital signs,~Labs/ Radiology~and current medications noted below. Continue current treatment with the changes noted in the dictated addendum note Assessment: Vital Signs: Vital Signs Date Time Temp Pulse Resp B/P (MAP) Pulse Ox O2 Delivery O2 Flow Rate FiO2 10/22/17 05:49 97.9 58 16 114/76 (89) 90 10/20/17 15:57 Room Air I&O Intake and Output 10/22/17 07:00 Intake Total 1440 ml Output Total 400 ml Balance 1040 ml Intake Oral 1440 ml Output Urine Total 400 ml Current Medications: Meds: Current Medications Acetaminophen (Tylenol) 650 mg PRN Q6HRS PRN PO PAIN / TEMP Last administered on 10/06/17at 12:26; Start 09/26/17 at 22:30 Al Hydroxide/Mg Hydroxide (Mylanta Plus Xs) 15 ml PRN AFTMEALHC PRN PO DYSPEPSIA; Start 09/26/17 at 22:30 Magnesium Hydroxide (Milk Of Magnesia) 2,400 mg PRN QHS PRN PO CONSTIPATION; Start 09/26/17 at 22:30 Fluphenazine HCl (Prolixin) 1 mg TID PO Last administered on 09/26/17at 23:11; Start 09/26/17 at 23:00; Stop 09/27/17 at 07:28; Status DC Zolpidem Tartrate (Ambien) 5 mg HS PO Last administered on 10/22/17at 20:30; Start 09/26/17 at 23:00 Duloxetine HCl (Cymbalta) 90 mg DAILY PO Last administered on 09/29/17at 08:45; Start 09/27/17 at 09:00; Stop 09/29/17 at 16:34; Status DC Atorvastatin Calcium (Lipitor) 20 mg QHS PO Last administered on 10/22/17at 20: 26; Start 09/26/17 at 22:45 Finasteride (Proscar) 5 mg BID PO Last administered on 09/26/17at 23:10; Start 09/26/17 at 22:45; Stop 09/27/17 at 08:53; Status DC Gabapentin (Neurontin) 600 mg HS PO Last administered on 10/22/17at 20:26; Start 09/26/17 at 22:45 Fish Oil (Fish Oil) 1,000 mg BID PO Last administered on 09/26/17at 23:07; Start 09/26/17 at 22:45; Stop 09/27/17 at 10:30; Status DC Zolpidem Tartrate (Ambien) 5 mg PRN QHS PRN PO INSOMNIA IF REPEAT NEEDED; Start 09/26/17 at 22:45 Loperamide HCl (Imodium) 2 mg PRN Q15MIN PRN PO DIARRHEA Last administered on at 12:41; Start 09/26/17 at 23:30 Fluphenazine HCl (Prolixin Oral Conc) 1 mg TID PO Last administered on at 13:21; Start 09/27/17 at 09:00; Stop 09/29/17 at 16:33; Status DC Albuterol Sulfate (Ventolin Hfa Inhaler) 2 puff PRN Q4HRS PRN IH FOR ASTHMA; Start 09/27/17 at 08:45; Status UNV Gabapentin (Neurontin) 300 mg DAILY PO Last administered on 10/22/17at 08:01; Start 09/27/17 at 09:00 Ketoconazole (Nizoral 2% Topical) 1 isela DAILY PRN TP RASH; Start 09/27/17 at 08 :45 Ascorbic Acid (Vitamin C) 1,000 mg DAILY PO ; Start 09/27/17 at 09:00; Stop at 10:30; Status DC Vitamin D (Vitamin D3) 5,000 unit DAILY PO Last administered on 10/22/17at 08:00 ; Start 09/27/17 at 09:00 Gabapentin (Neurontin) 600 mg AFTRNOON PO Last administered on 10/22/17at 12:13 ; Start 09/27/17 at 13:00 Lactobacillus Rhamnosus (Culturelle) 1 cap DAILY PO ; Start 09/27/17 at 09:00; Stop 09/27/17 at 10:30; Status DC Pantoprazole Sodium (Protonix) 40 mg DAILYAC PO Last administered on 10/22/17at 08:01; Start 09/27/17 at 09:00 Vitamin B Complex 1 cap DAILY PO ; Start 09/27/17 at 09:00; Stop 09/27/17 at 10: 30; Status DC Finasteride (Proscar) 5 mg DAILY PO Last administered on 10/22/17at 08:00; Start 09/27/17 at 09:00 Albuterol Sulfate (Ventolin) 2.5 mg PRN Q4HRS PRN NEB SHORTNESS OF BREATH; Start 09/27/17 at 09:15 Ascorbic Acid (Vitamin C) 1,000 mg DAILYWSUP PO Last administered on 10/22/17 17:34; Start 09/27/17 at 17:00 Lactobacillus Rhamnosus (Culturelle) 1 cap QHS PO Last administered on 20:26; Start 09/27/17 at 21:00 Fish Oil (Fish Oil) 1,000 mg BID@1200,2100 PO Last administered on 09/27/17at 12 :17; Start 09/27/17 at 12:00; Stop 09/27/17 at 21:13; Status DC Vitamin B Complex 1 cap DAILYWSUP PO Last administered on 10/22/17at 17:34; Start 09/27/17 at 17:00 Fish Oil (Fish Oil) 1,000 mg BID@1200,1600 PO Last administered on 10/22/17 17 :34; Start 09/28/17 at 12:00 Warfarin Sodium (Coumadin) 5 mg DAILY16 PO Last administered on 10/04/17 17:04 ; Start 09/29/17 at 16:00; Stop 10/04/17 at 23:00; Status DC Warfarin Sodium (Coumadin Per Physician) 1 each PRN DAILY PRN MC SEE COMMENTS; Start 09/29/17 at 15:15; Stop 10/04/17 at 21:30; Status DC Fluphenazine HCl (Prolixin Oral Conc) 1 mg BID@0900,1400 PO Last administered on 10/22/17 12:13; Start 09/30/17 at 09:00 Fluphenazine HCl (Prolixin Oral Conc) 0.5 mg QHS PO Last administered on 20:26; Start 09/29/17 at 21:00 Duloxetine HCl (Cymbalta) 60 mg DAILY PO Last administered on 10/22/17at 08:00; Start 09/30/17 at 09:00 Bupropion HCl (Wellbutrin Xl) 150 mg DAILY PO Last administered on 10/22/17at 08 :01; Start 09/30/17 at 09:00 Artificial Tears (Artificial Tears) 1 drop PRN Q15MIN PRN OU DRY EYE; Start at 15:15; Stop 09/30/17 at 18:07; Status DC Artificial Tears (Refresh Classic) 1 drop PRN Q15MIN PRN OU DRY EYE Last administered on 10/20/17at 20:46; Start 09/30/17 at 18:15 Buspirone HCl (Buspar) 5 mg 0900,1700 PO Last administered on 10/10/17at 08:04; Start 10/02/17 at 09:15; Stop 10/10/17 at 17:55; Status DC Warfarin Sodium (Coumadin Per Pharmacy) 1 each PRN DAILY PRN MC SEE COMMENTS Last administered on 10/04/17at 23:18; Start 10/04/17 at 21:30; Stop 10/05/17 at 00:00; Status DC Info (Anti-Coagulation Monitoring By Pharmacy) 1 each PRN DAILY PRN MC SEE COMMENTS; Start 10/04/17 at 21:30; Stop 10/09/17 at 08:41; Status DC Warfarin Sodium (Coumadin Per Pharmacy) 1 each PRN DAILY PRN MC SEE COMMENTS Last administered on 10/21/17at 16:04; Start 10/05/17 at 16:00 Warfarin Sodium (Coumadin) 6 mg 1X WARF ONCE PO Last administered on at 17:14; Start 10/05/17 at 16:00; Stop 10/05/17 at 16:01; Status DC Warfarin Sodium (Coumadin) 7.5 mg 1X WARF ONCE PO Last administered on at 17:20; Start 10/06/17 at 16:00; Stop 10/06/17 at 16:01; Status DC Warfarin Sodium (Coumadin) 7.5 mg 1X WARF ONCE PO Last administered on at 17:38; Start 10/07/17 at 16:00; Stop 10/07/17 at 16:01; Status DC Warfarin Sodium (Coumadin) 5 mg 1X WARF ONCE PO Last administered on at 16:06; Start 10/08/17 at 16:00; Stop 10/08/17 at 16:01; Status DC Warfarin Sodium (Coumadin) 7.5 mg DAILY16 PO Last administered on 10/11/17at 18: 24; Start 10/09/17 at 16:00; Stop 10/12/17 at 08:39; Status DC Buspirone HCl (Buspar) 5 mg 0900,1300,1700 PO Last administered on 10/22/17at 17 :34; Start 10/11/17 at 09:00 Warfarin Sodium (Coumadin) 6 mg DAILY@1600 PO Last administered on 10/17/17at 18: 10; Start 10/12/17 at 16:00; Stop 10/18/17 at 09:05; Status DC Warfarin Sodium (Coumadin) 1 mg DAILY@1600 PO Last administered on 10/17/17at 18: 09; Start 10/12/17 at 16:00; Stop 10/18/17 at 09:05; Status DC Warfarin Sodium (Coumadin) 4 mg DAILY@1600 PO ; Start 10/18/17 at 16:00; Stop 10/18/17 at 16:00; Status DC Warfarin Sodium (Coumadin) 2.5 mg DAILY16 PO Last administered on 10/20/17at 16: 54; Start 10/18/17 at 16:00; Stop 10/21/17 at 09:06; Status DC Warfarin Sodium (Coumadin) 4 mg 1X WARF ONCE PO ; Start 10/18/17 at 16:00; Stop 10/18/17 at 16:00; Status DC Warfarin Sodium (Coumadin) 4 mg DAILY16 PO Last administered on 10/20/17at 16:54 ; Start 10/18/17 at 16:00; Stop 10/21/17 at 09:06; Status DC Warfarin Sodium (Coumadin) 6 mg DAILY16 PO Last administered on 10/22/17at 17:34 ; Start 10/21/17 at 16:00 Active Scripts Active Reported Fluphenazine Hcl 5 Mg/1 Ml Oral.conc 0.5 Mg PO HS Fluphenazine Hcl 5 Mg/1 Ml Oral.conc 1 Mg PO [id number] Buspirone Hcl 5 Mg Tablet 5 Mg PO TID@0900,1300,1700 5mg PO TID at 0900, 1300, and 1700 Bupropion Xl (Bupropion Hcl) 150 Mg Tab.er.24h 150 Mg PO DAILY Refresh Optive Eye Drops (Carboxymethylcellulos/Glycerin) 15 Ml Drops 1 Drop EACHEYE PRN Q15MIN PRN Milk Of Magnesia (Magnesium Hydroxide) 2,400 Mg/10 Ml Oral.susp 2,400 Mg PO PRN DAILY PRN Mag-Al Plus Xs Suspension (Mag Hydrox/Al Hydrox/Simeth) 30 Ml Oral.susp 15 Ml PO PRN AFTMEALHC PRN Imodium A-D (Loperamide Hcl) 1 Mg/7.5 Ml Liquid 2 Mg PO PRN Q15MIN PRN Acetaminophen 500 Mg Tablet 650 Mg PO PRN Q6HRS PRN Vitamin D3 (Cholecalciferol (Vitamin D3)) 5,000 Unit Tablet 5,000 Unit PO DAILY Vitamin C (Ascorbic Acid) 1,000 Mg Tablet.er 1,000 Mg PO DAILY Ventolin Hfa Inhaler (Albuterol Sulfate) 18 Gm Hfa.aer.ad 2 Puff IH PRN Q4HRS PRN Probiotic (Lactobacillus Combo No.10) 1 Each Capsule 1 Cap PO DAILY Prilosec Otc (Omeprazole Magnesium) 20 Mg Tablet.dr 20 Mg PO DAILY [place] 3 1,000 Mg Softgel ([place]-3 Fatty Acids/Fish Oil) 1 Each Capsule 1 Cap PO BID Lipitor (Atorvastatin Calcium) 20 Mg Tablet 20 Mg PO QHS Ketoconazole 15 Gm Cream..g. 13 Isela TP DAILY PRN Gabapentin 600 Mg Tablet 600 Mg PO AFTRNOON Gabapentin 600 Mg Tablet 600 Mg PO HS Gabapentin 300 Mg Capsule 300 Mg PO DAILY Finasteride 5 Mg Tablet 5 Mg PO DAILY Cymbalta (Duloxetine Hcl) 30 Mg Capsule.dr 60 Mg PO DAILY Coumadin (Warfarin Sodium) 5 Mg Tablet 5 Mg PO QPM Coumadin (Warfarin Sodium) 2 Mg Tablet 2 Mg PO QPM B Complex (Vitamin B Complex) 1 Each Tablet 1 Tab PO DAILY Ambien (Zolpidem Tartrate) 10 Mg Tablet 5 Mg PO HS I have reviewed the current psychotropics carefully including drug interactions. Risk benefit ratio favors no change other than as noted in my dictated progress note. Diagnosis: Problems: (1) Insomnia (2) Hyperlipidemia (3) Anxiety disorder (4) Impulse control disorder (5) Major depressive disorder, recurrent episode LIGIA PEREZ MD Oct 22, 2017 21:03
[2017-10-23] MEDS ORDERED: PANT20TA58 PO (01:39)
[2017-10-23] MEDS ORDERED: WARF6TAB47 PO (01:39)
--- NOTE | 2017-10-23 04:05 | PN ---
DATE: 10/21/2017 This late entry, 10/21/2017, covers elements not covered in my initial note. SUBJECTIVE: I met with the patient in the evening. Overall, the patient slept 6-3/4 hours previous evening. He had an evaluation by a nursing facility, who may accept him later this week. I addressed this with him and he is pleased with this. REVIEW OF SYSTEMS: Ambulation impaired, in Broda chair. No CV, , pulmonary, eye system symptoms on review. The patient is reasonably oriented. MENTAL STATUS EXAM: Speech has some latency, coherent. Abstraction fair, computation somewhat impaired, language function intact. Attention span short. No active suicidal or homicidal ideation. No psychotic symptoms. LABORATORY DATA: Reviewed. IMPRESSION: Major depressive disorder in partial remission; anxiety disorder, unspecified. Rest unchanged. PLAN: No change from initial note. MAN Rochelle PEREZ MD DR: AIDAN/riccardo JOB#: [id number] / [id number]
[2017-10-23 05:42] VITALS: BP 117/60
[2017-10-23] MEDS: DULoxetine HCL 60 MG CAPSULE.DR PO SCH (08:18)
[2017-10-23] MEDS: CHOLECALCIFEROL (VITAMIN D3) 1,000 UNIT TABLET PO SCH (08:18)
[2017-10-23] MEDS: PANTOPRAZOLE 40 MG TABLET. PO SCH (08:18)
[2017-10-23] MEDS: buPROPion XL 150 MG TAB.ER.24H PO SCH (08:18)
[2017-10-23] MEDS: FINASTERIDE 5 MG TABLET PO SCH (08:18)
[2017-10-23] MEDS: busPIRone 5 MG TABLET. PO SCH (08:18)
[2017-10-23] MEDS: GABAPENTIN 300 MG CAPSULE. PO SCH (08:19)
[2017-10-23] MEDS: fluPHENAZine 5 MG/ML ORAL.CONC SOLUTION. PO SCH (08:20)
[2017-10-23] MEDS ORDERED: WARF1TAB74 PO (08:44)
--- NOTE | 2017-10-23 18:23 | PDOC ---
Exam Note: Sridhar Note: Please also refer to the separate dictated note~for this date of service dictated separately.~Patient seen individually. Discussed the patient with Nursing staff reviewed the chart.~Reviewed interim history and current functioning. Reviewed vital signs,~Labs/ Radiology~and current medications noted below. Continue current treatment with the changes noted in the dictated addendum note Assessment: Vital Signs: Vital Signs Date Time Temp Pulse Resp B/P (MAP) Pulse Ox O2 Delivery O2 Flow Rate FiO2 10/23/17 05:42 98.2 60 18 117/60 (79) 92 10/20/17 15:57 Room Air I&O Intake and Output 10/23/17 07:00 Intake Total 1080 ml Output Total 200 ml Balance 880 ml Intake Oral 1080 ml Output Urine Total 200 ml # Voids 2 Current Medications: Meds: Current Medications Acetaminophen (Tylenol) 650 mg PRN Q6HRS PRN PO PAIN / TEMP Last administered on 10/06/17at 12:26; Start 09/26/17 at 22:30; Stop 10/23/17 at 11:43; Status DC Al Hydroxide/Mg Hydroxide (Mylanta Plus Xs) 15 ml PRN AFTMEALHC PRN PO DYSPEPSIA; Start 09/26/17 at 22:30; Stop 10/23/17 at 11:43; Status DC Magnesium Hydroxide (Milk Of Magnesia) 2,400 mg PRN QHS PRN PO CONSTIPATION; Start 09/26/17 at 22:30; Stop 10/23/17 at 11:43; Status DC Fluphenazine HCl (Prolixin) 1 mg TID PO Last administered on 09/26/17at 23:11; Start 09/26/17 at 23:00; Stop 09/27/17 at 07:28; Status DC Zolpidem Tartrate (Ambien) 5 mg HS PO Last administered on 10/22/17at 20:30; Start 09/26/17 at 23:00; Stop 10/23/17 at 11:43; Status DC Duloxetine HCl (Cymbalta) 90 mg DAILY PO Last administered on 09/29/17at 08:45; Start 09/27/17 at 09:00; Stop 09/29/17 at 16:34; Status DC Atorvastatin Calcium (Lipitor) 20 mg QHS PO Last administered on 10/22/17at 20: 26; Start 09/26/17 at 22:45; Stop 10/23/17 at 11:43; Status DC Finasteride (Proscar) 5 mg BID PO Last administered on 09/26/17at 23:10; Start 09/26/17 at 22:45; Stop 09/27/17 at 08:53; Status DC Gabapentin (Neurontin) 600 mg HS PO Last administered on 10/22/17at 20:26; Start 09/26/17 at 22:45; Stop 10/23/17 at 11:43; Status DC Fish Oil (Fish Oil) 1,000 mg BID PO Last administered on 09/26/17at 23:07; Start 09/26/17 at 22:45; Stop 09/27/17 at 10:30; Status DC Zolpidem Tartrate (Ambien) 5 mg PRN QHS PRN PO INSOMNIA IF REPEAT NEEDED; Start 09/26/17 at 22:45; Stop 10/23/17 at 11:43; Status DC Loperamide HCl (Imodium) 2 mg PRN Q15MIN PRN PO DIARRHEA Last administered on at 12:41; Start 09/26/17 at 23:30; Stop 10/23/17 at 11:43; Status DC Fluphenazine HCl (Prolixin Oral Conc) 1 mg TID PO Last administered on at 13:21; Start 09/27/17 at 09:00; Stop 09/29/17 at 16:33; Status DC Albuterol Sulfate (Ventolin Hfa Inhaler) 2 puff PRN Q4HRS PRN IH FOR ASTHMA; Start 09/27/17 at 08:45; Status UNV Gabapentin (Neurontin) 300 mg DAILY PO Last administered on 10/23/17at 08:19; Start 09/27/17 at 09:00; Stop 10/23/17 at 11:43; Status DC Ketoconazole (Nizoral 2% Topical) 1 isela DAILY PRN TP RASH; Start 09/27/17 at 08 :45; Stop 10/23/17 at 11:43; Status DC Ascorbic Acid (Vitamin C) 1,000 mg DAILY PO ; Start 09/27/17 at 09:00; Stop at 10:30; Status DC Vitamin D (Vitamin D3) 5,000 unit DAILY PO Last administered on 10/23/17at 08:18 ; Start 09/27/17 at 09:00; Stop 10/23/17 at 11:43; Status DC Gabapentin (Neurontin) 600 mg AFTRNOON PO Last administered on 10/22/17at 12:13 ; Start 09/27/17 at 13:00; Stop 10/23/17 at 11:43; Status DC Lactobacillus Rhamnosus (Culturelle) 1 cap DAILY PO ; Start 09/27/17 at 09:00; Stop 09/27/17 at 10:30; Status DC Pantoprazole Sodium (Protonix) 40 mg DAILYAC PO Last administered on 10/23/17at 08:18; Start 09/27/17 at 09:00; Stop 10/23/17 at 11:43; Status DC Vitamin B Complex 1 cap DAILY PO ; Start 09/27/17 at 09:00; Stop 09/27/17 at 10: 30; Status DC Finasteride (Proscar) 5 mg DAILY PO Last administered on 10/23/17at 08:18; Start 09/27/17 at 09:00; Stop 10/23/17 at 11:43; Status DC Albuterol Sulfate (Ventolin) 2.5 mg PRN Q4HRS PRN NEB SHORTNESS OF BREATH; Start 09/27/17 at 09:15; Stop 10/23/17 at 11:43; Status DC Ascorbic Acid (Vitamin C) 1,000 mg DAILYWSUP PO Last administered on 10/22/17at 17:34; Start 09/27/17 at 17:00; Stop 10/23/17 at 11:43; Status DC Lactobacillus Rhamnosus (Culturelle) 1 cap QHS PO Last administered on at 20:26; Start 09/27/17 at 21:00; Stop 10/23/17 at 11:43; Status DC Fish Oil (Fish Oil) 1,000 mg BID@1200,2100 PO Last administered on 09/27/17at 12 :17; Start 09/27/17 at 12:00; Stop 09/27/17 at 21:13; Status DC Vitamin B Complex 1 cap DAILYWSUP PO Last administered on 10/22/17at 17:34; Start 09/27/17 at 17:00; Stop 10/23/17 at 11:43; Status DC Fish Oil (Fish Oil) 1,000 mg BID@1200,1600 PO Last administered on 10/22/17at 17 :34; Start 09/28/17 at 12:00; Stop 10/23/17 at 11:43; Status DC Warfarin Sodium (Coumadin) 5 mg DAILY16 PO Last administered on 10/04/17at 17:04 ; Start 09/29/17 at 16:00; Stop 10/04/17 at 23:00; Status DC Warfarin Sodium (Coumadin Per Physician) 1 each PRN DAILY PRN MC SEE COMMENTS; Start 09/29/17 at 15:15; Stop 10/04/17 at 21:30; Status DC Fluphenazine HCl (Prolixin Oral Conc) 1 mg BID@0900,1400 PO Last administered on 10/23/17at 08:20; Start 09/30/17 at 09:00; Stop 10/23/17 at 11:43; Status DC Fluphenazine HCl (Prolixin Oral Conc) 0.5 mg QHS PO Last administered on at 20:26; Start 09/29/17 at 21:00; Stop 10/23/17 at 11:43; Status DC Duloxetine HCl (Cymbalta) 60 mg DAILY PO Last administered on 10/23/17at 08:18; Start 09/30/17 at 09:00; Stop 10/23/17 at 11:43; Status DC Bupropion HCl (Wellbutrin Xl) 150 mg DAILY PO Last administered on 10/23/17at 08 :18; Start 09/30/17 at 09:00; Stop 10/23/17 at 11:43; Status DC Artificial Tears (Artificial Tears) 1 drop PRN Q15MIN PRN OU DRY EYE; Start at 15:15; Stop 09/30/17 at 18:07; Status DC Artificial Tears (Refresh Classic) 1 drop PRN Q15MIN PRN OU DRY EYE Last administered on 10/20/17at 20:46; Start 09/30/17 at 18:15; Stop 10/23/17 at 11:43 ; Status DC Buspirone HCl (Buspar) 5 mg 0900,1700 PO Last administered on 10/10/17at 08:04; Start 10/02/17 at 09:15; Stop 10/10/17 at 17:55; Status DC Warfarin Sodium (Coumadin Per Pharmacy) 1 each PRN DAILY PRN MC SEE COMMENTS Last administered on 10/04/17at 23:18; Start 10/04/17 at 21:30; Stop 10/05/17 at 00:00; Status DC Info (Anti-Coagulation Monitoring By Pharmacy) 1 each PRN DAILY PRN MC SEE COMMENTS; Start 10/04/17 at 21:30; Stop 10/09/17 at 08:41; Status DC Warfarin Sodium (Coumadin Per Pharmacy) 1 each PRN DAILY PRN MC SEE COMMENTS Last administered on 10/21/17at 16:04; Start 10/05/17 at 16:00; Stop 10/23/17 at 11:43; Status DC Warfarin Sodium (Coumadin) 6 mg 1X WARF ONCE PO Last administered on at 17:14; Start 10/05/17 at 16:00; Stop 10/05/17 at 16:01; Status DC Warfarin Sodium (Coumadin) 7.5 mg 1X WARF ONCE PO Last administered on at 17:20; Start 10/06/17 at 16:00; Stop 10/06/17 at 16:01; Status DC Warfarin Sodium (Coumadin) 7.5 mg 1X WARF ONCE PO Last administered on at 17:38; Start 10/07/17 at 16:00; Stop 10/07/17 at 16:01; Status DC Warfarin Sodium (Coumadin) 5 mg 1X WARF ONCE PO Last administered on at 16:06; Start 10/08/17 at 16:00; Stop 10/08/17 at 16:01; Status DC Warfarin Sodium (Coumadin) 7.5 mg DAILY16 PO Last administered on 10/11/17at 18: 24; Start 10/09/17 at 16:00; Stop 10/12/17 at 08:39; Status DC Buspirone HCl (Buspar) 5 mg 0900,1300,1700 PO Last administered on 10/23/17at 08 :18; Start 10/11/17 at 09:00; Stop 10/23/17 at 11:43; Status DC Warfarin Sodium (Coumadin) 6 mg DAILY@1600 PO Last administered on 10/17/17at 18: 10; Start 10/12/17 at 16:00; Stop 10/18/17 at 09:05; Status DC Warfarin Sodium (Coumadin) 1 mg DAILY@1600 PO Last administered on 10/17/17at 18: 09; Start 10/12/17 at 16:00; Stop 10/18/17 at 09:05; Status DC Warfarin Sodium (Coumadin) 4 mg DAILY@1600 PO ; Start 10/18/17 at 16:00; Stop 10/18/17 at 16:00; Status DC Warfarin Sodium (Coumadin) 2.5 mg DAILY16 PO Last administered on 10/20/17at 16: 54; Start 10/18/17 at 16:00; Stop 10/21/17 at 09:06; Status DC Warfarin Sodium (Coumadin) 4 mg 1X WARF ONCE PO ; Start 10/18/17 at 16:00; Stop 10/18/17 at 16:00; Status DC Warfarin Sodium (Coumadin) 4 mg DAILY16 PO Last administered on 10/20/17at 16:54 ; Start 10/18/17 at 16:00; Stop 10/21/17 at 09:06; Status DC Warfarin Sodium (Coumadin) 6 mg DAILY16 PO Last administered on 10/22/17at 17:34 ; Start 10/21/17 at 16:00; Stop 10/23/17 at 11:43; Status DC Active Scripts Active Reported Coumadin (Warfarin Sodium) 1 Mg Tablet 1 Mg PO PRN DAILY PRN Protonix (Pantoprazole Sodium) 20 Mg Tablet.dr 40 Mg PO DAILYAC Warfarin Sodium 6 Mg Tablet 6 Mg PO DAILY16 Fluphenazine Hcl 5 Mg/1 Ml Oral.conc 0.5 Mg PO HS Fluphenazine Hcl 5 Mg/1 Ml Oral.conc 1 Mg PO BID92 Buspirone Hcl 5 Mg Tablet 5 Mg PO TID@0900,1300,1700 5mg PO TID at 0900, 1300, and 1700 Bupropion Xl (Bupropion Hcl) 150 Mg Tab.er.24h 150 Mg PO DAILY Refresh Optive Eye Drops (Carboxymethylcellulos/Glycerin) 15 Ml Drops 1 Drop EACHEYE PRN Q15MIN PRN Milk Of Magnesia (Magnesium Hydroxide) 2,400 Mg/10 Ml Oral.susp 2,400 Mg PO PRN DAILY PRN Mag-Al Plus Xs Suspension (Mag Hydrox/Al Hydrox/Simeth) 30 Ml Oral.susp 15 Ml PO PRN AFTMEALHC PRN Imodium A-D (Loperamide Hcl) 1 Mg/7.5 Ml Liquid 2 Mg PO PRN Q15MIN PRN Acetaminophen 500 Mg Tablet 650 Mg PO PRN Q6HRS PRN Vitamin D3 (Cholecalciferol (Vitamin D3)) 5,000 Unit Tablet 5,000 Unit PO DAILY Vitamin C (Ascorbic Acid) 1,000 Mg Tablet.er 1,000 Mg PO DAILY Ventolin Hfa Inhaler (Albuterol Sulfate) 18 Gm Hfa.aer.ad 2 Puff IH PRN Q4HRS PRN Probiotic (Lactobacillus Combo No.10) 1 Each Capsule 1 Cap PO DAILY [place] 3 1,000 Mg Softgel ([place]-3 Fatty Acids/Fish Oil) 1 Each Capsule 1 Cap PO BID Lipitor (Atorvastatin Calcium) 20 Mg Tablet 20 Mg PO QHS Ketoconazole 15 Gm Cream..g. 13 Isela TP DAILY PRN Gabapentin 600 Mg Tablet 600 Mg PO AFTRNOON Gabapentin 600 Mg Tablet 600 Mg PO HS Gabapentin 300 Mg Capsule 300 Mg PO DAILY Finasteride 5 Mg Tablet 5 Mg PO DAILY Cymbalta (Duloxetine Hcl) 30 Mg Capsule.dr 60 Mg PO DAILY B Complex (Vitamin B Complex) 1 Each Tablet 1 Tab PO DAILY Ambien (Zolpidem Tartrate) 10 Mg Tablet 5 Mg PO HS I have reviewed the current psychotropics carefully including drug interactions. Risk benefit ratio favors no change other than as noted in my dictated progress note. Diagnosis: Problems: (1) Major depressive disorder, recurrent episode (2) Impulse control disorder (3) Anxiety disorder LIGIA PEREZ MD Oct 23, 2017 18:23
--- NOTE | 2017-10-24 18:30 | DS ---
DATE OF DISCHARGE: 10/23/2017 DISCHARGE SUMMARY/PSYCHIATRIC PROGRESS NOTE This late entry 10/23/2017 covers elements not covered in my initial note 10/23/2017. REASON FOR ADMISSION: Please refer to the admission history for details. Briefly, the patient is a 72-year-old male referred to us from [facility] by his primary care physician on account of being aggressive with staff, refusing medications. He has been increasingly depressed, hopeless, worthless, angry, irritable, labile unmanageable at the facility. He had failed outpatient psychiatric interventions resulting in this referral. SIGNIFICANT FINDINGS AND CLINICAL COURSE: Following admission, the patient was seen daily individually by myself from a psychiatric standpoint, medical followup with Dr. Fuentes/Dr. Bowden. He remained extremely depressed, irritable, labile, unhappy with everything on the unit including activities. I met with him at length daily as did the social service staff and individual psychotherapy sessions. Adjustments were made in his psychotropics. He seemed to respond to a combination of Cymbalta 60 mg a day; Neurontin 300 mg a.m., 600 at 1400 and at bedtime; Prolixin was at 1 mg 3 times a day for a questionable diagnosis of Tourette's disorder. We tried to obtain prior treatment information and attempted the gradual reduction of his nighttime dosage reduced from 1 mg to 0.5 mg, but continued the morning dosages 0900 at 1 mg, 1400 at 1 mg. I would suggest this be tapered gradually as an outpatient. He is also on Wellbutrin-XL 150 mg daily, BuSpar 5 mg 3 times a day. CONDITION AT DISCHARGE: Improved prior to discharge. REVIEW OF SYSTEMS: Ambulation impaired, in Broda chair. No CV, , pulmonary, eye, ENT system symptoms on review. MENTAL STATUS EXAM: Oriented reasonably. Speech moderate latency, often responses monosyllabic. Abstraction fair, computation impaired, language function intact, attention span short. Mood and affect was improved. LABORATORY DATA: Reviewed. FINAL DIAGNOSES: Major depressive disorder, recurrent, in partial remission; history of Tourette's disorder; anxiety disorder, unspecified; impulse control disorder, unspecified. Rest unchanged from admission. DISCHARGE MEDICATIONS: Please refer to the MRAD. DISCHARGE INSTRUCTIONS: Outpatient psychiatric and medical followup at the detention. Time for discharge day management greater than 30 minutes. MAN Rochelle PEREZ MD DR: Joanna JOB#: [id number] / [id number]
--- NOTE | 2017-10-25 02:21 | PN ---
DATE: 10/22/2017 PSYCHIATRIC PROGRESS NOTE This late entry 10/22/2017 covers elements not covered in my initial note. SUBJECTIVE: I met with the patient in the evening. The patient slept 7-1/4 hours previous evening. He has been pleasant, compliant, somewhat withdrawn at times. REVIEW OF SYSTEMS: Ambulation impaired, in Broda chair. No CV, , pulmonary, eye system symptoms on review. MENTAL STATUS EXAM: Reasonably oriented. Speech is coherent, has some latency. Abstraction fair, computation impaired, language function intact. Mood and affect withdrawn. During the individual visit, we addressed his transition to nursing facility early morning and he was agreeable to this. LABORATORY DATA: Reviewed. IMPRESSION: Unchanged from initial note. PLAN: No change from initial note. MAN Rochelle PEREZ MD DR: AIDAN/riccardo JOB#: [id number] / [id number]
== END 2017-10-23 10:30 | DRG 885 ==
LOC: ER 19:18 → GEROPSY 22:04
PROVIDERS: ADMIT Psychiatry & Neurology Psychiatry; ATTEND Psychiatry & Neurology Psychiatry
DX: F33.9 Major depressive disorder, recurrent, unspecified (principal); E78.5 Hyperlipidemia, unspecified; F33.41 Major depressive disorder, recurrent, in partial remission; F63.9 Impulse disorder, unspecified; F41.9 Anxiety disorder, unspecified; G47.00 Insomnia, unspecified; F95.2 Tourette's disorder; G47.30 Sleep apnea, unspecified; I10 Essential (primary) hypertension; M81.0 Age-related osteoporosis without current pathological fracture; Z91.81 History of falling; Z79.01 Long term (current) use of anticoagulants; Z85.46 Personal history of malignant neoplasm of prostate; Z86.718 Personal history of other venous thrombosis and embolism
CPT/HCPCS: 36415; 70450; 71045; 80053; 80061; 81001; 82306; 82607; 83036; 83540; 83550; 83735; 84436; 84443; 84480; 85025; 85610; 86592; 93005; 99285-25